=== PATIENT | male | born 1940 | race Caucasian/White ===

== ENCOUNTER 2023-05-12 19:26 | Observation (INO) | payer OTHER, SELFPAY ==
[2023-05-12 13:23] VITALS: BP 179/59
[2023-05-12 13:57] LABS: % Basophils 0.9 % (0-2); % Eosinophils 4.8 % (0-6); % Immature Granulocytes 0.2 % (0-0.5); % Lymphocytes 12.9 % (20.5-51.1); % Monocytes 8.4 % (1.7-9.3); % Neutrophils 72.8 % (42.2-75.2); Absolute Basophils 0.1 10^3/uL (0-0.2); Absolute Eosinophils 0.4 10^3/uL (0-0.7); Absolute Lymphocytes 1.1 10^3/uL (1.2-3.4); Absolute Monocytes 0.7 10^3/uL (0.1-0.6); Absolute Neutrophils 6.4 10^3/uL (1.4-6.5); Hematocrit 34.3 % (39.0-52.0); Hemoglobin 12.2 g/dL (13.0-18.0); Mean Corp Hgb Conc. 35.6 g/dL (33.0-37.0); Mean Corpuscular Hgb 30.8 pg (27.0-31.0); Mean Corpuscular Volume 86.6 fL (80.0-94.0); Mean Platelet Volume 9.3 fL (7.4-10.4); Nucleated Red Blood Cells % 0 % (-); Platelet Count 326 10^3/uL (130-400); Red Blood Cell Count 3.96 10^6/uL (4.70-6.10); Red Cell Dist. Width 13.6 % (11.5-14.5); White Blood Cell Count 8.7 10^3/uL (4.8-10.8)
[2023-05-12 14:37] LABS: ALT (SGPT) 28 U/L (0-50); AST (SGOT) 32 U/L (17-59); Albumin 3.5 g/dl (3.5-5.0); Alkaline Phosphatase 125 U/L (38-126); Blood Urea Nitrogen 34 mg/dl (9-20); Calcium 8.8 mg/dl (8.4-10.2); Carbon Dioxide 23 mmol/L (22-30); Chloride 102 mmol/L (98-107); Glucose 119 mg/dl (70-99); Lipase 133 U/L (23-300); Sodium 132 mmol/L (135-145); Total Bilirubin 0.7 mg/dl (0.2-1.3); Total Protein 6.3 g/dl (6.3-8.2); eGFR 49.87
--- NOTE | 2023-05-12 16:40 | ED.GENMED ---
History of Present Illness
General
Chief Complaint: Blood Pressure Problem
Source: patient
Exam Limitations: none
Time Seen by Provider: 05/12/23 15:58
Nursing documentation reviewed up to this point in time: agreed with
Travel History
Have you had any contact with someone who has COVID-19?: No
Do you have any symptoms of coronavirus? Fever > 100 degrees, chills, cough, shortness of breath, sore throat, loss of taste or smell, muscle aches, or headache?: No
History of Present Illness
History of Present Illness:
The patient is an 82-year-old man who comes in with complaints of not feeling well. He reports he has been on about 3 weeks of antibiotics to treat a skin infection of his left lower leg. He reports the infection is greatly improved, however, he
reports he has been feeling nauseous. In addition, he reports he has had a headache behind both eyes today, which is highly unusual for him. He denies vision changes, weakness and numbness. He denies fever, chest pain or shortness of breath.
Patient reports he was evaluated urgent care and told to go to the ED due to his very elevated blood pressure. Patient reports that he took his blood pressure medication today as instructed. He denies leg pain and leg swelling. He reports his
systolic blood pressure is generally in the 150s. He denies vomiting, specific abdominal pain, diarrhea, and constipation
Past History
Past History
ED Past Medical History: CAD, COPD, HTN, Hypercholesterolemia, Other (Renal insufficiency) and Other (Prostatic hypertrophy)
ED Past Surgical History: Cardiac (Cardiac bypass 2017), Orthopedic (Left knee replacement 2017) and Other (Nasal polyps)
Social History
Tobacco: Former smoker
Alcohol: None
Drug: None
Personal:
Living: with family
Employment: Retired
Family History
Family History: Other (Unremarkable)
Review of Systems
Review of Systems
Allergies reviewed?: Yes
Other source history: family
All Other Systems: ROS reviewed and negative except as documented in HPI and ROS
Constitutional: Reports no symptoms
EENT: Reports no symptoms
Respiratory: Reports no symptoms
Cardiac: Reports no symptoms
ABD/GI: Reports nausea
: Reports no symptoms
Musculoskeletal: Reports no symptoms
Skin: Reports other (Improving skin infection left lower leg)
Neurological: Reports headache
Endocrine: Reports no symptoms
Hematologic/Lymphatic: Reports no symptoms
Psychiatric: Reports no symptoms
Phy Exam
Physical Exam
Physical Exam:
Physical Exam
General: no apparent distress, not acutely ill
Neck: supple. no meningeal signs. normal psoterior pharynx
Heart: s1/s2 regular rate and rhythm,
Lungs: no acute respiratory distress. clear bilaterally
Abdomen: normal bowel sounds. not tender. no CVAT
Neuro: alert and orientedx3. no focal neurological deficits. Cranial nerves equal and symmetric bilaterally. Extraocular muscles intact. Normal [id number]. 5 out of 5 strength in all extremities without drift.
Skin: no rash
Psychiatric: well kept. interactive and cooperative
Extremities: no edema. no calf tenderness. negative homans. good distal pulses. Very mild skin erythema surrounding skin breakdown of anterior left lower leg
Course
Orders/Labs/Results
Orders:
Orders
05/12/23 Breakfast
Cholesterol Lowering
At Your Request: Full Participation
Does patient need a safe tray?: No
Cholesterol Lowering: Sodium, 2 Gram
05/12/23 13:28
Electrocardiogram (*1) Urgent
Reason for Study: Abdominal Pain
EKG- Treatment ONCE
05/12/23 13:45
Complete Blood Count/With Diff Urgent
Comprehensive Metabolic Panel Urgent
Lipase Urgent
05/12/23 16:39
CT Head W/o Iv Contrast Urgent
Comment:
Reason For Exam: headache, high BP
05/12/23 17:31
Troponin I Urgent
05/12/23 18:13
Labetalol HCl [Trandate] 20 mg IV NOW STA
05/12/23 18:48
Admit/Transfer Patient As Directed
Co-Sign Provider:
Level of Care: Observation services
Assign to:: Telemetry
Physician / Group: maxwell gruber
Diagnosis: hypertension urgency
Reason for Telemetry: Other
Other Reason for Telemetry: htn urgency
Date to Stop Telemetry: 05/14/23
Time to Stop Telemetry: 11:00
05/12/23 18:51
Code Status As Directed
Resuscitation Status: Full Code
05/12/23 20:05
Acetaminophen [Tylenol] 650 mg PO Q4HPRN PRN
Allopurinol [Zyloprim] 100 mg PO QPM
Atorvastatin [Lipitor] 40 mg PO QPM
Budesonide/Formoterol 80/4.5 [Symbicort 80/4.5 Mcg Inhaler] 2 puff INH R BID
Finasteride [Proscar] 5 mg PO QPM
Furosemide [Lasix] 40 mg PO BID@0800,1600
HydrALAZINE [Apresoline] 5 mg IV Q6HPRN PRN
05/12/23 20:05
Activity As Directed
Activity Level: As Tolerated
Vital Signs As Directed
Frequency: Per unit guidelines
DX Deep Vein Thrombosis Video Routine
05/12/23 20:30
Heparin 5,000 units SC Q12
05/12/23 22:00
Carvedilol [Coreg] 25 mg PO BID
HydrALAZINE [Apresoline] 100 mg PO TID
Melatonin 10 mg PO HS
Minocycline [Minocin] 100 mg PO BID
05/13/23 07:23
Basic Metabolic Panel IN AM
Complete Blood Count/No Diff IN AM
05/13/23 08:00
ISOSORBIDE MONOnitrate ER [Imdur (Extended Release)] 60 mg PO DAILY
NIFEdipine EXTENDED RELEASE [Procardia Xl (Extended Release)] 90 mg PO DAILY
Pantoprazole [Protonix] 40 mg PO DAILY
Potassium Chloride [KCl] 20 meq PO BID@0800,1200
Psyllium [Metamucil, Konsyl] 1 packet PO BID
Tiotropium [place] 2.5 Mcg [Spiriva Respimat 2.5 Mcg] 2 puff INH R DAILY
05/13/23 18:00
Aspirin Low Dose EC [Aspir Low (Enteric Coated)] 81 mg PO QPM
Polyethylene Glycol Powder [Miralax] 17 grams PO QPM
Tamsulosin [Flomax] 0.8 mg PO QPM
05/14/23 11:00
DC Protocol for Telemetry ONCE
Abnormal Lab Results
05/12/23
13:45
RBC 3.96 L 10^6/uL
(4.70-6.10)
Hgb 12.2 L g/dL
(13.0-18.0)
Hct 34.3 L %
(39.0-52.0)
Absolute Lymphs (auto) 1.1 L 10^3/uL
(1.2-3.4)
Absolute Monos (auto) 0.7 H 10^3/uL
(0.1-0.6)
Lymphocytes % 12.9 L %
(20.5-51.1)
Sodium 132 L mmol/L
(135-145)
BUN 34 H mg/dl
(9-20)
Creatinine 1.4 H mg/dL
(0.7-1.3)
Glucose 119 H mg/dl
(70-99)
05/12/23 13:45
05/12/23 13:45
Vital Signs
Initial and Last Documented VS:
Initial Vital Signs
Temp Pulse Resp BP Pulse Ox
98.0 F 50 20 179/59 96
05/12/23 13:23 05/12/23 13:23 05/12/23 13:23 05/12/23 13:23 05/12/23 13:23
Last Documented Vital Signs
Temp Pulse Resp BP Pulse Ox
97.5 F 56 16 159/67 93
05/13/23 07:00 05/13/23 07:51 05/13/23 07:51 05/13/23 07:00 05/13/23 07:51
MDM/Problems Addressed
Differential Diagnosis Includes:
Hypertensive urgency, hypertensive emergency, dehydration
MDM/Problems Addressed:
Patient presents with acute nausea and headache, as well as acutely elevated blood pressure
Chronic conditions affecting care: HTN
Acute Exacerbation and/or Progression of Chronic Illness:
Patient presents with acutely elevated blood pressure
*Radiology
Radiology exam reviewed: radiology read reviewed
*Pulse Oximetry
Patient hypoxic: no
*EKG
Interpreted by ED Provider?: Yes
Interpretation: abnormal
Comparison EKG: no changes
Rate: bradycardiac
Rhythm: sinus
[place]: normal axis
Interval: normal interval
QRS Pattern: right bundle branch block
Ischemia: non-specific ST changes
*Fruit Dumper Interpretation
Rate: normal
Interpretation: normal
Rhythm: sinus
*Critical Care Note
Total Time (30-74mins, 75-104mins- exclusive of procedures): Not Applicable
Data Reviewed
Review of Other/Old Records Reveals: Discharge Summary (Discharge summary reviewed from 05/2022 when patient was admitted for a likely viral gastroenteritis)
Source: patient and family
ED Attending Note
-
Portions of this chart may have been created with voice recognition software.� Occasional wrong word or��sound alike� substitutions may have occurred due to the inherent limitations of voice recognition software.
Discharge Plan
Departure
Patient Disposition: Admit
Date of Disposition: 05/12/23
Time of Disposition: 18:13
Admit to: Telemetry
Presentation/result/management discussed w/ accepting MD/DO: Hospitalist
Patient with high blood pressure during this ER visit?: Yes
Condition: Good
Covid-19: Not Applicable
Discharge Problem:
UNCONTROLLED BLOOD PRESSURE
Interventions
Interventions:
*Risk Screen - Suicide Last Done: 05/12/23 21:05
*General Assessment Last Done: 05/12/23 21:05
*Neglect/Abuse Screening Last Done: 05/12/23 17:28
ED- Fall Risk Assessment Last Done: 05/12/23 21:06
*ED COVID-19 Vaccine History Last Done: 05/12/23 21:05
*Nursing Disposition Last Done: 05/12/23 21:06
ED- Cardiac Assessment Last Done: 05/12/23 17:29
ED- Neurological Assessment Last Done: 05/12/23 17:29
ED- Pulmonary Assessment Last Done: 05/12/23 17:29
Discharge Date and Time
Discharge Date/Time: 05/12/23 21:06
[2023-05-12 17:18] VITALS: BP 190/53
[2023-05-12 17:28] VITALS: BMI 29.7
[2023-05-12 18:21] LABS: Troponin I 0.012 ng/ml
--- NOTE | 2023-05-12 18:21 | HPS.HSE ---
Family Physician
-
Family Physician: Stephen Suazo
Chief Complaint
-
head ache
History of Present Illness
82-year-old man with PMH for htn,CAD,HTN, HLD.CKD presented to us with frontal headache associated with chest pressure since yesterday afternoon. denied n/v/d. denied dizzy, syncopal episode. denied sob. denied abdominal pain, n,v, d. denied dysuria
or hematuria. He reports he has been on about 3 weeks of antibiotics to treat a skin infection of his left lower leg.� He denies vision changes, weakness and numbness. Patient reports he was evaluated urgent care and told to go to the ED due to his
very elevated blood pressure.� Patient reports that he took his blood pressure medication today as instructed.� He reports his systolic blood pressure is generally in the 150s.�
patient was noted in hypertension urgency. received a dose of labetalol. admitting for further management.
Medical History
Past Medical History
Past Medical History: Reports Other
Additional Past Medical History:
CAD
COPD
HTn
HLD
BPH
Past Surgical History: Reports Other
Additional Past Surgical History:
Coronary artery bypass graft, left knee replacement, nasal surgery
Social History
Tobacco: Non-smoker
Alcohol: None
Drug: None
Personal:
Living: With Family
Family History
Family History: Not pertinent
Allergies / Home Medications
Allergies reflects when Allergies were last updated in [facility].
Home Medications with original date entered in [facility]
Allergy/Medication List:
Allergies
Allergy/AdvReac Type Severity Reaction Status Date / Time
sulfamethoxazole Allergy Unknown Unknown Verified 07/14/22 13:15
[From Bactrim]
trimethoprim [From Bactrim] Allergy Unknown Unknown Verified 05/12/23 13:23
Home Medications
atorvastatin 40 mg tablet 40 mg PO QPM High cholesterol 11/09/21
budesonide-formoterol HFA 80 mcg-4.5 mcg/actuation aerosol inhaler (Symbicort) 2 puff inhalation R BID Lung/breathing issues 11/09/21
carvedilol 25 mg tablet 12.5 mg PO BID Heart disease/condition 11/09/21
cholecalciferol (vitamin D3) 25 mcg (1,000 unit) capsule (Vitamin D3) 25 mcg PO QPM Supplement 11/09/21
finasteride 5 mg tablet 5 mg PO QPM Urinary issue 11/09/21
hydralazine 100 mg tablet 100 mg PO TID Blood pressure 11/09/21
isosorbide mononitrate 60 mg tablet,extended release 24 hr 60 mg PO DAILY Blood pressure 11/09/21
melatonin 10 mg tablet 10 mg PO HS Sleep 11/09/21
nifedipine 90 mg tablet,extended release 90 mg PO DAILY Heart disease/condition 11/09/21
omeprazole 40 mg capsule,delayed release 40 mg PO DAILY Gastrointestinal issue 11/09/21
polyethylene glycol 3350 17 gram/dose oral powder (Miralax) 17 g PO QPM Constipation 11/09/21
tamsulosin 0.4 mg capsule 0.8 mg PO QPM Urinary issue 11/09/21
tiotropium bromide 18 mcg capsule with inhalation device 18 mcg inhalation R BID Lung/breathing issues 11/09/21
allopurinol 100 mg tablet 100 mg PO QPM Gout 06/05/22
aspirin 81 mg tablet,delayed release 81 mg PO QPM Blood clot prevention/tx 06/05/22
furosemide 40 mg tablet 40 mg PO BID@0800,1600 Fluid retention/Swelling 06/05/22
potassium chloride 20 mEq tablet,extended release(part/cryst) 20 meq PO BID@0800,1200 Electrolyte Repletion 06/05/22
psyllium husk 0.52 gram capsule (Fiber (psyllium husk)) 0.52 g PO BID Constipation 06/05/22
therapeutic multivitamin 1 tab PO QPM Supplement 06/05/22
vitamin B complex 1 tab PO DAILY Supplement 06/05/22
minocycline 100 mg capsule 100 mg PO TID 05/12/23
omega-3 fatty acids-fish oil 684 mg-1,200 mg capsule,delayed release 1 cap PO QPM 05/12/23
Review of Systems
-
Constitutional: Reports No Symptoms
EENT: Reports No Symptoms
Respiratory: Reports No Symptoms
Cardiac: Reports No Symptoms
Abdomen/GI: Reports No Symptoms
: Reports No Symptoms
Musculoskeletal: Reports No Symptoms
Skin: Reports No Symptoms
Neurological: Reports Headache
Endocrine: Reports No Symptoms
Hematologic/Lymphatic: Reports No Symptoms
Psych: Reports No Symptoms
Physical Exam
Vital Signs
Vital Signs
Temp Pulse Resp BP Pulse Ox
98.0 F 50 20 179/59 96
05/12/23 13:23 05/12/23 13:23 05/12/23 13:23 05/12/23 13:23 05/12/23 13:23
Physical Exam
General: Well Developed, Well Nourished and No Apparent Distress
HEENT: NormoCephalic, Moist mucous membranes and Atraumatic
Respiratory: Clear
Cardiac: Murmur; No Rub
GI: Soft, Non Tender, Non Distended and Normal Bowel Sounds; No Organomegaly
Rectal: Deferred by Provider
Musculoskeletal: No Clubbing, No Cyanosis and No Edema
Skin: Rash and Other (Left garcia wound)
Neuro: AO x 3 and Nonfocal/grossly intact
Psych: Calm
Laboratory Results
-
05/12/23 13:45
05/12/23 13:45
Laboratory Results
Total Bilirubin 0.7 mg/dl (0.2-1.3) 05/12/23 13:45
AST 32 U/L (17-59) 05/12/23 13:45
ALT 28 U/L (0-50) 05/12/23 13:45
Alkaline Phosphatase 125 U/L (38-126) 05/12/23 13:45
Lipase 133 U/L (23-300) 05/12/23 13:45
Data Reviewed
-
CT Scan: Report Reviewed by me
Lab Data: Labs Reviewed by me
Impression/Plan
-
#hypertension urgency
-BP elevated in ER
-trop negative
-head CT with There are no focal or acute cranial abnormalities.There is mild diffuse cortical atrophy
-EKG with SINUS BRADYCARDIA WITH 1ST DEGREE A-V BLOCK RIGHT BUNDLE BRANCH BLOCK INFERIOR INFARCT
-IV hydralazine 5 mg every 6 hours as needed for systolic BP greater than 160 and diastolic BP greater than 100
-Nifedipine continued hydralazine continued
-Lasix continued
- coreg continued with parameters
-
#hyponatremia/ckd stage 3b
-na 132, cr 1.4
-Continue to monitor
#History of coronary artery disease, right bundle branch block, moderate tricuspid regurgitation
-Aspirin continued
# Left lower extremity wound
-Minocycline continued
#Gastroesophageal reflux disease
-Prilosec continued
#History of hyperlipidemia
-Statin continued
##History of chronic kidney disease stage IIIb
#Benign prostatic hyperplasia/history of urinary retention in the past
-Finasteride, Flomax continued
# History of COPD
-Not in acute exacerbation
-Nebulizers from home continued
#History of gout
-Allopurinol continued
# DVT prophylaxis
-Heparin subcu
# CODE STATUS
-Full code
[2023-05-12 18:28] VITALS: BP 213/62
[2023-05-12] MEDS: TRANDATE 20 MG IV (18:35)
[2023-05-12 18:38] VITALS: BP 191/59
--- NOTE | 2023-05-12 18:41 | W.PN.UPDATE ---
Update Note
Progress Note Update
Seen and examined by me independently in collaboration with the nurse practitioner Julien.
Past medical history/social history/medication/allergies reviewed.
Lab data and imaging data reviewed.
Patient's presents with nonspecific bifrontal headache for day and a half. He had associated generalized feeling of unwell. Some nonspecific upper abdomen discomfort queasiness. No chest pain.
He has been treated for a left leg cellulitis with antibiotics which is improved. Clinically current has no acute cellulitis in the left leg. He has a small open wound. No discharge. Afebrile. White count normal.
He went to urgent care center who referred him to the ER because of significant elevation in blood pressure. His blood pressure current systolic is 213. Getting IV labetalol.
No changes made to his medication regimen recently. He does not check blood pressure at home. He always checks it in the doctor's office in the last 1 in the cardiology office was 150s systolic.
He has no chest pain, shortness of breath. His creatinine is 1.4 around his baseline. His exam otherwise is benign. EKG noted with sinus rhythm with right bundle branch block which is old. CT head shows no evidence of acute intracranial
abnormality. No clinical evidence of congestive heart failure.
Situation is 1 of hypertensive urgency. Follow the response of labetalol. Follow on telemetry. For now we will consider hydralazine IV 5 mg every 6 hours as needed and be cautious with negative chronic trophic medications due to his bundle branch
block.
He is already on Coreg, Imdur, hydralazine, nifedipine along with Lasix.
He had left heart cath in 2021 recommendation. Was for medical treatment. He had a prior history of CABG. Echo in 2020 showed EF of 60 to 65%.
Will resume his home medication for tonight. Again follow the response of labetalol. Use as needed hydralazine IV for now.
If blood pressure remains uncontrolled the next choices would be clonidine, minoxidil. Will coordinate with cardiology.
[2023-05-12 19:01] VITALS: BP 181/52
[2023-05-12] MEDS: LIPITOR 40 MG PO (20:30)
[2023-05-12] MEDS: PROSCAR 5 MG PO (20:30)
[2023-05-12] MEDS: LASIX 40 MG PO (20:30)
[2023-05-12] MEDS: ZYLOPRIM 100 MG PO (20:30)
[2023-05-12] MEDS: HEPARIN 5000 UNITS SC (20:30)
[2023-05-12] MEDS: SYMBICORT 80/4.5 MCG INHALER 2 PUFF INH (20:41)
--- NOTE | 2023-05-12 20:50 | TRANSFER ---
Pt received from ED to room 419-2. Pt was able to walk from stretcher to bed with no assistance. AAOX3. Pt VSS. Oriented to the room and call morse placed within reach.
[2023-05-12] MEDS: COREG 25 MG PO (21:02)
[2023-05-12] MEDS: APRESOLINE 100 MG PO (21:02)
[2023-05-12] MEDS: MELATONIN 10 MG PO (21:03)
[2023-05-12 21:25] VITALS: BP 185/63; BMI 28.5
[2023-05-12] MEDS: MINOCIN 100 MG PO (22:49)
[2023-05-13] VITALS (8 sets, daily range): BP systolic 145–168; BP diastolic 5–71
[2023-05-13] MEDS: SPIRIVA RESPIMAT 2.5 MCG 2 PUFF INH (07:48)
[2023-05-13] MEDS: SYMBICORT 80/4.5 MCG INHALER 2 PUFF INH ×2 (07:48→20:40)
[2023-05-13 08:00] LABS: Blood Urea Nitrogen 31 mg/dl (9-20); Calcium 8.8 mg/dl (8.4-10.2); Carbon Dioxide 27 mmol/L (22-30); Chloride 98 mmol/L (98-107); Estimated Creatinine Clearance 40 ml/min; Glucose 93 mg/dl (70-99); Potassium 3.3 mmol/L (3.5-5.1); Sodium 134 mmol/L (135-145); eGFR 49.87
[2023-05-13 08:31] LABS: Hematocrit 33.8 % (39.0-52.0); Hemoglobin 11.8 g/dL (13.0-18.0); Mean Corp Hgb Conc. 34.9 g/dL (33.0-37.0); Mean Corpuscular Hgb 30.4 pg (27.0-31.0); Mean Corpuscular Volume 87.1 fL (80.0-94.0); Mean Platelet Volume 9.9 fL (7.4-10.4); Platelet Count 307 10^3/uL (130-400); Red Blood Cell Count 3.88 10^6/uL (4.70-6.10); Red Cell Dist. Width 13.6 % (11.5-14.5); White Blood Cell Count 7.3 10^3/uL (4.8-10.8)
[2023-05-13] MEDS: PROTONIX 40 MG PO (08:52)
[2023-05-13] MEDS: IMDUR (EXTENDED RELEASE) 60 MG PO (08:52)
[2023-05-13] MEDS: PROCARDIA XL (EXTENDED RELEASE) 90 MG PO (08:52)
[2023-05-13] MEDS: MINOCIN 100 MG PO ×2 (08:52→20:30)
[2023-05-13] MEDS: COREG 25 MG PO ×2 (08:52→20:30)
[2023-05-13] MEDS: KCL 20 MEQ PO ×3 (08:52→14:56)
[2023-05-13] MEDS: APRESOLINE 100 MG PO ×3 (08:52→21:23)
[2023-05-13] MEDS: LASIX 40 MG PO (08:52)
[2023-05-13] MEDS: METAMUCIL, KONSYL 1 PACKET PO ×2 (08:53→20:30)
[2023-05-13] MEDS: HEPARIN 5000 UNITS SC ×2 (08:53→20:30)
--- NOTE | 2023-05-13 11:04 | PTCARENOTE ---
Notified provider of patient's bradycardia, HR sustaining in high 40's, EKG performed see chart. Awaiting further orders per MD discretion
--- NOTE | 2023-05-13 13:42 | CM ---
Addendum entered by Aarti Chanel 05/13/23 13:57:
CM spoke with Veronica nurse from [facility]. Confirmed patient is independent with ADLs/IADLs, self administers medications, resides with and dog. CM will update facility upon patients discharge.
[facility]:
Report: [phone]

Addendum entered by Aarti Chanel 05/13/23 13:48:
Patient has BPAP, not CPAP.
Original Note:
Patient seen, initial assessment completed. Patient reports he resides with his at [facility] in [place]. Patient reports he does not need the assisted living but rather his does. Patient denies DME other than [facility]AP
[facility], denies VN and SNF. Patient confirms PCP Dr. Suazo, pharmacy has been switched to [facility] in [place] on [facility] status explained, form signed, placed in patients chart. CM placed call to [facility] and spoke with
Flor, nursing station not answering, took CM name and number and will call CM back to obtained patients PLOF. CM will continue to follow for discharge planning needs.
Plan; return to [facility] when stable.
--- NOTE | 2023-05-13 14:11 | W.PN.HOSP.TC ---
Today's Communication/Plan
-
Consult cardiology
Assessment / Plan
Assessment / Plan
#hypertension urgency
-trop negative
-head CT with There are no focal or acute cranial abnormalities.There is mild diffuse cortical atrophy
-EKG with SINUS BRADYCARDIA WITH 1ST DEGREE A-V BLOCK RIGHT BUNDLE BRANCH BLOCK INFERIOR INFARCT
-Patient on Coreg, nifedipine, Imdur, hydralazine and diuretic Lasix
-Patient's blood pressure improved but still not under goal.
-Consult cardiology
# sinus bradycardia without symptoms;no syncope
No pauses
Pt on coreg and nifedipine
Follow on tele for now
-
#hyponatremia/ckd stage 3b
-na 134 improved, cr 1.4
-Continue to monitor
#History of coronary artery disease, right bundle branch block, moderate tricuspid regurgitation
-Aspirin continued
# Left lower extremity wound
-Minocycline continued
#Gastroesophageal reflux disease
-Prilosec continued
#History of hyperlipidemia
-Statin continued
##History of chronic kidney disease stage IIIb
#Benign prostatic hyperplasia/history of urinary retention in the past
-Finasteride, Flomax continued
# History of COPD
-Not in acute exacerbation
-Nebulizers from home continued
#History of gout
-Allopurinol continued
# DVT prophylaxis
-Heparin subcu
# CODE STATUS
-Full code
Anticipated Discharge: Within 24 hours
Subjective/Interval History
-
Date of Service: May 13, 2023
Headache symptoms resolved; upper abdominal discomfort resolved. Voices no specific complaints.
Objective Data
-
Labs:
Laboratory Results
05/13/23
07:23
WBC 7.3
Hgb 11.8 L
Hct 33.8 L
Plt Count 307
Sodium 134 L
Potassium 3.3 L
Chloride 98
Carbon Dioxide 27
BUN 31 H
Creatinine 1.4 H
Glucose 93
Calcium 8.8
Vital Signs:
Vital Signs
Temp Pulse Resp BP Pulse Ox
97.5 F 52 18 165/53 95
05/13/23 11:00 05/13/23 11:00 05/13/23 11:00 05/13/23 11:00 05/13/23 11:00
I&O
05/12/23 05/13/23 05/14/23
06:59 06:59 06:59
Intake Total 480 / 480
Balance 480 / 480
Review of Systems
-
Constitutional: Denies Fever or Fatigue
EENT: Denies Sore Throat
Respiratory: Denies Cough or Trouble Breathing
Cardiac: Denies Chest Pain
Abdomen/GI: Denies Abdominal Pain, Nausea or Vomiting
Neuro: Denies Dizzy
Physical Exam
-
General: No Apparent Distress
HEENT: Moist Mucous Membranes
Respiratory: Clear to Auscultation
Cardiac: Regular Rhythm and S1/S2
GI: Soft
Neuro: AO x 3
Data Reviewed
-
Labs: Labs Reviewed by me
[2023-05-13] MEDS: ALDACTONE 25 MG PO (14:56)
[2023-05-13] MEDS: LASIX 20 MG PO (16:31)
[2023-05-13] MEDS: ASPIR LOW (ENTERIC COATED) 81 MG PO (17:36)
[2023-05-13] MEDS: MIRALAX 17 GRAMS PO (17:36)
[2023-05-13] MEDS: FLOMAX 0.800000000000000044 MG PO (17:36)
[2023-05-13] MEDS: PROSCAR 5 MG PO (17:36)
[2023-05-13] MEDS: LIPITOR 40 MG PO (17:36)
[2023-05-13] MEDS: ZYLOPRIM 100 MG PO (17:36)
[2023-05-13] MEDS: MELATONIN 10 MG PO (21:23)
[2023-05-14 03:15] VITALS: BP 147/88
[2023-05-14 07:00] VITALS: BP 175/63
[2023-05-14] MEDS: SYMBICORT 80/4.5 MCG INHALER 2 PUFF INH (07:56)
[2023-05-14] MEDS: SPIRIVA RESPIMAT 2.5 MCG 2 PUFF INH (07:56)
[2023-05-14] MEDS: COREG 25 MG PO (07:59)
[2023-05-14] MEDS: PROTONIX 40 MG PO (08:01)
[2023-05-14] MEDS: MINOCIN 100 MG PO (08:01)
[2023-05-14] MEDS: PROCARDIA XL (EXTENDED RELEASE) 90 MG PO (08:01)
[2023-05-14] MEDS: APRESOLINE 100 MG PO (08:02)
[2023-05-14] MEDS: LASIX 20 MG PO (08:03)
[2023-05-14] MEDS: KCL 20 MEQ PO ×2 (08:04→12:06)
[2023-05-14] MEDS: IMDUR (EXTENDED RELEASE) 60 MG PO (08:04)
[2023-05-14] MEDS: METAMUCIL, KONSYL 1 PACKET PO (08:04)
[2023-05-14] MEDS: HEPARIN 5000 UNITS SC (08:05)
[2023-05-14] MEDS: ALDACTONE 25 MG PO (08:23)
[2023-05-14 08:24] LABS: Blood Urea Nitrogen 30 mg/dl (9-20); Carbon Dioxide 23 mmol/L (22-30); Chloride 98 mmol/L (98-107); Estimated Creatinine Clearance 40 ml/min; Glucose 117 mg/dl (70-99); Magnesium 1.8 mg/dl (1.6-2.3); Potassium 3.6 mmol/L (3.5-5.1); Sodium 130 mmol/L (135-145); eGFR 49.87
--- NOTE | 2023-05-14 08:47 | CON.CAR ---
Addendum entered and electronically signed by AUGUSTIN Savage 05/14/23 13:23:
Carvedilol was increased to 25 mg twice daily. Heart rate stable.
Continue furosemide at current dosing in addition to Aldactone.
Original Note:
Documented by User: AUGUSTIN Savage 05/14/23 09:32
Consultation
Consultation Request
Date/Time Consultation Requested: 05/13/23 14:00
Date/Time Consultation Performed: 05/14/23 08:50
Requesting Provider: Dr. Rosenberg
Performing Provider: AUGUTSIN Berg for Dr. Toledo
Reason for Consultation: Hypertensive urgency
Medical History
-
Chief Complaint: Headache, elevated blood pressure
History of Present Illness:
Patient is an 82-year-old male (known to Dr. Dong, his primary radio operator), with CAD s/p MEDEIROS�LAD CABG 2017, hypertension, dyslipidemia, CKD3b, ARMAAN on CPAP, RBBB, COPD, pulmonary hypertension, PAD, and anemia of chronic disease who presented
to urgent care with left leg infection. He had been having elevated BP. Blood pressure 181/106 in urgent care. He was referred to the emergency department. He was diagnosed with hypertensive urgency. He has multidrug hypertension with chronic
kidney disease. Cardiology has been consulted for hypertensive management.
Past Medical History
Past Medical History: CAD, COPD, HTN, Hypercholesterolemia and Renal Failure (CKD3b)
Past Surgical History: Cardiac
Social History
Tobacco: Non-Smoker
Alcohol: None
Drug: None
Personal:
Living: Assisted Living (with his [[facility]
Family History
Family History: Reviewed & Not Pertinent
Allergies / Home Medications
Allergy/AdvReac Type Severity Reaction Status Date / Time
sulfamethoxazole Allergy Unknown Unknown Verified 07/14/22 13:15
[From Bactrim]
trimethoprim [From Bactrim] Allergy Unknown Unknown Verified 05/12/23 13:23
Medication Instructions Recorded Confirmed Type
atorvastatin 40 mg tablet 40 mg PO QPM High cholesterol 11/09/21 05/12/23 History
budesonide-formoterol HFA 80 2 puff inhalation R BID 11/09/21 05/12/23 History
mcg-4.5 mcg/actuation aerosol Lung/breathing issues
inhaler (Symbicort)
carvedilol 25 mg tablet 12.5 mg PO BID Heart 11/09/21 05/12/23 History
disease/condition
cholecalciferol (vitamin D3) 25 25 mcg PO QPM Supplement 11/09/21 05/12/23 History
mcg (1,000 unit) capsule (Vitamin
D3)
finasteride 5 mg tablet 5 mg PO QPM Urinary issue 11/09/21 05/12/23 History
hydralazine 100 mg tablet 100 mg PO TID Blood pressure 11/09/21 05/12/23 History
isosorbide mononitrate 60 mg 60 mg PO DAILY Blood pressure 11/09/21 05/12/23 History
tablet,extended release 24 hr
melatonin 10 mg tablet 10 mg PO HS Sleep 11/09/21 05/12/23 History
nifedipine 90 mg tablet,extended 90 mg PO DAILY Heart 11/09/21 05/12/23 History
release disease/condition
omeprazole 40 mg capsule,delayed 40 mg PO DAILY Gastrointestinal 11/09/21 05/12/23 History
release issue
polyethylene glycol 3350 17 17 g PO QPM Constipation 11/09/21 05/12/23 History
gram/dose oral powder (Miralax)
tamsulosin 0.4 mg capsule 0.8 mg PO QPM Urinary issue 11/09/21 05/12/23 History
tiotropium bromide 18 mcg capsule 18 mcg inhalation R BID 11/09/21 05/12/23 History
with inhalation device Lung/breathing issues
allopurinol 100 mg tablet 100 mg PO QPM Gout 06/05/22 05/12/23 History
aspirin 81 mg tablet,delayed 81 mg PO QPM Blood clot 06/05/22 05/12/23 History
release prevention/tx
furosemide 40 mg tablet 40 mg PO BID@0800,1600 Fluid 06/05/22 05/12/23 History
retention/Swelling
potassium chloride 20 mEq 20 meq PO BID@0800,1200 /05/12/23 History
tablet,extended release(part/cryst) Electrolyte Repletion
psyllium husk 0.52 gram capsule 0.52 g PO BID Constipation 06/05/22 05/12/23 History
(Fiber (psyllium husk))
therapeutic multivitamin 1 tab PO QPM Supplement 06/05/22 05/12/23 History
vitamin B complex 1 tab PO DAILY Supplement 06/05/22 05/12/23 History
minocycline 100 mg capsule 100 mg PO TID Infection 05/12/23 05/12/23 History
omega-3 fatty acids-fish oil 684 1 cap PO QPM Supplement 05/12/23 05/12/23 History
mg-1,200 mg capsule,delayed release
Review of Systems
-
History Source: Patient
All other systems: Negative unless noted
Respiratory: No Symptoms
Cardiac: No Symptoms
Abdomen/GI: No Symptoms
Physical Exam
Vital Signs
Temp Pulse Resp BP Pulse Ox
97.6 F 60 16 175/63 95
05/14/23 07:00 05/14/23 08:02 05/14/23 08:02 05/14/23 07:00 05/14/23 08:02
Lab Results
05/13/23 07:23
05/14/23 07:32
Troponin I 0.012 ng/ml 05/12/23 17:31
Physical Exam
General: Well Developed, Well Nourished, No Apparent Distress and Comfortable
HEENT: Normocephalic, Anicteric and Moist Mucous Membranes
Respiratory: Clear and Non Labored Respirations
Cardiac: S1/S2 and Regular Rhythm; Negative Peripheral Edema
Breast: Deferred by me
GI: Soft, Non Tender, Non Distended and Normal Bowel Sounds
Rectal: Deferred by Provider
Genito-urinary: No Costovertebral Tender
Musculoskeletal: No Clubbing, No Cyanosis and No Edema
Skin: Warm and Dry
Neuro: AO x 3
Hematologic/Lymphatic: No Lymphadenopathy
Psych: Calm
Impression / Plan
-
Hypertensive urgency with multidrug resistant HTN
-On admission carvedilol 12.5 BID, nifedipine 90 mg, isosorbide mononitrate 60 mg, and hydralazine 100 mg TID
-Cannot advance beta-chris due to bradycardia
-Started on Aldactone 25mg daily
CAD
-Chest pain free, continue ASA
-CABG MEDEIROS�LAD ([place], 2017)
-[facility] 2021: MEDEIROS�LAD patent, 80% mid shaft lesion LM, otherwise luminal irregularities
CKD, stage 3b, stable
Anemia of chronic disease, denies acute bleeding
Dyslipidemia, on atorvastatin
RBBB
PAD
COPD with pulmonary hypertension, continue furosemide
Prediabetes, HgbA1c 5.8%
ARMAAN on CPAP
Gout, on allopurinol
BPH, on finasteride and tamsulosin
Data Reviewed
-
EKG: Report Reviewed by me (Sinus bradycardia, RBBB, old inferior infarct, rate 50)
Medical Tests (Nuc Med, Echo etc): Report Reviewed by me (Cardiac catheterization and echocardiogram as above)
Labs: Labs Reviewed by me
Old Records: Reviewed (Outpatient cardiology notes)

Documented by User: Tamir Toledo MD 05/14/23 10:17
Impression / Plan
-
Hypertensive urgency with multidrug resistant HTN
-On admission carvedilol 12.5 BID, nifedipine 90 mg, isosorbide mononitrate 60 mg, Tamsulosin0.8, and hydralazine 100 mg TID
-Cannot advance beta-chris due to bradycardia
-Started on Aldactone 25mg daily
CAD
-Chest pain free, continue ASA
-CABG MEDEIROS�LAD ([place], 2017)
-[facility] 2021: MEDERIOS�LAD patent, 80% mid shaft lesion LM, otherwise luminal irregularities
CKD, stage 3b, stable
Anemia of chronic disease, denies acute bleeding
Dyslipidemia, on atorvastatin
RBBB
PAD
COPD with pulmonary hypertension, continue furosemide
Prediabetes, HgbA1c 5.8%
ARMAAN on CPAP
Gout, on allopurinol
BPH, on finasteride and tamsulosin
-
I saw and examined the patient.
The [place] GUIDE's note was reviewed and I agree with the note.
Comment: will add aldactone, and followup closely w Dr Dong to review workup for secondary HTN and follow lytes/renal closely
I reviewed with patient (and daughter on speakerphone)
[2023-05-14 11:00] VITALS: BP 176/56
--- NOTE | 2023-05-14 12:53 | W.PN.HOSP.TC ---
Today's Communication/Plan
-
d/c
Assessment / Plan
Assessment / Plan
pt is an 82 year old male
hypertension urgency--trop negative--head CT without focal or acute cranial abnormalities--There is mild diffuse cortical atrophy--Patient on Coreg, nifedipine, Imdur, hydralazine and diuretic Lasix--apprec cards--aldactone added
sinus bradycardia without symptoms;no syncope--Pt on coreg and nifedipine
hyponatremia/ckd stage 3b-- cr 1.4-Continue to monitor
History of coronary artery disease, right bundle branch block, moderate tricuspid regurgitation--Aspirin continued
Left lower extremity wound--Minocycline continued
Gastroesophageal reflux disease--Prilosec continued
History of hyperlipidemia--Statin continued
History of chronic kidney disease stage IIIb
Benign prostatic hyperplasia/history of urinary retention in the past--Finasteride, Flomax continued
History of COPD--Not in acute exacerbation--Nebulizers from home continued
History of gout--Allopurinol continued
DVT prophylaxis-Heparin subcu
CODE STATUS-Full code
Anticipated Discharge: Today
Subjective/Interval History
-
Date of Service: May 14, 2023
pt tells me that he is going home and has been cleared by d/c from cards
Objective Data
-
Labs:
Laboratory Results
05/14/23
07:32
Sodium 130 L
Potassium 3.6
Chloride 98
Carbon Dioxide 23
BUN 30 H
Creatinine 1.4 H
Glucose 117 H
Calcium 9.0
Vital Signs:
max temp for 24 hours
05/14/23
03:15
Temp 98.3 F
Vital Signs
Temp Pulse Resp BP Pulse Ox
97.9 F 57 18 176/56 95
05/14/23 11:00 05/14/23 11:00 05/14/23 11:00 05/14/23 11:00 05/14/23 11:00
I&O
05/13/23 05/14/23 05/15/23
06:59 06:59 06:59
Intake Total 480 / 480 720 / 720
Output Total 500 / 500
Balance 480 / 480 220 / 220
Review of Systems
-
All other systems: Reviewed and negative
Physical Exam
-
General: Well Developed, Well Nourished and No Apparent Distress
HEENT: Normocephalic and Atraumatic
Respiratory: Clear to Auscultation; Negative Wheezes or Rhonchi
Cardiac: Regular Rhythm and S1/S2; Negative Murmur
GI: Soft, Nontender, Nondistended and Normal Bowel Sounds
Musculoskeletal: No Clubbing, No Cyanosis and No Edema
Neuro: Awake
Psych: Calm
--- NOTE | 2023-05-14 12:57 | CM ---
SIM spoke with Flor, she requested that the nurse call to give report to the nurse from . Patient has a ride home at 2:30 pm. CM to follow for discharge planning needs.
[place]:
Report: [phone]
--- NOTE | 2023-05-14 17:34 | W.DCSUMMARY ---
Discharge Summary
Discharge Data
Date of Admission: 05/12/23
Date of Discharge: 05/14/23
-
Pending Results: No
Hospital Course
Primary care physician : Stephen Suazo
Principal Discharge diagnosis : Hypertensive urgency, sinus bradycardia
Chronic Discharge diagnosis : Chronic hyponatremia with chronic kidney disease stage IIIb, history of coronary artery disease, left lower extremity wound, gastroesophageal reflux disease, hyperlipidemia, benign prostatic hyperplasia, history of
chronic obstructive pulmonary disease, history of gout
Hospital Course : Patient was an 82-year-old male who presented with a frontal headache associated with chest pressure since the day prior to admission. He denied nausea, vomiting, diarrhea. He also denied any dizziness or syncopal episodes. He
had been on antibiotics for approximately 3 weeks to treat a skin infection of his lower leg. He was evaluated at an urgent care and told to go to the emergency department due to very elevated blood pressure. Patient was admitted.
Problem #1: Hypertensive urgency. Patient's headache and chest pain were likely due to to his high blood pressure. CAT scan of his head was without any focal or acute intracranial abnormalities. Patient's Coreg was doubled from 12.5 mg twice
daily to 25 mg twice daily, nifedipine, Imdur, hydralazine were all continued. Lasix was decreased from 40 mg to twice daily to 20 mg twice daily and Aldactone was started. He has been cleared for discharge by cardiology with an appointment this
coming Sunday as follow-up. He should get a BMP prior to that appointment. Cardiology has given him prescription.
Problem #2: Sinus bradycardia. Patient was on Procardia, Coreg. Cardiology aware. Cannot push any other medications due to bradycardia. He is asymptomatic.
Problem #3: All other medical issues. These include Chronic hyponatremia with chronic kidney disease stage IIIb, history of coronary artery disease, left lower extremity wound, gastroesophageal reflux disease, hyperlipidemia, benign prostatic
hyperplasia, history of chronic obstructive pulmonary disease, history of gout. These medical issues were stable during his hospitalization. Medications were continued as able. Sodium was 130 at discharge. He should have a BMP prior to this
Sunday's appointment.
Patient is stable for discharge home at this time. If there are any questions regarding this dictation or his hospital stay, please not hesitate to call. Our office number is [phone].
Discharge Plan
-
Patient Disposition: Home (Routine Discharge)
Discharge Diagnosis/Procedures: Hypertensive urgency, sinus bradycardia, hyponatremia with chronic kidney disease stage IIIb, history of coronary artery disease, left lower extremity wound, gastroesophageal reflux disease, hyperlipidemia, benign
prostatic hyperplasia, history of chronic obstructive pulmonary disease, gout
Condition: Good
Diet: Low Fat, Low Sodium and Restrict fluids to 48 oz
Activity: As tolerated
Driving Restrictions: As prior to admission
Bathing Restrictions: None
Blood Work: BMP at [facility] one day prior to cardiology appointment. A script is attached.
Specialty Instructions: Weigh Daily- Call MD for wt gain/loss 3 lbs overnight/5 lbs in 1 week
Referrals:
Fermin Dong MD [Active] - 05/18/23 11:00 am
Stephen Suazo DO [Family Provider] - in less than 1 week
Prescriptions:
New
spironolactone 25 mg Tablet
25 mg PO DAILY Qty: 30 0RF
carvedilol 12.5 mg Tablet
25 mg PO BID Qty: 60 0RF
furosemide 20 mg Tablet
20 mg PO BID@0800,1600 Qty: 60 0RF
Continued
atorvastatin 40 mg Tablet
40 mg PO QPM
nifedipine 90 mg Tablet Extended Release
90 mg PO DAILY
omeprazole 40 mg Capsule,Delayed Release(Dr/Ec)
40 mg PO DAILY
isosorbide mononitrate 60 mg Tablet Extended Release 24 Hr
60 mg PO DAILY
tamsulosin 0.4 mg Capsule
0.8 mg PO QPM
hydralazine 100 mg Tablet
100 mg PO TID
polyethylene glycol 3350 [Miralax] 17 gram/dose Powder
17 g PO QPM
finasteride 5 mg Tablet
5 mg PO QPM
cholecalciferol (vitamin D3) [Vitamin D3] 25 mcg (1,000 unit) Capsule
25 mcg PO QPM
tiotropium bromide 18 mcg Capsule, W/Inhalation Device
18 mcg INHALATION R BID
budesonide-formoterol [Symbicort] 80-4.5 mcg/actuation Hfa Aerosol Inhaler
2 puff INHALATION R BID
melatonin 10 mg Tablet
10 mg PO HS
therapeutic multivitamin Tablet
1 tab PO QPM
allopurinol 100 mg tablet
100 mg PO QPM
aspirin 81 mg Tablet,Delayed Release (Dr/Ec)
81 mg PO QPM
potassium chloride 20 mEq tablet,ER particles/crystals
20 meq PO BID@0800,1200
vitamin B complex Tablet
1 tab PO DAILY
psyllium husk [Fiber (psyllium husk)] 0.52 gram Capsule
0.52 g PO BID
minocycline 100 mg Capsule
100 mg PO TID
Patient Comments:
patient pick up attendant on 05/10/23
omega-3 fatty acids-fish oil 684-1,200 mg Capsule,Delayed Release(Dr/Ec)
1 cap PO QPM
Discontinued
carvedilol 25 mg Tablet
12.5 mg PO BID
furosemide 40 mg Tablet
40 mg PO BID@0800,1600
Discharge Orders:
Discharge Patient (As Directed); Ordered 05/14/23
Ordered By: Mayra Viera
Discharge Date and Time
Discharge Date/Time: 05/14/23 14:41
== END 2023-05-14 14:41 | disposition home or self-care (01) ==
LOC: 4 WEST ACU 19:26
PROVIDERS: Registered Nurse; ADMITTING PHYSICIAN Internal Medicine; ATTENDING PHYSICIAN Internal Medicine; CONSULT PHYSICIAN Internal Medicine Cardiovascular Disease; EMERGENCY PHYSICIAN Emergency Medicine; FAMILY PHYSICIAN Internal Medicine
DX: I16.0 Hypertensive urgency (principal); I1A.0 Resistant hypertension; R51.9 Headache, unspecified; R11.0 Nausea; I25.10 Atherosclerotic heart disease of native coronary artery without angina pectoris; J44.9 Chronic obstructive pulmonary disease, unspecified; I12.9 Hypertensive chronic kidney disease with stage 1 through stage 4 chronic kidney disease, or unspecified chronic kidney disease; E78.00 Pure hypercholesterolemia, unspecified; R00.1 Bradycardia, unspecified; D63.8 Anemia in other chronic diseases classified elsewhere; N18.32 Chronic kidney disease, stage 3b; E87.1 Hypo-osmolality and hyponatremia; K21.9 Gastro-esophageal reflux disease without esophagitis; I45.10 Unspecified right bundle-branch block; I07.1 Rheumatic tricuspid insufficiency; G31.9 Degenerative disease of nervous system, unspecified; G47.33 Obstructive sleep apnea (adult) (pediatric); I73.9 Peripheral vascular disease, unspecified; I27.20 Pulmonary hypertension, unspecified; R73.03 Prediabetes; M10.9 Gout, unspecified; R07.89 Other chest pain; N40.0 Benign prostatic hyperplasia without lower urinary tract symptoms; Z87.891 Personal history of nicotine dependence; Z95.1 Presence of aortocoronary bypass graft; Z96.652 Presence of left artificial knee joint; Z88.1 Allergy status to other antibiotic agents; Z88.2 Allergy status to sulfonamides; Z79.51 Long term (current) use of inhaled steroids; Z79.82 Long term (current) use of aspirin
CPT/HCPCS: 70450; 80048; 80053; 83690; 83735; 84484; 85025; 85027; 93005; 94640; 96374; 99285; G0378

== ENCOUNTER → 2023-05-17 10:37 | Outpatient (REF) | payer OTHER, SELFPAY ==
[2023-05-17 11:31] LABS: Blood Urea Nitrogen 37 mg/dl (9-20); Calcium 8.9 mg/dl (8.4-10.2); Carbon Dioxide 26 mmol/L (22-30); Chloride 100 mmol/L (98-107); Glucose 100 mg/dl (70-99); Potassium 4.9 mmol/L (3.5-5.1); Sodium 132 mmol/L (135-145); eGFR 34.57
== END ==
LOC: REG 10:37
PROVIDERS: ATTENDING PHYSICIAN Nurse Practitioner Gerontology
DX: I1A.0 Resistant hypertension (principal)
CPT/HCPCS: 36415; 80048

== ENCOUNTER → 2023-08-17 08:10 | Outpatient (REF) | payer OTHER, SELFPAY | LOC: RAD 08:10 | PROVIDERS: ATTENDING PHYSICIAN Internal Medicine | DX: I10 Essential (primary) hypertension (principal) | CPT/HCPCS: 93975 ==

== ENCOUNTER → 2023-08-24 13:33 | Outpatient (REF) | payer OTHER, SELFPAY | LOC: HWRCS 13:33 | PROVIDERS: ATTENDING PHYSICIAN Nurse Practitioner; FAMILY PHYSICIAN Internal Medicine | DX: I10 Essential (primary) hypertension (principal); R60.0 Localized edema; I36.1 Nonrheumatic tricuspid (valve) insufficiency | CPT/HCPCS: 93306 ==

== ENCOUNTER → 2023-08-29 09:05 | Outpatient (REF) | payer OTHER, SELFPAY | LOC: RAD 09:05 | PROVIDERS: ATTENDING PHYSICIAN Internal Medicine | DX: I70.1 Atherosclerosis of renal artery (principal) | CPT/HCPCS: 74174; Q9967 ==

== ENCOUNTER 2023-09-11 05:54 | Day surgery (SDC) | payer OTHER, SELFPAY ==
[2023-09-03 10:08] VITALS: BMI 30.7
[2023-09-03 10:56] LABS: % Basophils 0.6 % (0-2); % Eosinophils 3.2 % (0-6); % Immature Granulocytes 0.3 % (0-0.5); % Lymphocytes 12.1 % (20.5-51.1); % Monocytes 9.2 % (1.7-9.3); % Neutrophils 74.6 % (42.2-75.2); Absolute Basophils 0.1 10^3/uL (0-0.2); Absolute Eosinophils 0.3 10^3/uL (0-0.7); Absolute Lymphocytes 1.2 10^3/uL (1.2-3.4); Absolute Monocytes 0.9 10^3/uL (0.1-0.6); Absolute Neutrophils 7.1 10^3/uL (1.4-6.5); Hematocrit 31.6 % (39.0-52.0); Hemoglobin 10.7 g/dL (13.0-18.0); Mean Corp Hgb Conc. 33.9 g/dL (33.0-37.0); Mean Corpuscular Hgb 30.1 pg (27.0-31.0); Mean Corpuscular Volume 88.8 fL (80.0-94.0); Mean Platelet Volume 9.4 fL (7.4-10.4); Nucleated Red Blood Cells % 0 % (-); Platelet Count 364 10^3/uL (130-400); Red Blood Cell Count 3.56 10^6/uL (4.70-6.10); Red Cell Dist. Width 13.9 % (11.5-14.5); White Blood Cell Count 9.6 10^3/uL (4.8-10.8)
[2023-09-11] VITALS (22 sets, daily range): BP systolic 118–204; BP diastolic 32–86; BMI 30.7
[2023-09-11] MEDS: LOW STRENGTH ASPIRIN 81 MG PO (07:03)
[2023-09-11] MEDS: NSS 275 ML IV (07:05)
[2023-09-11 08:45] LABS: ACT-LR - POC > 397 Seconds (116-155)
[2023-09-11 08:45] LABS: ACT-LR - POC > 397 Seconds (116-155)
--- NOTE | 2023-09-11 09:24 | ITS.CL.ANGIO ---
Field Installation Technician - Angioplasty
Angioplasty
Procedure Report:
RENAL ARTERY ANGIOGRAM AND ANGIOPLASTY REPORT
Date of Procedure: 09/11/2023
Referring: Fermin Dong MD
Indication: Multidrug-resistant hypertension with worsening renal insufficiency and noninvasive evidence of severe bilateral renal artery stenosis
PROCEDURE SUMMARY:
1. Nonselective and bilateral selective renal angiography demonstrating severe ostial and proximal right renal artery stenoses and moderate ostial left renal artery stenosis
2. Successful angioplasty and stenting of ostial and proximal right renal artery lesions with placement of overlapping 6 x 18 Express (BMS) and 5 x 12 Xience felix point (ELIEZER) stents
DESCRIPTION OF PROCEDURE: The patient was referred for bilateral renal angiography with possible intervention due to multidrug-resistant hypertension and CKD. He is currently on 5 antihypertensive medications with systolic blood pressures typically
in the 170-180s. Workup for secondary causes of hypertension include a renal duplex study suggesting hemodynamically significant disease of the right renal artery with partial velocity criteria for hemodynamically significant left renal artery
stenosis. A CTA suggested high-grade right renal artery stenosis with 50-70% left renal artery stenosis.
A 6 Pashto sheath was placed on the right femoral artery. A pigtail catheter was advanced to the abdominal aorta and nonselective angiography performed demonstrating severe calcific atherosclerosis in the abdominal aorta and suggesting right and
possibly left severe renal artery stenosis. Heparin 5000 units was administered. The ACT was Therapeutic for the duration of the procedure. A 6 Pashto VICENTE renal guide was advanced to the ostium of the right renal artery and selective angiography
confirmed severe ostial stenosis and a second area of proximal highly calcific high-grade right renal artery stenosis. A BMW wire was advanced into the distal right renal artery. Angioplasty with a 4 x 20 mm viatrak balloon was performed to 14
anson. We then advanced a 6 x 18 Express stent into the right renal artery. The stent was positioned to make sure that we cover the ostium properly. We had difficulty advancing the stent to a position that was clearly covering the proximal right
renal artery lesion. The stent was deployed at 12 anson. We then used a 5 x 15 mm NC trek to post dilate the ostium to 15 anson. At this point we performed angiography showing an excellent result for the ostial stenosis; however, the proximal right
renal artery lesion was not covered by the stent and needed further work. A 4.0 x 15 NC trek was advanced to cover the proximal lesion and we performed angioplasty to 15 anson. Recognizing that it would be technically challenging to advance a second
stent through the ostial stent we advanced a 6 Pashto guide liner to the ostium of the right radial artery and with significant effort we were able to get the guide liner completely distal to the lesion. This allowed us to pass a 5.0 x 12 Xience
felix point ELIEZER and deployed this in a distal overlapping fashion to the ostial stent. Deployment pressure of 14 anson was followed by postdilatation with a 6 x 30 mm via track of the entire system to 11 anson. The final angiographic result was
outstanding.
At this point, we removed the BMW guidewire from the right renal artery and redirected the VICENTE catheter into the left renal artery. There was a mild ostial pressure gradient of 15-20 mmHg. There was angiographic 60% stenosis which was highly
calcified. A decision was made to defer left renal artery stenting and only perform this if the patient does not have a significant clinical response to the right renal artery stenting done today.
ANTI-COAGULATION THERAPY
1: Heparin 6000 units
Closure Device Used: 6 Pashto Angio-Seal RFA
Radiation (mGy): 803
DAP (cm2.Gy): 99.1
Fluoroscopy time: 26.3 minutes
CONCLUSIONS: Angiography confirming severe calcific right renal artery stenosis (tandem ostial and proximal lesions) and moderate to severe ostial left renal artery stenosis. The patient underwent right renal artery stenting with placement of
overlapping 6 x 18 express and 5 x 12 Xience stents. We will evaluate for clinical response before committing him to left renal artery intervention. Recommend DAPT x 3 months then aspirin monotherapy
Copy to: Fermin Dong MD, Stephen Suazo, DO
Jose Alberto Aviles MD, [facility], [facility]
[2023-09-11] MEDS: CATAPRES PO (09:34)
[2023-09-11] MEDS: NSS 1000 IV (11:14)
[2023-09-11] MEDS: CATAPRES 0.100000000000000006 MG PO ×2 (11:36→20:04)
[2023-09-11] MEDS: PROCARDIA XL (EXTENDED RELEASE) 60 MG PO (12:14)
[2023-09-11] MEDS: PROCARDIA XL (EXTENDED RELEASE) 30 MG PO (12:14)
[2023-09-11] MEDS: TRANDATE 200 MG PO ×2 (12:15→20:07)
--- NOTE | 2023-09-11 16:12 | CM ---
Chart reviewed. Patient is independent of ADLS, lives with his in an assisted living at [facility], elevator access, ambulates occasionally with a rolling walker. Report will need to be called to Nurse on duty [phone],
[2023-09-11] MEDS: APRESOLINE 100 MG PO ×2 (16:13→22:35)
[2023-09-11] MEDS: FLOMAX 0.800000000000000044 MG PO (17:31)
[2023-09-11] MEDS: MIRALAX 17 GRAMS PO (17:31)
[2023-09-11] MEDS: LIPITOR 40 MG PO (17:31)
[2023-09-11] MEDS: SYMBICORT 80/4.5 MCG INHALER 2 PUFF INH (19:42)
[2023-09-11] MEDS: SPIRIVA RESPIMAT 2.5 MCG 2 PUFF INH (19:42)
--- NOTE | 2023-09-11 23:13 | PTCARENOTE ---
R groin dressing cdi. plan of care discussed- pt ambulating in the room as a self- with cane. CPAP set up and on overnight. SR w/ first degree.
[2023-09-12 03:02] VITALS: BP 165/34
[2023-09-12 03:11] LABS: Hematocrit 29.9 % (39.0-52.0); Hemoglobin 10.6 g/dL (13.0-18.0); Mean Corp Hgb Conc. 35.5 g/dL (33.0-37.0); Mean Corpuscular Hgb 30.7 pg (27.0-31.0); Mean Corpuscular Volume 86.7 fL (80.0-94.0); Platelet Count 321 10^3/uL (130-400); Red Blood Cell Count 3.45 10^6/uL (4.70-6.10); Red Cell Dist. Width 13.9 % (11.5-14.5); White Blood Cell Count 8.7 10^3/uL (4.8-10.8)
[2023-09-12 03:37] LABS: Blood Urea Nitrogen 29 mg/dl (9-20); Carbon Dioxide 21 mmol/L (22-30); Chloride 103 mmol/L (98-107); Estimated Creatinine Clearance 40 ml/min; Glucose 108 mg/dl (70-99); HDL Cholesterol 39 mg/dl; LDL Cholesterol, Calculated 51 mg/dl; Sodium 134 mmol/L (135-145); Total Cholesterol 112 mg/dl (50-199); Triglyceride 113 mg/dl (10-149); Very Low Density Lipoprotein 22 mg/dl (0-30); eGFR 45.62
[2023-09-12 03:41] LABS: Potassium 4.1 mmol/L (3.5-5.1)
[2023-09-12] MEDS: SYMBICORT 80/4.5 MCG INHALER 2 PUFF INH (06:53)
[2023-09-12] MEDS: SPIRIVA RESPIMAT 2.5 MCG 2 PUFF INH (06:53)
[2023-09-12 07:23] VITALS: BP 167/49
--- NOTE | 2023-09-12 08:00 | W.PN.UPDATE ---
Update Note
Progress Note Update
83M with five drug resistant hypertension and severe renal artery stenosis (R>L). Now s/p PCI of right renal artery.
- DAPT/statin
- Monitor BP at home (he has been doing)
- if BP improves, no left renal artery intervention
- if BP doesn't improve, left renal artery intervention PCI
- Stable for d/c
[2023-09-12] MEDS: APRESOLINE 100 MG PO (08:46)
[2023-09-12] MEDS: PROCARDIA XL (EXTENDED RELEASE) 90 MG PO (08:49)
[2023-09-12] MEDS: PROTONIX 40 MG PO (08:50)
[2023-09-12] MEDS: ALDACTONE 25 MG PO (08:50)
[2023-09-12] MEDS: PLAVIX 75 MG PO (08:50)
[2023-09-12] MEDS: ZYLOPRIM 100 MG PO (08:50)
[2023-09-12] MEDS: TRANDATE 200 MG PO (08:50)
[2023-09-12] MEDS: IMDUR (EXTENDED RELEASE) 60 MG PO (08:51)
[2023-09-12] MEDS: COLACE 100 MG PO (08:51)
[2023-09-12] MEDS: LASIX 20 MG PO (08:51)
[2023-09-12] MEDS: CATAPRES 0.100000000000000006 MG PO (08:51)
[2023-09-12] MEDS: PROSCAR 5 MG PO (08:51)
[2023-09-12 09:01] VITALS: BMI 29.8
--- NOTE | 2023-09-12 09:56 | W.PN.CARDCBS ---
Today's Communication / Plan
-
DAPT w/asa, plavix
change out omeprazole to protonix
followup in 2 weeks for groin check, BP check
home today
Impression / Plan
-
PCP: Stephen Suazo MD
CDY: Fermin Dong MD
83 y/o, PMH sig for severe drug resistent HTN on 5 medications, ultrasound with severe BEATRICE R>L, [id number].
Presented to farm laborer yesterday, s/p Right Renal Artery angioplasty/stent.
IMPRESSION/PLAN:
Multidrug resistant HTN w/Severe BEATRICE
s/p RRA angioplasty/stent
BPs 150-160s overnight- stable
RFA cath site stable
DAPT w/asa, plavix
L RA w/50-75% stenosis- med therapy at this time, and if BP not improved would consider intervention
followup at [facility] as scheduled.
home today
ANW0o-d- creat 1.5, GFR 45 this morning post dye load
CAD, prior CABx1 (2016)- stable on tele, no cp/palps
RBBB
Bradycardia
R ICS
HTN
HLD
Pulm HTN
ARMAAN/CPAP
Borderline DM
Progress Note - Gallery Host
Subjective
Date of Service: September 12, 2023
Denies cp/palps/dyspnea
oob ambulating
groin site without pain
Objective
Labs:
09/12/23 03:06
09/12/23 03:06
Labs
Hgb 10.6 g/dL (13.0-18.0) L 09/12/23 03:06
Hct 29.9 % (39.0-52.0) L 09/12/23 03:06
Plt Count 321 10^3/uL (130-400) 09/12/23 03:06
Sodium 134 mmol/L (135-145) L 09/12/23 03:06
Potassium 4.1 mmol/L (3.5-5.1) 09/12/23 03:06
BUN 29 mg/dl (9-20) H 09/12/23 03:06
Creatinine 1.5 mg/dL (0.7-1.3) H 09/12/23 03:06
Glucose 108 mg/dl (70-99) H 09/12/23 03:06
Vital Signs and I&O:
Vital Signs
Temp Pulse Resp BP Pulse Ox
98 F 59 20 167/49 96
09/12/23 07:20 09/12/23 08:46 09/12/23 07:20 09/12/23 08:46 09/12/23 07:23
Vital Signs
Temp Pulse Resp BP Pulse Ox
98 F 59 20 167/49 96
09/12/23 07:20 09/12/23 08:46 09/12/23 07:20 09/12/23 08:46 09/12/23 07:23
Intake & Output
09/10/23 09/11/23 09/12/23 09/13/23
06:59 06:59 06:59 06:59
Intake Total 1320 / 1320
Output Total 400 / 400
Balance 920 / 920
Physical Exam
Physical Exam
AAOx3, MAEE 5/5
RRR S1 S2 no murmurs
CTA bilat, non labored
soft abd, + bs
right fem cath site without ht/bleeding, non tender
bilat extremities w/palpable distal pulses, no edema
--- NOTE | 2023-09-12 11:37 | W.DS.TRANS ---
DC Summary - Rn Clinical Appeals
-
Discharge Instructions:
Discharge Diagnosis/Procedures Right renal artery angioplasty and stent
Diet Low Cholesterol
Driving Restrictions No driving for 24 hours
Instructions:
Stand-Alone Forms: DC Instructions- Cath/EP Lab
Changes to Home Medications: Yes
Discharge Medications:
DC Medications w/original date entered in [facility]
atorvastatin 40 mg tablet 40 mg PO QPM High cholesterol 11/09/21
budesonide-formoterol HFA 80 mcg-4.5 mcg/actuation aerosol inhaler (Symbicort) 2 puff inhalation R BID Lung/breathing issues 11/09/21
cholecalciferol (vitamin D3) 25 mcg (1,000 unit) capsule (Vitamin D3) 25 mcg PO DAILY Supplement 11/09/21
finasteride 5 mg tablet 5 mg PO DAILY Urinary issue 11/09/21
hydralazine 100 mg tablet 100 mg PO TID Blood pressure 11/09/21
isosorbide mononitrate 60 mg tablet,extended release 24 hr 60 mg PO DAILY Blood pressure 11/09/21
nifedipine 90 mg tablet,extended release 90 mg PO DAILY Heart disease/condition 11/09/21
polyethylene glycol 3350 17 gram/dose oral powder (Miralax) 17 g PO QPM Constipation 11/09/21
tamsulosin 0.4 mg capsule 0.8 mg PO QPM Urinary issue 11/09/21
tiotropium bromide 18 mcg capsule with inhalation device 18 mcg inhalation R BID Lung/breathing issues 11/09/21
allopurinol 100 mg tablet 100 mg PO DAILY Gout 06/05/22
aspirin 81 mg tablet,delayed release 81 mg PO QPM Blood clot prevention/tx 06/05/22
psyllium husk 0.52 gram capsule (Fiber (psyllium husk)) 0.52 g PO BID Constipation 06/05/22
therapeutic multivitamin 1 tab PO QPM Supplement 06/05/22
vitamin B complex 1 tab PO DAILY Supplement 06/05/22
spironolactone 25 mg tablet 25 mg PO DAILY #30 tabs 05/14/23
clonidine HCl 0.1 mg tablet 0.1 mg PO BID 09/11/23
diphenhydramine HCl 50 mg/30 mL oral liquid (ZzzQuil) 50 mg PO HS 09/11/23
docusate sodium 100 mg capsule (Colace) 100 mg PO DAILY 09/11/23
furosemide 20 mg tablet 20 mg PO DAILY Blood pressure 09/11/23
labetalol 200 mg tablet 200 mg PO BID 09/11/23
clopidogrel 75 mg tablet 75 mg PO DAILY #90 tabs 09/12/23
pantoprazole 40 mg tablet,delayed release 40 mg PO DAILY #90 tabs 09/12/23
Home Medication Changes
NEW: plavix, protonix
STOP: omeprazole
Pending Results: No
== END 2023-09-12 11:04 | disposition home or self-care (01) ==
LOC: CATH 05:54
PROVIDERS: Nurse Practitioner; ATTENDING PHYSICIAN Internal Medicine Cardiovascular Disease; FAMILY PHYSICIAN Internal Medicine; OTHER PHYSICIAN Internal Medicine Cardiovascular Disease
DX: I70.1 Atherosclerosis of renal artery (principal); I1A.0 Resistant hypertension; I12.9 Hypertensive chronic kidney disease with stage 1 through stage 4 chronic kidney disease, or unspecified chronic kidney disease; I25.10 Atherosclerotic heart disease of native coronary artery without angina pectoris; N18.31 Chronic kidney disease, stage 3a; N18.32 Chronic kidney disease, stage 3b; E78.00 Pure hypercholesterolemia, unspecified; R73.03 Prediabetes; I65.21 Occlusion and stenosis of right carotid artery; I45.10 Unspecified right bundle-branch block; R00.1 Bradycardia, unspecified; E78.5 Hyperlipidemia, unspecified; I27.20 Pulmonary hypertension, unspecified; G47.33 Obstructive sleep apnea (adult) (pediatric); Z95.1 Presence of aortocoronary bypass graft; Z79.82 Long term (current) use of aspirin; Z79.899 Other long term (current) drug therapy
CPT/HCPCS: 37236; 36252; 36415; 80048; 80061; 85025; 85027; 85347; 93005; 94640; C1725; C1760; C1769; C1874; C1876; C1887; C1894; Q9967

== ENCOUNTER 2023-11-14 12:39 | Emergency (ER) | payer OTHER, SELFPAY ==
[2023-11-14 12:53] VITALS: BP 172/48; BMI 27.3
[2023-11-14 13:00] VITALS: BP 173/53
--- NOTE | 2023-11-14 13:00 | EDRN ---
this RN notified the provider of the pts elevated blood pressures
[2023-11-14 13:03] LABS: % Basophils 0.4 % (0-2); % Eosinophils 0.5 % (0-6); % Immature Granulocytes 0.2 % (0-0.5); % Lymphocytes 8.3 % (20.5-51.1); % Monocytes 5.5 % (1.7-9.3); % Neutrophils 85.1 % (42.2-75.2); Absolute Eosinophils 0.1 10^3/uL (0-0.7); Absolute Lymphocytes 0.8 10^3/uL (1.2-3.4); Absolute Monocytes 0.5 10^3/uL (0.1-0.6); Absolute Neutrophils 7.8 10^3/uL (1.4-6.5); Hematocrit 31.2 % (39.0-52.0); Hemoglobin 10.9 g/dL (13.0-18.0); Mean Corp Hgb Conc. 34.9 g/dL (33.0-37.0); Mean Corpuscular Hgb 31.2 pg (27.0-31.0); Mean Corpuscular Volume 89.4 fL (80.0-94.0); Mean Platelet Volume 9.3 fL (7.4-10.4); Nucleated Red Blood Cells % 0 % (-); Platelet Count 331 10^3/uL (130-400); Red Blood Cell Count 3.49 10^6/uL (4.70-6.10); Red Cell Dist. Width 14.1 % (11.5-14.5); White Blood Cell Count 9.2 10^3/uL (4.8-10.8)
[2023-11-14 13:13] LABS: ALT (SGPT) 26 U/L (0-50); AST (SGOT) 30 U/L (17-59); Albumin 3.8 g/dl (3.5-5.0); Alkaline Phosphatase 105 U/L (38-126); Blood Urea Nitrogen 33 mg/dl (9-20); Calcium 9.3 mg/dl (8.4-10.2); Carbon Dioxide 23 mmol/L (22-30); Chloride 102 mmol/L (98-107); Estimated Creatinine Clearance 37 ml/min; Glucose 133 mg/dl (70-99); Potassium 4.2 mmol/L (3.5-5.1); Sodium 133 mmol/L (135-145); Total Bilirubin 0.6 mg/dl (0.2-1.3); Total Protein 6.5 g/dl (6.3-8.2); eGFR 42.22
[2023-11-14 14:00] VITALS: BP 181/51
--- NOTE | 2023-11-14 14:12 | ED.GENMED ---
History of Present Illness
General
Chief Complaint: Dizziness
Source: patient and [facility] records
Exam Limitations: none
Time Seen by Provider: 11/14/23 13:20
History of Present Illness
History of Present Illness:
Patient is an 83-year-old male with past medical history of hypertension, hyperlipidemia, CKD, gout, BPH, renal artery stenosis resulting in angioplasty and stenting in August of this year, who presents to the emergency department from [facility] and
new to [place], [facility], for evaluation of dizziness. Patient reports that he woke up this morning and felt dizzy. Patient reports that he only felt it when he stood and tried to walk. Patient reports that it felt like he was going to
pass out, not like the room was spinning. Patient reports that he took his medications and went back to bed for a little bit but when he woke up again and tried to stand and walk he felt like he was going to pass out again prompting him to call
911. Patient reports that he does not know if he is dizzy now as he is lying in the stretcher and he was not feeling dizzy at rest. Patient reports that he does have a mild frontal headache. Patient denies vision changes such as blurred vision or
double vision. Patient denies neck pain, chest pain, shortness of breath, abdominal pain, nausea, vomiting. Patient reports he did have 4 episodes of diarrhea this morning. Patient believes that he drinks plenty of fluids but admits that he does
not have a great appetite. Patient denies any lower extremity edema. Patient states he has had feelings like this in the past but it was always very brief and never lasted this long. Patient admits that his primary doctor is currently adjusting
his blood pressure medications. Patient reports that the most recent change was his clonidine and he is now taking 2 in the morning and 1 in the evening.
Past History
Past History
ED Past Medical History: CAD, COPD, HTN, Hypercholesterolemia, Other (Renal insufficiency) and Other (Prostatic hypertrophy)
ED Past Surgical History: Cardiac (Cardiac bypass 2016), Orthopedic (Left knee replacement 2016) and Other (Nasal polyps)
Social History
Tobacco: Former smoker
Alcohol: None
Drug: None
Personal:
Living: with family
Employment: Retired
Family History
Family History: Other (Unremarkable)
Review of Systems
Review of Systems
All Other Systems: Not applicable
Constitutional: Reports no symptoms
EENT: Reports no symptoms
Respiratory: Reports no symptoms
Cardiac: Reports no symptoms
ABD/GI: Reports no symptoms
: Reports no symptoms
Musculoskeletal: Reports no symptoms
Skin: Reports no symptoms
Neurological: Reports dizzy and headache
Endocrine: Reports no symptoms
Hematologic/Lymphatic: Reports no symptoms
Psychiatric: Reports no symptoms
Phy Exam
General Physical Exam
General Presentation: well appearing and no apparent distress
General Skin: warm and dry
General Habitus: normal
General Mental: alert
General Hydration: appears well hydrated
ENT Exam
ENT Exam: EOMI, pharynx normal, neck supple and normocephalic
Eye Exam
Eye Exam: PERRL, cornea clear and conjunctiva normal
Cardiovascular Exam
Cardiovascular Exam: regular rate/rhythm, no edema, no murmur and normal peripheral pulses
Pulmonary Exam
Pulmonary Exam: lungs clear, no respiratory distress, no rales, no crackles, no rhonchi, no stridor, no wheezing and no cough
Gastrointestinal Exam
Gastrointestinal Exam: normal bowel sounds, non tender, soft, no organomegaly, no pulsatile mass and non distended
Neurological Exam
Neurological Exam: alert, oriented x3, CN II-XII intact, no motor deficits, no sensory deficits, speech normal and cerebellum intact
Musculoskeletal Exam
Musculoskeletal Exam: full ROM and no edema
Skin Exam
Skin Exam: normal color, warm/dry, no rash and no petechia
Psychiatric Exam
Psychiatric Exam: normal mood/affect
Course
Orders/Labs/Results
Orders:
Orders
11/14/23 12:40
Electrocardiogram (*1) Urgent
Reason for Study: Vertigo / Dizzy
Orthostatic Vital Signs As Directed
Orthostatic VS Frequency: Now
11/14/23 12:44
EKG- Treatment ONCE
11/14/23 12:49
Complete Blood Count/With Diff Urgent
Comprehensive Metabolic Panel Urgent
11/14/23 14:13
CT Head & Neck Angio W/wo IV Urgent
Comment:
Reason For Exam: dizziness
Abnormal Lab Results
11/14/23
12:49
RBC 3.49 L 10^6/uL
(4.70-6.10)
Hgb 10.9 L g/dL
(13.0-18.0)
Hct 31.2 L %
(39.0-52.0)
MCH 31.2 H pg
(27.0-31.0)
Absolute Neuts (auto) 7.8 H 10^3/uL
(1.4-6.5)
Absolute Lymphs (auto) 0.8 L 10^3/uL
(1.2-3.4)
Neutrophils % 85.1 H %
(42.2-75.2)
Lymphocytes % 8.3 L %
(20.5-51.1)
Sodium 133 L mmol/L
(135-145)
BUN 33 H mg/dl
(9-20)
Creatinine 1.6 H mg/dL
(0.7-1.3)
Glucose 133 H mg/dl
(70-99)
11/14/23 12:49
11/14/23 12:49
Vital Signs
Initial and Last Documented VS:
Initial Vital Signs
Pulse Resp Pulse Ox
66 13 98
11/14/23 12:52 11/14/23 12:52 11/14/23 12:52
Last Documented Vital Signs
Temp Pulse Resp BP Pulse Ox
97.1 F 82 16 126/75 99
11/14/23 18:19 11/14/23 18:19 11/14/23 18:19 11/14/23 18:19 11/14/23 18:19
*EKG
Interpreted by ED Provider?: Yes
EKG Intrepretation Date: 11/14/23
EKG Intrepretation Time: 12:48
Interpretation: abnormal
Comparison EKG: no changes
Heart Rate: 66
Rate: normal
Rhythm: sinus
[place]: normal axis
Interval: first degree heart block
QRS Pattern: right bundle branch block
Ischemia: no ischemia
*Critical Care Note
Total Time (30-74mins, 75-104mins- exclusive of procedures): Not Applicable
Update Note
Update Note:
83-year-old male with multiple comorbidities as noted presents to the emergency department for evaluation of dizziness which she describes as a presyncopal feeling with standing or walking. Patient denies additional symptoms such as chest pain,
abdominal pain, vomiting. On arrival, patient is hypertensive, afebrile. On exam, patient is very well-appearing, he is in no acute distress, he has a normal cardiopulmonary exam, he is neurologically intact. EKG was obtained with the patient was
in the waiting room and is abnormal but unchanged from his prior. Labs were also obtained which demonstrate slightly elevated renal function on this appears to be close to his baseline, the remainder of the patient's labs are nonactionable. Given
the patient's history of stenosis in other arteries such as his renal artery, will obtain a CTA of the head and neck to evaluate further. Will check orthostatic vital signs. Will reassess.
CTA results as noted. Discussed with ED attending who recommends discussing with vascular surgery. Discussed with Dr. Wong of vascular surgery who states that these findings are unlikely to be causing the patient's symptoms today given the fact
that the patient's symptoms resolve with rest and are only present with changes in position and ambulation. However, he reports that the patient may require some repair of these stenoses and does recommend outpatient follow-up in his office for
further evaluation and treatment. Patient's orthostatic vital signs are negative today. Patient was able to get up and ambulate with a steady gait. At this point, I feel the patient is safe for discharge back to his assisted living facility.
Patient will follow-up with vascular surgery as an outpatient. Patient educated on return precautions, he expressed understanding of the plan and agreed.
ED Attending Note
-
Portions of this chart may have been created with voice recognition software.� Occasional wrong word or��sound alike� substitutions may have occurred due to the inherent limitations of voice recognition software.
Discharge Plan
Departure
Patient Disposition: Home (Routine Discharge)
Date of Disposition: 11/14/23
Time of Disposition: 17:41
Patient with high blood pressure during this ER visit?: Yes
Condition: Good
Covid-19: Not Applicable
Discharge Problem:
Dizziness, Carotid artery stenosis, Vertebral artery stenosis
Instructions: Dizziness
Prescriptions:
No Action
atorvastatin 40 mg Tablet
40 mg PO QPM
nifedipine 90 mg Tablet Extended Release
90 mg PO DAILY
isosorbide mononitrate 60 mg Tablet Extended Release 24 Hr
60 mg PO DAILY
tamsulosin 0.4 mg Capsule
0.8 mg PO QPM
polyethylene glycol 3350 [Miralax] 17 gram/dose Powder
17 g PO QPM
finasteride 5 mg Tablet
5 mg PO DAILY
cholecalciferol (vitamin D3) [Vitamin D3] 25 mcg (1,000 unit) Capsule
25 mcg PO DAILY
tiotropium bromide 18 mcg Capsule, W/Inhalation Device
18 mcg INHALATION R BID
budesonide-formoterol [Symbicort] 80-4.5 mcg/actuation Hfa Aerosol Inhaler
2 puff INHALATION R BID
therapeutic multivitamin Tablet
1 tab PO QPM
allopurinol 100 mg tablet
100 mg PO DAILY
aspirin 81 mg Tablet,Delayed Release (Dr/Ec)
81 mg PO DAILY
vitamin B complex Tablet
1 tab PO DAILY
psyllium husk [Fiber (psyllium husk)] 0.52 gram Capsule
0.52 g PO BID
spironolactone 25 mg Tablet
25 mg PO DAILY Qty: 30 0RF
furosemide 20 mg tablet
20 mg PO DAILY
clonidine HCl 0.1 mg Tablet
0.1 mg PO BID
labetalol 200 mg Tablet
200 mg PO BID
docusate sodium [Colace] 100 mg Capsule
100 mg PO DAILY
ZzzQuil 50 mg/30 mL Liquid
50 mg PO HS
clopidogrel 75 mg Tablet
75 mg PO DAILY Qty: 90 3RF
pantoprazole 40 mg Tablet,Delayed Release (Dr/Ec)
40 mg PO DAILY Qty: 90 3RF
hydralazine 100 mg Tablet
100 mg PO TID
Referrals:
Brian Wong MD [Active] - Follow up in 1 week
Stephen Suazo DO [Family Provider] - Follow up in 2-3 days (Call for follow up appointment)
Activity Restrictions/Additional Instructions:
You were seen in the emergency department for evaluation of dizziness. While you were in the emergency department you had an EKG which is unchanged from your previous. You had blood work which appears to be at your baseline and shows no dangerous
abnormalities. You had a CT scan of your head and neck which does demonstrate evidence of stenosis or narrowing of the blood vessels of your carotid arteries and vertebral arteries. We discussed your case with our vascular surgeon who does not
believe that you require emergent intervention today. However, they do recommend following up in their office to discuss these findings and to determine if additional treatment is indicated. The exact cause of your dizziness is not entirely clear,
it may be due to some recent blood pressure medication changes or mild dehydration. You felt better while you were in the emergency department and we believe you are safe to return to your assisted living facility. Please return to the emergency
department if you develop severe worsening dizziness, if you pass out or feel you are going to pass out, if you develop chest pain, shortness of breath, persistent vomiting, numbness, weakness, tingling 1 or more of your extremities, or for any
other worsening or concerning symptoms.
Interventions
Interventions:
*Risk Screen - Suicide Last Done: 11/14/23 12:53
*General Assessment Last Done: 11/14/23 12:53
*Neglect/Abuse Screening Last Done: 11/14/23 12:53
ED- Fall Risk Assessment Last Done: 11/14/23 12:53
*ED COVID-19 Vaccine History Last Done: 11/14/23 12:53
*Nursing Disposition Last Done: 11/14/23 18:35
ED- Neurological Assessment Last Done: 11/14/23 12:53
ED- Cardiac Assessment Last Done: 11/14/23 12:53
ED Swallowing Screen Last Done: 11/14/23 12:53
Discharge Date and Time
Discharge Date/Time: 11/14/23 18:34
Print Language: SUDANESE
--- NOTE | 2023-11-14 15:00 | EDRN ---
this RN notified the provider of the pts continued elevated blood pressures
[2023-11-14 16:12] VITALS: BP 160/55
[2023-11-14 17:00] VITALS: BP 164/41
[2023-11-14 18:19] VITALS: BP 126/75
== END 2023-11-14 18:34 | disposition home or self-care (01) ==
LOC: EMR 12:39
PROVIDERS: Emergency Medicine; EMERGENCY PHYSICIAN Emergency Medicine; FAMILY PHYSICIAN Internal Medicine
DX: R42 Dizziness and giddiness (principal); I65.29 Occlusion and stenosis of unspecified carotid artery; I65.09 Occlusion and stenosis of unspecified vertebral artery; I12.9 Hypertensive chronic kidney disease with stage 1 through stage 4 chronic kidney disease, or unspecified chronic kidney disease; N18.9 Chronic kidney disease, unspecified; E78.00 Pure hypercholesterolemia, unspecified; I25.10 Atherosclerotic heart disease of native coronary artery without angina pectoris; J44.9 Chronic obstructive pulmonary disease, unspecified; N40.0 Benign prostatic hyperplasia without lower urinary tract symptoms; Z87.891 Personal history of nicotine dependence; Z96.652 Presence of left artificial knee joint
CPT/HCPCS: 99284; 70496; 70498; 80053; 85025; 93005; Q9967

== ENCOUNTER 2023-11-21 02:24 | Inpatient (IN) | payer OTHER, SELFPAY ==
[2023-11-20 21:42] VITALS: BP 184/54
[2023-11-20 21:45] VITALS: BP 184/54
--- NOTE | 2023-11-20 21:48 | ED.GENMED ---
History of Present Illness
General
Chief Complaint: Chest Pain
Source: patient and ambulance crew
Exam Limitations: none
Time Seen by Provider: 11/20/23 21:44
Nursing documentation reviewed up to this point in time: agreed with
History of Present Illness
History of Present Illness:
83-year-old male presents emergency department complaining of chest pain that began earlier today. He also reported dizziness. He took a nitroglycerin before EMS arrived. EMS gave 324 aspirin and 1 nitro en route. He denies pain at this time.
STEMI alert called and route, prior to seeing EKG. Upon viewing EKG and discussion with Dr. Green, STEMI alert canceled. EKG does not appear to be STEMI.
Past History
Past History
ED Past Medical History: CAD, COPD, HTN, Hypercholesterolemia, Other (Renal insufficiency) and Other (Prostatic hypertrophy)
ED Past Surgical History: Cardiac (Cardiac bypass 2016), Orthopedic (Left knee replacement 2017) and Other (Nasal polyps)
Social History
Tobacco: Former smoker
Alcohol: None
Drug: None
Personal:
Living: with family
Employment: Retired
Family History
Family History: Other (Unremarkable)
Review of Systems
Review of Systems
Allergies reviewed?: Yes
All Other Systems: Not applicable
Constitutional: Reports no symptoms
EENT: Reports no symptoms
Respiratory: Reports no symptoms
Cardiac: Reports chest pain and diaphoresis
ABD/GI: Reports no symptoms
: Reports no symptoms
Musculoskeletal: Reports no symptoms
Skin: Reports no symptoms
Neurological: Reports dizzy
Endocrine: Reports no symptoms
Hematologic/Lymphatic: Reports no symptoms
Psychiatric: Reports no symptoms
Phy Exam
Physical Exam
Physical Exam:
Physical Exam
General: Elderly, afebrile
Neck: supple. no meningeal signs. normal posterior pharynx
Heart: s1/s2 regular rate and rhythm, no murmur. equal radial
pulses.
HEENT: Pupils equal round reactive to light, EOMI
Lungs: no acute respiratory distress. clear bilaterally
Abdomen: normal bowel sounds. not tender. no CVAT
Neuro: alert and oriented. no focal neurological deficits cranial nerves II through XII intact
Skin: no rash
Psychiatric: well kept. interactive and cooperative
Extremities: no edema. no calf tenderness. negative homans. good distal pulses
Scores
Heart Score for Chest Pain Patients
STEMI patient?: No
History: Moderately Suspicious
ECG: Nonspecific Repolarization
Age: >/= 65 years
Risk Factors: >/= 3 Risk Factors or History of CAD
Troponin: </= Normal Limit
Heart Score for Chest Pain Patients: 6
Heart Score Risk: 20.3% MACE over next 6 weeks
Course
Orders/Labs/Results
Orders:
Orders
11/20/23 21:37
Electrocardiogram (*1) Urgent
Reason for Study: Chest Pain
11/20/23 21:38
EKG- Treatment ONCE
11/20/23 21:46
BNP [NT-proBNP] Urgent
Complete Blood Count/With Diff Urgent
Comprehensive Metabolic Panel Urgent
Troponin I Urgent
11/20/23 21:51
CR Chest Portable - 1 View Urgent
Comment:
Reason For Exam: chest pain
Reason Study Needs to be Portable: Unable to Transport
11/20/23 23:58
HydrALAZINE [Apresoline] 10 mg IV NOW STA
11/21/23 00:41
Admit/Transfer Patient As Directed
Co-Sign Provider:
Level of Care: Inpatient admission
Assign to:: Telemetry
Physician / Group: [email or web address]
Diagnosis: CP, HTN urgency, abn EKG
Reason for Telemetry: Chest Pain syndromes
Other Reason for Telemetry: abn EKG
Date to Stop Telemetry: 11/23/23
Time to Stop Telemetry: 11:00
Reason for Hospitalization: CP, HTN urgency, abn EKG
Expected length of stay greater than two midnights?: Yes
ELOS- Estimated Length of Stay in days: 2
I certify the patient meets the requirements for IP care: Yes
11/21/23 00:44
Code Status As Directed
Resuscitation Status: Full Code
11/21/23 02:34
Electrocardiogram (*1) Q6H
Reason for Study: Chest Pain
Comment: at admission and Q3H for total of 3, to be done with each troponin
HydrALAZINE [Apresoline] 10 mg IV Q4HPRN PRN
11/21/23 02:34
CARDIOLOGY CONSULT Routine
Consulting Provider: Tamir Maurer
Was physician already notified: No
Reason for consult: CP, HTN urgency, abn EKG
Consult Notification Routine
Specialty to Notify: Cardiology
Glycohemoglobin (HgbA1c) Routine
Activity As Directed
Activity Level: With Assistance
INT (Intravenous Needle Therapy) As Directed
Comment: maintain peripheral IV access
Intake/ Output As Directed
Frequency: Per unit guidelines
Vital Signs As Directed
Frequency: q4h
Weight As Directed
Frequency: Daily
DX Deep Vein Thrombosis Video Routine
11/21/23 02:36
Troponin I Q3H
Comment: at admit & Q3H for 3 total including ED draws, obtain ECG with each level
11/21/23 03:00
Flush (0.9% Sodium Chloride) [Flush (Nss)] See Dose Instructions IV PER PROTOCOL
11/21/23 05:34
Troponin I Q3H
Comment: at admit & Q3H for 3 total including ED draws, obtain ECG with each level
11/21/23 Breakfast
Cholesterol Lowering
At Your Request: Full Participation
Cholesterol Lowering: Sodium, 2 Gram
Complete Blood Count/No Diff IN AM
Comprehensive Metabolic Panel IN AM
11/21/23 08:00
Allopurinol [Zyloprim] 100 mg PO DAILY
Aspirin Low Dose EC [Aspir Low (Enteric Coated)] 81 mg PO DAILY
Budesonide/Formoterol 80/4.5 [Symbicort 80/4.5 Mcg Inhaler] 2 puff INH R BID
Docusate Sodium [Colace] 100 mg PO DAILY
Finasteride [Proscar] 5 mg PO DAILY
Furosemide [Lasix] 20 mg PO DAILY
Heparin 5,000 units SC Q12
HydrALAZINE [Apresoline] 100 mg PO TID
ISOSORBIDE MONOnitrate ER [Imdur (Extended Release)] 60 mg PO DAILY
Labetalol [Trandate] 200 mg PO BID
NIFEdipine EXTENDED RELEASE [Procardia Xl (Extended Release)] 90 mg PO DAILY
Pantoprazole [Protonix] 40 mg PO DAILY
Psyllium [Metamucil, Konsyl] 1 packet PO BID
Spironolactone [Aldactone] 25 mg PO DAILY
Tiotropium [place] 2.5 Mcg [Spiriva Respimat 2.5 Mcg] 2 puff INH R DAILY
11/21/23 08:34
Electrocardiogram (*1) Q6H
Reason for Study: Chest Pain
Comment: at admission and Q3H for total of 3, to be done with each troponin
Troponin I Q3H
Comment: at admit & Q3H for 3 total including ED draws, obtain ECG with each level
11/21/23 14:34
Electrocardiogram (*1) Q6H
Reason for Study: Chest Pain
Comment: at admission and Q3H for total of 3, to be done with each troponin
11/21/23 18:00
Atorvastatin [Lipitor] 40 mg PO QPM
Polyethylene Glycol Powder [Miralax] 17 grams PO QPM
Tamsulosin [Flomax] 0.8 mg PO QPM
11/23/23 11:00
DC Protocol for Telemetry ONCE
Abnormal Lab Results
11/20/23
21:46
RBC 3.30 L 10^6/uL
(4.70-6.10)
Hgb 10.2 L g/dL
(13.0-18.0)
Hct 29.1 L %
(39.0-52.0)
Absolute Neuts (auto) 6.8 H 10^3/uL
(1.4-6.5)
Absolute Monos (auto) 1.0 H 10^3/uL
(0.1-0.6)
Lymphocytes % 17.0 L %
(20.5-51.1)
Monocytes % 10.0 H %
(1.7-9.3)
Sodium 131 L mmol/L
(135-145)
Carbon Dioxide 20 L mmol/L
(22-30)
BUN 34 H mg/dl
(9-20)
Creatinine 1.9 H mg/dL
(0.7-1.3)
Glucose 130 H mg/dl
(70-99)
11/20/23 21:46
11/20/23 21:46
Vital Signs
Initial and Last Documented VS:
Initial Vital Signs
BP
184/54
11/20/23 21:42
Last Documented Vital Signs
Temp Pulse Resp BP Pulse Ox
97.5 F 82 20 197/74 98
11/21/23 02:52 11/21/23 02:52 11/21/23 02:52 11/21/23 02:52 11/21/23 02:52
MDM/Problems Addressed
Differential Diagnosis Includes:
ACS, chf, hypertensive urgency
MDM/Problems Addressed:
83-year-old male with hypertensive urgency, chest pain diaphoresis. Pain-free at this time, blood pressure mildly improved with hydralazine. Admit to hospitalist.
Chronic conditions affecting care: HTN and CAD
Acute Exacerbation and/or Progression of Chronic Illness: HTN and CAD
*Radiology
Radiology exam reviewed: preliminary read by ED provider (Chest x-ray no acute findings)
*Pulse Oximetry
Patient hypoxic: no
*EKG
Interpreted by ED Provider?: Yes
EKG Intrepretation Date: 11/21/23
EKG Intrepretation Time: 02:40
Interpretation: abnormal
Comparison EKG: no changes
Heart Rate: 79
Rate: normal
Rhythm: sinus
[place]: normal axis
Interval: normal interval
QRS Pattern: right bundle branch block
Ischemia: non-specific ST changes
*Tooth Cutter Contact Wheel Interpretation
Rate: normal
Interpretation: normal
Heart Rate: 80
Rhythm: sinus
*Critical Care Note
Total Time (30-74mins, 75-104mins- exclusive of procedures): 30
comment:
Critical care statement: A total of 30 minutes of critical care time was provided for this patient. This includes management of unstable vital signs, evaluation of the patient at bedside, reviewing the patient's pertinent medical records, discussion
with consultants, review of old EKGs and review of pertinent medical records. This time with separate from time utilized to perform the aforementioned documented procedures
Data Reviewed
Review of Other/Old Records Reveals: Operative Reports (Angioplasty of right renal artery)
Source: records
Patient Management
Social determinants of health affecting care: Living situation
Discussion with other providers: Hospitalist
Escalation/DeEscalation of care consider admission/obs:
Admit not indicated
ED Attending Note
-
Portions of this chart may have been created with voice recognition software.� Occasional wrong word or��sound alike� substitutions may have occurred due to the inherent limitations of voice recognition software.
Discharge Plan
Departure
Patient Disposition: Admit
Date of Disposition: 11/21/23
Time of Disposition: 00:01
Admit to: IMU
Presentation/result/management discussed w/ accepting MD/DO: Hospitalist
Patient with high blood pressure during this ER visit?: Yes
Condition: Fair
Discharge Problem:
Hypertensive urgency, Chest pain with high risk of acute coronary syndrome
Interventions
Interventions:
*Risk Screen - Suicide Last Done: 11/20/23 21:47
*General Assessment Last Done: 11/20/23 21:48
*Neglect/Abuse Screening Last Done: 11/20/23 21:47
*Nursing Disposition Last Done: 11/21/23 02:28
ED- Cardiac Assessment Last Done: 11/20/23 21:54
Discharge Date and Time
Discharge Date/Time: 11/21/23 02:28
[2023-11-20 21:51] VITALS: BMI 28.6
[2023-11-20 21:52] LABS: % Basophils 0.5 % (0-2); % Eosinophils 1.8 % (0-6); % Immature Granulocytes 0.4 % (0-0.5); % Neutrophils 70.3 % (42.2-75.2); Absolute Basophils 0.1 10^3/uL (0-0.2); Absolute Eosinophils 0.2 10^3/uL (0-0.7); Absolute Lymphocytes 1.7 10^3/uL (1.2-3.4); Absolute Neutrophils 6.8 10^3/uL (1.4-6.5); Hematocrit 29.1 % (39.0-52.0); Hemoglobin 10.2 g/dL (13.0-18.0); Mean Corp Hgb Conc. 35.1 g/dL (33.0-37.0); Mean Corpuscular Hgb 30.9 pg (27.0-31.0); Mean Corpuscular Volume 88.2 fL (80.0-94.0); Nucleated Red Blood Cells % 0 % (-); Platelet Count 345 10^3/uL (130-400); Red Cell Dist. Width 14.1 % (11.5-14.5); White Blood Cell Count 9.7 10^3/uL (4.8-10.8)
[2023-11-20 21:54] VITALS: BP 189/55
[2023-11-20 22:00] VITALS: BP 196/58
[2023-11-20 22:11] LABS: ALT (SGPT) 21 U/L (0-50); AST (SGOT) 27 U/L (17-59); Albumin 3.9 g/dl (3.5-5.0); Alkaline Phosphatase 107 U/L (38-126); Blood Urea Nitrogen 34 mg/dl (9-20); Calcium 9.1 mg/dl (8.4-10.2); Carbon Dioxide 20 mmol/L (22-30); Chloride 101 mmol/L (98-107); Estimated Creatinine Clearance 30 ml/min; Glucose 130 mg/dl (70-99); Potassium 3.9 mmol/L (3.5-5.1); Sodium 131 mmol/L (135-145); Total Bilirubin 0.5 mg/dl (0.2-1.3); Total Protein 6.5 g/dl (6.3-8.2); eGFR 34.35
[2023-11-20 22:16] LABS: NT-proBNP 483 pg/ml; Troponin I < 0.012 ng/ml
[2023-11-20 23:00] VITALS: BP 197/58
[2023-11-21] VITALS (12 sets, daily range): BP systolic 154–209; BP diastolic 52–74; PULSE 2–76; BMI 28.2
[2023-11-21] MEDS: APRESOLINE 10 MG IV ×4 (00:10→23:52)
--- NOTE | 2023-11-21 00:36 | HPS.HSE ---
Family Physician
-
Family Physician: Stephen Suazo
Chief Complaint
-
CP , abn EKG, OSH STEMI alert
History of Present Illness
HPI
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
HX CAD, HLD eval at ER for central chest heaviness
- acute onset started earlier on Sunday
- associated lightheadedness
- He took a SL NTG before EMS arrived plus EMS gave 324 aspirin and 1 SL NTG en route.
- Currently free from chest heaviness
- EKG does not appear to be STEMI per ER attd discussion with Cad and cancelled STEMI alert
Denied SoB , palpitation, N/V
Medical History
Past Medical History
Past Medical History: Reports Other
Additional Past Medical History:
CAD
COPD
HTn
HLD
BPH
Past Surgical History: Reports Other
Additional Past Surgical History:
Coronary artery bypass graft, left knee replacement, nasal surgery
Social History
Tobacco: Non-smoker
Alcohol: None
Drug: None
Personal:
Living: With Family
Family History
Family History: Not pertinent
Allergies / Home Medications
Allergies reflects when Allergies were last updated in [email or web address].
Home Medications with original date entered in [email or web address]
Allergy/Medication List:
Allergies
Allergy/AdvReac Type Severity Reaction Status Date / Time
sulfamethoxazole Allergy Unknown Unknown Verified 07/14/22 13:15
[From Bactrim]
trimethoprim [From Bactrim] Allergy Unknown Unknown Verified 05/12/23 13:23
Home Medications
atorvastatin 40 mg tablet 40 mg PO QPM High cholesterol 11/09/21
budesonide-formoterol HFA 80 mcg-4.5 mcg/actuation aerosol inhaler (Symbicort) 2 puff inhalation R BID Lung/breathing issues 11/09/21
carvedilol 25 mg tablet 12.5 mg PO BID Heart disease/condition 11/09/21
cholecalciferol (vitamin D3) 25 mcg (1,000 unit) capsule (Vitamin D3) 25 mcg PO QPM Supplement 11/09/21
finasteride 5 mg tablet 5 mg PO QPM Urinary issue 11/09/21
hydralazine 100 mg tablet 100 mg PO TID Blood pressure 11/09/21
isosorbide mononitrate 60 mg tablet,extended release 24 hr 60 mg PO DAILY Blood pressure 11/09/21
melatonin 10 mg tablet 10 mg PO HS Sleep 11/09/21
nifedipine 90 mg tablet,extended release 90 mg PO DAILY Heart disease/condition 11/09/21
omeprazole 40 mg capsule,delayed release 40 mg PO DAILY Gastrointestinal issue 11/09/21
polyethylene glycol 3350 17 gram/dose oral powder (Miralax) 17 g PO QPM Constipation 11/09/21
tamsulosin 0.4 mg capsule 0.8 mg PO QPM Urinary issue 11/09/21
tiotropium bromide 18 mcg capsule with inhalation device 18 mcg inhalation R BID Lung/breathing issues 11/09/21
allopurinol 100 mg tablet 100 mg PO QPM Gout 06/05/22
aspirin 81 mg tablet,delayed release 81 mg PO QPM Blood clot prevention/tx 06/05/22
furosemide 40 mg tablet 40 mg PO BID@0800,1600 Fluid retention/Swelling 06/05/22
potassium chloride 20 mEq tablet,extended release(part/cryst) 20 meq PO BID@0800,1200 Electrolyte Repletion 06/05/22
psyllium husk 0.52 gram capsule (Fiber (psyllium husk)) 0.52 g PO BID Constipation 06/05/22
therapeutic multivitamin 1 tab PO QPM Supplement 06/05/22
vitamin B complex 1 tab PO DAILY Supplement 06/05/22
minocycline 100 mg capsule 100 mg PO TID 05/12/23
omega-3 fatty acids-fish oil 684 mg-1,200 mg capsule,delayed release 1 cap PO QPM 05/12/23
Review of Systems
-
Constitutional: Reports No Symptoms
EENT: Reports No Symptoms
Respiratory: Reports No Symptoms
Cardiac: Reports Chest Pain
Abdomen/GI: Reports No Symptoms
: Reports No Symptoms
Musculoskeletal: Reports No Symptoms
Skin: Reports No Symptoms
Neurological: Reports No Symptoms
Endocrine: Reports No Symptoms
Hematologic/Lymphatic: Reports No Symptoms
Psych: Reports No Symptoms
Physical Exam
Vital Signs
Vital Signs
Temp Pulse Resp BP Pulse Ox
98.1 F 80 23 197/58 97
11/20/23 21:45 11/20/23 23:15 11/20/23 23:15 11/21/23 00:10 11/20/23 23:00
Physical Exam
General: Well Developed, Well Nourished and No Apparent Distress
HEENT: NormoCephalic, Moist mucous membranes and Atraumatic
Respiratory: Clear
Cardiac: Murmur; No Rub
GI: Soft, Non Tender, Non Distended and Normal Bowel Sounds; No Organomegaly
Rectal: Deferred by Provider
Musculoskeletal: No Clubbing, No Cyanosis and No Edema
Skin: Warm and Dry
Neuro: AO x 3 and Nonfocal/grossly intact
Psych: Calm
Laboratory Results
-
11/20/23 21:46
11/20/23 21:46
Laboratory Results
Total Bilirubin 0.5 mg/dl (0.2-1.3) 11/20/23 21:46
AST 27 U/L (17-59) 11/20/23 21:46
ALT 21 U/L (0-50) 11/20/23 21:46
Alkaline Phosphatase 107 U/L (38-126) 11/20/23 21:46
Troponin I < 0.012 ng/ml 11/20/23 21:46
Data Reviewed
-
Medical Tests (Nuc Med, Echo, EKG etc): Report Reviewed by me
Lab Data: Labs Reviewed by me
Old Records: Reviewed
Impression/Plan
-
Reviewed VS: BP 197/58 HR 80 RR23
Data
Hgb 10.2 - baseline mid to hi 10s
Na 131 - baseline 133s
Cr 1.9 - baseline mid 1s
eGFR 34 - baseline low 40s
NEG TPNI
proBNP 483
08/24/23 ECHO
LVEF 50-55%.
Mild concentric left ventricular hypertrophy.
Mild to moderate TR
Estimated pulmonary artery pressure of 35-40 mmHg.
Last hospitalist admission: 05/12/23 - 05/14/23 PDX: Hypertensive urgency, sinus bradycardia
ASSESSMENT & PLAN
Central chest heaviness: currently CP free
- NEG TPNI
- EKG not c/w STEMI
- SL NTG PRN
- cont [employer] ASA daily
- cont [employer] IMN
- CBC card consult
HTN urgency
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
- add IV hydralazine 10 mg every 4 hours as needed for systolic BP greater than 180 and diastolic BP greater than 110
- cont. [employer] CUTTER PO Regime: Nifedipine., Hydralazine, labetolol, Nifedipine, clonidine , spiranolactone
- POT PO Lasix continued
- await CBC card evaluation
Marginal hyponatremia
Known HX CKD3b
- trend Cr and eGFR
HX CAD, Rt BBB,
HX moderate tricuspid regurgitation
- cont ASA
HLD
- cont Statin
- Statin continued
BPH
HX urinary retention
- cont Finasteride, Flomax continued
HX COPD
-Not in acute exacerbation
-Nebulizers from home continued
HX gout
- cont. Allopurinol
DVT Px: SQH
Code: Full code
IP TLM
--- NOTE | 2023-11-21 02:18 | PTCARENOTE ---
Pt arrived from ED via stretcher. oob x1 assist to bed, unsteady at times. aaox3, cooperative, [place]. pt c/o mild lightheadedness. Pt tremulous at times, states 'I am so cold. Cover me up.' BP 197/74, medicated with prn hydralazine. oriented to room.
call morse within reach.
[2023-11-21 03:17] LABS: Troponin I < 0.012 ng/ml
[2023-11-21] MEDS: TRANDATE 5 MG IV (04:18)
--- NOTE | 2023-11-21 04:20 | PTCARENOTE ---
Pt's BP 188/70 after prn hydralazine. C/o mild lightheadedness, unchanged. So Olayinka RUFFIN notified, labetolol ordered. Pt aware.
--- NOTE | 2023-11-21 05:45 | PTCARENOTE ---
Pt's BP 186/53, pt sleeping, appears comfortable. no new complaints. So Olayinka RUFFIN notified. Instructed to give Pt his am BP meds. Pt updated. ekg and troponin obtained as ordered.
[2023-11-21] MEDS: PROCARDIA XL (EXTENDED RELEASE) 90 MG PO (05:58)
[2023-11-21] MEDS: TRANDATE 200 MG PO ×2 (05:58→19:42)
[2023-11-21] MEDS: LASIX 20 MG PO (05:59)
[2023-11-21] MEDS: ALDACTONE 25 MG PO (05:59)
[2023-11-21] MEDS: APRESOLINE 100 MG PO ×3 (06:00→21:43)
[2023-11-21] MEDS: IMDUR (EXTENDED RELEASE) 60 MG PO (06:00)
[2023-11-21 06:03] LABS: Hemoglobin 10.3 g/dL (13.0-18.0); Mean Corp Hgb Conc. 35.5 g/dL (33.0-37.0); Mean Corpuscular Hgb 30.7 pg (27.0-31.0); Mean Corpuscular Volume 86.6 fL (80.0-94.0); Mean Platelet Volume 9.1 fL (7.4-10.4); Platelet Count 340 10^3/uL (130-400); Red Blood Cell Count 3.35 10^6/uL (4.70-6.10); Red Cell Dist. Width 14.1 % (11.5-14.5); White Blood Cell Count 10.3 10^3/uL (4.8-10.8)
[2023-11-21 06:31] LABS: ALT (SGPT) 19 U/L (0-50); AST (SGOT) 27 U/L (17-59); Albumin 3.5 g/dl (3.5-5.0); Alkaline Phosphatase 99 U/L (38-126); Blood Urea Nitrogen 29 mg/dl (9-20); Calcium 9.2 mg/dl (8.4-10.2); Carbon Dioxide 21 mmol/L (22-30); Chloride 104 mmol/L (98-107); Estimated Creatinine Clearance 34 ml/min; Glucose 131 mg/dl (70-99); Potassium 3.9 mmol/L (3.5-5.1); Sodium 132 mmol/L (135-145); Total Bilirubin 0.5 mg/dl (0.2-1.3); Total Protein 6.1 g/dl (6.3-8.2); eGFR 42.22
[2023-11-21 06:32] LABS: Troponin I 0.013 ng/ml
[2023-11-21] MEDS: SPIRIVA RESPIMAT 2.5 MCG 2 PUFF INH (07:19)
[2023-11-21] MEDS: SYMBICORT 80/4.5 MCG INHALER 2 PUFF INH ×2 (07:19→20:28)
--- NOTE | 2023-11-21 08:03 | CON.CAR ---
Addendum entered and electronically signed by Tasia Antonio MD 11/21/23 11:26:
I saw and examined the patient.
The CHIEF LOCK OPERATOR's note was reviewed and I agree with the note.
Comment: 83 y/o male with CAD with hx CABG (MEDEIROS-LAD 2016), dyslipidemia, hypertension, carotid artery disease (50-69% SHANTE 2017), RBBB, COPD, ARMAAN on CPAP, CKD, and b/l renal artery stenosis s/p right renal artery stenting who is here with an
episode of substernal chest pressure last night. It was resolved after 2 nitroglycerin. Currently he has no cardiac complaints but diffuse abdominal pain. This is mild. On exam, he has a regular rate and rhythm normal S1-S2 no murmurs gallops
were appreciated lungs were clear to auscultation bilaterally no extremity edema. Abdomen was soft but mild tenderness diffusely. EKG showed sinus rhythm with right bundle branch block. Overall, chest pressure may have been secondary to
hypertension. This has been labeled as a 9 patient. Initial troponins are unimpressive for ischemia. However, he has known chronic CAD that was not amenable to intervention this past year. Will check an echocardiogram to ensure no new wall
motion abnormality as there were areas of the coronary vasculature without significant disease at the time of that last cath. If this were normal, but attributes symptoms to hypertension. Will increase his nitrate. Additionally, on his last renal
artery intervention, Dr. Aviles mentions the contralateral artery may also need intervention. Will discuss this with him to see if this is something he would be interested in pursuing during this hospitalization. Plan discussed with Dr. Jeong will
follow.
Original Note:
Consultation
Consultation Request
Date/Time Consultation Requested: 11/21/23 0234
Date/Time Consultation Performed: 11/21/23 0800
Requesting Provider: Dr. Starr
Performing Provider: Noreen RUFFIN for Dr. Antonio
Reason for Consultation: CP, HTN urgency, abnormal EKG
Medical History
-
Chief Complaint: sweaty, light-headed, chest/abdominal heaviness
History of Present Illness:
83 y/o male with CAD with hx CABG (MEDEIROS-LAD 2017), dyslipidemia, hypertension, carotid artery disease (50-69% SHANTE 2017), RBBB, COPD, ARMAAN on CPAP, CKD, and b/l renal artery stenosis s/p right renal artery stenting who is here for evaluation since
last night around 8 PM, while sitting in his chair, he began to feel sweaty, light-headed, and have a chest and abdominal heaviness. He went to lay down and symptoms improved, but did not resolve. He took a nitro, which helped a little. He called
EMS and was given ASA, nitro. His symptoms resolved in ER (got here around 2145 per chart). Otherwise, he has chronic BYRD which has been a bit worse recently.
Past Medical History
Past Medical History: CAD, HTN, Hypercholesterolemia and Other (as above)
Social History
Tobacco: Former Smoker
Family History
Family History: Reviewed & Not Pertinent
Allergies / Home Medications
Allergy/AdvReac Type Severity Reaction Status Date / Time
sulfamethoxazole Allergy Unknown Unknown Verified 11/20/23 21:47
[From Bactrim]
trimethoprim [From Bactrim] Allergy Unknown Unknown Verified 11/20/23 21:47
�Medication �Instructions �Recorded �Confirmed �Type
atorvastatin 40 mg tablet 40 mg PO QPM High cholesterol 11/09/21 11/20/23 History
budesonide-formoterol HFA 80 2 puff inhalation R BID 11/09/21 11/20/23 History
mcg-4.5 mcg/actuation aerosol Lung/breathing issues
inhaler (Breyna)
cholecalciferol (vitamin D3) 25 25 mcg PO DAILY Supplement 11/09/21 11/20/23 History
mcg (1,000 unit) capsule (Vitamin
D3)
finasteride 5 mg tablet 5 mg PO DAILY Urinary issue 11/09/21 11/20/23 History
isosorbide mononitrate 60 mg 60 mg PO DAILY Blood pressure 11/09/21 11/20/23 History
tablet,extended release 24 hr
nifedipine 90 mg tablet,extended 90 mg PO DAILY Heart 11/09/21 11/20/23 History
release disease/condition
polyethylene glycol 3350 17 17 g PO QPM Constipation 11/09/21 11/20/23 History
gram/dose oral powder (Miralax)
tamsulosin 0.4 mg capsule 0.8 mg PO QPM Urinary issue 11/09/21 11/20/23 History
tiotropium bromide 18 mcg capsule 18 mcg inhalation R BID 11/09/21 11/20/23 History
with inhalation device Lung/breathing issues
allopurinol 100 mg tablet 100 mg PO DAILY Gout 06/05/22 11/20/23 History
aspirin 81 mg tablet,delayed 81 mg PO DAILY Blood clot 06/05/22 11/20/23 History
release prevention/tx
psyllium husk 0.52 gram capsule 0.52 g PO BID Constipation 06/05/22 11/20/23 History
(Fiber (psyllium husk))
therapeutic multivitamin 1 tab PO QPM Supplement 06/05/22 11/20/23 History
vitamin B complex 1 tab PO DAILY Supplement 06/05/22 11/20/23 History
spironolactone 25 mg tablet 25 mg PO DAILY #30 tabs 05/14/23 11/20/23 Rx
clonidine HCl 0.1 mg tablet 0.1 mg PO BID 09/11/23 11/20/23 History
diphenhydramine HCl 50 mg/30 mL 50 mg PO HS 09/11/23 11/20/23 History
oral liquid (ZzzQuil)
docusate sodium 100 mg capsule 100 mg PO DAILY 09/11/23 11/20/23 History
(Colace)
furosemide 20 mg tablet 20 mg PO DAILY Blood pressure 09/11/23 11/20/23 History
labetalol 200 mg tablet 200 mg PO BID 09/11/23 11/20/23 History
pantoprazole 40 mg tablet,delayed 40 mg PO DAILY #90 tabs 09/12/23 11/20/23 Rx
release
hydralazine 100 mg tablet 100 mg PO TID 11/14/23 11/20/23 History
Review of Systems
-
History Source: Patient
All other systems: Negative unless noted
Respiratory: Trouble Breathing (BYRD )
Cardiac: Chest Pain and Diaphoresis
Abdomen/GI: Abdominal Pain
Neurological: Dizzy
Physical Exam
Vital Signs
Temp Pulse Resp BP Pulse Ox
98.3 F 64 16 169/52 97
11/21/23 07:00 11/21/23 07:20 11/21/23 07:20 11/21/23 07:00 11/21/23 07:20
Lab Results
11/21/23 05:41
11/21/23 05:41
Troponin I 0.013 ng/ml 11/21/23 05:41
Ncy-R-Acxvkgfnzja Pept 483 pg/ml 11/20/23 21:46
Physical Exam
General: Well Developed, Well Nourished and No Apparent Distress
HEENT: Normocephalic and Anicteric
Respiratory: Clear and Non Labored Respirations
Cardiac: Regular Rhythm
Skin: Warm and Dry
Neuro: AO x 3
Psych: Calm
Impression / Plan
-
Hypertensive urgency:
-severe HTN noted
-patient on multidrug regimen- clonidine, spironolactone, labetalol, hydralazine, Imdur, and nifedipine. I will increase nitrate.
-home BP's elevated at times, but mostly better than they are here
-he was given a dose of IV labetalol and two doses of IV hydralazine
-hx of renal artery stenosis s/p stenting on right side. There is consideration for intervention to left side and I will discuss with team.
CAD with hx CABG:
-most recent ischemic evaluation as below
-trops and EKG stable as above
-did have heaviness to chest and abdomen. Denies any of this with exertion.
-another trop pending this AM
-continue ASA, statin, Imdur
-follow telemetry
-check focused echo for LV function
RBBB:
-chronic, stable
Data:
Cardiac cath 2021: right dominant circulation with a severe, eccentric 80% lesion in the midshaft of the left main but no occlusive disease in the remainder of the coronary tree. Widely patent MEDEIROS to mid LAD. Given the lack of occlusive coronary
artery disease in the remainder of the coronary vessels, one must assume that the MEDEIROS to LAD surgery was performed in the context of the midshaft left main lesion. He has been feeling well since that surgery up until his recent visit to [facility] and medication adjustments for hypertension. His ischemia on pharmacologic SPECT does not match anatomically with his coronary anatomy. Furthermore, an intervention from the protected left main into the circumflex, may compromise the MEDEIROS
flow by restoring mary's igloo flow from the left main causing the MEDEIROS graft to become atretic. Given his nonspecific symptoms and potential complications of this intervention, the decision was made to manage the patient medically at this time.
Data Reviewed
-
EKG: Tracing Personally Visualized and interpreted (SR with 1st degree AVB RBBB- stable)
Radiology: Image Personally Visualized and interpreted (CXR without acute abnormality to my review; pending official read)
Medical Tests (Nuc Med, Echo etc): Report Reviewed by me (renal artery angio 09/11/23: severe calcific right renal artery stenosis and moderate to severe ostial left renal artery stenosis s/p right renal artery stenting. We will evaluate for clinical
response before committing him to left renal artery intervention. ) and Other (Echo 08/24/23: EF 50-55%. Mild concentric left ventricular hypertrophy. Mild to moderate tricuspid regurgitation. Estimated pulmonary artery pressure of 35-40 mmHg. )
Labs: Labs Reviewed by me
[2023-11-21] MEDS: PROTONIX 40 MG PO (08:34)
[2023-11-21] MEDS: COLACE 100 MG PO (08:34)
[2023-11-21] MEDS: ASPIR LOW (ENTERIC COATED) 81 MG PO (08:34)
[2023-11-21] MEDS: ZYLOPRIM 100 MG PO (08:35)
[2023-11-21] MEDS: HEPARIN 5000 UNITS SC ×2 (08:35→19:42)
[2023-11-21] MEDS: PROSCAR 5 MG PO (08:35)
[2023-11-21] MEDS: METAMUCIL, KONSYL 1 PACKET PO ×2 (08:36→19:40)
[2023-11-21 09:08] LABS: Glycohemoglobin (HgbA1c) 5.6 % (4.0-5.6)
[2023-11-21 09:20] LABS: Troponin I 0.018 ng/ml
--- NOTE | 2023-11-21 10:17 | W.PN.UPDATE ---
Update Note
Progress Note Update
Patient seen and examined after postmidnight admission. Reports he still has some chest heaviness. Also mentions he had dyspnea on exertion when walking to the bathroom which is new from prior to admission. Vital signs stable. No acute distress,
awake and alert. Regular rate and rhythm, normal S1-S2. Clear to auscultation bilaterally anteriorly. Positive bowel sounds, soft, nontender, nondistended. No lower extremity edema. Troponins negative. Patient's blood pressure remains elevated
with hypertensive urgency although the patient is on multiple antihypertensive medications. Will need to discuss with cardiology.
[2023-11-21] MEDS: IMDUR (EXTENDED RELEASE) 30 MG PO (10:36)
[2023-11-21] MEDS: MIRALAX 17 GRAMS PO (17:47)
[2023-11-21] MEDS: LIPITOR 40 MG PO (17:47)
[2023-11-21] MEDS: FLOMAX 0.8 MG PO (17:47)
[2023-11-21] MEDS: BENADRYL 6.25 MG IV (23:49)
[2023-11-22] VITALS (24 sets, daily range): BP systolic 105–212; BP diastolic 43–78; PULSE 2; BMI 28.0
[2023-11-22] MEDS: APRESOLINE 10 MG IV ×2 (01:35→08:30)
[2023-11-22] MEDS: SPIRIVA RESPIMAT 2.5 MCG 2 PUFF INH (08:17)
[2023-11-22] MEDS: SYMBICORT 80/4.5 MCG INHALER 2 PUFF INH ×2 (08:17→19:42)
[2023-11-22] MEDS: PROCARDIA XL (EXTENDED RELEASE) 90 MG PO (08:25)
[2023-11-22] MEDS: LASIX 20 MG PO (08:25)
[2023-11-22] MEDS: PROTONIX 40 MG PO (08:25)
[2023-11-22] MEDS: ASPIR LOW (ENTERIC COATED) 81 MG PO (08:25)
[2023-11-22] MEDS: TRANDATE 200 MG PO ×2 (08:26→22:25)
[2023-11-22] MEDS: IMDUR (EXTENDED RELEASE) 90 MG PO (08:27)
[2023-11-22] MEDS: ALDACTONE 25 MG PO (08:28)
[2023-11-22] MEDS: COLACE 100 MG PO (08:28)
[2023-11-22] MEDS: PROSCAR 5 MG PO (08:28)
[2023-11-22] MEDS: METAMUCIL, KONSYL 1 PACKET PO (08:28)
[2023-11-22] MEDS: ZYLOPRIM 100 MG PO (08:29)
--- NOTE | 2023-11-22 08:30 | PTCARENOTE ---
patient's b/p 207/75, heart rate 86, reports intermittent chest heaviness, denies sob or chest pain. administered PRN dose of Hydralazine as ordered, will continue to monitor.
[2023-11-22] MEDS: HEPARIN 5000 UNITS SC ×2 (08:33→21:33)
[2023-11-22] MEDS: APRESOLINE 100 MG PO ×3 (08:33→21:32)
--- NOTE | 2023-11-22 09:02 | PN.CDI ---
CDI
- -
CDI:
Physician Documentation Request
Admit Date: 11/21/23 02:24
Dear Doctor Adenike,
Please review the following and provide your response in the progress notes.
Clinical Indicators:
H+P, 11/20
#HTN urgency
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
#...s/p PCI of Rt renal artery 09/12/23 for severe renal artery stenosis (R>L).
#- add IV hydralazine 10 mg every 4 hours as needed for systolic BP greater than 180 and diastolic BP greater than 110
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
Cardiology, consult, 11/20
#Hypertensive urgency:
#-severe HTN noted
#-patient on multidrug regimen- clonidine, spironolactone, labetalol,
#...hydralazine, Imdur, and nifedipine.
#I will increase nitrate.
#-home BP's elevated at times, but mostly better than they are here
#-he was given a dose of IV labetalol and two doses of IV hydralazine
-hx of renal artery stenosis s/p stenting on right side.
Please clarify which, if any of the following, is a more accurate diagnosis reflecting the type and acuity of the documented hypertension:
Hypertensive Emergency - B/P is severely elevated (systolic > or = to 180 or diastolic > or = to 110) but can occur at lower levels especially in patients who did not previously have high B/P. There is usually associated organ damage. Symptoms may
include: memory loss, LOC, CVA, AR, angina, renal failure, pulmonary edema. Generally requires more aggressive treatment and a hospitalization.
Hypertensive Crisis - an acute elevation in B/P that can lead to organ damage. Broad term that is further differentiated to include urgency or emergency based on presence of organ damage.
Hypertensive Urgency - B/P is severely elevated (systolic > or = to 180 or diastolic > or = to 110) but there is no associated organ damage. Symptoms may include: headache, shortness of breath, nosebleeds, severe anxiety. Treatment usually consists
of addition to or adjusting of oral medications and does not generally necessitate hospitalization.
Other (please specify)
Use of terms such as suspected, likely, concern for, or probable (associated with a specific diagnosis that is being evaluated, monitored, or treated as if it exists) are acceptable and can be coded in the inpatient setting, when documented at the
time of discharge.
Thank you,
Mayra Alicea RN BSN CCDS
CDI Specialist
please contact via tiger text
Please use your independent medical judgment in providing your response.
--- NOTE | 2023-11-22 09:19 | W.PN.HOSP.TC ---
Today's Communication/Plan
-
see bold
Assessment / Plan
Assessment / Plan
Gen: NAD, Awake and alert, appears chronically ill
Eyes: EOMI, PERRLA, no scleral icterus.
Neck: supple.
CV: RRR, +S1/S2, no m/r/g.
Resp: CTAB, no rales, wheezes, or rhonchi.
Abd: +BS, soft, NT, ND
Skin: No rashes.
Neuro: CN 2-12 intact, non-focal.
Psych: Normal mood and affect.
Echo: Normal biventricular size and systolic function without regional wall motion
abnormality.
Stage I diastolic dysfunction suggestive of abnormal relaxation.
Mild pulmonary hypertension.
Compared to the prior on 08/24/2023 pulmonary pressure is now mildly increased.
Otherwise the findings are similar.
Central chest heaviness:
-h/o CAD, cont ASA/statin/BB
-currently CP free
-Trop NEG x 4 but slightly uptrending
-EKG on admission not c/w STEMI
-cardiology following
-case d/w Dr. Anders, for cath today
HTN emergency:
-h/o mulitdrug resistant HTN, s/p PCI of Rt renal artery 09/12/23 for severe renal artery stenosis (R>L)
-Imdur increased
-cont hydralazine/Aldactone/Labetalol/Procardia/lasix
-restart clonidine
-has required IV labetalol/Hydralazine
Other problems:
Hyponatremia, mild
CKD3b
mod TR
RBBB
HLD: cont statin
BPH: cont Finasteride/Flomax
COPD, not in acute exacerbation, cont Spiriva/Symbicort
Gout: cont allopurinol
FULL/Heparin
Total time spent on today's encounter was 50 minutes which included time spent in counseling the patient/family regarding diagnosis and treatment plan as listed above, goals of care, and symptom management. Case was discussed with nursing staff,
specialists, and care coordinators/case management. All labs and imaging personally reviewed by me. Remainder the time spent in detailed review of previous records, lab data, imaging, and other medical provider documentation.
Anticipated Discharge: 24 - 48 hours
Subjective/Interval History
-
Date of Service: November 22, 2023
Denies CP/SOB.
Objective Data
-
Vital Signs:
Vital Signs
Temp Pulse Resp BP Pulse Ox
98.1 F 76 18 207/75 95
11/22/23 07:49 11/22/23 08:25 11/22/23 08:25 11/22/23 08:30 11/22/23 08:25
I&O
11/21/23 11/22/23 11/23/23
06:59 06:59 06:59
Intake Total 600 / 600
Output Total 200 / 200 450 / 450
Balance -200 / -200 150 / 150
[2023-11-22] MEDS: CATAPRES 0.1 MG PO ×2 (10:22→21:32)
--- NOTE | 2023-11-22 10:22 | PTCARENOTE ---
b/p 200/70, starting on PRN Catapres per Dr. Jeong new order, asymptomatic, will continue to monitor.
[2023-11-22] MEDS: TRANDATE 10 MG IV (11:51)
--- NOTE | 2023-11-22 11:51 | PTCARENOTE ---
patient's b/p 202/78, heart rate 78. asymptomatic, notified Dr. Jeong and Dr. Anders. Trandate 10mgs IV now ordered, will continue to monitor.
--- NOTE | 2023-11-22 12:52 | PTCARENOTE ---
patient's b/p 178/76 after Trandate. 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 will continue to monitor.
--- NOTE | 2023-11-22 13:01 | ITS.CL.CATH ---
Pattern Designer - Catheterization
Cardiac Catheterization
Procedure Report:
CARDIAC CATHETERIZATION REPORT
Date of Procedure: 11/22/2023
Referring: Dawson Anders MD
Indication: Unstable angina and drug-resistant hypertension
�
HEMODYNAMIC DATA
AO: 192/76
LV: Not done
�
LEFT VENTRICULOGRAPHY: Not performed due to CKD
�
CORONARY ANGIOGRAPHY
Dominance: Right
Left Main: Calcific 80% proximal and mid mid stenosis extending to near the bifurcation.
LAD: The LAD has 60% stenosis in the midportion distal to the takeoff of the large D1. The LAD and D1 fill both antegrade and via a widely patent left internal mammary artery graft which touches down in the mid to distal LAD. There is no
significant disease in the LAD distal to the touchdown site.
Circumflex: The circumflex gives rise to a medium sized OM1 and a large OM 2 before terminating with a tiny OM 3. There is 30-40% stenosis in the proximal and midportion of the large OM 2.
RCA: Large dominant vessel with calcific 30% proximal to mid stenosis. There is otherwise mild luminal irregularities in the RCA. The large PDA and large posterolateral system are free of disease
Bypass grafts: The left internal mammary graft to the LAD remains widely patent with excellent runoff
Angioplasty: At the conclusion of the diagnostic study we proceeded with left main intervention into the left circumflex artery. Heparin was used for anticoagulation. Plavix 600 mg was administered procedure conclusion. A 6 Occitan EBU 3.5 guide
catheter was advanced to the left coronary ostium. Guide support was a problem. We could not pass a wire into the circumflex and parked a BMW wire in the large first diagonal branch. A whisper wire was passed into the high rising OM1 but we could
not get this wire into the circumflex proper. A 2.5 x 12 trek balloon was advanced into the guide and we were unable to get this balloon to cross the left main lesion..Ultimately, a decision was made to remove the coronary wires and remove the
guide catheter in favor of an AL-1 guide. The guide support with this catheter was marginally better. We were able to get a whisper wire back into the LAD but not the circumflex. A Fielder XT wire was successfully passed into the circumflex and
positioned in the large OM 2. A 1.5 x 12 Euphora balloon was successfully passed into the left main and angioplasty performed to 14 anson. The 2.5 x 12 Euphora balloon was then brought into the left main and after angioplasty to 12 anson the balloon
ruptured and was carefully removed. At this point we passed a 2.5 x 12 NC Euphora and inflated to 14 anson. We attempted unsuccessfully to pass a 3.5 x 15 [place] ELIEZER across the lesion. The undeployed stent was carefully removed and a 6
Occitan guide liner advanced into the mid left main. This allowed us to pass the stent to the target location where it was deployed at 15 anson then postdilated initially with a 3.5 NC Euphora to 17 anson. Angiography showed less than full expansion of
the proximal portion of the stent. We then predilated with the 3.5 NC Euphora to 22 anson. The final angiographic result was excellent with very mild residual stenosis in the proximal portion of the stent. There was no compromise of the OM1 or LAD
both of which are now jailed.
�
Closure Device: None-the procedure was performed via the right radial artery. The Dominic's test was normal tomorrow to the procedure.
�
Radiation (mGy): 1386
DAP (cm2.Gy): 91.5
Fluoroscopy time: 30.6 minutes
�
CONCLUSIONS
1:�Systemic hypertension
2:�Severe left main coronary artery disease as described with patent MEDEIROS-LAD
3. Successful stenting of left main disease into circumflex using 3.5 x 15 Kishore ELIEZER with excellent angiographic result
4. Recommend dual antiplatelet therapy for 6-12 months.
5. If he continues to have poorly controlled hypertension in the outpatient setting we can stent his ostial/proximal left renal artery disease electively
�
�
Copy to: Dawson Anders MD, Stephen Suazo,, DO
�
Jose Alberto Aviles MD, FACC, [facility]
[2023-11-22 13:39] LABS: ACT-LR - POC 314 Seconds (116-155)
[2023-11-22 14:16] LABS: ACT-LR - POC 300 Seconds (116-155)
--- NOTE | 2023-11-22 15:03 | W.PN.CD ---
Today's Communication / Plan
-
NPO cath today
Impression / Plan
-
Hypertensive urgency with chest pressure:
-severe HTN noted
-patient on multidrug regimen- clonidine, spironolactone, labetalol, hydralazine, Imdur, and nifedipine nitrate has been increased
-home BP's elevated at times, but mostly better than they are here
-Increased hydralazine with IV hydral and labetalol PRN
- He is NPO for cath today
CAD with hx CABG:
-most recent ischemic evaluation as below
-trops and EKG stable as above
-did have heaviness to chest and abdomen--> cath today
-another trop pending this AM
-continue ASA, statin, Imdur
-follow telemetry
-check focused echo for LV function
RBBB:
-chronic, stable
Data:
Cardiac cath 2021: right dominant circulation with a severe, eccentric 80% lesion in the midshaft of the left main but no occlusive disease in the remainder of the coronary tree. Widely patent MEDEIROS to mid LAD. Given the lack of occlusive coronary
artery disease in the remainder of the coronary vessels, one must assume that the MEDEIROS to LAD surgery was performed in the context of the midshaft left main lesion. He has been feeling well since that surgery up until his recent visit to [place] [facility] and medication adjustments for hypertension. His ischemia on pharmacologic SPECT does not match anatomically with his coronary anatomy. Furthermore, an intervention from the protected left main into the circumflex, may compromise the MEDEIROS
flow by restoring [place] flow from the left main causing the MEDEIROS graft to become atretic. Given his nonspecific symptoms and potential complications of this intervention, the decision was made to manage the patient medically at this time.
Physical Exam
Vital Signs/Labs
Vital Signs
Temp Pulse Resp BP Pulse Ox
98.2 F 85 16 178/76 96
11/22/23 11:39 11/22/23 12:52 11/22/23 11:39 11/22/23 12:52 11/22/23 11:39
11/21/23 11/22/23 11/23/23
06:59 06:59 06:59
Actual Weight 190 lb 11.2 oz 189 lb 8 oz
11/21/23 05:41
11/21/23 05:41
11/20/23
21:46
Owg-G-Emglbwuwdgk Pept 483
LAB Results
11/20/23 11/21/23 11/21/23
21:46 02:36 05:41
Troponin I < 0.012 < 0.012 0.013
11/21/23
08:27
Troponin I 0.018 D
Physical Exam
Constitutional: No acute distress
EENT: Anicteric
Cardiovascular: Rhythm & rate is regular
Respiratory: Respiratory effort normal and Lungs clear to auscul.
GI: Soft
Neuro/Psych: AO x 3
Data Reviewed
-
Date of Service: November 22, 2023
EKG: Tracing Personally Visualized and interpreted
Echo: Report Reviewed by me
Labs: Labs Reviewed by me
[2023-11-22] MEDS: NSS 1000 IV (15:30)
--- NOTE | 2023-11-22 16:07 | PTCARENOTE ---
Nicole in IVU given telephone report of patient status. patient belongings sent to room 2254.
[2023-11-22] MEDS: TYLENOL 650 MG PO (16:19)
--- NOTE | 2023-11-22 16:32 | CM ---
CM following for DC planning needs.
Met w/ patient and dtrs. at bedside (Lana + Serena).
Pt. resides w/ spouse (+ dog) at [facility] [phone].
Pt. is indep. with use of a RW prior to admission.
Pt. is not open to any VN at this time.
Dtrs. to transport back to [facility].
CM to contact them upon DC to coordinate return.
Will follow.
[2023-11-22] MEDS: LIPITOR 40 MG PO (17:56)
[2023-11-22] MEDS: FLOMAX 0.8 MG PO (17:56)
[2023-11-22] MEDS: MIRALAX PO (17:57)
--- NOTE | 2023-11-22 19:04 | PTCARENOTE ---
Pt received at 1515 post cardiac cath. Right groin site dressing dry and intact with no hematoma. Pt medicated with tylenol as ordered for mild right groin discomfort with relief. Lungs clear, room air sat 95%. SR, rate in the 60's to 70's. Pt
assisted oob to the recliner chair at 1640. C/o of mild lightheadedness while standing, Bp 111/43. Pt tolerating oob in the chair for dinner at this time.
[2023-11-22] MEDS: METAMUCIL, KONSYL PO (21:33)
--- NOTE | 2023-11-23 03:02 | PTCARENOTE ---
Pt. received at change of shift. NSR with first degree and BBB on tele. Right groin cath site with no complications noted, dressing dry/intact. Pt. could not tolerate Cpap mask so 2L NC placed on patient at HS. Up to commode with x1 assist,
patient verbalizes understanding to call for assistance for transferring. Call morse within reach.
[2023-11-23 03:16] VITALS: BP 146/54
[2023-11-23 03:33] VITALS: BMI 27.7
[2023-11-23 04:08] LABS: Hematocrit 27.3 % (39.0-52.0); Mean Corp Hgb Conc. 36.6 g/dL (33.0-37.0); Mean Corpuscular Hgb 31.8 pg (27.0-31.0); Mean Corpuscular Volume 86.9 fL (80.0-94.0); Mean Platelet Volume 9.1 fL (7.4-10.4); Platelet Count 343 10^3/uL (130-400); Red Blood Cell Count 3.14 10^6/uL (4.70-6.10); Red Cell Dist. Width 14.1 % (11.5-14.5); White Blood Cell Count 8.4 10^3/uL (4.8-10.8)
[2023-11-23 04:31] LABS: Blood Urea Nitrogen 27 mg/dl (9-20); Calcium 8.9 mg/dl (8.4-10.2); Carbon Dioxide 20 mmol/L (22-30); Chloride 103 mmol/L (98-107); Estimated Creatinine Clearance 34 ml/min; Glucose 113 mg/dl (70-99); Potassium 4.3 mmol/L (3.5-5.1); Sodium 130 mmol/L (135-145); eGFR 42.22
[2023-11-23 07:45] VITALS: BP 172/59
--- NOTE | 2023-11-23 07:47 | W.PN.HOSP.TC ---
Addendum entered and electronically signed by Luis Fernando Jeong MD 11/23/23 11:29:
Case discussed with Dr. Anders and the pt is medically cleared for discharge. Will have outpt L renal artery stenting.
Total time spent on d/c = 35 min. This included today's physical exam, progress note, review of laboratory and diagnostic data, preparation of discharge documents and prescriptions, and discussions about the pt's hospital course and discharge plan
with the patient and other medical laboratory technician involved in the patient's care.
Original Note:
Today's Communication/Plan
-
see bold
Assessment / Plan
Assessment / Plan
Gen: NAD, Awake and alert, appears chronically ill
Eyes: EOMI, PERRLA, no scleral icterus.
Neck: supple.
CV: remains RRR, +S1/S2, no m/r/g.
Resp: remains CTAB, no rales, wheezes, or rhonchi.
Abd: +BS, soft, NT, ND
Skin: No rashes.
Neuro: remains CN 2-12 intact, non-focal.
Psych: Normal mood and affect.
Cardiac cath 11/22/23:
1:�Systemic hypertension
2:�Severe left main coronary artery disease as described with patent MEDEIROS-LAD
3. Successful stenting of left main disease into circumflex using 3.5 x 15 [place] ELIEZER with excellent angiographic result
4. Recommend dual antiplatelet therapy for 6-12 months.
5. If he continues to have poorly controlled hypertension in the outpatient setting we can stent his ostial/proximal left renal artery disease electively
Echo: Normal biventricular size and systolic function without regional wall motion
abnormality.
Stage I diastolic dysfunction suggestive of abnormal relaxation.
Mild pulmonary hypertension.
Compared to the prior on 08/24/2023 pulmonary pressure is now mildly increased.
Otherwise the findings are similar.
Central chest heaviness:
-h/o CAD, cont ASA/statin/BB
-currently CP free
-Trop NEG x 4 but slightly uptrending
-EKG on admission not c/w STEMI
-cardiology following
-cath above, notable for severe LM disease with sent placed
HTN emergency:
-h/o mulitdrug resistant HTN, s/p PCI of Rt renal artery 09/12/23 for severe renal artery stenosis (R>L)
-Imdur increased
-cont hydralazine/Aldactone/Labetalol/Procardia/lasix/clonidine
-has required IV labetalol/Hydralazine
-consideration for stenting of L renal artery
Other problems:
Hyponatremia, mild
CKD3b
mod TR
RBBB
HLD: cont statin
BPH: cont Finasteride/Flomax
COPD, not in acute exacerbation, cont Spiriva/Symbicort
Gout: cont allopurinol
FULL/Heparin
Will discuss timing of d/c with cardiology.
Anticipated Discharge: Within 24 hours
Subjective/Interval History
-
Date of Service: November 23, 2023
Pt states he feels better overall. Notes that upon ambulation to the bathroom he felt 'I'm back.'
Objective Data
-
Labs:
Laboratory Results
11/23/23
03:27
WBC 8.4
Hgb 10.0 L
Hct 27.3 L
Plt Count 343
Sodium 130 L
Potassium 4.3
Chloride 103
Carbon Dioxide 20 L
BUN 27 H
Creatinine 1.6 H
Glucose 113 H
Calcium 8.9
Vital Signs:
Vital Signs
Temp Pulse Resp BP Pulse Ox
97.9 F 70 18 146/54 97
11/23/23 03:32 11/23/23 07:00 11/23/23 03:32 11/23/23 03:16 11/23/23 03:32
I&O
11/22/23 11/23/23 11/24/23
06:59 06:59 06:59
Intake Total 600 / 600
Output Total 450 / 450 350 / 350
Balance 150 / 150 -350 / -350
[2023-11-23] MEDS: SYMBICORT 80/4.5 MCG INHALER 2 PUFF INH (08:02)
[2023-11-23] MEDS: SPIRIVA RESPIMAT 2.5 MCG 2 PUFF INH (08:02)
--- NOTE | 2023-11-23 08:15 | PTCARENOTE ---
Assumed care of pt from prev nsg shift; Pt is AAOx3 w/no c/o CP or SOB. Pt's VS stable w/HR in the 70's, BP is elevated at 172/59. Pt had to be reminded frequently not to move or talk while obtaining pressure. R groin access site w/dressing C/D/I
w/no signs or symptoms of bleeding or hematoma. Plan of care discussed w/pt & pt's daughter. Pt anticipating D/C to home today. Pt w/no addtl needs at this time. Plan of care ongoing.
[2023-11-23 08:23] VITALS: BP 179/59
--- NOTE | 2023-11-23 09:00 | W.PN.UPDATE ---
Update Note
Progress Note Update
POST PCI NOTE:
11/22/23 s/p PCI LM into LCx 3.5x15mm ELIEZER x1, patent MEDEIROS-LAD
No CP, sob
Right Femoral artery site closed with angioseal, c/d/i, soft, no HT
tele SR/SB 1deg AVB, RBBB, no significant ectopy
DAPT ASA/Plavix, understands compliance
Plan: If continues to have poorly controlled HTN despite mediation titration, can consider renal artery stenting electively
f/u cbc 12/03 @120pm
[2023-11-23] MEDS: PROCARDIA XL (EXTENDED RELEASE) 90 MG PO (09:34)
[2023-11-23] MEDS: PROTONIX 40 MG PO (09:35)
[2023-11-23] MEDS: IMDUR (EXTENDED RELEASE) 90 MG PO (09:35)
[2023-11-23] MEDS: APRESOLINE 100 MG PO (09:36)
[2023-11-23] MEDS: ALDACTONE 25 MG PO (09:36)
[2023-11-23] MEDS: PLAVIX 75 MG PO (09:36)
[2023-11-23] MEDS: PROSCAR 5 MG PO (09:37)
[2023-11-23] MEDS: CATAPRES 0.1 MG PO (09:37)
[2023-11-23] MEDS: ASPIR LOW (ENTERIC COATED) 81 MG PO (09:37)
[2023-11-23] MEDS: HEPARIN 5000 UNITS SC (09:37)
[2023-11-23] MEDS: COLACE 100 MG PO (09:37)
[2023-11-23] MEDS: ZYLOPRIM 100 MG PO (09:37)
[2023-11-23] MEDS: LASIX 20 MG PO (09:37)
[2023-11-23] MEDS: METAMUCIL, KONSYL PO (09:38)
[2023-11-23] MEDS: TRANDATE 200 MG PO (10:47)
--- NOTE | 2023-11-23 10:59 | W.PN.CD ---
Today's Communication / Plan
-
DAPT for at least 6 months
Cont anti- HTN meds
Outpatient renal artery to be scheduled at hospital f/u visit
We will sign off please call with questions/concerns.
Impression / Plan
-
Hypertensive urgency with chest pressure:
-severe HTN noted
-patient on multidrug regimen- clonidine, spironolactone, labetalol, hydralazine, Imdur, and nifedipine nitrate has been increased
-home BP's elevated at times, but mostly better than they are here
-Increased hydralazine with IV hydral and labetalol PRN
- S/p left main to circ stenting
- DAPT for at least 6 months
- cont meds, he will f/u in office where he will be set up for outpatient renal artery stenting
CAD with hx CABG:
-most recent ischemic evaluation as below
-trops and EKG stable as above
-S/p left main to circ stenting
-continue ASA, statin, Imdur
-follow telemetry
-check focused echo for LV function
RBBB:
-chronic, stable
Subjective: feels great wants to be d/c
Data:
Cardiac cath 2021: right dominant circulation with a severe, eccentric 80% lesion in the midshaft of the left main but no occlusive disease in the remainder of the coronary tree. Widely patent MEDEIROS to mid LAD. Given the lack of occlusive coronary
artery disease in the remainder of the coronary vessels, one must assume that the MEDEIROS to LAD surgery was performed in the context of the midshaft left main lesion. He has been feeling well since that surgery up until his recent visit to [place] [facility] and medication adjustments for hypertension. His ischemia on pharmacologic SPECT does not match anatomically with his coronary anatomy. Furthermore, an intervention from the protected left main into the circumflex, may compromise the MEDEIROS
flow by restoring [place] flow from the left main causing the MEDEIROS graft to become atretic. Given his nonspecific symptoms and potential complications of this intervention, the decision was made to manage the patient medically at this time.
Physical Exam
Vital Signs/Labs
Vital Signs
Temp Pulse Resp BP Pulse Ox
97.6 F 81 18 179/59 97
11/23/23 07:47 11/23/23 09:00 11/23/23 08:07 11/23/23 08:23 11/23/23 08:07
11/22/23 11/23/23 11/24/23
06:59 06:59 06:59
Actual Weight 189 lb 8 oz 187 lb 9.814 oz
11/23/23 03:27
11/23/23 03:27
11/20/23
21:46
Cxz-C-Enygdftmsxy Pept 483
LAB Results
11/20/23 11/21/23 11/21/23
21:46 02:36 05:41
Troponin I < 0.012 < 0.012 0.013
11/21/23
08:27
Troponin I 0.018 D
Physical Exam
Constitutional: No acute distress
EENT: Anicteric
Cardiovascular: Rhythm & rate is regular
Respiratory: Respiratory effort normal and Lungs clear to auscul.
GI: Soft
Neuro/Psych: AO x 3
Data Reviewed
-
Date of Service: November 23, 2023
Medical Decision Making: Reviewed Test Results
EKG: Tracing Personally Visualized and interpreted
Echo: Report Reviewed by me
Labs: Labs Reviewed by me
[2023-11-23 11:25] VITALS: BP 172/56
--- NOTE | 2023-11-23 11:45 | CM ---
CM following for DC planning needs.
Met w/ patient, dtr. at bedside. Pt. feels well and is hopeful for DC soon. No concerns noted; patient feeling well.
Noted DC order.
Call to [facility], - spoke w/ JEFF Rdz. Informed her of DC.
RN to call report to: [phone], ask for Kajal. Fax DC Summary to: [phone].
Pt. can be provided with paper RX as he self-medicates.
Plan is for return to [facility]
Dtr. to transport.
--- NOTE | 2023-11-23 13:46 | W.DCSUMMARY ---
Discharge Summary
Discharge Data
Date of Admission: 11/21/23
Date of Discharge: 11/23/23
-
Pending Results: No
Hospital Course
Primary diagnoses:
Acute coronary syndrome due to hypertensive emergency, angioplasty with stent to Left main artery
Coronary artery disease
Secondary diagnoses:
Hyponatremia
Chronic kidney disease 3b
Moderate tricuspid regurgitation
Right bundle branch
Hyperlipidemia: cont statin
Benign prostatic hypertrophy
Chronic obstructive pulmonary disease
Gout
Consults:
Cardiology
Imaging/procedures:
Cardiac cath 11/22/23:
1:�Systemic hypertension
2:�Severe left main coronary artery disease as described with patent MEDEIROS-LAD
3. Successful stenting of left main disease into circumflex using 3.5 x 15 [place] ELIEZER with excellent angiographic result
4. Recommend dual antiplatelet therapy for 6-12 months.
5. If he continues to have poorly controlled hypertension in the outpatient setting we can stent his ostial/proximal left renal artery disease electively
Echo: Normal biventricular size and systolic function without regional wall motion
abnormality.
Stage I diastolic dysfunction suggestive of abnormal relaxation.
Mild pulmonary hypertension.
Compared to the prior on 08/24/2023 pulmonary pressure is now mildly increased.
Otherwise the findings are similar.
83-year-old male who presented with a chief complaint of chest pain as outlined in the H&P done on admission. Hospital course by problems:
Acute coronary syndrome due to hypertensive emergency: Patient presented with central chest heaviness. He had a history of coronary artery disease. He initially came in as a STEMI alert but ECG did not show ST elevation [place]. Troponins were
negative x 4 but did slightly uptrend. The patient's blood pressure was severely elevated. Aspirin beta-chris and statin were continued. The patient had a cardiac catheterization as above. He had angioplasty with stent placement to the left
main artery. His symptoms improved thereafter.
HTN emergency: The patient had a history of multidrug resistant hypertension. He had a history of PCI of the R renal artery 09/12/23 for severe renal artery stenosis (R>L). His Imdur was increased.. His
hydralazine/Aldactone/Labetalol/Procardia/lasix/clonidine were continued. He required doses of IV labetalol and hydralazine. Cardiology will arrange for left renal artery stenting after discharge.
Discharge Plan
-
Patient Disposition: Home (Routine Discharge)
Discharge Diagnosis/Procedures: Acute coronary syndrome due to hypertensive emergency, angioplasty with stent to Left main artery
Condition: Good
Diet: Low Cholesterol and 2 Gram Sodium
Driving Restrictions: No driving for 24 hours
Other Services: Cardiac Rehab
Stand Alone Forms: DC Instructions- Cath/EP Lab
Referrals:
[facility], [facility]isted [facility] [Other]
Nanda Murcia NP [Specified Professional Personl] - 12/04/23 1:20 pm
Stephen Suazo DO [Family Provider] - in less than 1 week
Prescriptions:
New
isosorbide mononitrate 30 mg tablet extended release 24 hr
90 mg PO DAILY Qty: 90 0RF
clopidogrel 75 mg Tablet
75 mg PO DAILY Qty: 30 0RF
Continued
atorvastatin 40 mg Tablet
40 mg PO QPM
nifedipine 90 mg Tablet Extended Release
90 mg PO DAILY
tamsulosin 0.4 mg Capsule
0.8 mg PO QPM
polyethylene glycol 3350 [Miralax] 17 gram/dose Powder
17 g PO QPM
finasteride 5 mg Tablet
5 mg PO DAILY
cholecalciferol (vitamin D3) [Vitamin D3] 25 mcg (1,000 unit) Capsule
25 mcg PO DAILY
tiotropium bromide 18 mcg Capsule, W/Inhalation Device
18 mcg INHALATION R BID
budesonide-formoterol [Breyna] 80-4.5 mcg/actuation Hfa Aerosol Inhaler
2 puff INHALATION R BID
therapeutic multivitamin Tablet
1 tab PO QPM
allopurinol 100 mg tablet
100 mg PO DAILY
aspirin 81 mg Tablet,Delayed Release (Dr/Ec)
81 mg PO DAILY
vitamin B complex Tablet
1 tab PO DAILY
psyllium husk [Fiber (psyllium husk)] 0.52 gram Capsule
0.52 g PO BID
spironolactone 25 mg Tablet
25 mg PO DAILY Qty: 30 0RF
furosemide 20 mg tablet
20 mg PO DAILY
clonidine HCl 0.1 mg Tablet
0.1 mg PO BID
labetalol 200 mg Tablet
200 mg PO BID
docusate sodium [Colace] 100 mg Capsule
100 mg PO DAILY
ZzzQuil 50 mg/30 mL Liquid
50 mg PO HS
pantoprazole 40 mg Tablet,Delayed Release (Dr/Ec)
40 mg PO DAILY Qty: 90 3RF
hydralazine 100 mg Tablet
100 mg PO TID
Discontinued
isosorbide mononitrate 60 mg Tablet Extended Release 24 Hr
60 mg PO DAILY
Discharge Orders:
Discharge Patient (As Directed); Ordered 11/23/23
Ordered By: Luis Fernando Jeong
Care Plan Goals
Care Plan Goals:
Problem: Readiness for enhanced knowledge related to diagnosis and treatment plan
Goal: Understand your diagnosis and treatment plan needs, including medications if applicable.
Instructions: Know your diagnosis, underlying causes and treatment plan options, including medications if applicable. Consult with your health care team to learn about your diagnosis and treatment plan, including medications if applicable.
Discharge Date and Time
Print Language: YI
--- NOTE | 2023-11-23 14:43 | PTCARENOTE ---
Report called to Kajal at [facility] [phone]. D/C instructions & meds discussed w/pt and his daughter. [facility] & [facility] own medications. Pt's IV line & telemetry pack D/C'd & pt transported out via
wheelchair w/his daughter driving him back to the [facility]. The transfer paperwork was faxed over & copies were given to pt's daughter to give to the facility upon arrival.
== END 2023-11-23 14:46 | disposition home or self-care (01) | DRG 322 ==
LOC: IVU 02:24
PROVIDERS: Emergency Medicine; Internal Medicine Cardiovascular Disease; Nurse Practitioner Adult Health; ADMITTING PHYSICIAN Internal Medicine; ATTENDING PHYSICIAN Internal Medicine; EMERGENCY PHYSICIAN Emergency Medicine; FAMILY PHYSICIAN Internal Medicine; OTHER PHYSICIAN Internal Medicine Cardiovascular Disease
PROC: B2111ZZ Fluoroscopy of Multiple Coronary Arteries using Low Osmolar Contrast (ICD-10-PCS; 2023-11-22)
PROC: 4A023N7 Measurement of Cardiac Sampling and Pressure, Left Heart, Percutaneous Approach (ICD-10-PCS; 2023-11-22)
PROC: 027034Z Dilation of Coronary Artery, One Artery with Drug-eluting Intraluminal Device, Percutaneous Approach (ICD-10-PCS; 2023-11-22)
DX: I16.1 Hypertensive emergency (principal); E87.1 Hypo-osmolality and hyponatremia; I25.110 Atherosclerotic heart disease of native coronary artery with unstable angina pectoris; I24.9 Acute ischemic heart disease, unspecified; Z87.891 Personal history of nicotine dependence; I12.9 Hypertensive chronic kidney disease with stage 1 through stage 4 chronic kidney disease, or unspecified chronic kidney disease; N18.32 Chronic kidney disease, stage 3b; I1A.0 Resistant hypertension; I08.1 Rheumatic disorders of both mitral and tricuspid valves; M10.9 Gout, unspecified; J44.9 Chronic obstructive pulmonary disease, unspecified; N40.0 Benign prostatic hyperplasia without lower urinary tract symptoms
CPT/HCPCS: 93308; 71045; 80048; 80053; 83036; 83880; 84484; 85025; 85027; 85347; 93005; 93455; 94640; 94660; 99285; C1725; C1760; C1769; C1874; C1887; C1894; C9600; Q9967

== ENCOUNTER 2023-12-02 01:12 | Inpatient (IN) | payer OTHER, SELFPAY ==
[2023-12-01] VITALS (7 sets, daily range): BP systolic 187–201; BP diastolic 51–57
[2023-12-01 21:06] LABS: % Basophils 0.5 % (0-2); % Eosinophils 1.8 % (0-6); % Immature Granulocytes 0.3 % (0-0.5); % Lymphocytes 8.5 % (20.5-51.1); % Neutrophils 82.7 % (42.2-75.2); Absolute Basophils 0.1 10^3/uL (0-0.2); Absolute Eosinophils 0.2 10^3/uL (0-0.7); Absolute Lymphocytes 0.8 10^3/uL (1.2-3.4); Absolute Monocytes 0.6 10^3/uL (0.1-0.6); Absolute Neutrophils 8.4 10^3/uL (1.4-6.5); Hematocrit 26.1 % (39.0-52.0); Hemoglobin 9.4 g/dL (13.0-18.0); Mean Corp Hgb Conc. 35.9 g/dL (33.0-37.0); Mean Corpuscular Hgb 30.8 pg (27.0-31.0); Mean Corpuscular Volume 85.9 fL (80.0-94.0); Mean Platelet Volume 9.4 fL (7.4-10.4); Nucleated Red Blood Cells % 0 % (-); Platelet Count 361 10^3/uL (130-400); Red Blood Cell Count 3.05 10^6/uL (4.70-6.10); Red Cell Dist. Width 14.4 % (11.5-14.5); White Blood Cell Count 10.2 10^3/uL (4.8-10.8)
[2023-12-01 21:17] LABS: ALT (SGPT) 21 U/L (0-50); AST (SGOT) 28 U/L (17-59); Albumin 3.7 g/dl (3.5-5.0); Alkaline Phosphatase 96 U/L (38-126); Blood Urea Nitrogen 29 mg/dl (9-20); Calcium 9.6 mg/dl (8.4-10.2); Carbon Dioxide 20 mmol/L (22-30); Chloride 100 mmol/L (98-107); Estimated Creatinine Clearance 36 ml/min; Glucose 138 mg/dl (70-99); Potassium 4.7 mmol/L (3.5-5.1); Sodium 131 mmol/L (135-145); Total Bilirubin 0.5 mg/dl (0.2-1.3); Total Protein 6.3 g/dl (6.3-8.2); eGFR 39.26
--- NOTE | 2023-12-01 21:29 | ED.GENMED ---
History of Present Illness
General
Chief Complaint: Dizziness
Time Seen by Provider: 12/01/23 21:29
History of Present Illness
History of Present Illness:
HPI: Patient presents with dizziness with he had a coronary stent placed about 8 days ago. He also states he had a right renal artery stent placed about a month or so ago. He has been feeling constipated. GENERAL: Well appearing in no distress
EXAM
GENERAL: Appears generally weak and debilitated
HEENT: Moist oral mucosa
CARDIOVASCULAR: No murmurs, normal heart rate, regular rhythm, No chest wall tenderness
PULMONARY: No respiratory distress, breath sounds are clear and equal
ABDOMEN: Soft with no peritoneal signs, no tenderness, empty rectal vault
NEUROLOGIC: Excellent strength all extremities, no coordination deficits
PSYCHIATRIC: Appropriate mental status, normal insight and judgement
EXTREMITIES: Nontender, no edema, moves all extremities equally
SKIN: No rash, no lesions
TIME OF INITIAL ENCOUNTER: 10 PM
NUMBER AND COMPLEXITY OF PROBLEMS ADDRESSED AT THE ENCOUNTER
� Chronic conditions affecting care: COPD, hypertension, hyperlipidemia
� Acute Exacerbation and/or Progression of Chronic Illness: This is an acute problem
� Differential Diagnosis includes: Hypertensive urgency intracranial pathology, nonspecific dizziness, viral syndrome
AMOUNT AND/OR COMPLEXITY OF DATA TO BE REVIEWED AND ANALYZED
� I performed an independent evaluation of and my interpretation is:
EKG: Sinus 58, right bundle branch block is old
CT: CT brain unremarkable
X-rays:
Laboratory Studies: White count 10.2, hemoglobin 9.4 which is just slightly lower than prior, bicarb 20 which is at baseline, creatinine 1.7
Other:
� Review of other/old records: Hemoglobin recently was 10.0, creatinine on 11/23/2023 was 1.6
� Clinical information was obtained by an independent historian: I spoke to daughter at bedside
� Prescriptions/Medications Considered but not given:
� Further testing considered but not performed:
RISK OF COMPLICATIONS AND/OR MORBIDITY OR MORTALITY OF PATIENT MANAGEMENT
� Social determinants of health affecting care: Lives at home
� Discussion with other providers: Dr. Starr for admission
� Escalation of care including admission/observation vs risk of discharge considered: Symptoms may or may not be related to rather severe hypertension. He is already on several antihypertensives. He was given labetalol 10 mg
and systolic blood pressure went from 193 to 198. Hydralazine IV then ordered. I reviewed records which indicates the patient had angioplasty and stenting to the right renal artery
Past History
Past History
ED Past Medical History: CAD, COPD, HTN, Hypercholesterolemia, Other (Renal insufficiency) and Other (Prostatic hypertrophy)
ED Past Surgical History: Cardiac (Cardiac bypass 2016), Orthopedic (Left knee replacement 2017) and Other (Nasal polyps)
Social History
Tobacco: Former smoker
Alcohol: None
Drug: None
Personal:
Living: with family
Employment: Retired
Family History
Family History: Other (Unremarkable)
Phy Exam
Physical Exam
Physical Exam:
See HPI
Course
Orders/Labs/Results
Orders:
Orders
12/01/23 20:27
EKG [Electrocardiogram (*1)] Urgent
Reason for Study: Vertigo / Dizzy
EKG- Treatment ONCE
12/01/23 20:33
Complete Blood Count/With Diff Urgent
Comprehensive Metabolic Panel Urgent
12/01/23 22:07
CT Head W/o Iv Contrast Urgent
Comment:
Reason For Exam: dizzy hypertensive
Labetalol HCl [Trandate] 10 mg IV NOW STA
12/01/23 22:52
HydrALAZINE [Apresoline] 10 mg IV NOW STA
Abnormal Lab Results
12/01/23
20:33
RBC 3.05 L 10^6/uL
(4.70-6.10)
Hgb 9.4 L g/dL
(13.0-18.0)
Hct 26.1 L %
(39.0-52.0)
Absolute Neuts (auto) 8.4 H 10^3/uL
(1.4-6.5)
Absolute Lymphs (auto) 0.8 L 10^3/uL
(1.2-3.4)
Neutrophils % 82.7 H %
(42.2-75.2)
Lymphocytes % 8.5 L %
(20.5-51.1)
Sodium 131 L mmol/L
(135-145)
Carbon Dioxide 20 L mmol/L
(22-30)
BUN 29 H mg/dl
(9-20)
Creatinine 1.7 H mg/dL
(0.7-1.3)
Glucose 138 H mg/dl
(70-99)
12/01/23 20:33
12/01/23 20:33
Vital Signs
Initial and Last Documented VS:
Initial Vital Signs
Pulse Resp BP Pulse Ox
67 18 194/54 99
12/01/23 20:20 12/01/23 20:20 12/01/23 20:20 12/01/23 20:20
Last Documented Vital Signs
Temp Pulse Resp BP Pulse Ox
97.5 F 71 19 193/54 96
12/01/23 20:28 12/01/23 22:19 12/01/23 22:15 12/01/23 22:19 12/01/23 22:15
*Critical Care Note
Total Time (30-74mins, 75-104mins- exclusive of procedures): Not Applicable
ED Attending Note
-
Portions of this chart may have been created with voice recognition software.� Occasional wrong word or��sound alike� substitutions may have occurred due to the inherent limitations of voice recognition software.
Discharge Plan
Departure
Prescriptions:
No Action
atorvastatin 40 mg Tablet
40 mg PO QPM
nifedipine 90 mg Tablet Extended Release
90 mg PO DAILY
tamsulosin 0.4 mg Capsule
0.8 mg PO QPM
polyethylene glycol 3350 [Miralax] 17 gram/dose Powder
17 g PO QPM
finasteride 5 mg Tablet
5 mg PO DAILY
cholecalciferol (vitamin D3) [Vitamin D3] 25 mcg (1,000 unit) Capsule
25 mcg PO DAILY
tiotropium bromide 18 mcg Capsule, W/Inhalation Device
18 mcg INHALATION R BID
budesonide-formoterol [Breyna] 80-4.5 mcg/actuation Hfa Aerosol Inhaler
2 puff INHALATION R BID
therapeutic multivitamin Tablet
1 tab PO QPM
allopurinol 100 mg tablet
100 mg PO DAILY
aspirin 81 mg Tablet,Delayed Release (Dr/Ec)
81 mg PO DAILY
vitamin B complex Tablet
1 tab PO DAILY
psyllium husk [Fiber (psyllium husk)] 0.52 gram Capsule
0.52 g PO BID
spironolactone 25 mg Tablet
25 mg PO DAILY Qty: 30 0RF
furosemide 20 mg tablet
20 mg PO DAILY
clonidine HCl 0.1 mg Tablet
0.1 mg PO BID
labetalol 200 mg Tablet
200 mg PO BID
docusate sodium [Colace] 100 mg Capsule
100 mg PO DAILY
ZzzQuil 50 mg/30 mL Liquid
50 mg PO HS
pantoprazole 40 mg Tablet,Delayed Release (Dr/Ec)
40 mg PO DAILY Qty: 90 3RF
hydralazine 100 mg Tablet
100 mg PO TID
isosorbide mononitrate 30 mg tablet extended release 24 hr
90 mg PO DAILY Qty: 90 0RF
clopidogrel 75 mg Tablet
75 mg PO DAILY Qty: 30 0RF
Referrals:
Zakrzewski,Stephen J., DO [Family Provider] -
Interventions
Interventions:
*Risk Screen - Suicide Last Done: 12/01/23 20:25
*General Assessment Last Done: 12/01/23 20:25
*Neglect/Abuse Screening Last Done: 12/01/23 20:25
ED- Fall Risk Assessment Last Done: 12/01/23 21:05
*ED COVID-19 Vaccine History Last Done: 12/01/23 20:25
ED- Neurological Assessment Last Done: 12/01/23 20:26
ED- Cardiac Assessment Last Done: 12/01/23 22:40
ED Swallowing Screen Last Done: 12/01/23 23:16
Discharge Date and Time
Print Language: POLISH
[2023-12-01] MEDS: TRANDATE 10 MG IV (22:19)
[2023-12-01] MEDS: APRESOLINE 10 MG IV (23:08)
[2023-12-02] VITALS (14 sets, daily range): BP systolic 117–197; BP diastolic 50–132; PULSE 2–98; BMI 28.9
[2023-12-02] MEDS: APRESOLINE 20 MG IV (00:12)
--- NOTE | 2023-12-02 00:46 | HPS.HSE ---
Family Physician
-
Family Physician: Stephen Suazo
Chief Complaint
-
Dizziness, Headache
History of Present Illness
83yo M with PMH Uncontrolled HTN, Renal Artery Stenosis s/p Right Renal Artery Stent (09/12/2023) pending Left Renal Artery Stent, Hx CAD s/p CABG, Recent ELIEZER to LAD 11/22/2023, HLD, RBBB, ARMAAN on cpap, Chronic Hyponatremia, BPH presents to ER for
dizziness, headache, and associated high blood pressure. Pt reports SBP 200s at home. Follows with [facility]. States Recently hydralazine dose was doubled from 50mg TID to 100mg TID, Clonidine was increased to twice daily (0.1mg BID),
and He was restarted on lasix 20mg daily with still no improvement. Pt does endorse worsening of dizziness with standing up. Denies vertigo. Denies focal weakness or sensation deficits. Also incidentally notes severe constipation with mild
abdominal pain, no BM x 3 days. Denies sick contacts, cp, palps, wheezing, cough, sob, dysuria, flank pain, calf or leg pain/swelling.
ER course: Pt presents BP 200/56 at peak with other V.S.S. Hgb 9.4 g/dL, Na 131 (chronic), BUN/Cr 29/1.7, LFTs wnl, CT brain (-). EKG: SB @ 58bpm, 1st degree AVB, RBBB, Q-waves III-AVF,�TWI V1-V3, QTC 469ms.� No change from 11/23/2023.�S/P 10 mg
Hydralazine, 20mg IV hydralazine, 10mg IV labetalol in ER.
Cardio: Chago
Nephro: none
Medical History
Past Medical History
Past Medical History: Reports Other (CAD, COPD, HTN, Hypercholesterolemia, Other (Renal insufficiency) and Other (Prostatic hypertrophy))
Past Surgical History: Reports Other (Cardiac (Cardiac bypass 2016), Orthopedic (Left knee replacement 2017) and Other (Nasal polyps))
Social History
Tobacco: Former Smoker (Quit 40 years ago. )
Alcohol: None
Drug: None
Personal:
Living: With Family
Employment: Retired
Family History
Family History: Other (Does not know mothers medical history. Father had liver disease. )
Allergies / Home Medications
Allergies reflects when Allergies were last updated in [employer].
Home Medications with original date entered in [employer]
Allergy/Medication List:
Allergies
Allergy/AdvReac Type Severity Reaction Status Date / Time
sulfamethoxazole Allergy Unknown Unknown Verified 12/01/23 20:19
[From Bactrim]
trimethoprim [From Bactrim] Allergy Unknown Unknown Verified 12/01/23 20:19
Home Medications
atorvastatin 40 mg tablet 40 mg PO QPM High cholesterol 11/09/21
budesonide-formoterol HFA 80 mcg-4.5 mcg/actuation aerosol inhaler (Breyna) 2 puff inhalation R BID Lung/breathing issues 11/09/21
cholecalciferol (vitamin D3) 25 mcg (1,000 unit) capsule (Vitamin D3) 25 mcg PO DAILY Supplement 11/09/21
finasteride 5 mg tablet 5 mg PO DAILY Urinary issue 11/09/21
nifedipine 90 mg tablet,extended release 90 mg PO DAILY Heart disease/condition 11/09/21
polyethylene glycol 3350 17 gram/dose oral powder (Miralax) 17 g PO QPM Constipation 11/09/21
tamsulosin 0.4 mg capsule 0.8 mg PO QPM Urinary issue 11/09/21
tiotropium bromide 18 mcg capsule with inhalation device 18 mcg inhalation R BID Lung/breathing issues 11/09/21
allopurinol 100 mg tablet 100 mg PO DAILY Gout 06/05/22
aspirin 81 mg tablet,delayed release 81 mg PO DAILY Blood clot prevention/tx 06/05/22
psyllium husk 0.52 gram capsule (Fiber (psyllium husk)) 0.52 g PO BID Constipation 06/05/22
therapeutic multivitamin 1 tab PO QPM Supplement 06/05/22
vitamin B complex 1 tab PO DAILY Supplement 06/05/22
spironolactone 25 mg tablet 25 mg PO DAILY #30 tabs 05/14/23
clonidine HCl 0.1 mg tablet 0.1 mg PO BID 09/11/23
diphenhydramine HCl 50 mg/30 mL oral liquid (ZzzQuil) 50 mg PO HS 09/11/23
docusate sodium 100 mg capsule (Colace) 100 mg PO DAILY 09/11/23
furosemide 20 mg tablet 20 mg PO DAILY Blood pressure 09/11/23
labetalol 200 mg tablet 200 mg PO BID 09/11/23
pantoprazole 40 mg tablet,delayed release 40 mg PO DAILY #90 tabs 09/12/23
hydralazine 100 mg tablet 100 mg PO TID 11/14/23
clopidogrel 75 mg tablet 75 mg PO DAILY #30 tabs 11/23/23
isosorbide mononitrate 30 mg tablet,extended release 24 hr 90 mg (3 x 30 mg) PO DAILY #90 tabs 11/23/23
Review of Systems
-
A 12 point ROS was completed and negative except as noted: Yes
Physical Exam
Vital Signs
Vital Signs
Temp Pulse Resp BP Pulse Ox
97.5 F 81 24 193/55 94
12/01/23 20:28 12/02/23 00:30 12/02/23 00:30 12/02/23 00:12 12/02/23 00:30
Physical Exam
General: Well Developed, Well Nourished and No Apparent Distress
HEENT: NormoCephalic, Moist mucous membranes and Atraumatic
Respiratory: Clear
Cardiac: S1/S2, Regular Rhythm and Murmur
GI: Soft, Normal Bowel Sounds and Other (Mild distention. +TTP. ); No Organomegaly
Rectal: Deferred by Provider
Genito-urinary: No costovertebral tender; No Matias
Musculoskeletal: No Clubbing, No Cyanosis and No Edema
Skin: No Rash
Neuro: Awake, Alert, Oriented, AO x 3, No Motor Deficits and Nonfocal/grossly intact
Psych: Calm
Laboratory Results
-
12/01/23 20:33
12/01/23 20:33
Laboratory Results
Total Bilirubin 0.5 mg/dl (0.2-1.3) 12/01/23 20:33
AST 28 U/L (17-59) 12/01/23 20:33
ALT 21 U/L (0-50) 12/01/23 20:33
Alkaline Phosphatase 96 U/L (38-126) 12/01/23 20:33
Data Reviewed
-
Diagnostic Radiology: Image Personally Visualized and interpreted
CT Scan: Image Personally Visualized and interpreted
Medical Tests (Nuc Med, Echo, EKG etc): Image Personally Visualized and interpreted (EKG: SB @ 58bpm, 1st degree AVB, RBBB, Q-waves III-AVF, TWI V1-V3, QTC 469ms. No change from 11/23/2023. )
Lab Data: Labs Reviewed by me
Old Records: Reviewed
Impression/Plan
-
Hypertensive Emergency c/b BEATRICE
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
- S/P Right Renal Artery Stent 09/12/2023, pending eval for Left Renal Artery Stent
- S/P 30mg IV hydralazine and 10mg IV labetalol in ER
- Continue home labetalol 200mg BID, Aldactone 25mg Daily, lasix 20mg daily, hydralazine 100mg TID, Imdur 90mg daily
- Increase clonidine from 0.1mg BID to 0.3 mg BID, dose now
- Consult cardio for further recs, PKT Dr. turner
Headache/Dizziness
- Likely 2/2 #1, Follow trends with improved hypertension
- CT brain (-)
- Check orthostatics for completeness
- Prn Tylenol
Constipation
- Denies BM x 3 days
- Unimproved with home colace/miralax. Continue regimen prn
- Dose Mag Citrate, observe for improvement.
Chronic Hyponatremia
- Na 131. Chronic/stable. Follow trends.
CKD IIIb
- BUN/Cr 29/1.7. Relatively at baseline, follow trends on home lasix/aldactone
CAD s/p CABG / Stent / HLD
- S/P ELIEZER to LAD 11/22/2023
- Echo: Normal biventricular size and systolic function without regional wall motion
abnormality. Stage I diastolic dysfunction suggestive of abnormal relaxation.
Mild pulmonary hypertension. Compared to the prior on 08/24/2023 pulmonary pressure is now mildly increased.
Otherwise the findings are similar.
- Continue aspirin/plavix/statin, BB, hydralazine, imdur
- Currently denies any chest pain
RBBB - chronic/stable.
ARMAAN - continue cpap
COPD - continue home inhalers
BPH - Continue flomax/finasteride.
Diet: Cardiac Diet, 2gm sodium
DVT Ppx: Heparin
Code Status: DNR/DNI, Confirmed with pt and daughter at bedside.
[2023-12-02] MEDS: CATAPRES 0.3 MG PO ×2 (00:58→09:47)
[2023-12-02] MEDS: CITROMA 300 ML PO (02:28)
[2023-12-02] MEDS: FLOMAX 0.8 MG PO ×2 (02:28→17:11)
[2023-12-02] MEDS: LIPITOR 40 MG PO ×2 (02:28→17:12)
[2023-12-02] MEDS: TYLENOL 650 MG PO (02:39)
--- NOTE | 2023-12-02 03:07 | PTCARENOTE ---
Receive pt from ER. Pt alert oriented X3, in no distress. Pt assist X1 w/RW to his bed, feels weak. Pt oriented to the room, call morse within reach. Pt complains about constipation. He also complains about headache (5/10) and dizziness especially
with standing. Pt PI=483/64, HR=84 lying, 166/61 HR=86 sitting, and 117/51 HR=88 with standing and dizziness. SpO2=98% on RA. Pt on NSR with 1st degree HB and BBB. Pt given 300mL of magnesium citrate for constipation. Will keep monitoring the pt.
[2023-12-02] MEDS: SYMBICORT 80/4.5 MCG INHALER 2 PUFF INH ×2 (07:31→20:03)
[2023-12-02] MEDS: SPIRIVA RESPIMAT 2.5 MCG 2 PUFF INH (07:31)
[2023-12-02] MEDS: APRESOLINE 100 MG PO ×3 (08:24→21:03)
[2023-12-02] MEDS: IMDUR (EXTENDED RELEASE) 90 MG PO (08:25)
[2023-12-02] MEDS: PROTONIX 40 MG PO (08:25)
[2023-12-02] MEDS: B COMPLEX w/VITAMIN C 1 CAPLET PO (08:25)
[2023-12-02] MEDS: ALDACTONE 25 MG PO (08:26)
[2023-12-02] MEDS: PROCARDIA XL (EXTENDED RELEASE) 90 MG PO (08:26)
[2023-12-02] MEDS: COLACE 100 MG PO (08:26)
[2023-12-02] MEDS: PROSCAR 5 MG PO (08:26)
[2023-12-02] MEDS: PLAVIX 75 MG PO (08:26)
[2023-12-02] MEDS: ASPIR LOW (ENTERIC COATED) 81 MG PO (08:26)
[2023-12-02] MEDS: LASIX 20 MG PO (08:26)
[2023-12-02] MEDS: TRANDATE 200 MG PO (08:27)
[2023-12-02] MEDS: VITAMIN D3 (cholecalciferol) 25 MCG PO (08:27)
[2023-12-02] MEDS: METAMUCIL, KONSYL 0.5 PACKET PO ×2 (08:27→21:12)
[2023-12-02] MEDS: ZYLOPRIM 100 MG PO (08:27)
[2023-12-02 08:50] LABS: % Basophils 0.4 % (0-2); % Eosinophils 1.2 % (0-6); % Immature Granulocytes 0.5 % (0-0.5); % Lymphocytes 8.4 % (20.5-51.1); % Monocytes 6.8 % (1.7-9.3); % Neutrophils 82.7 % (42.2-75.2); Absolute Eosinophils 0.1 10^3/uL (0-0.7); Absolute Immature Granulocytes 0.1 10^3/uL (0-0.05); Absolute Lymphocytes 0.9 10^3/uL (1.2-3.4); Absolute Monocytes 0.8 10^3/uL (0.1-0.6); Absolute Neutrophils 9.2 10^3/uL (1.4-6.5); Hemoglobin 9.3 g/dL (13.0-18.0); Mean Corp Hgb Conc. 35.8 g/dL (33.0-37.0); Mean Corpuscular Hgb 31.1 pg (27.0-31.0); Nucleated Red Blood Cells % 0 % (-); Platelet Count 397 10^3/uL (130-400); Red Blood Cell Count 2.99 10^6/uL (4.70-6.10); Red Cell Dist. Width 14.5 % (11.5-14.5); White Blood Cell Count 11.1 10^3/uL (4.8-10.8)
[2023-12-02 09:14] LABS: Blood Urea Nitrogen 25 mg/dl (9-20); Calcium 9.3 mg/dl (8.4-10.2); Carbon Dioxide 22 mmol/L (22-30); Chloride 101 mmol/L (98-107); Estimated Creatinine Clearance 37 ml/min; Glucose 116 mg/dl (70-99); Magnesium 2.2 mg/dl (1.6-2.3); Potassium 4.5 mmol/L (3.5-5.1); Sodium 132 mmol/L (135-145); eGFR 45.62
[2023-12-02 09:42] LABS: TSH Reflex To Free T4 2.75 uIU/ml (0.47-4.68)
--- NOTE | 2023-12-02 10:12 | W.PN.HOSP.TC ---
Today's Communication/Plan
-
apprec cards
await renal
cont meds as able
Assessment / Plan
Assessment / Plan
pt is an 83 year old male
Hypertensive Emergency complicated by BEATRICE-- Refractory HTN likely due to b/l renal artery stenosis--S/P Right Renal Artery Stent 09/12/2023, pending eval for Left Renal Artery Stent--needs left renal artery stented--apprec cards--consult renal--S/P
30mg IV hydralazine and 10mg IV labetalol in ER--Continue home labetalol 200mg BID, Aldactone 25mg Daily, lasix 20mg daily, hydralazine 100mg TID, Imdur 90mg daily--Increase clonidine from 0.1mg BID to 0.3 mg BID, dose now--would try to space meds
out throughout the day
Headache/Dizziness- Likely due to HTN emergency, Follow trends with improved hypertension- CT brain (-)-- Prn Tylenol
Constipation/ indigestion-- Unimproved with home colace/miralax. Continue regimen prn- Dose Mag Citrate, observe for improvement.
Chronic Hyponatremia- Na 131. Chronic/stable. Follow trends.
CKD IIIb- BUN/Cr 29/1.7. Relatively at baseline, follow trends on home lasix/aldactone
CAD s/p CABG / Stent / HLD-- S/P ELIEZER to LAD 11/22/2023-- Continue aspirin/plavix/statin, BB, hydralazine, imdur-- Currently denies any chest pain
RBBB - chronic/stable.
ARMAAN - continue cpap
COPD - continue home inhalers
BPH - Continue flomax/finasteride.
DVT Ppx: Heparin
Code Status: DNR/DNI, Confirmed with pt and daughter at bedside.
Anticipated Discharge: > 48 hours
Subjective/Interval History
-
Date of Service: December 02, 2023
pt c/o indigestion (not like when needed cardiac stent)
Objective Data
-
Labs:
Laboratory Results
12/02/23
08:02
WBC 11.1 H
Hgb 9.3 L
Hct 26.0 L
Plt Count 397
Sodium 132 L
Potassium 4.5
Chloride 101
Carbon Dioxide 22
BUN 25 H
Creatinine 1.5 H
Glucose 116 H
Calcium 9.3
Vital Signs:
max temp for 24 hours
12/02/23
02:03
Temp 98 F
Vital Signs
Temp Pulse Resp BP Pulse Ox
97.7 F 62 16 198/64 99
12/02/23 07:04 12/02/23 09:47 12/02/23 07:35 12/02/23 09:47 12/02/23 07:35
I&O
12/01/23 12/02/23 12/03/23
06:59 06:59 06:59
Intake Total 0 / 0
Output Total 675 / 675
Balance -675 / -675
Review of Systems
-
All other systems: Reviewed and negative
Abdomen/GI: Reports Indigestion
Physical Exam
-
General: Well Developed, Well Nourished and No Apparent Distress
HEENT: Normocephalic and Atraumatic
Respiratory: Clear to Auscultation; Negative Wheezes or Rhonchi
Cardiac: Regular Rhythm, S1/S2 and Murmur
GI: Soft, Nontender, Nondistended and Normal Bowel Sounds
Musculoskeletal: No Clubbing, No Cyanosis and No Edema
Neuro: Awake and Alert
Psych: Calm
--- NOTE | 2023-12-02 10:21 | PTCARENOTE ---
Received patient this am AAOx3. Pt remains hypertensive. B/P 197/132, HR-61 lying, 192/124, HR-62 sitting, 162/111, HR [address] Viera made aware. Pr medicated with all am medications as ordered. Pt on ASA , Plavix an ordered Heparin
SQ. Clarification received SQ Heparin discontinued. Pt offered no complaints. Made patient comfortable. Cont to assess patient status.
--- NOTE | 2023-12-02 11:06 | CON.CAR ---
Consultation
Consultation Request
Date/Time Consultation Requested: December 02, 2023 5 AM
Date/Time Consultation Performed: December 02, 2023 11 AM
Requesting Provider: Hospitalist
Performing Provider: Dawson Anders
Reason for Consultation: Hypertensive urgency
Medical History
-
Chief Complaint: Dizziness
History of Present Illness:
83-year-old male with past medical history of uncontrolled hypertension, renal artery stenosis status post renal artery stent in August 2023, CAD status post CABG and recent drug-eluting stent to his left main to circ in November 22, 2023, hyperlipidemia,
right bundle branch block, ARMAAN on cpap, Chronic Hyponatremia, BPH presents to ER for dizziness, headache, and associated high blood pressure. He had dizziness yesterday and checked his blood pressure and his blood pressure was systolic in the 200s.
Because of his associated dizziness with standing he decided to come to the emergency room. He also has severe constipation with no bowel movement in the last 3 days. He does wonder if his constipation has contributed to his elevated blood
pressure over the last day. His blood pressure in the emergency room with systolics greater than 200 and he received hydralazine and labetalol.
Past Medical History
Past Medical History: Other (CAD, COPD, HTN, Hypercholesterolemia, Other (Renal insufficiency) and Other (Prostatic hypertrophy))
Past Surgical History: Other (Cardiac (Cardiac bypass 2016), Orthopedic (Left knee replacement 2017) and Other (Nasal polyps))
Social History
Tobacco: Former Smoker
Alcohol: None
Drug: None
Personal:
Living: With Family
Employment: Retired
Family History
Family History: Reviewed & Not Pertinent
Allergies / Home Medications
Allergy/AdvReac Type Severity Reaction Status Date / Time
sulfamethoxazole Allergy Unknown Unknown Verified 12/01/23 20:19
[From Bactrim]
trimethoprim [From Bactrim] Allergy Unknown Unknown Verified 12/01/23 20:19
�Medication �Instructions �Recorded �Confirmed �Type
atorvastatin 40 mg tablet 40 mg PO QPM High cholesterol 11/09/21 12/02/23 History
budesonide-formoterol HFA 80 2 puff inhalation R BID 11/09/21 12/02/23 History
mcg-4.5 mcg/actuation aerosol Lung/breathing issues
inhaler (Breyna)
cholecalciferol (vitamin D3) 25 25 mcg PO DAILY Supplement 11/09/21 12/02/23 History
mcg (1,000 unit) capsule (Vitamin
D3)
finasteride 5 mg tablet 5 mg PO DAILY Urinary issue 11/09/21 12/02/23 History
nifedipine 90 mg tablet,extended 90 mg PO DAILY Heart 11/09/21 12/02/23 History
release disease/condition
polyethylene glycol 3350 17 17 g PO QPM Constipation 11/09/21 12/02/23 History
gram/dose oral powder (Miralax)
tamsulosin 0.4 mg capsule 0.8 mg PO QPM Urinary issue 11/09/21 12/02/23 History
tiotropium bromide 18 mcg capsule 18 mcg inhalation R BID 11/09/21 12/02/23 History
with inhalation device Lung/breathing issues
allopurinol 100 mg tablet 100 mg PO DAILY Gout 06/05/22 12/02/23 History
aspirin 81 mg tablet,delayed 81 mg PO DAILY Blood clot 06/05/22 12/02/23 History
release prevention/tx
psyllium husk 0.52 gram capsule 0.52 g PO BID Constipation 06/05/22 12/02/23 History
(Fiber (psyllium husk))
therapeutic multivitamin 1 tab PO QPM Supplement 06/05/22 12/02/23 History
vitamin B complex 1 tab PO DAILY Supplement 06/05/22 12/02/23 History
spironolactone 25 mg tablet 25 mg PO DAILY #30 tabs 05/14/23 12/02/23 Rx
clonidine HCl 0.1 mg tablet 0.1 mg PO BID 09/11/23 12/02/23 History
diphenhydramine HCl 50 mg/30 mL 50 mg PO HS 09/11/23 12/02/23 History
oral liquid (ZzzQuil)
docusate sodium 100 mg capsule 100 mg PO DAILY 09/11/23 12/02/23 History
(Colace)
furosemide 20 mg tablet 20 mg PO DAILY Blood pressure 09/11/23 12/02/23 History
labetalol 200 mg tablet 200 mg PO BID 09/11/23 12/02/23 History
pantoprazole 40 mg tablet,delayed 40 mg PO DAILY #90 tabs 09/12/23 12/02/23 Rx
release
hydralazine 100 mg tablet 100 mg PO TID 11/14/23 12/02/23 History
clopidogrel 75 mg tablet 75 mg PO DAILY #30 tabs 11/23/23 12/02/23 Rx
isosorbide mononitrate 30 mg 90 mg (3 x 30 mg) PO DAILY #90 tabs 11/23/23 12/02/23 Rx
tablet,extended release 24 hr
Review of Systems
-
All other systems: Negative unless noted
Physical Exam
Vital Signs
Temp Pulse Resp BP Pulse Ox
97.7 F 62 16 198/64 98
12/02/23 07:04 12/02/23 09:47 12/02/23 07:35 12/02/23 09:47 12/02/23 08:10
Lab Results
12/02/23 08:02
12/02/23 08:02
Physical Exam
General: No Apparent Distress
HEENT: Normocephalic
Respiratory: Clear and Non Labored Respirations
Cardiac: S1/S2 and Regular Rhythm
GI: Soft
Musculoskeletal: No Clubbing and No Edema
Skin: Warm and Dry
Neuro: AO x 3
Hematologic/Lymphatic: No Lymphadenopathy
Impression / Plan
-
Hypertensive urgency with dizziness:
-severe HTN noted
-patient on multidrug regimen- clonidine, spironolactone, labetalol, hydralazine, Imdur, and nifedipine nitrate has been increased
-improved since yesterday
-Increased hydralazine with IV hydral and labetalol PRN
- Will discuss Renal artery stenting tomorrow
- NPO after midnight
CAD with hx CABG:
-most recent ischemic evaluation as below
-trops and EKG stable as above
-S/p left main to circ stenting DAPT for 6 months
-continue ASA, statin, Imdur
-follow telemetry
-check focused echo for LV function
RBBB:
-chronic, stable
Constipation
- per primary
Data Reviewed
-
EKG: Tracing Personally Visualized and interpreted (sr)
Medical Tests (Nuc Med, Echo etc): Image Personally Visualized and interpreted
Labs: Labs Reviewed by me
--- NOTE | 2023-12-02 13:30 | W.CON.NEPH ---
Consultation
-
Date/Time Consultation Requested: 12/02/23 0825
Date/Time Consultation Performed: 12/02/23 1230
Requesting Provider: Mayra Burgess
Performing Provider: Nely Najera
Reason for Consultation: HTN, CKD
Medical History
-
Chief Complaint: dizzy, ROWE and high BPs
History of Present Illness:
83yo M with PMH Uncontrolled HTN on multiple meds, Renal Artery Stenosis s/p Right Renal Artery Stent (09/12/2023) pending Left Renal Artery Stent, Hx CAD s/p CABG, Recent ELIEZER to LAD 11/22/2023 on ASA, plavix, HLD on statin, RBBB, CKD3b cr 1.4-1.9, ARMAAN
on cpap, Chronic Hyponatremia in low 130s, BPH on Finasteride, flomax presents to ER on 11/30 for dizziness, headache, and associated high blood pressure SBP 200s at home. He follows with [facility]. since recent d/c 10 days ago
hydralazine dose was doubled from 50mg TID to 100mg TID, Clonidine was increased to twice daily (0.1mg BID), and He was restarted on lasix 20mg daily with still no improvement. Pt does endorse worsening of dizziness with standing up. Denies
vertigo. Denies focal weakness or sensation deficits. Also incidentally notes severe constipation with mild abdominal pain. no cp, palps, sob, dysuria or edema. He notes BP were better before. HIs labs shows BUN/Cr 29/1.7. He also follows vascular
Dr Wong for carotid art disease.
Past Medical History
HTN on multiple meds, Renal Artery Stenosis s/p Right Renal Artery Stent (09/12/2023) , Hx CAD s/p CABG, Recent ELIEZER to LAD 11/22/2023 HLD , RBBB, CKD3b cr 1.4-1.9, ARMAAN on cpap, Chronic Hyponatremia in low 130s, BPH
Past Surgical History: Cardiac (Cardiac bypass 2017), Orthopedic (Left knee replacement 2017) and Other ((Nasal polyps)))
Social History
Tobacco: Former Smoker (quit 40 yrs ago)
Alcohol: None
Drug: None
Personal:
Living: With Family
Employment: Retired
Family History
no CKD
father with liver disease
Family History: Not Pertinent
Allergies / Home Medications
Allergy/AdvReac Type Severity Reaction Status Date / Time
sulfamethoxazole Allergy Unknown Unknown Verified 12/01/23 20:19
[From Bactrim]
trimethoprim [From Bactrim] Allergy Unknown Unknown Verified 12/01/23 20:19
�Medication �Instructions �Recorded �Confirmed �Type
atorvastatin 40 mg tablet 40 mg PO QPM High cholesterol 11/09/21 12/02/23 History
budesonide-formoterol HFA 80 2 puff inhalation R BID 11/09/21 12/02/23 History
mcg-4.5 mcg/actuation aerosol Lung/breathing issues
inhaler (Breyna)
cholecalciferol (vitamin D3) 25 25 mcg PO DAILY Supplement 11/09/21 12/02/23 History
mcg (1,000 unit) capsule (Vitamin
D3)
finasteride 5 mg tablet 5 mg PO DAILY Urinary issue 11/09/21 12/02/23 History
nifedipine 90 mg tablet,extended 90 mg PO DAILY Heart 11/09/21 12/02/23 History
release disease/condition
polyethylene glycol 3350 17 17 g PO QPM Constipation 11/09/21 12/02/23 History
gram/dose oral powder (Miralax)
tamsulosin 0.4 mg capsule 0.8 mg PO QPM Urinary issue 11/09/21 12/02/23 History
tiotropium bromide 18 mcg capsule 18 mcg inhalation R BID 11/09/21 12/02/23 History
with inhalation device Lung/breathing issues
allopurinol 100 mg tablet 100 mg PO DAILY Gout 06/05/22 12/02/23 History
aspirin 81 mg tablet,delayed 81 mg PO DAILY Blood clot 06/05/22 12/02/23 History
release prevention/tx
psyllium husk 0.52 gram capsule 0.52 g PO BID Constipation 06/05/22 12/02/23 History
(Fiber (psyllium husk))
therapeutic multivitamin 1 tab PO QPM Supplement 06/05/22 12/02/23 History
vitamin B complex 1 tab PO DAILY Supplement 06/05/22 12/02/23 History
spironolactone 25 mg tablet 25 mg PO DAILY #30 tabs 05/14/23 12/02/23 Rx
clonidine HCl 0.1 mg tablet 0.1 mg PO BID 09/11/23 12/02/23 History
diphenhydramine HCl 50 mg/30 mL 50 mg PO HS 09/11/23 12/02/23 History
oral liquid (ZzzQuil)
docusate sodium 100 mg capsule 100 mg PO DAILY 09/11/23 12/02/23 History
(Colace)
furosemide 20 mg tablet 20 mg PO DAILY Blood pressure 09/11/23 12/02/23 History
labetalol 200 mg tablet 200 mg PO BID 09/11/23 12/02/23 History
pantoprazole 40 mg tablet,delayed 40 mg PO DAILY #90 tabs 09/12/23 12/02/23 Rx
release
hydralazine 100 mg tablet 100 mg PO TID 11/14/23 12/02/23 History
clopidogrel 75 mg tablet 75 mg PO DAILY #30 tabs 11/23/23 12/02/23 Rx
isosorbide mononitrate 30 mg 90 mg (3 x 30 mg) PO DAILY #90 tabs 11/23/23 12/02/23 Rx
tablet,extended release 24 hr
Review of Systems
-
All other systems: Negative unless noted
Physical Exam
Vital Signs
Vital Signs
Temp Pulse Resp BP Pulse Ox
97.7 F 57 16 195/70 98
12/02/23 11:15 12/02/23 11:15 12/02/23 11:15 12/02/23 11:15 12/02/23 11:15
Lab Results
WBC 11.1 10^3/uL (4.8-10.8) H 12/02/23 08:02
RBC 2.99 10^6/uL (4.70-6.10) L 12/02/23 08:02
Hgb 9.3 g/dL (13.0-18.0) L 12/02/23 08:02
Hct 26.0 % (39.0-52.0) L 12/02/23 08:02
Plt Count 397 10^3/uL (130-400) 12/02/23 08:02
Sodium 132 mmol/L (135-145) L 12/02/23 08:02
Potassium 4.5 mmol/L (3.5-5.1) 12/02/23 08:02
Chloride 101 mmol/L (98-107) 12/02/23 08:02
Carbon Dioxide 22 mmol/L (22-30) 12/02/23 08:02
BUN 25 mg/dl (9-20) H 12/02/23 08:02
Creatinine 1.5 mg/dL (0.7-1.3) H 12/02/23 08:02
eGFR 45.62 12/02/23 08:02
Glucose 116 mg/dl (70-99) H 12/02/23 08:02
Calcium 9.3 mg/dl (8.4-10.2) 12/02/23 08:02
Albumin 3.7 g/dl (3.5-5.0) 12/01/23 20:33
CT head:
IMPRESSION:
No acute intracranial abnormality noted.
11/21/23 echo:
CONCLUSIONS
Normal biventricular size and systolic function without regional wall motion
abnormality.
Stage I diastolic dysfunction suggestive of abnormal relaxation.
Mild pulmonary hypertension.
Compared to the prior on 08/24/2023 pulmonary pressure is now mildly increased.
Otherwise the findings are similar.
08/2023:CT abd angio:
IMPRESSION:
1. Heavily calcified plaque at the origin of each renal artery, associated with greater than 75% stenosis on the right and 50-75% stenosis on the left.
2. High-grade stenosis is suspected at the origin of the superior mesenteric artery, percent stenosis difficult to measure due to heavy calcification. Less than 50% stenosis of the celiac axis, and the inferior mesenteric artery is patent.
3. Moderate coronary arterial calcification. Please correlate with symptoms of and risk factors for coronary artery disease, with further workup as clinically appropriate.
4. Bilateral renal cysts, measuring up to 4 cm in diameter on the right side.
5. Mild prostatic enlargement.
6. Compression fracture of the L3 vertebral body, new compared to 06/05/2022. Please correlate with symptoms to determine acuity of the fracture.
Physical Exam
General: Awake, Alert, Oriented, AOx3, No Distress and Nontoxic
HEENT: EOMI, Anicteric, Facial Symmetry and No JVD
Respiratory: Clear, Normal Excursion and Nonlabored Respirations
Cardiac: S1/S2 and Regular Rate/Rhythm
Breast: Deferred by me
Abdomen: Soft, Nontender and Nondistended
Musculoskeletal: No Cyanosis and No Edema
Skin: No Rash
Psych: Mood/afflect pleasant, Insight/judgement good and Appropriate
Data Reviewed
-
Radiology: Report Reviewed by me
Labs: Labs Reviewed by me and Discussed with Patient
Assessment/Plan
-
IMP:
Hypertensive Emergency c/b BEATRICE
Known b/l renal artery stenosis( right >75%, left 50-70%)- S/P Right Renal Artery Stent 09/12/2023
Headache/Dizziness
Constipation
Chronic Hyponatremia
CKD IIIb-baseline cr 1.4-1.9
CAD s/p CABG LAD Stent 11/22/23
HLD
RBBB
ARMAAN
COPD
BPH
Bilat renal cysts
Plan:
A/w dizziness with ROWE and elevated BPs
last admit BPs were reasonable
sudden rise of BP and difficult to control with multiple meds is concern of secondary process
since he had recent renal art stent in August would check duplex to see the patency
noted cards planning stenting of left renal art which had 50-70% stenosis in August CT
meds have already adjusted per cards today clonidine increased, monitor for katerine
his wts are high since last d/c, increase lasix
stable renal function at baseline
could not check ARR as he is already on Spironolactone, check metanephrins and catecholamines
he has significant orthostatic hypotension today with symp
likely need permissive HTN
seem compliant with CPAP, diet controlled
treat constipation
d/w pt and nursing
d/w primary
[2023-12-02] MEDS: LASIX 20 MG IV (16:34)
[2023-12-02] MEDS: THERAGRAN 1 TABLET PO (17:12)
[2023-12-02] MEDS: MIRALAX 17 GRAMS PO (17:12)
[2023-12-02 17:42] LABS: NT-proBNP 793 pg/ml
[2023-12-02] MEDS: BENADRYL ELIXIR 50 MG PO (21:15)
[2023-12-02] MEDS: TRANDATE PO (22:18)
[2023-12-02] MEDS: CATAPRES PO (22:18)
[2023-12-03] VITALS (10 sets, daily range): BP systolic 143–191; BP diastolic 48–63; PULSE 2–97; BMI 27.8
--- NOTE | 2023-12-03 05:35 | W.PN.UPDATE ---
Update Note
Progress Note Update
2130 parameters added to labetalol and clonidine as HR noted to dip to 40s. mostly in mid to low 50s
[2023-12-03] MEDS: APRESOLINE 10 MG IV (05:43)
[2023-12-03] MEDS: SPIRIVA RESPIMAT 2.5 MCG 2 PUFF INH (07:38)
[2023-12-03] MEDS: SYMBICORT 80/4.5 MCG INHALER 2 PUFF INH ×2 (07:38→19:47)
--- NOTE | 2023-12-03 08:15 | W.PN.CD ---
Today's Communication / Plan
-
plan L renal artery stenting for tomorrow
Impression / Plan
-
Hypertensive urgency with dizziness:
-patient on multidrug regimen- clonidine, spironolactone, labetalol, hydralazine, Imdur, and nifedipine nitrate has been increased
-mental status impro muchved will start to do so I can see stillbirths she said it so easy like was like that there was going up millimeters crazy
-Increased hydralazine with IV hydral and labetalol PRN
-Discussed left renal artery stenting. Will proceed tomorrow -
CAD with hx CABG:
-most recent ischemic evaluation as below
-trops and EKG stable as above
-S/p left main to circ stenting DAPT for 6 months
-continue ASA, statin, Imdur
-follow telemetry
-check focused echo for LV function
RBBB:
-chronic, stable
Constipation
- per primary
Physical Exam
Vital Signs/Labs
Vital Signs
Temp Pulse Resp BP Pulse Ox
97.5 F 56 16 191/58 98
12/03/23 03:36 12/03/23 07:43 12/03/23 07:43 12/03/23 05:43 12/03/23 07:43
12/02/23 12/03/23 12/04/23
06:59 06:59 06:59
Actual Weight 195 lb 9 oz 188 lb 7 oz
Magnesium 2.2 mg/dl (1.6-2.3) 12/02/23 08:02
12/02/23
08:02
Gyo-D-Wkvukyaocul Pept 793
Physical Exam
Constitutional: No acute distress and Comfortable
Cardiovascular: Rhythm & rate is regular, Systolic murmur present and S1S2 is normal
Respiratory: Respiratory effort normal and Wheeze Absent
GI: Soft and Non tender
Neuro/Psych: AO x 3 and Motor deficits absent
Data Reviewed
-
Date of Service: December 03, 2023
[2023-12-03 09:02] LABS: Hematocrit 26.3 % (39.0-52.0); Hemoglobin 9.1 g/dL (13.0-18.0); Mean Corp Hgb Conc. 34.6 g/dL (33.0-37.0); Mean Corpuscular Volume 86.8 fL (80.0-94.0); Mean Platelet Volume 8.9 fL (7.4-10.4); Platelet Count 395 10^3/uL (130-400); Red Blood Cell Count 3.03 10^6/uL (4.70-6.10); Red Cell Dist. Width 14.4 % (11.5-14.5); White Blood Cell Count 8.8 10^3/uL (4.8-10.8)
[2023-12-03] MEDS: METAMUCIL, KONSYL 0.5 PACKET PO ×2 (09:28→20:23)
[2023-12-03] MEDS: APRESOLINE 100 MG PO ×3 (09:29→21:57)
[2023-12-03] MEDS: B COMPLEX w/VITAMIN C 1 CAPLET PO (09:32)
[2023-12-03] MEDS: ASPIR LOW (ENTERIC COATED) 81 MG PO (09:32)
[2023-12-03] MEDS: CATAPRES 0.3 MG PO (09:33)
[2023-12-03] MEDS: TRANDATE 200 MG PO (09:34)
[2023-12-03] MEDS: LASIX 40 MG PO (09:34)
[2023-12-03] MEDS: VITAMIN D3 (cholecalciferol) 25 MCG PO (09:34)
[2023-12-03] MEDS: PROTONIX 40 MG PO (09:34)
[2023-12-03] MEDS: ZYLOPRIM 100 MG PO (09:34)
[2023-12-03] MEDS: PROSCAR 5 MG PO (09:34)
[2023-12-03 09:35] LABS: Blood Urea Nitrogen 24 mg/dl (9-20); Calcium 9.4 mg/dl (8.4-10.2); Carbon Dioxide 23 mmol/L (22-30); Chloride 102 mmol/L (98-107); Estimated Creatinine Clearance 37 ml/min; Glucose 93 mg/dl (70-99); Potassium 4.4 mmol/L (3.5-5.1); Sodium 131 mmol/L (135-145); eGFR 45.62
[2023-12-03] MEDS: COLACE 100 MG PO (09:35)
[2023-12-03] MEDS: PLAVIX 75 MG PO (09:35)
[2023-12-03] MEDS: IMDUR (EXTENDED RELEASE) 90 MG PO (09:48)
--- NOTE | 2023-12-03 10:33 | W.PN.HOSP.TC ---
Today's Communication/Plan
-
await left renal artery stenting
Assessment / Plan
Assessment / Plan
pt is an 83 year old male
Hypertensive Emergency complicated by BEATRICE-- Refractory HTN likely due to b/l renal artery stenosis--S/P Right Renal Artery Stent 09/12/2023, pending eval for Left Renal Artery Stent, anticipate 12/03--apprec cards/renal--S/P 30mg IV hydralazine and
10mg IV labetalol in ER--Continue home labetalol 200mg BID, Aldactone 25mg Daily, lasix 20mg daily, hydralazine 100mg TID, Imdur 90mg daily--Increase clonidine from 0.1mg BID to 0.3 mg BID, dose now--would try to space meds out throughout the day
Headache/Dizziness- Likely due to HTN emergency, Follow trends with improved hypertension- CT brain (-)-- Prn Tylenol
Constipation/ indigestion-- Unimproved with home colace/miralax. Continue regimen prn- Dose Mag Citrate, observe for improvement.
Chronic Hyponatremia- Na 131. Chronic/stable. Follow trends.
CKD IIIb- BUN/Cr 29/1.7. Relatively at baseline, follow trends on home lasix/aldactone
CAD s/p CABG / Stent / HLD-- S/P ELIEZER to LAD 11/22/2023-- Continue aspirin/plavix/statin, BB, hydralazine, imdur-- Currently denies any chest pain
RBBB - chronic/stable.
ARMAAN - continue cpap
COPD - continue home inhalers
BPH - Continue flomax/finasteride.
DVT Ppx: Heparin
Code Status: DNR/DNI, Confirmed with pt and daughter at bedside.
Anticipated Discharge: 24 - 48 hours
Subjective/Interval History
-
Date of Service: December 03, 2023
pt without c/o
Objective Data
-
Labs:
Laboratory Results
12/03/23
08:29
WBC 8.8
Hgb 9.1 L
Hct 26.3 L
Plt Count 395
Sodium 131 L
Potassium 4.4
Chloride 102
Carbon Dioxide 23
BUN 24 H
Creatinine 1.5 H
Glucose 93
Calcium 9.4
Vital Signs:
max temp for 24 hours
12/02/23
23:30
Temp 97.8 F
Vital Signs
Temp Pulse Resp BP Pulse Ox
98 F 57 20 187/56 96
12/03/23 07:43 12/03/23 09:34 12/03/23 07:43 12/03/23 09:34 12/03/23 07:43
I&O
12/02/23 12/03/23 12/04/23
06:59 06:59 06:59
Intake Total 0 / 0 880 / 880
Output Total 675 / 675
Balance -675 / -675 880 / 880
Review of Systems
-
All other systems: Reviewed and negative
Physical Exam
-
General: Well Developed, Well Nourished and No Apparent Distress
HEENT: Normocephalic and Atraumatic
Respiratory: Clear to Auscultation; Negative Wheezes or Rhonchi
Cardiac: Regular Rhythm, S1/S2 and Murmur
GI: Soft, Nontender, Nondistended and Normal Bowel Sounds
Musculoskeletal: No Clubbing, No Cyanosis and No Edema
Neuro: Awake
Psych: Calm
--- NOTE | 2023-12-03 10:46 | CM ---
Patient seen at bedside. Patient lives at [facility] with , primary reason for living there per patient is for care. Patient states that he is primarily independent of ADL's and IADL's prior to admission. patient has bipap and plan is for
further medical testing today. Patient plan is to return home with no needs. Patient open to VN supports if needed. Patient PCP is Dr. Suazo and he uses the [facility] in [place]. CM will continue to follow for discharge planning needs.
Plan; home with VN vs home with no needs.
[2023-12-03] MEDS: ALDACTONE 25 MG PO (12:20)
[2023-12-03] MEDS: PROCARDIA XL (EXTENDED RELEASE) 90 MG PO (12:21)
--- NOTE | 2023-12-03 13:10 | W.PN.NEPH.PH ---
Today's Communication / Plan
-
- renal duplex prior to L renal artery stenting
Assessment/Plan
-
IMP:
Hypertensive Emergency c/b BEATRICE
Known b/l renal artery stenosis( right >75%, left 50-70%)- S/P Right Renal Artery Stent 09/12/2023
Headache/Dizziness
Constipation
Chronic Hyponatremia
CKD IIIb-baseline cr 1.4-1.9
CAD s/p CABG LAD Stent 11/22/23
HLD
RBBB
ARMAAN
COPD
BPH
Bilat renal cysts
Plan:
A/w dizziness with ROWE and elevated BPs
last admit BPs were reasonable
sudden rise of BP and difficult to control with multiple meds is concern of secondary process
since he had recent renal art stent in August would check duplex to see the patency. awaiting duplex today
noted cards planning stenting of left renal art which had 50-70% stenosis in August CT
meds have already adjusted per cards today clonidine increased, monitor for katerine
his wts are high since last d/c, increase lasix
stable renal function at baseline
could not check ARR as he is already on Spironolactone, check metanephrins and catecholamines
likely need permissive HTN
seem compliant with CPAP, diet controlled
treat constipation
d/w pt
-
-
Date of Service: December 03, 2023
CC / HPI / ROS
-
Chief Complaint:
uncontrolled HTN
History of Present Illness:
labile blood pressures, better controlled now
stable kidney function
Review of Systems:
- feeling well this AM
Labs
-
Labs:
WBC 8.8 10^3/uL (4.8-10.8) 12/03/23 08:29
RBC 3.03 10^6/uL (4.70-6.10) L 12/03/23 08:29
Hgb 9.1 g/dL (13.0-18.0) L 12/03/23 08:29
Hct 26.3 % (39.0-52.0) L 12/03/23 08:29
Plt Count 395 10^3/uL (130-400) 12/03/23 08:29
Sodium 131 mmol/L (135-145) L 12/03/23 08:29
Potassium 4.4 mmol/L (3.5-5.1) 12/03/23 08:29
Chloride 102 mmol/L (98-107) 12/03/23 08:29
Carbon Dioxide 23 mmol/L (22-30) 12/03/23 08:29
BUN 24 mg/dl (9-20) H 12/03/23 08:29
Creatinine 1.5 mg/dL (0.7-1.3) H 12/03/23 08:29
eGFR 45.62 12/03/23 08:29
Glucose 93 mg/dl (70-99) 12/03/23 08:29
Calcium 9.4 mg/dl (8.4-10.2) 12/03/23 08:29
Bwu-K-Ompmrttzcml Pept 793 pg/ml 12/02/23 08:02
Albumin 3.7 g/dl (3.5-5.0) 12/01/23 20:33
Physical Exam
-
Vital Signs:
Vital Signs
Temp Pulse Resp BP Pulse Ox
97.7 F 57 22 153/49 96
12/03/23 11:13 12/03/23 12:21 12/03/23 11:13 12/03/23 12:21 12/03/23 13:04
Cardiovascular:: Regular rate and rhythm
Respiratory:: Bilateral: CTA
Lung Excursion:: Normal
Abdomen:: Nontender and Soft
Bowel Sounds:: Normal
Extremity Edema:: None: Bilateral:
Matias Catheter: No
--- NOTE | 2023-12-03 16:59 | W.PN.UPDATE ---
Update Note
Progress Note Update
Notified of bradycardia.
Likely Mobitz I but cannot r/o Mobitz II => watch tele. Mobitz II will not respond to the decrease in labetalol that I ordered.
--- NOTE | 2023-12-03 17:00 | PTCARENOTE ---
Pt's HR alarming 40's briefly, appears 2nd degree Type 2 HB. BP 165/54. HR returned to 50's w/ 1st degree AVB. Dr Rucker and Dr Bledsoe notified. EKG obtained, strips and EKG shared w/ Dr Bledsoe. Pt offers no complaints.
[2023-12-03] MEDS: FLOMAX 0.8 MG PO (17:19)
[2023-12-03] MEDS: THERAGRAN 1 TABLET PO (17:19)
[2023-12-03] MEDS: LIPITOR 40 MG PO (17:19)
[2023-12-03] MEDS: MIRALAX 17 GRAMS PO (17:20)
[2023-12-03] MEDS: CATAPRES PO (20:23)
[2023-12-03] MEDS: TRANDATE PO (20:24)
[2023-12-03] MEDS: BENADRYL ELIXIR 50 MG PO (21:58)
[2023-12-04] VITALS (16 sets, daily range): BP systolic 127–182; BP diastolic 46–108; PULSE 2–61; BMI 27.7
[2023-12-04] MEDS: APRESOLINE 10 MG IV (04:18)
[2023-12-04] MEDS: SPIRIVA RESPIMAT 2.5 MCG 2 PUFF INH (07:36)
[2023-12-04] MEDS: SYMBICORT 80/4.5 MCG INHALER 2 PUFF INH ×2 (07:36→19:43)
[2023-12-04 08:53] LABS: Hematocrit 27.8 % (39.0-52.0); Hemoglobin 9.8 g/dL (13.0-18.0); Mean Corp Hgb Conc. 35.3 g/dL (33.0-37.0); Mean Corpuscular Hgb 31.4 pg (27.0-31.0); Mean Corpuscular Volume 89.1 fL (80.0-94.0); Mean Platelet Volume 9.3 fL (7.4-10.4); Platelet Count 387 10^3/uL (130-400); Red Blood Cell Count 3.12 10^6/uL (4.70-6.10); Red Cell Dist. Width 14.1 % (11.5-14.5); White Blood Cell Count 8.7 10^3/uL (4.8-10.8)
[2023-12-04 09:07] LABS: Blood Urea Nitrogen 27 mg/dl (9-20); Calcium 9.3 mg/dl (8.4-10.2); Carbon Dioxide 22 mmol/L (22-30); Chloride 99 mmol/L (98-107); Estimated Creatinine Clearance 32 ml/min; Glucose 93 mg/dl (70-99); Potassium 4.5 mmol/L (3.5-5.1); Sodium 130 mmol/L (135-145); eGFR 39.26
[2023-12-04] MEDS: METAMUCIL, KONSYL PO (09:20)
[2023-12-04] MEDS: LASIX 40 MG PO (09:21)
[2023-12-04] MEDS: IMDUR (EXTENDED RELEASE) 90 MG PO (09:21)
[2023-12-04] MEDS: PROTONIX 40 MG PO (09:21)
[2023-12-04] MEDS: COLACE 100 MG PO (09:22)
[2023-12-04] MEDS: ASPIR LOW (ENTERIC COATED) 81 MG PO (09:22)
[2023-12-04] MEDS: CATAPRES 0.3 MG PO ×2 (09:22→20:43)
[2023-12-04] MEDS: TRANDATE 100 MG PO ×2 (09:23→20:42)
[2023-12-04] MEDS: APRESOLINE 100 MG PO ×3 (09:23→21:03)
[2023-12-04] MEDS: VITAMIN D3 (cholecalciferol) 25 MCG PO (09:23)
[2023-12-04] MEDS: B COMPLEX w/VITAMIN C 1 CAPLET PO (09:23)
[2023-12-04] MEDS: PROSCAR 5 MG PO (09:23)
[2023-12-04] MEDS: ZYLOPRIM 100 MG PO (09:24)
[2023-12-04] MEDS: PLAVIX 75 MG PO (09:24)
--- NOTE | 2023-12-04 10:40 | CM ---
Patient seen bedside, reports no needs to CM at this time. Patient confirms he resides at [facility] due to his needing assistance. TT to Hospitalist for PT/OT orders, will watch for any VN needs. CM will continue to follow for all discharge
planning needs.
Plan; return to [facility] when stable, watch for VN needs.
[2023-12-04] MEDS: PROCARDIA XL (EXTENDED RELEASE) 90 MG PO (12:42)
[2023-12-04] MEDS: ALDACTONE 25 MG PO (12:45)
[2023-12-04 13:41] LABS: ACT-LR - POC 273 Seconds (116-155)
--- NOTE | 2023-12-04 14:33 | ITS.CL.ANGIO ---
Chief Ultrasound Technologist - Angioplasty
Angioplasty
Procedure Report:
RENAL ARTERY ANGIOPLASTY REPORT
Date of procedure: 12/04/2023
Referring: Dawson Friedman MD
Operators: Giles MD, PhD, Jose Alberto Aviles MD
Indication: Severe bilateral renal artery stenosis with resistant hypertension (6 drugs) and admission with hypertensive emergency
�
PROCEDURE SUMMARY:
1. Selective left renal artery angiography the main left renal artery supplying the upper pole demonstrating 60-70% ostial/proximal stenosis
2. Selective angiography of accessory left renal artery demonstrating 80% ostial stenosis
3. Selective right renal angiography demonstrating the stents placed on 09/11/2023 are patent
3. Successful stenting of main left renal artery stenosis using 6.0 x 14 express stent
4. Successful stenting of accessory left renal artery stenosis using 4.0 x 12 [place] ELIEZER postdilated with 4.0 mm noncompliant balloon to 16 anson and then 3.5 mm noncompliant balloon to 20atm
�
DESCRIPTION OF PROCEDURE: The patient underwent right renal artery stenting in late August 2023 for poorly controlled 6 drug hypertension. This procedure did not improve his clinical situation and he was admitted with hypertensive crisis.
Accordingly, we made the decision to proceed with stenting of the left renal artery which had been noted to be significantly stenotic on the prior angiogram. A 6 [place] sheath was placed in the left femoral artery. Heparin was given for
anticoagulation. A 6 [place] renal length VICENTE guide was advanced to the right renal artery and placed within the previously placed stent. Angiography demonstrates patency of the stents with no pressure dampening upon engagement. Selective
engagement of the left main renal artery and angiography demonstrated 60-70% ostial/proximal stenosis. We then identified a lower pole accessory renal artery and there was significant pressure dampening on engagement with the 6 [place] VICENTE guide
catheter and approximately 80% ostial stenosis. A decision was made to stent both vessels.
The procedure was performed using a run-through wire. The left main renal artery was stented with a 6.0 x 14 Express stent deployed at 14 anson. The angiographic result was outstanding. We then stented the excess right left renal artery with a 4.0
x 12 [place] ELIEZER deployed at 14 anson then postdilated with a 4.0 NC Euphora to 16 anson. There appeared to be some residual waist on the balloon prompting us to use a 3.5 NC Euphora which was inflated to 20 anosn. The final angiographic result
was excellent. There were no procedural complications.
�
ANTI-COAGULATION THERAPY
1:�Heparin 6000 units
�
Closure Device Used: 6 [place]e Angio-Seal LFA
�
Radiation (mGy): 403
DAP (cm2.Gy): 36.8
Fluoroscopy time: 14.5 minutes
�
CONCLUSIONS: Successful stenting of main left renal artery stenosis using 6.0 x 14 express stent and stenting of the accessory left renal artery using 4.0 x 12 [place] ELIEZER. This patient is on DAPT for 12 months following coronary stenting
earlier this month. The stents placed in the right renal artery on 09/11/2023 remain patent
�
Copy to: Dawson Anders MD, Stephen Suazo,, DO
�
Jose Alberto Aviles MD, [facility], [facility]
�
--- NOTE | 2023-12-04 14:50 | W.PN.NEPH.PH ---
Today's Communication / Plan
-
for left renal artery stenting today
Assessment/Plan
-
IMP:
Hypertensive Emergency c/b BEATRICE
Known b/l renal artery stenosis( right >75%, left 50-70%)- S/P Right Renal Artery Stent 09/12/2023
Headache/Dizziness
Constipation
Chronic Hyponatremia
CKD IIIb-baseline cr 1.4-1.9
CAD s/p CABG LAD Stent 11/22/23
HLD
RBBB
ARMAAN
COPD
BPH
Bilat renal cysts
Plan:
A/w dizziness with ROWE and elevated BPs
last admit BPs were reasonable
sudden rise of BP and difficult to control with multiple meds is concern of secondary process
since he had recent renal art stent in August would check duplex to see the patency. duplex with patent R renal art stent, L with stenosis
noted cards planning stenting of left renal art which had 50-70% stenosis in August CT
meds have already adjusted per cards today clonidine increased, monitor for katerine
his wts are high since last d/c, increase lasix
stable renal function at baseline
could not check ARR as he is already on Spironolactone, check metanephrins and catecholamines
likely need permissive HTN
seem compliant with CPAP, diet controlled
treat constipation
d/w pt
-
-
Date of Service: December 04, 2023
CC / HPI / ROS
-
Chief Complaint:
uncontrolled HTN
History of Present Illness:
labile blood pressures, back to lability
stable kidney function
Review of Systems:
- feeling well this AM
- NPO for L renal artery stenting
Labs
-
Labs:
WBC 8.7 10^3/uL (4.8-10.8) 12/04/23 07:50
RBC 3.12 10^6/uL (4.70-6.10) L 12/04/23 07:50
Hgb 9.8 g/dL (13.0-18.0) L 12/04/23 07:50
Hct 27.8 % (39.0-52.0) L 12/04/23 07:50
Plt Count 387 10^3/uL (130-400) 12/04/23 07:50
Sodium 130 mmol/L (135-145) L 12/04/23 07:50
Potassium 4.5 mmol/L (3.5-5.1) 12/04/23 07:50
Chloride 99 mmol/L (98-107) 12/04/23 07:50
Carbon Dioxide 22 mmol/L (22-30) 12/04/23 07:50
BUN 27 mg/dl (9-20) H 12/04/23 07:50
Creatinine 1.7 mg/dL (0.7-1.3) H 12/04/23 07:50
eGFR 39.26 12/04/23 07:50
Glucose 93 mg/dl (70-99) 12/04/23 07:50
Calcium 9.3 mg/dl (8.4-10.2) 12/04/23 07:50
Gdt-R-Oweidwslnkw Pept 793 pg/ml 12/02/23 08:02
Albumin 3.7 g/dl (3.5-5.0) 12/01/23 20:33
Physical Exam
-
Vital Signs:
Vital Signs
Temp Pulse Resp BP Pulse Ox
97.5 F 61 14 178/91 99
12/04/23 11:29 12/04/23 12:42 12/04/23 11:29 12/04/23 12:42 12/04/23 11:29
Cardiovascular:: Regular rate and rhythm
Respiratory:: Bilateral: CTA
Lung Excursion:: Normal
Abdomen:: Nontender and Soft
Bowel Sounds:: Normal
Extremity Edema:: None: Bilateral:
Matias Catheter: No
--- NOTE | 2023-12-04 15:52 | W.PN.HOSP.TC ---
Today's Communication/Plan
-
Follow heart rate closely on telemetry.
Continue monitoring blood pressure status post left renal artery stent.
Assessment / Plan
Assessment / Plan
pt is an 83 year old male
Hypertensive Emergency complicated by BEATRICE-- Refractory HTN likely due to b/l renal artery stenosis--S/P Right Renal Artery Stent 09/12/2023, s/p left Renal Artery Stent 12/03--apprec cards/renal--S/P 30mg IV hydralazine and 10mg IV labetalol in
ER--Continue home labetalol 200mg BID, Aldactone 25mg Daily, lasix 20mg daily, hydralazine 100mg TID, Imdur 90mg daily--Increase clonidine from 0.1mg BID to 0.3 mg BID, dose now--would try to space meds out throughout the day
Blood pressure this afternoon has been the lowest. Continue to follow now that he has a left renal artery stent.
Bradycardia - HR in high 40s now - seems in Mobitz 2 - BP stable and asymptomatic. Will let cards know ;cards are on board following him
Headache/Dizziness- Likely due to HTN emergency. None this afternoon- CT brain (-)-- Prn Tylenol
Constipation/ indigestion-- Unimproved with home colace/miralax. Continue regimen prn- Dose Mag Citrate, observe for improvement.
Chronic Hyponatremia- Na 131. Chronic/stable. Follow trends.
CKD IIIb- BUN/Cr 14/05.7. Relatively at baseline, follow trends on home lasix/aldactone
CAD s/p CABG / Stent / HLD-- S/P ELIEZER to LAD 11/22/2023-- Continue aspirin/plavix/statin, BB, hydralazine, imdur-- Currently denies any chest pain
RBBB - chronic/stable.
ARMAAN - continue cpap
COPD - continue home inhalers
BPH - Continue flomax/finasteride.
DVT Ppx: Heparin
Code Status: DNR/DNI, Confirmed with pt and daughter at bedside.
Anticipated Discharge: 24 - 48 hours
Subjective/Interval History
-
Date of Service: December 04, 2023
Back from the left renal artery stenting.
Denies any abdominal pain. No shortness of breath or chest pain.
No nausea vomiting.
Objective Data
-
Labs:
Laboratory Results
12/04/23
07:50
WBC 8.7
Hgb 9.8 L
Hct 27.8 L
Plt Count 387
Sodium 130 L
Potassium 4.5
Chloride 99
Carbon Dioxide 22
BUN 27 H
Creatinine 1.7 H
Glucose 93
Calcium 9.3
Vital Signs:
Vital Signs
Temp Pulse Resp BP Pulse Ox
97.4 F 51 16 140/57 96
12/04/23 14:45 12/04/23 14:45 12/04/23 14:45 12/04/23 14:45 12/04/23 14:45
I&O
12/03/23 12/04/23 12/05/23
06:59 06:59 06:59
Intake Total 880 / 880 480 / 480 0 / 0
Balance 880 / 880 480 / 480 0 / 0
Review of Systems
-
All other systems: Reviewed and negative
Physical Exam
-
General: No Apparent Distress
HEENT: Moist Mucous Membranes
Respiratory: Non Labored Respirations; Negative Accessory Resp Muscle Use
Cardiac: Regular Rhythm and S1/S2
Neuro: AO x 3
Data Reviewed
-
Labs: Labs Reviewed by me
[2023-12-04] MEDS: FLOMAX 0.8 MG PO (18:07)
[2023-12-04] MEDS: THERAGRAN 1 TABLET PO (18:07)
[2023-12-04] MEDS: LIPITOR 40 MG PO (18:08)
[2023-12-04] MEDS: MIRALAX 17 GRAMS PO (18:13)
--- NOTE | 2023-12-04 18:37 | PTCARENOTE ---
1440 Received patient from [facility] S/P Left Renal Artery Stent Placement. VSS. AAOx3. Tele -SB with 1st degree AVB. Please see post angiography flow sheet for left femoral artery site documentation. Pt tolerated diet well. OOB after
bedrest x 3 hours post procedure. Made patient comfortable. Cont to assess patient status.
[2023-12-04] MEDS: METAMUCIL, KONSYL 0.5 PACKET PO (20:40)
[2023-12-04] MEDS: BENADRYL ELIXIR 50 MG PO (21:01)
[2023-12-04] MEDS: TYLENOL 650 MG PO (21:04)
[2023-12-05] VITALS (8 sets, daily range): BP systolic 133–190; BP diastolic 44–68; PULSE 2–64; BMI 27.6
--- NOTE | 2023-12-05 02:55 | DOWNTIME ---
There was a [employer] Downtime on 12/05/2023 from 0100 to 12/05/2023 at 0252. Downtime documentation of patient's care, including medication administrations, has been reconciled in the electronic record per guidelines. Refer to the
patient's paper chart under the miscellaneous tab to see printed paper medication records and downtime forms.
[2023-12-05] MEDS: SPIRIVA RESPIMAT 2.5 MCG 2 PUFF INH (07:56)
[2023-12-05] MEDS: SYMBICORT 80/4.5 MCG INHALER 2 PUFF INH ×2 (07:56→19:44)
--- NOTE | 2023-12-05 08:57 | CM ---
CM placed call to [facility] to speak to patients nurse to obtain PLOF, left message with center receptionist for patients nurse to return call. CM will continue to follow for all discharge planning needs.
Plan; return to [facility] , watch for PT/OT needs.
[2023-12-05] MEDS: CATAPRES 0.3 MG PO ×2 (09:17→21:00)
[2023-12-05] MEDS: PROTONIX 40 MG PO (09:17)
[2023-12-05] MEDS: B COMPLEX w/VITAMIN C 1 CAPLET PO (09:17)
[2023-12-05] MEDS: VITAMIN D3 (cholecalciferol) 25 MCG PO (09:18)
[2023-12-05] MEDS: PLAVIX 75 MG PO (09:18)
[2023-12-05] MEDS: TRANDATE 100 MG PO ×2 (09:18→21:00)
[2023-12-05] MEDS: COLACE 100 MG PO (09:18)
[2023-12-05] MEDS: APRESOLINE 100 MG PO ×3 (09:18→20:59)
[2023-12-05] MEDS: PROSCAR 5 MG PO (09:18)
[2023-12-05] MEDS: ASPIR LOW (ENTERIC COATED) 81 MG PO (09:18)
[2023-12-05] MEDS: ZYLOPRIM 100 MG PO (09:18)
[2023-12-05] MEDS: METAMUCIL, KONSYL 0.5 PACKET PO ×2 (09:19→20:57)
--- NOTE | 2023-12-05 09:34 | W.PN.CD ---
Today's Communication / Plan
-
-
Cardiology will sign off
Impression / Plan
-
Hypertensive urgency with dizziness:
- S/p Left Renal A stenting 12/04/2023
- S/p prior R Renal A stenting => patent
- Defer HTN management to nephrology
CAD
- Prior CABG
- S/p left main to circ ELIEZER stenting on 11/22/2023
- DAPT for 6-12 months
- Echo 11/21/2023: nml LVEF, valves fine, est PASP 45. No need to repeat this admit
RBBB
Mobitz I AV Remy
- Less on lower dose labetalol
- If needs labetalol he should have a pacemaker placed
CKD
Subjective:
No CP or dyspnea. No renal a. stenting complication detected
Physical Exam
Vital Signs/Labs
Vital Signs
Temp Pulse Resp BP Pulse Ox
98.2 F 65 18 186/68 97
12/05/23 09:09 12/05/23 09:09 12/05/23 09:09 12/05/23 09:09 12/05/23 09:09
12/04/23 12/05/23 12/06/23
06:59 06:59 06:59
Actual Weight 85.02 kg 84.595 kg
Magnesium 2.0 mg/dl (1.6-2.3) 12/03/23 08:29
12/02/23
08:02
Ndo-M-Tpexvhnglwh Pept 793
Physical Exam
Constitutional: No acute distress
EENT: Anicteric
Cardiovascular: Rhythm & rate is regular and Pedal edema is absent
Respiratory: Respiratory effort normal and Lungs clear to auscul.
GI: Soft
Neuro/Psych: Alert
Data Reviewed
-
Date of Service: December 05, 2023
[2023-12-05 10:00] LABS: Hematocrit 28.2 % (39.0-52.0); Hemoglobin 9.9 g/dL (13.0-18.0); Mean Corp Hgb Conc. 35.1 g/dL (33.0-37.0); Mean Corpuscular Hgb 31.2 pg (27.0-31.0); Mean Platelet Volume 9.2 fL (7.4-10.4); Platelet Count 401 10^3/uL (130-400); Red Blood Cell Count 3.17 10^6/uL (4.70-6.10)
[2023-12-05 10:14] LABS: Blood Urea Nitrogen 29 mg/dl (9-20); Calcium 9.1 mg/dl (8.4-10.2); Carbon Dioxide 21 mmol/L (22-30); Chloride 99 mmol/L (98-107); Estimated Creatinine Clearance 31 ml/min; Glucose 94 mg/dl (70-99); Potassium 4.4 mmol/L (3.5-5.1); Sodium 130 mmol/L (135-145); eGFR 36.66
[2023-12-05] MEDS: IMDUR (EXTENDED RELEASE) 90 MG PO (10:43)
[2023-12-05] MEDS: LASIX 40 MG PO (10:43)
--- NOTE | 2023-12-05 12:48 | W.PN.HOSP.TC ---
Today's Communication/Plan
-
DC
Assessment / Plan
Assessment / Plan
pt is an 83 year old male
Hypertensive Emergency complicated by BEATRICE-- Refractory HTN likely due to b/l renal artery stenosis--S/P Right Renal Artery Stent 09/12/2023, s/p left Renal Artery Stent 12/03--apprec cards/renal--Improved BP since then !
Continue labetalol 100mg BID, Aldactone 25mg Daily, lasix 20mg daily, hydralazine 100mg TID, Imdur 90mg daily--Increase clonidine from 0.1mg BID to 0.3 mg BID, dose now--would try to space meds out throughout the day
Bradycardia - HR in high 40s now - DW cards today -it is in Mobitz 1 - advised to cw lower dose of labetolol and if increase dopamine and then I would need a pacemaker.
Headache/Dizziness- Likely due to HTN emergency. None now- CT brain (-)-- Prn Tylenol
Constipation/ indigestion-- Unimproved with home colace/miralax. Continue regimen prn- Dose Mag Citrate, observe for improvement.
Chronic Hyponatremia- Na 131. Chronic/stable. Follow trends.
CKD IIIb- BUN/Cr 29/1.7. Relatively at baseline, follow trends on home lasix/aldactone
CAD s/p CABG / Stent / HLD-- S/P ELIEZER to LAD 11/22/2023-- Continue aspirin/plavix/statin, BB, hydralazine, imdur-- Currently denies any chest pain
RBBB - chronic/stable.
ARMAAN - continue cpap
COPD - continue home inhalers
BPH - Continue flomax/finasteride.
DVT Ppx: Heparin
Code Status: DNR/DNI, Confirmed with pt and daughter at bedside.
Cardiology input noted.
Will DC him back to his assisted living if okay from nephrology standpoint.
Discussed with patient about the medication changes.
Total time of dc 32 min
Anticipated Discharge: Today
Subjective/Interval History
-
Date of Service: December 05, 2023
Voice no specific complaints.
denies abdominal pain or chest pain.
Denies any dizziness.
No nausea vomiting.
He thinks he is good on his feet and can return back to his assisted living facility.
Objective Data
-
Labs:
Laboratory Results
12/05/23
08:46
WBC 10.0
Hgb 9.9 L
Hct 28.2 L
Plt Count 401 H
Sodium 130 L
Potassium 4.4
Chloride 99
Carbon Dioxide 21 L
BUN 29 H
Creatinine 1.8 H
Glucose 94
Calcium 9.1
Vital Signs:
Vital Signs
Temp Pulse Resp BP Pulse Ox
98.0 F 60 18 133/53 96
12/05/23 10:50 12/05/23 10:50 12/05/23 10:50 12/05/23 10:50 12/05/23 10:50
I&O
12/04/23 12/05/23 12/06/23
06:59 06:59 06:59
Intake Total 480 / 480 240 / 240
Balance 480 / 480 240 / 240
Review of Systems
-
Constitutional: Denies Fever
EENT: Denies Sore Throat
Respiratory: Denies Cough
Abdomen/GI: Denies Abdominal Pain
Genitourinary: Denies Dysuria or Frequency
Physical Exam
-
General: No Apparent Distress
HEENT: Moist Mucous Membranes
Respiratory: Clear to Auscultation and Non Labored Respirations; Negative Accessory Resp Muscle Use
Cardiac: Regular Rhythm and S1/S2
GI: Soft
Neuro: AO x 3
Psych: Calm; Negative Confused
Data Reviewed
-
Labs: Labs Reviewed by me
--- NOTE | 2023-12-05 13:01 | W.DS.TRANS ---
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
-
Discharge Instructions:
Discharge Diagnosis/Procedures HTN emergency -Angioplasty and stent x2 to Left
Renal artery
Diet 2 Gram Sodium
Activity As tolerated
Driving Restrictions No driving for 24 hours
Bathing Restrictions None
Instructions:
Stand-Alone Forms: DC Instructions- Cath/EP Lab
Changes to Home Medications: Yes
Discharge Medications:
DC Medications w/original date entered in [facility]
atorvastatin 40 mg tablet 40 mg PO QPM High cholesterol 11/09/21
budesonide-formoterol HFA 80 mcg-4.5 mcg/actuation aerosol inhaler (Breyna) 2 puff inhalation R BID Lung/breathing issues 11/09/21
cholecalciferol (vitamin D3) 25 mcg (1,000 unit) capsule (Vitamin D3) 25 mcg PO DAILY Supplement 11/09/21
finasteride 5 mg tablet 5 mg PO DAILY Urinary issue 11/09/21
nifedipine 90 mg tablet,extended release 90 mg PO DAILY Heart disease/condition 11/09/21
polyethylene glycol 3350 17 gram/dose oral powder (Miralax) 17 g PO QPM Constipation 11/09/21
tamsulosin 0.4 mg capsule 0.8 mg PO QPM Urinary issue 11/09/21
tiotropium bromide 18 mcg capsule with inhalation device 18 mcg inhalation R BID Lung/breathing issues 11/09/21
allopurinol 100 mg tablet 100 mg PO DAILY Gout 06/05/22
aspirin 81 mg tablet,delayed release 81 mg PO DAILY Blood clot prevention/tx 06/05/22
psyllium husk 0.52 gram capsule (Fiber (psyllium husk)) 0.52 g PO BID Constipation 06/05/22
therapeutic multivitamin 1 tab PO QPM Supplement 06/05/22
vitamin B complex 1 tab PO DAILY Supplement 06/05/22
spironolactone 25 mg tablet 25 mg PO DAILY #30 tabs 05/14/23
diphenhydramine HCl 50 mg/30 mL oral liquid (ZzzQuil) 50 mg PO HS Sleep 09/11/23
docusate sodium 100 mg capsule (Colace) 100 mg PO DAILY Constipation 09/11/23
furosemide 20 mg tablet 20 mg PO DAILY Blood pressure 09/11/23
pantoprazole 40 mg tablet,delayed release 40 mg PO DAILY #90 tabs 09/12/23
hydralazine 100 mg tablet 100 mg PO TID Blood Pressure 11/14/23
clopidogrel 75 mg tablet 75 mg PO DAILY #30 tabs 11/23/23
isosorbide mononitrate 30 mg tablet,extended release 24 hr 90 mg (3 x 30 mg) PO DAILY #90 tabs 11/23/23
clonidine HCl 0.3 mg tablet 0.3 mg PO BID #60 tabs 12/05/23
labetalol 100 mg tablet 100 mg PO BID #60 tabs 12/05/23
Home Medication Changes
New meds
Labetolol decreased from 200 to 100 mg BID.
Clonidine dose increased from 0.1 to 0.3 mg twice daily
Pending Results: No
[2023-12-05] MEDS: PROCARDIA XL (EXTENDED RELEASE) 90 MG PO (13:10)
[2023-12-05] MEDS: ALDACTONE 25 MG PO (13:11)
--- NOTE | 2023-12-05 13:27 | W.PN.NEPH.PH ---
Today's Communication / Plan
-
ok to d/c
Assessment/Plan
-
IMP:
Hypertensive Emergency c/b BEATRICE
Known b/l renal artery stenosis( right >75%, left 50-70%)- S/P Right Renal Artery Stent 09/12/2023
Headache/Dizziness
Constipation
Chronic Hyponatremia
CKD IIIb-baseline cr 1.4-1.9
CAD s/p CABG LAD Stent 11/22/23
HLD
RBBB
ARMAAN
COPD
BPH
Bilat renal cysts
Plan:
A/w dizziness with ROWE and elevated BPs
known h/o R renal stent-US shows patent and s/p left renal art stent on 12/03
BP seem to be better now
meds adjusted per cards and avoiding bradycardia
would cont lasix 40mg at d/c too
stable renal function at baseline, need f/u BMP as he had contrast exposure on 12/03
could not check ARR as he is already on Spironolactone, pending metanephrins and catecholamines
stable hyponatremia
ok for d/c per renal
should need BMP next week and f/u with cards
he will also need nephro f/u eventually
d/w pt and primary
-
-
Date of Service: December 05, 2023
CC / HPI / ROS
-
Chief Complaint:
uncontrolled HTN
History of Present Illness:
bp stable s/p left renal art stent 12/03
stable kidney function cr 1.8
hb stable at 9.9
wt decreasing
Review of Systems:
no dizziness or ROWE
no cp or sob
Labs
-
Labs:
WBC 10.0 10^3/uL (4.8-10.8) 12/05/23 08:46
RBC 3.17 10^6/uL (4.70-6.10) L 12/05/23 08:46
Hgb 9.9 g/dL (13.0-18.0) L 12/05/23 08:46
Hct 28.2 % (39.0-52.0) L 12/05/23 08:46
Plt Count 401 10^3/uL (130-400) H 12/05/23 08:46
Sodium 130 mmol/L (135-145) L 12/05/23 08:46
Potassium 4.4 mmol/L (3.5-5.1) 12/05/23 08:46
Chloride 99 mmol/L (98-107) 12/05/23 08:46
Carbon Dioxide 21 mmol/L (22-30) L 12/05/23 08:46
BUN 29 mg/dl (9-20) H 12/05/23 08:46
Creatinine 1.8 mg/dL (0.7-1.3) H 12/05/23 08:46
eGFR 36.66 12/05/23 08:46
Glucose 94 mg/dl (70-99) 12/05/23 08:46
Calcium 9.1 mg/dl (8.4-10.2) 12/05/23 08:46
Xkb-S-Vdzbvctornn Pept 793 pg/ml 12/02/23 08:02
Albumin 3.7 g/dl (3.5-5.0) 12/01/23 20:33
Physical Exam
-
Vital Signs:
Vital Signs
Temp Pulse Resp BP Pulse Ox
98.0 F 60 18 150/49 96
12/05/23 10:50 12/05/23 13:10 12/05/23 10:50 12/05/23 13:10 12/05/23 10:50
Cardiovascular:: Regular rate and rhythm
Respiratory:: Bilateral: CTA
Lung Excursion:: Normal
Abdomen:: Nontender and Soft
Extremity Edema:: None: Bilateral:
Matias Catheter: No
--- NOTE | 2023-12-05 14:22 | CM ---
Patient seen bedside with family, inquiring about discharge today. CM spoke with patients nurse, patient not for discharge today. TT sent to Hospitalist for PT/OT order. CM will watch for PT/OT recommendations upon return to [facility]. CM will
continue to follow for all discharge planning needs.
Plan; return to [facility] when stable, watch for VN needs. Awaiting return call from nurse at [facility] for patients PLOF.
[2023-12-05] MEDS: MIRALAX 17 GRAMS PO (17:44)
[2023-12-05] MEDS: LIPITOR 40 MG PO (17:45)
[2023-12-05] MEDS: FLOMAX 0.8 MG PO (17:45)
[2023-12-05] MEDS: THERAGRAN 1 TABLET PO (17:45)
[2023-12-05] MEDS: BENADRYL ELIXIR 50 MG PO (20:57)
[2023-12-06] VITALS (10 sets, daily range): BP systolic 143–173; BP diastolic 47–58; PULSE 2–58; O2SAT 97; BMI 27.6
[2023-12-06] MEDS: SYMBICORT 80/4.5 MCG INHALER 2 PUFF INH ×2 (07:29→20:08)
[2023-12-06] MEDS: SPIRIVA RESPIMAT 2.5 MCG 2 PUFF INH (07:29)
[2023-12-06] MEDS: IMDUR (EXTENDED RELEASE) 90 MG PO (10:08)
[2023-12-06] MEDS: APRESOLINE 100 MG PO ×3 (10:09→22:29)
[2023-12-06] MEDS: CATAPRES 0.3 MG PO ×2 (10:09→20:25)
[2023-12-06] MEDS: B COMPLEX w/VITAMIN C 1 CAPLET PO (10:09)
[2023-12-06] MEDS: PLAVIX 75 MG PO (10:09)
[2023-12-06] MEDS: PROTONIX 40 MG PO (10:09)
[2023-12-06] MEDS: ZYLOPRIM 100 MG PO (10:09)
[2023-12-06] MEDS: LASIX 40 MG PO (10:10)
[2023-12-06] MEDS: METAMUCIL, KONSYL 0.5 PACKET PO ×2 (10:10→20:26)
[2023-12-06] MEDS: PROSCAR 5 MG PO (10:11)
[2023-12-06] MEDS: COLACE 100 MG PO (10:11)
[2023-12-06] MEDS: VITAMIN D3 (cholecalciferol) 25 MCG PO (10:11)
[2023-12-06] MEDS: ASPIR LOW (ENTERIC COATED) 81 MG PO (10:11)
[2023-12-06] MEDS: TRANDATE PO ×2 (10:13→20:26)
[2023-12-06] MEDS: FLUSH (NSS) 1 FLUSH IV (10:14)
[2023-12-06 10:37] LABS: Blood Urea Nitrogen 31 mg/dl (9-20); Carbon Dioxide 22 mmol/L (22-30); Chloride 97 mmol/L (98-107); Estimated Creatinine Clearance 27 ml/min; Glucose 129 mg/dl (70-99); Potassium 4.4 mmol/L (3.5-5.1); Sodium 132 mmol/L (135-145)
[2023-12-06] MEDS: PROCARDIA XL (EXTENDED RELEASE) 90 MG PO (13:04)
[2023-12-06] MEDS: ALDACTONE 25 MG PO (13:04)
--- NOTE | 2023-12-06 13:19 | W.PN.HOSP.TC ---
Addendum entered and electronically signed by Beny Rosenberg MD 12/12/23 11:02:
Cr elevation of >0.3 during admission meets criteria for MAYELA on CKD 3.
Original Note:
Today's Communication/Plan
-
DC planning
Assessment / Plan
Assessment / Plan
pt is an 83 year old male
Hypertensive Emergency complicated by BEATRICE-- Refractory HTN likely due to b/l renal artery stenosis--S/P Right Renal Artery Stent 09/12/2023, s/p left Renal Artery Stent 12/03--apprec cards/renal--Improved BP since then !
Continue labetalol 100mg BID, Aldactone 25mg Daily, lasix 20mg daily, hydralazine 100mg TID, Imdur 90mg daily--Increase clonidine from 0.1mg BID to 0.3 mg BID, dose now-
Bradycardia - HR in high 40s now - DW cards today -it is in Mobitz 1 - advised to cw lower dose of labetolol and if increase dopamine and then I would need a pacemaker.
Headache/Dizziness- Likely due to HTN emergency. None now- CT brain (-)-- Prn Tylenol
Constipation/ indigestion-- cw current meds
Chronic Hyponatremia- Na 132. Chronic/stable. Follow trends.
CKD IIIb- BUN/Cr 29/1.7. Worsened Cr -await nephro input.
CAD s/p CABG / Stent / HLD-- S/P ELIEZER to LAD 11/22/2023-- Continue aspirin/plavix/statin, BB, hydralazine, imdur-- Currently denies any chest pain
RBBB - chronic/stable.
ARMAAN - continue cpap
COPD - continue home inhalers
BPH - Continue flomax/finasteride.
DVT Ppx: Heparin
Code Status: DNR/DNI, Confirmed with pt and daughter at bedside.
PT cleared for home
Await renal input
Anticipated Discharge: Today
Subjective/Interval History
-
Date of Service: December 06, 2023
Voicing no specific complaints. Had to stay to get the physical therapy eval and is cleared for discharge.
Denies any dizziness.
Denies any chest pain or shortness of breath.
Objective Data
-
Labs:
Laboratory Results
12/06/23
09:44
Sodium 132 L
Potassium 4.4
Chloride 97 L
Carbon Dioxide 22
BUN 31 H
Creatinine 2.0 H
Glucose 129 H
Calcium 9.0
Vital Signs:
Vital Signs
Temp Pulse Resp BP Pulse Ox
97.7 F 59 20 173/52 98
12/06/23 11:49 12/06/23 11:49 12/06/23 11:49 12/06/23 11:49 12/06/23 11:49
I&O
12/05/23 12/06/23 12/07/23
06:59 06:59 06:59
Intake Total 240 / 240 960 / 960
Balance 240 / 240 960 / 960
Review of Systems
-
Constitutional: Denies Fever
EENT: Denies Sore Throat
Respiratory: Denies Cough
Abdomen/GI: Denies Abdominal Pain, Nausea, Vomiting or Diarrhea
Neuro: Denies Dizzy
Physical Exam
-
General: No Apparent Distress
HEENT: Moist Mucous Membranes
Respiratory: Clear to Auscultation
Cardiac: Regular Rhythm and S1/S2
GI: Soft
Neuro: AO x 3
Psych: Calm; Negative Confused
Data Reviewed
-
Labs: Labs Reviewed by me
--- NOTE | 2023-12-06 15:07 | CM ---
Patient seen bedside with angelica Lyons.
PT/OT recommending home with home care.
Angelica Lyons will transport.
TC to Kajal (nurse) from [facility]. they use [facility]. referral placed.
Plan: back to [facility] when stable with [facility].
AL
report# [phone]

[facility]
--- NOTE | 2023-12-06 16:30 | W.PN.NEPH.PH ---
Today's Communication / Plan
-
labs in am
Assessment/Plan
-
IMP:
Hypertensive Emergency c/b BEATRICE
Known b/l renal artery stenosis( right >75%, left 50-70%)- S/P Right Renal Artery Stent 09/12/2023
Headache/Dizziness
Constipation
Chronic Hyponatremia
CKD IIIb-baseline cr 1.4-1.9
CAD s/p CABG LAD Stent 11/22/23
HLD
RBBB
ARMAAN
COPD
BPH
Bilat renal cysts
Plan:
A/w dizziness with ROWE and elevated BPs
known h/o R renal stent-US shows patent and s/p left renal art stent on 12/03
BP seem to be better now, not optimal yet
meds adjusted per cards and avoiding bradycardia
would cont lasix 40mg at d/c too
cr slightly up post contrast exposure on 12/03
could not check ARR as he is already on Spironolactone, pending metanephrins and catecholamines
stable hyponatremia
ok for d/c per renal
if cr stable ok to d/c per renal point
he will need nephro f/u eventually
d/w pt and primary
-
-
Date of Service: December 06, 2023
CC / HPI / ROS
-
Chief Complaint:
uncontrolled HTN
History of Present Illness:
bp stable s/p left renal art stent 12/03
kidney function cr up at 2
hb stable at 9.9
wt no change
Review of Systems:
no dizziness or ROWE
no cp or sob
Labs
-
Labs:
WBC 10.0 10^3/uL (4.8-10.8) 12/05/23 08:46
RBC 3.17 10^6/uL (4.70-6.10) L 12/05/23 08:46
Hgb 9.9 g/dL (13.0-18.0) L 12/05/23 08:46
Hct 28.2 % (39.0-52.0) L 12/05/23 08:46
Plt Count 401 10^3/uL (130-400) H 12/05/23 08:46
Sodium 132 mmol/L (135-145) L 12/06/23 09:44
Potassium 4.4 mmol/L (3.5-5.1) 12/06/23 09:44
Chloride 97 mmol/L (98-107) L 12/06/23 09:44
Carbon Dioxide 22 mmol/L (22-30) 12/06/23 09:44
BUN 31 mg/dl (9-20) H 12/06/23 09:44
Creatinine 2.0 mg/dL (0.7-1.3) H 12/06/23 09:44
eGFR 32.30 12/06/23 09:44
Glucose 129 mg/dl (70-99) H 12/06/23 09:44
Calcium 9.0 mg/dl (8.4-10.2) 12/06/23 09:44
Dse-X-Jmfkzpmkdgh Pept 793 pg/ml 12/02/23 08:02
Albumin 3.7 g/dl (3.5-5.0) 12/01/23 20:33
Physical Exam
-
Vital Signs:
Vital Signs
Temp Pulse Resp BP Pulse Ox
97.5 F 57 18 152/49 98
12/06/23 15:16 12/06/23 15:16 12/06/23 15:16 12/06/23 15:16 12/06/23 15:16
Cardiovascular:: Regular rate and rhythm
Respiratory:: Bilateral: CTA
Lung Excursion:: Normal
Abdomen:: Nontender and Soft
Extremity Edema:: None: Bilateral:
Matias Catheter: No
[2023-12-06] MEDS: LIPITOR 40 MG PO (17:00)
[2023-12-06] MEDS: MIRALAX 17 GRAMS PO (17:00)
[2023-12-06] MEDS: THERAGRAN 1 TABLET PO (17:01)
[2023-12-06] MEDS: FLOMAX 0.8 MG PO (17:01)
[2023-12-06] MEDS: BENADRYL ELIXIR 50 MG PO (22:30)
[2023-12-07 03:34] VITALS: BP 142/44
[2023-12-07 06:00] VITALS: BMI 27.4
[2023-12-07 07:35] VITALS: BP 158/58
[2023-12-07] MEDS: SPIRIVA RESPIMAT 2.5 MCG 2 PUFF INH (08:01)
[2023-12-07] MEDS: SYMBICORT 80/4.5 MCG INHALER 2 PUFF INH (08:01)
--- NOTE | 2023-12-07 09:39 | CM ---
Patient seen in chair, reports no needs to CM at this time. Patient confirms he has transportation home upon discharge. IMM reviewed, signed, placed in patients chart. CM will continue to follow for all discharge planning needs.
Plan: back to [facility] when stable with [facility]Note 3[facility]s VN.
AL
Report# [phone]

[facility]
[2023-12-07] MEDS: IMDUR (EXTENDED RELEASE) 90 MG PO (10:11)
[2023-12-07] MEDS: B COMPLEX w/VITAMIN C 1 CAPLET PO (10:11)
[2023-12-07] MEDS: PROSCAR 5 MG PO (10:12)
[2023-12-07] MEDS: PROTONIX 40 MG PO (10:12)
[2023-12-07] MEDS: TRANDATE PO (10:13)
[2023-12-07] MEDS: VITAMIN D3 (cholecalciferol) 25 MCG PO (10:13)
[2023-12-07] MEDS: ZYLOPRIM 100 MG PO (10:13)
[2023-12-07] MEDS: CATAPRES 0.3 MG PO (10:14)
[2023-12-07] MEDS: PLAVIX 75 MG PO (10:14)
[2023-12-07] MEDS: APRESOLINE 100 MG PO (10:14)
[2023-12-07] MEDS: METAMUCIL, KONSYL 0.5 PACKET PO (10:15)
[2023-12-07] MEDS: COLACE 100 MG PO (10:15)
[2023-12-07] MEDS: ASPIR LOW (ENTERIC COATED) 81 MG PO (10:15)
[2023-12-07 10:16] LABS: Blood Urea Nitrogen 29 mg/dl (9-20); Calcium 9.2 mg/dl (8.4-10.2); Carbon Dioxide 23 mmol/L (22-30); Chloride 98 mmol/L (98-107); Estimated Creatinine Clearance 27 ml/min; Glucose 142 mg/dl (70-99); Potassium 4.3 mmol/L (3.5-5.1); Sodium 134 mmol/L (135-145)
[2023-12-07 11:05] VITALS: BP 164/54
--- NOTE | 2023-12-07 12:35 | W.PN.HOSP.TC ---
Today's Communication/Plan
-
d/c
Assessment / Plan
Assessment / Plan
pt is an 83 year old male
Hypertensive Emergency complicated by BEATRICE-- Refractory HTN likely due to b/l renal artery stenosis--S/P Right Renal Artery Stent 09/12/2023, s/p left Renal Artery Stent 12/03--apprec cards/renal--Improved BP since then
Continue labetalol 100mg BID, Aldactone 25mg Daily, lasix 20mg daily, hydralazine 100mg TID, Imdur 90mg daily--Increase clonidine from 0.1mg BID to 0.3 mg BID, dose now-
Bradycardia - HR in high 40s now - Dr Rosenberg DW cards -it is in Mobitz 1 - advised to cw lower dose of labetolol and if increase dopamine and then I would need a pacemaker.
Headache/Dizziness- Likely due to HTN emergency. None now- CT brain (-)-- Prn Tylenol
Constipation/ indigestion-- cw current meds
Chronic Hyponatremia- Na 132. Chronic/stable. Follow trends.
CKD IIIb- BUN/Cr 14/05.7. Worsened Cr -await nephro input.
CAD s/p CABG / Stent / HLD-- S/P ELIEZER to LAD 11/22/2023-- Continue aspirin/plavix/statin, BB, hydralazine, imdur-- Currently denies any chest pain
RBBB - chronic/stable.
ARMAAN - continue cpap
COPD - continue home inhalers
BPH - Continue flomax/finasteride.
DVT Ppx: Heparin
Code Status: DNR/DNI, Confirmed with pt and daughter at bedside.
PT cleared for home --by all consultants
Anticipated Discharge: Today
Subjective/Interval History
-
Date of Service: December 07, 2023
pt ready for d/c
Objective Data
-
Labs:
Laboratory Results
12/07/23
08:49
Sodium 134 L
Potassium 4.3
Chloride 98
Carbon Dioxide 23
BUN 29 H
Creatinine 2.0 H
Glucose 142 H
Calcium 9.2
Vital Signs:
max temp for 24 hours
12/06/23
23:04
Temp 97.9 F
Vital Signs
Temp Pulse Resp BP Pulse Ox
97.7 F 56 18 164/54 97
12/07/23 11:05 12/07/23 11:05 12/07/23 11:05 12/07/23 11:05 12/07/23 11:05
I&O
12/06/23 12/07/23 12/08/23
06:59 06:59 06:59
Intake Total 960 / 960 600 / 600
Balance 960 / 960 600 / 600
Review of Systems
-
All other systems: Reviewed and negative
Physical Exam
-
General: Well Developed, Well Nourished and No Apparent Distress
HEENT: Normocephalic and Atraumatic
Respiratory: Clear to Auscultation; Negative Wheezes or Rhonchi
Cardiac: Regular Rhythm and S1/S2; Negative Murmur
GI: Soft, Nontender, Nondistended and Normal Bowel Sounds
Musculoskeletal: No Clubbing, No Cyanosis and No Edema
Neuro: Awake and Alert
--- NOTE | 2023-12-07 12:40 | PN.CDI ---
CDI
- -
CDI:
Physician Documentation Request
Admit Date: 12/02/23 01:12
Dear Doctor Chet,
Please review the following and provide your response in the progress notes.
Clinical Indicators:
- 12/05 PN 'CKD IIIb'
- 12/03 Left renal artery stent placement
Laboratory Tests
12/02/23 12/03/23 12/04/23
08:02 08:29 07:50
Creatinine 1.5 H 1.5 H 1.7 H
eGFR 45.62 45.62 39.26
12/05/23 12/06/23 12/07/23
08:46 09:44 08:49
Creatinine 1.8 H 2.0 H 2.0 H
eGFR 36.66 32.30 32.30
Clarify which of the following accurately represents the patient's renal status:
MAYELA on CKD 3b
CKD 3b
Other
Criteria for MAYELA*
1 Increase in serum creatinine by > or = to 0.3 mg/dL (> or = to 26.5 micromol/L) within 48 hours, OR
2 Increase in serum creatinine to > or = to 1.5 times baseline, which is known or presumed to have occurred within 7 days, OR
3 Urine volume < 0.5 nL/kg/hour for six hours
Stages of Chronic Kidney Disease*
Level Description GFR
G1 Normal or High >90
G2 Mildly decreased 60-89
G3a Mildly to moderately decreased 45-59
G3b Moderately to severely decreased 30-44
G4 Severely decreased 15-29
G5 Kidney failure <15
Use of terms such as suspected, likely, concern for, or probable (associated with a specific diagnosis that is being evaluated, monitored, or treated as if it exists) are acceptable and can be coded in the inpatient setting, when documented at the
time of discharge.
Thank you,
Alfred Otero RN
CDI Specialist
Please use your independent medical judgment in providing your response.
*Source: Kidney Disease: Improving Global Outcomes (KDIGO) 2012
[2023-12-07] MEDS: LASIX 40 MG PO (13:14)
[2023-12-07] MEDS: ALDACTONE 25 MG PO (13:14)
[2023-12-07] MEDS: PROCARDIA XL (EXTENDED RELEASE) 90 MG PO (13:15)
--- NOTE | 2023-12-07 13:44 | W.DCSUMMARY ---
Discharge Summary
Discharge Data
Date of Admission: 12/02/23
Date of Discharge: 12/07/23
-
Pending Results: No
Hospital Course
Primary care physician : Stephen Suazo
Principal Discharge diagnosis : Hypertensive emergency complicated by a known renal artery stenosis, bradycardia
Chronic Discharge diagnosis : Chronic hyponatremia, chronic kidney disease stage IIIb, coronary artery disease status post bypass surgery with stent placement in past, hyperlipidemia, obstructive sleep apnea, chronic obstructive pulmonary disease,
benign prostatic hyperplasia
Hospital Course : Patient was 83-year-old male with a history of uncontrolled hypertension and known renal artery stenosis status post right renal artery stent August 2023. Patient had a history of coronary disease with a recent drug-eluting stent to
the LAD on November 22, 2023. Patient presented with dizziness, headache associated with high blood pressure. Patient reported that his systolic blood pressure was in the 200s at home. He also states that his hydralazine was doubled from 53 times a
day to 103 times a day and clonidine was increased to twice daily. He states that he was also restarted on Lasix with no improvement. Patient has a planned left renal artery stent but has not yet received that. Patient was admitted.
Problem #1: Hypertensive emergency complicated by a known renal artery stenosis. Patient had refractory hypertension with multi drugs note due to his known bilateral renal artery stenosis. Patient underwent left renal artery stenting on December 03,
2023 with improved blood pressure. He was seen in consultation by cardiology and renal. He had a right renal artery stent in August 2023. Blood pressure medicines were adjusted. Final list is as above. Patient was complaining of a headache and
dizziness. This is likely due to his hypertensive emergency. CAT scan of the brain was done which was negative. Patient to have a basic metabolic profile this coming Monday, December 11, 2023 with results to his primary care physician and
nephrology.
Problem #2: Bradycardia. Patient was noted to have Mobitz type I heart block as his heart rate was in the 40s. Labetalol dose was lowered at cardiology's recommendation which improved his heart rate. Blood pressure was 164/54 and heart rate 56 at
the time of discharge on 12/07/2023.
Problem #3: All other medical issues. These include Chronic hyponatremia, chronic kidney disease stage IIIb, coronary artery disease status post bypass surgery with stent placement in past, hyperlipidemia, obstructive sleep apnea, chronic
obstructive pulmonary disease, benign prostatic hyperplasia. These medical issues were stable during his hospitalization. Medications were continued as able. Creatinine baseline runs from approximately 1.7-2.0.
Patient is stable for discharge back to [facility] assisted living at this time. If there are any questions regarding this dictation or his hospital stay, please do not hesitate to call. Our office number is [phone].
Time for discharge 33 minutes.
Discharge Plan
-
Patient Disposition: Assisted Living
Discharge Diagnosis/Procedures: Hypertensive emergency from known renal artery stenosis -Angioplasty and stent x2 to Left Renal artery, bradycardia, chronic hyponatremia, chronic kidney disease stage IIIb, coronary artery disease status post bypass
surgery with stents in the past, hyperlipidemia, right bundle branch block, obstructive sleep apnea, chronic obstructive pulmonary disease, benign prostatic hyperplasia
Condition: Good
Diet: 2 Gram Sodium
Activity: As tolerated
Driving Restrictions: No driving for 24 hours
Bathing Restrictions: None
Blood Work: BMP Sunday--results to renal
Stand Alone Forms: DC Instructions- Cath/EP Lab
Referrals:
Cris Smith CRNP [Specified Professional Personl] - 01/03/24 1:00 pm (Cardiology followup appointment)
Stephen Suazo DO [Family Provider] - in less than 1 week
Prescriptions:
New
clonidine HCl 0.3 mg Tablet
0.3 mg PO BID Qty: 60 0RF
Rx Instructions:
dose increased on this admission
labetalol 100 mg Tablet
100 mg PO BID Qty: 60 0RF
Rx Instructions:
dose decreased on this admission
furosemide 40 mg Tablet
40 mg PO DAILY Qty: 30 0RF
Continued
atorvastatin 40 mg Tablet
40 mg PO QPM
nifedipine 90 mg Tablet Extended Release
90 mg PO DAILY
tamsulosin 0.4 mg Capsule
0.8 mg PO QPM
polyethylene glycol 3350 [Miralax] 17 gram/dose Powder
17 g PO QPM
finasteride 5 mg Tablet
5 mg PO DAILY
cholecalciferol (vitamin D3) [Vitamin D3] 25 mcg (1,000 unit) Capsule
25 mcg PO DAILY
tiotropium bromide 18 mcg Capsule, W/Inhalation Device
18 mcg INHALATION R BID
budesonide-formoterol [Breyna] 80-4.5 mcg/actuation Hfa Aerosol Inhaler
2 puff INHALATION R BID
therapeutic multivitamin Tablet
1 tab PO QPM
allopurinol 100 mg tablet
100 mg PO DAILY
aspirin 81 mg Tablet,Delayed Release (Dr/Ec)
81 mg PO DAILY
vitamin B complex Tablet
1 tab PO DAILY
psyllium husk [Fiber (psyllium husk)] 0.52 gram Capsule
0.52 g PO BID
spironolactone 25 mg Tablet
25 mg PO DAILY Qty: 30 0RF
docusate sodium [Colace] 100 mg Capsule
100 mg PO DAILY
ZzzQuil 50 mg/30 mL Liquid
50 mg PO HS
pantoprazole 40 mg Tablet,Delayed Release (Dr/Ec)
40 mg PO DAILY Qty: 90 3RF
hydralazine 100 mg Tablet
100 mg PO TID
isosorbide mononitrate 30 mg tablet extended release 24 hr
90 mg PO DAILY Qty: 90 0RF
clopidogrel 75 mg Tablet
75 mg PO DAILY Qty: 30 0RF
Discontinued
furosemide 20 mg tablet
20 mg PO DAILY
clonidine HCl 0.1 mg Tablet
0.1 mg PO BID
labetalol 200 mg Tablet
200 mg PO BID
Discharge Orders:
Discharge Patient (As Directed); Ordered 12/07/23
Ordered By: Mayra Viera
Discharge Date and Time
Print Language: MALDIVIAN
--- NOTE | 2023-12-07 14:17 | W.PN.NEPH.PH ---
Today's Communication / Plan
-
- for dc
Assessment/Plan
-
IMP:
Hypertensive Emergency c/b BEATIRCE
Known b/l renal artery stenosis( right >75%, left 50-70%)- S/P Right Renal Artery Stent 09/12/2023
Headache/Dizziness
Constipation
Chronic Hyponatremia
CKD IIIb-baseline cr 1.4-1.9
CAD s/p CABG LAD Stent 11/22/23
HLD
RBBB
ARMAAN
COPD
BPH
Bilat renal cysts
Plan:
A/w dizziness with ROWE and elevated BPs
known h/o R renal stent-US shows patent and s/p left renal art stent on 12/03
BP seem to be better now, not optimal yet
meds adjusted per cards and avoiding bradycardia
would cont lasix 40mg at d/c too
cr slightly up post contrast exposure on 12/03
could not check ARR as he is already on Spironolactone, pending metanephrins and catecholamines
stable hyponatremia
ok for d/c per renal
he will need nephro f/u eventually. please obtain labs on sunday.
d/w pt and primary
-
-
Date of Service: December 07, 2023
CC / HPI / ROS
-
Chief Complaint:
uncontrolled HTN
History of Present Illness:
bp stable s/p left renal art stent 12/03
kidney function cr up at 2
hb stable at 9.9
wt no change
Review of Systems:
no dizziness or ROWE
no cp or sob
Labs
-
Labs:
WBC 10.0 10^3/uL (4.8-10.8) 12/05/23 08:46
RBC 3.17 10^6/uL (4.70-6.10) L 12/05/23 08:46
Hgb 9.9 g/dL (13.0-18.0) L 12/05/23 08:46
Hct 28.2 % (39.0-52.0) L 12/05/23 08:46
Plt Count 401 10^3/uL (130-400) H 12/05/23 08:46
Sodium 134 mmol/L (135-145) L 12/07/23 08:49
Potassium 4.3 mmol/L (3.5-5.1) 12/07/23 08:49
Chloride 98 mmol/L (98-107) 12/07/23 08:49
Carbon Dioxide 23 mmol/L (22-30) 12/07/23 08:49
BUN 29 mg/dl (9-20) H 12/07/23 08:49
Creatinine 2.0 mg/dL (0.7-1.3) H 12/07/23 08:49
eGFR 32.30 12/07/23 08:49
Glucose 142 mg/dl (70-99) H 12/07/23 08:49
Calcium 9.2 mg/dl (8.4-10.2) 12/07/23 08:49
Tbl-K-Fgvsmbaevtw Pept 793 pg/ml 12/02/23 08:02
Albumin 3.7 g/dl (3.5-5.0) 12/01/23 20:33
Physical Exam
-
Vital Signs:
Vital Signs
Temp Pulse Resp BP Pulse Ox
97.7 F 56 18 164/54 97
12/07/23 11:05 12/07/23 11:05 12/07/23 11:05 12/07/23 11:05 12/07/23 11:05
Cardiovascular:: Regular rate and rhythm
Respiratory:: Bilateral: CTA
Lung Excursion:: Normal
Abdomen:: Nontender and Soft
Extremity Edema:: None: Bilateral:
Matias Catheter: No
== END 2023-12-07 14:19 | disposition home or self-care (01) | DRG 253 ==
LOC: 4 EAST ACU 01:12
PROVIDERS: Internal Medicine Cardiovascular Disease; Nurse Practitioner; ADMITTING PHYSICIAN Internal Medicine; ATTENDING PHYSICIAN Internal Medicine; CONSULT PHYSICIAN Internal Medicine; CONSULT PHYSICIAN Internal Medicine Cardiovascular Disease; EMERGENCY PHYSICIAN Emergency Medicine; FAMILY PHYSICIAN Internal Medicine
PROC: 047 Lower Arteries, Dilation (ICD-10-PCS; 2023-12-04)
DX: I16.1 Hypertensive emergency (principal); E87.1 Hypo-osmolality and hyponatremia; N17.9 Acute kidney failure, unspecified; I70.1 Atherosclerosis of renal artery; I12.9 Hypertensive chronic kidney disease with stage 1 through stage 4 chronic kidney disease, or unspecified chronic kidney disease; N18.32 Chronic kidney disease, stage 3b; I1A.0 Resistant hypertension; I25.10 Atherosclerotic heart disease of native coronary artery without angina pectoris; I44.1 Atrioventricular block, second degree; J44.9 Chronic obstructive pulmonary disease, unspecified; G47.33 Obstructive sleep apnea (adult) (pediatric)
CPT/HCPCS: 36252; 37236; 37237; 70450; 80048; 80053; 82384; 83735; 83835; 83880; 84443; 85025; 85027; 87070; 93005; 93975; 94640; 94660; 96374; 96375; 96376; 97162; 97166; 97535; 99285; C1725; C1760; C1874; C1876; C1887; C1894; Q9967

== ENCOUNTER → 2023-12-25 09:56 | Outpatient (REF) | payer OTHER, SELFPAY | LOC: RAD 09:56 | PROVIDERS: ATTENDING PHYSICIAN Surgery Vascular Surgery; FAMILY PHYSICIAN Internal Medicine | DX: I65.29 Occlusion and stenosis of unspecified carotid artery (principal) | CPT/HCPCS: 93880 ==

== ENCOUNTER 2024-01-17 03:51 | Emergency (ER) | payer OTHER, SELFPAY ==
[2024-01-17] VITALS (10 sets, daily range): BP systolic 168–189; BP diastolic 45–57; BMI 28.2
--- NOTE | 2024-01-17 04:24 | ED.GENMED ---
History of Present Illness
<DO Glenroy Montoya Filed: 01/17/24 04:26>
General
Chief Complaint: Abdominal Symptoms
Source: patient
Time Seen by Provider: 01/17/24 04:06
History of Present Illness
History of Present Illness:
83-year-old male presents to the emergency room by ambulance for evaluation of dizziness, headache, nausea. Patient also states he feels bloated. Patient states he felt well when he went to bed around midnight and the symptoms began around 2 AM.
No fever. No cough or shortness of breath. He denies any focal weakness numbness or tingling.
Past History
<DO Glenroy Montoya Last Filed: 01/17/24 04:26>
Past History
ED Past Medical History: CAD, COPD, HTN, Hypercholesterolemia, Other (Renal insufficiency) and Other (Prostatic hypertrophy)
ED Past Surgical History: Cardiac (Cardiac bypass 2017), Orthopedic (Left knee replacement 2017) and Other (Nasal polyps)
Social History
Tobacco: Former smoker
Alcohol: None
Drug: None
Personal:
Living: with family
Employment: Retired
Family History
Family History: Other (Unremarkable)
Phy Exam
<DO Glenroy Montoya Filed: 01/17/24 04:26>
Physical Exam
Physical Exam:
General: Awake, Alert, Oriented X3. No acute distress.
Vitals: unremarkable
Head: Atraumatic
Eyes: Pupils equal, EOMI,, positive rotary nystagmus
Throat: Airway intact, no exudates
Neck: Trachea midline
Lungs: Clear and equal b/l
Heart: Regular rate, no murmurs
Abd: Soft, Nontender, No pulsatile mass
Neuro: Cranial nerves intact, muscle strength equal bilaterally, cerebellar exam normal
Skin: Warm, dry, no rash
Extremities: pulses equal b/l, no edema
Course
<Tamir JuanOfelia Leija, DO - Last Filed: 01/17/24 04:26>
Orders/Labs/Results
Orders:
Orders
01/17/24 03:56
EKG [Electrocardiogram (*1)] Urgent
Reason for Study: Chest Pain
EKG- Treatment ONCE
01/17/24 04:13
Complete Blood Count/With Diff Urgent
Comprehensive Metabolic Panel Urgent
Troponin I Urgent
01/17/24 04:20
0.9% Sodium Chloride 500 ml [Nss] 500 ml IV BOLUS
01/17/24 04:22
CT Head W/o Iv Contrast Urgent
Comment:
Reason For Exam: headache, dizziness
01/17/24 04:23
Ondansetron Injectable [Zofran] 4 mg IV NOW STA
01/17/24 06:59
Bladder Scan- Treatment ONCE
01/17/24 07:19
CT Abd/pelvis W Iv Cont Urgent
Comment:
Reason For Exam: lower abd pain
01/17/24 13:16
Matias Placement- Treatment ONCE
Reason for insertion: Acute Retention
Abnormal Lab Results
01/17/24
04:13
RBC 3.30 L 10^6/uL
(4.70-6.10)
Hgb 9.8 L g/dL
(13.0-18.0)
Hct 28.2 L %
(39.0-52.0)
Plt Count 428 H 10^3/uL
(130-400)
Abs Immat Gran (auto) 0.1 H 10^3/uL
(0-0.05)
Absolute Neuts (auto) 6.7 H 10^3/uL
(1.4-6.5)
Absolute Monos (auto) 1.1 H 10^3/uL
(0.1-0.6)
Immature Gran % 0.7 H %
(0-0.5)
Lymphocytes % 19.5 L %
(20.5-51.1)
Monocytes % 10.4 H %
(1.7-9.3)
Carbon Dioxide 20 L mmol/L
(22-30)
BUN 43 H mg/dl
(9-20)
Creatinine 1.7 H mg/dL
(0.7-1.3)
Glucose 116 H mg/dl
(70-99)
01/17/24 04:13
01/17/24 04:13
Vital Signs
Initial and Last Documented VS:
Initial Vital Signs
Temp Pulse Resp BP Pulse Ox
97.5 F 66 20 184/47 100
01/17/24 03:53 01/17/24 03:53 01/17/24 03:53 01/17/24 03:53 01/17/24 03:53
Last Documented Vital Signs
Temp Pulse Resp BP Pulse Ox
97.5 F 63 19 168/49 96
01/17/24 03:53 01/17/24 12:45 01/17/24 12:45 01/17/24 08:01 01/17/24 12:45
<WINSOME Toussaint - Last Filed: 01/17/24 21:55>
Orders/Labs/Results
Orders:
Orders
01/17/24 03:56
EKG [Electrocardiogram (*1)] Urgent
Reason for Study: Chest Pain
EKG- Treatment ONCE
01/17/24 04:13
Complete Blood Count/With Diff Urgent
Comprehensive Metabolic Panel Urgent
Troponin I Urgent
01/17/24 04:20
0.9% Sodium Chloride 500 ml [Nss] 500 ml IV BOLUS
01/17/24 04:22
CT Head W/o Iv Contrast Urgent
Comment:
Reason For Exam: headache, dizziness
01/17/24 04:23
Ondansetron Injectable [Zofran] 4 mg IV NOW STA
01/17/24 06:59
Bladder Scan- Treatment ONCE
01/17/24 07:19
CT Abd/pelvis W Iv Cont Urgent
Comment:
Reason For Exam: lower abd pain
01/17/24 13:16
Matias Placement- Treatment ONCE
Reason for insertion: Acute Retention
Abnormal Lab Results
01/17/24
04:13
RBC 3.30 L 10^6/uL
(4.70-6.10)
Hgb 9.8 L g/dL
(13.0-18.0)
Hct 28.2 L %
(39.0-52.0)
Plt Count 428 H 10^3/uL
(130-400)
Abs Immat Gran (auto) 0.1 H 10^3/uL
(0-0.05)
Absolute Neuts (auto) 6.7 H 10^3/uL
(1.4-6.5)
Absolute Monos (auto) 1.1 H 10^3/uL
(0.1-0.6)
Immature Gran % 0.7 H %
(0-0.5)
Lymphocytes % 19.5 L %
(20.5-51.1)
Monocytes % 10.4 H %
(1.7-9.3)
Carbon Dioxide 20 L mmol/L
(22-30)
BUN 43 H mg/dl
(9-20)
Creatinine 1.7 H mg/dL
(0.7-1.3)
Glucose 116 H mg/dl
(70-99)
01/17/24 04:13
01/17/24 04:13
Vital Signs
Initial and Last Documented VS:
Initial Vital Signs
Temp Pulse Resp BP Pulse Ox
97.5 F 66 20 184/47 100
01/17/24 03:53 01/17/24 03:53 01/17/24 03:53 01/17/24 03:53 01/17/24 03:53
Last Documented Vital Signs
Temp Pulse Resp BP Pulse Ox
97.5 F 63 19 168/49 96
01/17/24 03:53 01/17/24 12:45 01/17/24 12:45 01/17/24 08:01 01/17/24 12:45
<Patrick Johnson MD - Last Filed: 01/17/24 13:27>
Orders/Labs/Results
Orders:
Orders
01/17/24 03:56
EKG [Electrocardiogram (*1)] Urgent
Reason for Study: Chest Pain
EKG- Treatment ONCE
01/17/24 04:13
Complete Blood Count/With Diff Urgent
Comprehensive Metabolic Panel Urgent
Troponin I Urgent
01/17/24 04:20
0.9% Sodium Chloride 500 ml [Nss] 500 ml IV BOLUS
01/17/24 04:22
CT Head W/o Iv Contrast Urgent
Comment:
Reason For Exam: headache, dizziness
01/17/24 04:23
Ondansetron Injectable [Zofran] 4 mg IV NOW STA
01/17/24 06:59
Bladder Scan- Treatment ONCE
01/17/24 07:19
CT Abd/pelvis W Iv Cont Urgent
Comment:
Reason For Exam: lower abd pain
01/17/24 13:16
Matias Placement- Treatment ONCE
Reason for insertion: Acute Retention
Abnormal Lab Results
01/17/24
04:13
RBC 3.30 L 10^6/uL
(4.70-6.10)
Hgb 9.8 L g/dL
(13.0-18.0)
Hct 28.2 L %
(39.0-52.0)
Plt Count 428 H 10^3/uL
(130-400)
Abs Immat Gran (auto) 0.1 H 10^3/uL
(0-0.05)
Absolute Neuts (auto) 6.7 H 10^3/uL
(1.4-6.5)
Absolute Monos (auto) 1.1 H 10^3/uL
(0.1-0.6)
Immature Gran % 0.7 H %
(0-0.5)
Lymphocytes % 19.5 L %
(20.5-51.1)
Monocytes % 10.4 H %
(1.7-9.3)
Carbon Dioxide 20 L mmol/L
(22-30)
BUN 43 H mg/dl
(9-20)
Creatinine 1.7 H mg/dL
(0.7-1.3)
Glucose 116 H mg/dl
(70-99)
01/17/24 04:13
01/17/24 04:13
Vital Signs
Initial and Last Documented VS:
Initial Vital Signs
Temp Pulse Resp BP Pulse Ox
97.5 F 66 20 184/47 100
01/17/24 03:53 01/17/24 03:53 01/17/24 03:53 01/17/24 03:53 01/17/24 03:53
Last Documented Vital Signs
Temp Pulse Resp BP Pulse Ox
97.5 F 63 19 168/49 96
01/17/24 03:53 01/17/24 12:45 01/17/24 12:45 01/17/24 08:01 01/17/24 12:45
<Tamir Leija DO - Last Filed: 01/17/24 04:26>
*EKG
Interpreted by ED Provider?: Yes
Heart Rate: 71
Rate: normal
Rhythm: sinus
[place]: left axis deviation
Interval: first degree heart block
QRS Pattern: right bundle branch block
Ischemia: non-specific ST changes
*Ambulatory Care Interpretation
Rate: normal
Interpretation: normal
Rhythm: sinus
<WINSOME Toussaint - Last Filed: 01/17/24 21:55>
*Critical Care Note
Total Time (30-74mins, 75-104mins- exclusive of procedures): Not Applicable
<WINSOME Toussaint - Last Filed: 01/17/24 21:55>
Update Note
Update Note:
01/17/24628: Pt reported significant improvement in dizziness and nausea and is more responsive. He continues to complain of abdominal pain. He also has complaints of headache and urinary retention. He states that he has been unable to urinate for
the past 10 minutes.
<Patrick Johnson MD - Last Filed: 01/17/24 13:27>
Update Note
Update Note:
01/17/24628: Pt reported significant improvement in dizziness and nausea and is more responsive. He continues to complain of abdominal pain. He also has complaints of headache and urinary retention. He states that he has been unable to urinate for
the past 10 minutes.
UPDATE (Patrick Johnson MD)
I saw and examined patient after signout and reviewed all labs and imaging.
Focused HPI: 83-year-old male with history as documented presents to the ER for evaluation of dizziness, headache. Patient reports that he woke up to go to the bathroom around 2 AM and while he was in the bathroom had a intense episode of dizziness
which she describes as a room spinning sensation. It was associated with nausea and headache. He was brought into the emergency to be evaluated. Since arrival here he says his symptoms have resolved aside from very mild residual frontal headache.
No longer feels any dizziness. He denies any change in his vision or speech, focal weakness or numbness in extremities. He denies any falls or trauma. Denies any chest pain or palpitations. He has noted that since arrival here he has had some
increasing lower abdominal fullness but denies pain.
Physical exam: Awake alert not in distress. Vital signs significant for hypertension. Pupils are equal round and reactive to light bilaterally, extraocular movements are intact without nystagmus, visual ziegler are intact. Cranial nerves intact 2
through 12. Speech fluid no dysarthria or aphasia. No limb ataxia. Motor and sensory function intact in upper and lower extremities. Ambulatory with no ataxia.
Medical Decision Makin-year-old male presents to the emergency room after episode of intense dizziness�describes room spinning sensation�that since has resolved. Still has mild frontal headache; has also started develop some lower abdominal
pressure since arrival. He had lab work including CBC which showed stable anemia, CMP which showed stable renal insufficiency with a creatinine of 1.7. He had an EKG which showed sinus rhythm. He had a CT head which was negative for any acute
pathology. Given his increasing lower abdominal fullness we did do a bladder scan�apparently bladder scan and showed no significant urinary retention and so he was sent for a CT abdomen pelvis.
CT abdomen pelvis shows distended bladder and moderate colonic stool burden. Will plan to ambulate patient to the bathroom to void and check postvoid residual to evaluate for urinary retention. Will see if patient has any recurrence of his
vertiginous symptoms with ambulation.
Patient did not have any dizziness with ambulation. Unfortunately postvoid residual volume was 600 cc of urine. Still having suprapubic fullness. He did have significant stool burden noted today which is likely exacerbating this issue. Will
place Matias catheter for acute urinary retention. I think patient is stable for discharge home, vertigo has resolved, will refer to ENT for outpatient follow-up of this. Advised to return if he has return of his dizziness. Can discharge with
Matias catheter in place, he previously was on Flomax which we will restart will also have him take MiraLAX/Colace for bowel regimen and see urology next week for trial of void. Patient's son is at bedside, both patient and son feel comfortable with
this. All questions answered.
ED Attending Note
<Tamir Leija, - Last Filed: 01/17/24 04:26>
-
Portions of this chart may have been created with voice recognition software.� Occasional wrong word or��sound alike� substitutions may have occurred due to the inherent limitations of voice recognition software.
Discharge Plan
Departure
Patient Disposition: Home (Routine Discharge)
Date of Disposition: 01/17/24
Time of Disposition: 13:17
Patient with high blood pressure during this ER visit?: Yes
Discharge Problem:
Vertigo, Acute on chronic urinary retention
Instructions: Vertigo ED, Urinary retention - Discharge instructions
Prescriptions:
New
tamsulosin [Flomax] 0.4 mg capsule
0.4 mg PO DAILY Qty: 30 0RF
No Action
atorvastatin 40 mg Tablet
40 mg PO QPM
nifedipine 90 mg Tablet Extended Release
90 mg PO DAILY
tamsulosin 0.4 mg Capsule
0.8 mg PO QPM
polyethylene glycol 3350 [Miralax] 17 gram/dose Powder
17 g PO QPM
finasteride 5 mg Tablet
5 mg PO DAILY
cholecalciferol (vitamin D3) [Vitamin D3] 25 mcg (1,000 unit) Capsule
25 mcg PO DAILY
tiotropium bromide 18 mcg Capsule, W/Inhalation Device
18 mcg INHALATION R BID
budesonide-formoterol [Breyna] 80-4.5 mcg/actuation Hfa Aerosol Inhaler
2 puff INHALATION R BID
therapeutic multivitamin Tablet
1 tab PO QPM
allopurinol 100 mg tablet
100 mg PO DAILY
aspirin 81 mg Tablet,Delayed Release (Dr/Ec)
81 mg PO DAILY
vitamin B complex Tablet
1 tab PO DAILY
psyllium husk [Fiber (psyllium husk)] 0.52 gram Capsule
0.52 g PO BID
spironolactone 25 mg Tablet
25 mg PO DAILY Qty: 30 0RF
docusate sodium [Colace] 100 mg Capsule
100 mg PO DAILY
ZzzQuil 50 mg/30 mL Liquid
50 mg PO HS
pantoprazole 40 mg Tablet,Delayed Release (Dr/Ec)
40 mg PO DAILY Qty: 90 3RF
hydralazine 100 mg Tablet
100 mg PO TID
isosorbide mononitrate 30 mg tablet extended release 24 hr
90 mg PO DAILY Qty: 90 0RF
clopidogrel 75 mg Tablet
75 mg PO DAILY Qty: 30 0RF
clonidine HCl 0.3 mg Tablet
0.3 mg PO BID Qty: 60 0RF
Rx Instructions:
dose increased on this admission
labetalol 100 mg Tablet
100 mg PO BID Qty: 60 0RF
Rx Instructions:
dose decreased on this admission
furosemide 40 mg Tablet
40 mg PO DAILY Qty: 30 0RF
Referrals:
Paco Elkins MD [Active] - Call in 1-3 days for appt
Braxton Nicholson MD [Active] - Call in 1-3 days for appt
Stephen Suazo DO [Family Provider] -
Activity Restrictions/Additional Instructions:
You were seen in the emergency room for dizziness. Fortunately her dizziness resolved while you are in the emergency room. You had a CT of your head which was normal blood work which showed no clear cause for your dizziness. We believe your
dizziness was related to vertigo which could be caused by inner ear issues. You should see the ear nose and throat doctor for follow-up if your symptoms return you should come back to the emergency room.
He also noted some lower abdominal pressure while you are here and you were found to have urinary retention. We placed a Matias catheter to drain your bladder. This is likely in part due to enlarged prostate and for this reason we recommend you
restart taking Flomax. He also had significant constipation on your CT scan and so we recommend that you take daily MiraLAX and Colace for the next 5 to 7 days to help with the constipation.
You should have the catheter removed in the urology office ideally within the next week for a trial of void. You should call the urologist either today or first thing tomorrow morning to schedule you an appointment for next week.
If you have return of symptoms or if you develop any symptoms concerning to you please return immediately to be reassessed here in the ER.
Thank you for visiting the Emergency Department at [facility].
1. Please schedule a follow up appointment as directed. Call first thing tomorrow morning to make an appointment.
2. If indicated, please take your medications as instructed and indicated on discharge paperwork.
3. If any of your symptoms do not improve, or persist, or become more severe within 6-12 hours, please return to the emergency department for further care.
4. Please return to the emergency department if you develop a headache, neck pain/stiffness, fever greater than 100.4F, chest pain, shortness of breath, persistent nausea, vomiting, slurred speech, difficulty walking, numbness/tingling, weakness,
signs of infection or any other symptoms that are worrisome to you.
Please call [phone] if you have any questions.
Interventions
Interventions:
*Risk Screen - Suicide Last Done: 01/17/24 03:53
*General Assessment Last Done: 01/17/24 03:53
*Neglect/Abuse Screening Last Done: 01/17/24 03:53
ED- Fall Risk Assessment Last Done: 01/17/24 04:06
*ED COVID-19 Vaccine History Last Done: 01/17/24 04:06
*Nursing Disposition Last Done: 01/17/24 12:45
OA-Ijnorb-Lpwspfodga Assessment Last Done: 01/17/24 04:06
Discharge Date and Time
Discharge Date/Time: 01/17/24 12:45
Print Language: SINHALA
[2024-01-17 04:28] LABS: % Basophils 0.5 % (0-2); % Eosinophils 2.6 % (0-6); % Immature Granulocytes 0.7 % (0-0.5); % Lymphocytes 19.5 % (20.5-51.1); % Monocytes 10.4 % (1.7-9.3); % Neutrophils 66.3 % (42.2-75.2); Absolute Basophils 0.1 10^3/uL (0-0.2); Absolute Eosinophils 0.3 10^3/uL (0-0.7); Absolute Immature Granulocytes 0.1 10^3/uL (0-0.05); Absolute Monocytes 1.1 10^3/uL (0.1-0.6); Absolute Neutrophils 6.7 10^3/uL (1.4-6.5); Hematocrit 28.2 % (39.0-52.0); Hemoglobin 9.8 g/dL (13.0-18.0); Mean Corp Hgb Conc. 34.8 g/dL (33.0-37.0); Mean Corpuscular Hgb 29.7 pg (27.0-31.0); Mean Corpuscular Volume 85.5 fL (80.0-94.0); Mean Platelet Volume 9.2 fL (7.4-10.4); Nucleated Red Blood Cells % 0 % (-); Platelet Count 428 10^3/uL (130-400); Red Cell Dist. Width 14.2 % (11.5-14.5); White Blood Cell Count 10.1 10^3/uL (4.8-10.8)
[2024-01-17 04:35] LABS: ALT (SGPT) 21 U/L (0-50); AST (SGOT) 27 U/L (17-59); Albumin 3.9 g/dl (3.5-5.0); Alkaline Phosphatase 107 U/L (38-126); Blood Urea Nitrogen 43 mg/dl (9-20); Calcium 9.4 mg/dl (8.4-10.2); Carbon Dioxide 20 mmol/L (22-30); Chloride 100 mmol/L (98-107); Estimated Creatinine Clearance 32 ml/min; Glucose 116 mg/dl (70-99); Potassium 4.5 mmol/L (3.5-5.1); Sodium 135 mmol/L (135-145); Total Bilirubin 0.5 mg/dl (0.2-1.3); Total Protein 6.6 g/dl (6.3-8.2); eGFR 39.26
[2024-01-17 04:47] LABS: Troponin I < 0.012 ng/ml
[2024-01-17] MEDS: NSS 500 IV (05:40)
[2024-01-17] MEDS: ZOFRAN 4 MG IV (05:40)
== END 2024-01-17 12:45 | disposition home or self-care (01) ==
LOC: EMR 03:51
PROVIDERS: EMERGENCY PHYSICIAN Emergency Medicine; FAMILY PHYSICIAN Internal Medicine
DX: R42 Dizziness and giddiness (principal); R33.9 Retention of urine, unspecified; R51.9 Headache, unspecified; I25.10 Atherosclerotic heart disease of native coronary artery without angina pectoris; J44.9 Chronic obstructive pulmonary disease, unspecified; I10 Essential (primary) hypertension; E78.00 Pure hypercholesterolemia, unspecified; N28.9 Disorder of kidney and ureter, unspecified; N40.0 Benign prostatic hyperplasia without lower urinary tract symptoms; Z87.891 Personal history of nicotine dependence
CPT/HCPCS: 99284; 96374; 96361; 70450; 74177; 80053; 84484; 85025; 93005; Q9967

== ENCOUNTER 2024-05-03 05:03 | Inpatient (IN) | payer OTHER, SELFPAY ==
[2024-05-03] VITALS (9 sets, daily range): BP systolic 131–184; BP diastolic 38–58; BMI 28.9
--- NOTE | 2024-05-03 01:56 | ED.GENMED ---
History of Present Illness
General
Chief Complaint: Bowel Problem
Source: patient
Exam Limitations: none
Time Seen by Provider: 05/03/24 01:43
Nursing documentation reviewed up to this point in time: agreed with
History of Present Illness
History of Present Illness:
83-year-old male with a past medical history of hypertension, hyperlipidemia, COPD, CKD who presents to the emergency room for evaluation of abdominal pain and distention, constipation. Patient reports that he has chronic constipation and has been
on daily MiraLAX as well as Colace and he takes milk of magnesia for breakthrough constipation. He says that despite these measures he has not been able to have a bowel movement for 6 days. He says he has been having increasing abdominal pain and
distention and so he came to the ER for evaluation. He says he had been passing gas but over the past day he has not noted much gas. He has been able to urinate without issue he says. He denies any nausea or vomiting. He denies any fevers or
chills. He denies any other complaints.
Past History
Past History
ED Past Medical History: CAD, COPD, HTN, Hypercholesterolemia, Other (Renal insufficiency) and Other (Prostatic hypertrophy)
ED Past Surgical History: Cardiac (Cardiac bypass 2017), Orthopedic (Left knee replacement 2017) and Other (Nasal polyps)
Social History
Tobacco: Former smoker
Alcohol: None
Drug: None
Personal:
Living: with family
Employment: Retired
Family History
Family History: Other (Unremarkable)
Review of Systems
Review of Systems
All Other Systems: ROS reviewed and negative except as documented in HPI and ROS
Constitutional: Denies fever or chills
Respiratory: Denies trouble breathing
Cardiac: Denies chest pain
ABD/GI: Reports abdominal pain and constipated; Denies nausea, vomiting or diarrhea
: Denies flank pain or difficulty voiding
Neurological: Denies dizzy or headache
Phy Exam
Physical Exam
Physical Exam:
General: Awake, alert, oriented x3; no acute distress
Head: Normocephalic, atraumatic
Eyes: Conjunctiva normal, sclera anicteric
Throat: Airway intact, handling secretions
Neck: Trachea midline
Lungs: Breathing comfortably no distress
Heart: Regular rate
Abd: Soft, distended and tympanic, diffusely tender to palpation
Rectal: No fecal impaction noted, enlarged prostate
Neuro: No gross deficits
Extremities: Warm and well-perfused
Scores
Heart Failure Risk
Heart Failure Risk Score: Not Applicable
Heart Score for Chest Pain Patients
STEMI patient?: Not applicable
Withdrawal Assessment of Alcohol
Withdrawal Assessment Completed?: Not applicable
Course
Orders/Labs/Results
Orders:
Orders
05/03/24 01:58
CT Abd/pel Without Iv Or Oral Urgent
Comment:
Reason For Exam: abd pain, distention, constipation
05/03/24 02:10
Complete Blood Count/With Diff Urgent
Comprehensive Metabolic Panel Urgent
05/03/24 03:25
Lactate Level [Lactic Acid] Urgent
05/03/24 03:28
ColoRectal Surgery Consult Urgent
Consulting Provider: George Mann
Was physician already notified: Yes
05/03/24 04:00
Lactated Ringers [Lr] 1,000 ml IV 100 mls/hr
Abnormal Lab Results
05/03/24
02:10
WBC 11.9 H 10^3/uL
(4.8-10.8)
RBC 3.06 L 10^6/uL
(4.70-6.10)
Hgb 8.9 L g/dL
(13.0-18.0)
Hct 26.8 L %
(39.0-52.0)
RDW 14.9 H %
(11.5-14.5)
Absolute Neuts (auto) 10.2 H 10^3/uL
(1.4-6.5)
Absolute Lymphs (auto) 0.7 L 10^3/uL
(1.2-3.4)
Absolute Monos (auto) 0.9 H 10^3/uL
(0.1-0.6)
Neutrophils % 85.5 H %
(42.2-75.2)
Lymphocytes % 5.6 L %
(20.5-51.1)
Sodium 133 L mmol/L
(135-145)
Chloride 93 L mmol/L
(98-107)
BUN 40 H mg/dl
(9-20)
Creatinine 2.0 H mg/dL
(0.7-1.3)
Glucose 154 H mg/dl
(70-99)
Alkaline Phosphatase 127 H U/L
(38-126)
05/03/24 02:10
05/03/24 02:10
Vital Signs
Initial and Last Documented VS:
Initial Vital Signs
Temp Pulse Resp BP Pulse Ox
36.6 C 60 16 155/46 99
05/03/24 01:40 05/03/24 01:40 05/03/24 01:40 05/03/24 01:40 05/03/24 01:40
Last Documented Vital Signs
Temp Pulse Resp BP Pulse Ox
36.6 C 69 23 152/38 94
05/03/24 01:40 05/03/24 02:00 05/03/24 02:00 05/03/24 02:00 05/03/24 02:00
MDM/Problems Addressed
Differential Diagnosis Includes:
Constipation, bowel obstruction, volvulus
MDM/Problems Addressed:
83-year-old male presents for evaluation of constipation x 6 days and increasing abdominal distention and discomfort. Vitals and exam as above. No fecal impaction noted on rectal exam. Send off basic screening labs. Check CT abdomen pelvis.
Reassess after the above.
Labs reviewed: CBC shows marginal leukocytosis, stable anemia. CMP shows chronic kidney disease. CT pending.
Call received from [facility]: Findings concerning for sigmoid volvulus on CT scan. No clear signs of ischemia or perforation on CT. Add lactic acid level. Case discussed with colorectal surgery for consult. Case discussed with
gastroenterology to consider endoscopic decompression. Patient will be admitted, case discussed with hospitalist.
Acute Exacerbation and/or Progression of Chronic Illness:
Acutely hypertensive
Acute Exacerbation and/or Progression of Chronic Illness: HTN
*Radiology
Radiology exam reviewed: radiology read reviewed
*Pulse Oximetry
Patient hypoxic: no
*Critical Care Note
Total Time (30-74mins, 75-104mins- exclusive of procedures): Not Applicable
Data Reviewed
Review of Other/Old Records Reveals: Labs and Records
Source: patient and records
Patient Management
Discussion with other providers: Hospitalist (Discussed with hospitalist) and Program Manufacturing Leader (Discussed with colorectal surgeon, discussed with gastroenterology)
Escalation/DeEscalation of care consider admission/obs:
Admission indicated
ED Attending Note
-
Portions of this chart may have been created with voice recognition software.� Occasional wrong word or��sound alike� substitutions may have occurred due to the inherent limitations of voice recognition software.
Discharge Plan
Departure
Patient Disposition: Admit
Date of Disposition: 05/03/24
Time of Disposition: 03:44
Admit to doctor: Suzie
Presentation/result/management discussed w/ accepting MD/DO: Hospitalist
Discharge Problem:
Sigmoid volvulus
Prescriptions:
No Action
atorvastatin 40 mg Tablet
40 mg PO QPM
nifedipine 90 mg Tablet Extended Release
90 mg PO DAILY
Rx Instructions:
lunch time
tamsulosin 0.4 mg Capsule
0.8 mg PO QPM
polyethylene glycol 3350 [Miralax] 17 gram/dose Powder
17 g PO QPM
finasteride 5 mg Tablet
5 mg PO DAILY
cholecalciferol (vitamin D3) [Vitamin D3] 25 mcg (1,000 unit) Capsule
25 mcg PO DAILY
tiotropium bromide 18 mcg Capsule, W/Inhalation Device
18 mcg INHALATION R BID
budesonide-formoterol [Breyna] 80-4.5 mcg/actuation Hfa Aerosol Inhaler
2 puff INHALATION R BID
therapeutic multivitamin Tablet
1 tab PO QPM
allopurinol 100 mg tablet
100 mg PO DAILY
aspirin 81 mg Tablet,Delayed Release (Dr/Ec)
81 mg PO DAILY
vitamin B complex Tablet
1 tab PO DAILY
psyllium husk [Fiber (psyllium husk)] 0.52 gram Capsule
0.52 g PO BID
spironolactone 25 mg Tablet
25 mg PO DAILY Qty: 30 0RF
Rx Instructions:
lunch time
docusate sodium [Colace] 100 mg Capsule
100 mg PO DAILY
ZzzQuil 50 mg/30 mL Liquid
50 mg PO HS
pantoprazole 40 mg Tablet,Delayed Release (Dr/Ec)
40 mg PO DAILY Qty: 90 3RF
hydralazine 100 mg Tablet
100 mg PO TID
isosorbide mononitrate 30 mg tablet extended release 24 hr
90 mg PO DAILY Qty: 90 0RF
clopidogrel 75 mg Tablet
75 mg PO DAILY Qty: 30 0RF
clonidine HCl 0.3 mg Tablet
0.3 mg PO BID Qty: 60 0RF
Rx Instructions:
dose increased on this admission
labetalol 100 mg Tablet
100 mg PO BID Qty: 60 0RF
Rx Instructions:
dose decreased on this admission
furosemide 40 mg tablet
40 mg PO BID
Rx Instructions:
breakfast and lunch
Referrals:
Stephen Suazo, [Family Provider] -
Interventions
Interventions:
*Risk Screen - Suicide Last Done: 05/03/24 01:40
*General Assessment Last Done: 05/03/24 01:40
*Neglect/Abuse Screening Last Done: 05/03/24 01:40
*ED COVID-19 Vaccine History Last Done: 05/03/24 01:40
ST-Gfmjgo-Abnilforcb Assessment Last Done: 05/03/24 01:46
Discharge Date and Time
Print Language: GHANAIAN
[2024-05-03 02:20] LABS: % Basophils 0.3 % (0-2); % Eosinophils 1.1 % (0-6); % Immature Granulocytes 0.3 % (0-0.5); % Lymphocytes 5.6 % (20.5-51.1); % Monocytes 7.2 % (1.7-9.3); % Neutrophils 85.5 % (42.2-75.2); Absolute Eosinophils 0.1 10^3/uL (0-0.7); Absolute Lymphocytes 0.7 10^3/uL (1.2-3.4); Absolute Monocytes 0.9 10^3/uL (0.1-0.6); Absolute Neutrophils 10.2 10^3/uL (1.4-6.5); Hematocrit 26.8 % (39.0-52.0); Hemoglobin 8.9 g/dL (13.0-18.0); Mean Corp Hgb Conc. 33.2 g/dL (33.0-37.0); Mean Corpuscular Hgb 29.1 pg (27.0-31.0); Mean Corpuscular Volume 87.6 fL (80.0-94.0); Mean Platelet Volume 9.1 fL (7.4-10.4); Nucleated Red Blood Cells % 0 % (-); Platelet Count 364 10^3/uL (130-400); Red Blood Cell Count 3.06 10^6/uL (4.70-6.10); Red Cell Dist. Width 14.9 % (11.5-14.5); White Blood Cell Count 11.9 10^3/uL (4.8-10.8)
[2024-05-03 02:41] LABS: ALT (SGPT) 17 U/L (0-50); AST (SGOT) 26 U/L (17-59); Albumin 3.7 g/dl (3.5-5.0); Alkaline Phosphatase 127 U/L (38-126); Blood Urea Nitrogen 40 mg/dl (9-20); Calcium 8.9 mg/dl (8.4-10.2); Carbon Dioxide 30 mmol/L (22-30); Chloride 93 mmol/L (98-107); Estimated Creatinine Clearance 27 ml/min; Glucose 154 mg/dl (70-99); Potassium 3.9 mmol/L (3.5-5.1); Sodium 133 mmol/L (135-145); Total Bilirubin 0.6 mg/dl (0.2-1.3); Total Protein 6.4 g/dl (6.3-8.2)
[2024-05-03] MEDS: LR 1000 IV ×3 (03:47→21:04)
--- NOTE | 2024-05-03 04:13 | HPS.HSE ---
Family Physician
-
Family Physician: Stephen Suazo
Chief Complaint
-
Constipation
History of Present Illness
This is an 83-year-old was past medical history significant for CAD status post CABG, COPD not on home O2, [id number] diabetes, congestive heart failure who presents to the emergency department with approximately 1 week of constipation.
Patient reported that he last had a bowel movement about 1 week ago. Prior to that he has had intermittent constipation that is usually relieved with oral laxatives. With the ongoing constipation the patient decided to try additional laxatives.
He took milk of magnesia as well as magnesium citrate without any improvement. He reported increased abdominal distention. 4 hours prior to arrival in the ED he reported having urinary retention. He denies vomiting. He denies having significant
abdominal pain initially. He denies dysuria or hematuria. He denies having any fevers chills or flank pain cough shortness of breath or dyspnea on exertion.
In the emergency department he was afebrile with a temp of 98, blood pressure was 160/47 with a pulse of 88 he was satting 93% on room air. White count was 11.9 hemoglobin 8.9 and platelet count were normal. Electrolytes with stable BUN was 40
creatinine of 2.0 which is similar to his baseline. Lactic acid was within normal limits. A CT of the abdomen and pelvis shows a acute sigmoid volvulus without perforation or ischemia.
Medical History
Past Medical History
Past Medical History: Reports CAD (Status post CABG), CHF, COPD, GERD, HTN, NIDDM and Other (anemia)
Additional Past Medical History:
Renal artery stenosis status post stenting
Past Surgical History: Reports Cardiac (CABG)
Social History
Tobacco: Smoker
Alcohol: None
Drug: None
Employment: Retired
Family History
Family History: Not pertinent
Allergies / Home Medications
Allergies reflects when Allergies were last updated in [facility].
Home Medications with original date entered in [facility]
Allergy/Medication List:
Allergies
Allergy/AdvReac Type Severity Reaction Status Date / Time
sulfamethoxazole Allergy Unknown Unknown Verified 12/01/23 20:19
[From Bactrim]
trimethoprim [From Bactrim] Allergy Unknown Unknown Verified 12/01/23 20:19
Home Medications
atorvastatin 40 mg tablet 40 mg PO QPM High cholesterol 11/09/21
budesonide-formoterol HFA 80 mcg-4.5 mcg/actuation aerosol inhaler (Breyna) 2 puff inhalation R BID Lung/breathing issues 11/09/21
cholecalciferol (vitamin D3) 25 mcg (1,000 unit) capsule (Vitamin D3) 25 mcg PO DAILY Supplement 11/09/21
finasteride 5 mg tablet 5 mg PO DAILY Urinary issue 11/09/21
nifedipine 90 mg tablet,extended release 90 mg PO DAILY Heart disease/condition 11/09/21
polyethylene glycol 3350 17 gram/dose oral powder (Miralax) 17 g PO QPM Constipation 11/09/21
tamsulosin 0.4 mg capsule 0.8 mg PO QPM Urinary issue 11/09/21
tiotropium bromide 18 mcg capsule with inhalation device 18 mcg inhalation R BID Lung/breathing issues 11/09/21
allopurinol 100 mg tablet 100 mg PO DAILY Gout 06/05/22
aspirin 81 mg tablet,delayed release 81 mg PO DAILY Blood clot prevention/tx 06/05/22
psyllium husk 0.52 gram capsule (Fiber (psyllium husk)) 0.52 g PO BID Constipation 06/05/22
therapeutic multivitamin 1 tab PO QPM Supplement 06/05/22
vitamin B complex 1 tab PO DAILY Supplement 06/05/22
spironolactone 25 mg tablet 25 mg PO DAILY #30 tabs 05/14/23
diphenhydramine HCl 50 mg/30 mL oral liquid (ZzzQuil) 50 mg PO HS Sleep 09/11/23
docusate sodium 100 mg capsule (Colace) 100 mg PO DAILY Constipation 09/11/23
pantoprazole 40 mg tablet,delayed release 40 mg PO DAILY #90 tabs 09/12/23
hydralazine 100 mg tablet 100 mg PO TID Blood Pressure 11/14/23
clopidogrel 75 mg tablet 75 mg PO DAILY #30 tabs 11/23/23
isosorbide mononitrate 30 mg tablet,extended release 24 hr 90 mg (3 x 30 mg) PO DAILY #90 tabs 11/23/23
clonidine HCl 0.3 mg tablet 0.3 mg PO BID #60 tabs 12/05/23
labetalol 100 mg tablet 100 mg PO BID #60 tabs 12/05/23
furosemide 40 mg tablet 40 mg PO BID 05/03/24
Review of Systems
-
History Source: Patient
Constitutional: Reports No Symptoms
EENT: Reports No Symptoms
Respiratory: Reports No Symptoms
Cardiac: Reports No Symptoms
Abdomen/GI: Reports Constipated
: Reports No Symptoms
Musculoskeletal: Reports No Symptoms
Skin: Reports No Symptoms
Neurological: Reports No Symptoms
Endocrine: Reports No Symptoms
Hematologic/Lymphatic: Reports No Symptoms
Psych: Reports No Symptoms
Physical Exam
Vital Signs
Vital Signs
Temp Pulse Resp BP Pulse Ox
98 F 68 19 161/47 93
05/03/24 01:40 05/03/24 04:00 05/03/24 04:00 05/03/24 04:00 05/03/24 03:30
Physical Exam
General: Well Developed, Well Nourished, No Apparent Distress and Comfortable
HEENT: NormoCephalic, Moist mucous membranes and Atraumatic
Respiratory: Clear
Cardiac: S1/S2 and Regular Rhythm
Breast: Deferred by me
GI: Soft, Tender and Distended (tympanic)
Rectal: Deferred by Provider
Genito-urinary: Deferred by me
Musculoskeletal: No Clubbing, No Cyanosis and No Edema
Skin: Warm
Neuro: AO x 3 and Nonfocal/grossly intact
Hematologic/Lymphatic: No Lymphadenopathy
Psych: Calm
Laboratory Results
-
05/03/24 02:10
05/03/24 02:10
Laboratory Results
Lactic Acid 1.0 mmol/L (0.7-2.0) 05/03/24 03:43
Total Bilirubin 0.6 mg/dl (0.2-1.3) 05/03/24 02:10
AST 26 U/L (17-59) 05/03/24 02:10
ALT 17 U/L (0-50) 05/03/24 02:10
Alkaline Phosphatase 127 U/L (38-126) H 05/03/24 02:10
Data Reviewed
-
CT Scan: Report Reviewed by me
Lab Data: Labs Reviewed by me
Old Records: Reviewed
Impression/Plan
-
IMPRESSION:
83-year-old male with multiple comorbidities coming to the hospital with constipation and found to have acute sigmoid volvulus without perforation or ischemia.
PLAN:
1. Sigmoid voluvuls - No ischemia or perforation. GI consulted from ED.
- admit to telemetry given commorbidites
- plan for endoscopy detorsion per GI
- NPO for now
-IV fluids in ED then eval
- s/p detorsion, will consult surgery for definitive management
2. CHF - Euvolemic. Decreased intake in the last few days. No peripheral edema and no sob
- hold lasix/spironolactone for now, restart tomorrow
3. CAD
- restart aspirin/plavix after detorsion succesful
- continue statin, imdur, continue labetolol
4 HTN
- continue clonidine bid, labetolol as above, nifedipine
5. urinary retention - acute retention in setting of obstipation s/p urinary cath
- continue tamsulosin/finesteride
- voiding trial after detorsion
DVT PPX - heparin sq
Code status - full code
[2024-05-03] MEDS: DILAUDID 0.25 MG IV (04:36)
--- NOTE | 2024-05-03 04:45 | CON.GI ---
Consultation
-
Date/Time Consultation Requested: 05/03/24 3:43am
Date/Time Consultation Performed: 05/13/24 4:45am
Requesting Provider: Patirck Johnson
Performing Provider: Charly Coughlin
Reason for Consultation: Sigmoid volvulus
Medical History
Chief Complaint / HPI
Chief Complaint: Sigmoid volvulus
History of Present Illness:
Patient is a 83-year-old male who presents with acute abdominal pain. He has had constipation for the last several years and this last week had difficulty moving his bowels. Last bowel movement was on Sunday. He did pass some gas yesterday. CAT
scan in the ER shows sigmoid volvulus. Last colonoscopy 2002 showed small nonadenomatous polyp and hemorrhoids. He denies rectal bleeding. He denies any prior abdominal surgeries.
Past Medical History
Past Medical History: CAD, COPD, HTN, NIDDM and Other (Renal artery stenting)
Past Surgical History: Cardiac (CABG)
Social History
Tobacco: Former Smoker
Alcohol: None
Family History
Family History: Reviewed & Not Pertinent
Allergies / Home Medications
Allergy/AdvReac Type Severity Reaction Status Date / Time
sulfamethoxazole Allergy Unknown Unknown Verified 12/01/23 20:19
[From Bactrim]
trimethoprim [From Bactrim] Allergy Unknown Unknown Verified 12/01/23 20:19
�Medication �Instructions �Recorded
atorvastatin 40 mg tablet 40 mg PO QPM High cholesterol 11/09/21
budesonide-formoterol HFA 80 2 puff inhalation R BID 11/09/21
mcg-4.5 mcg/actuation aerosol Lung/breathing issues
inhaler (Breyna)
cholecalciferol (vitamin D3) 25 25 mcg PO DAILY Supplement 11/09/21
mcg (1,000 unit) capsule (Vitamin
D3)
finasteride 5 mg tablet 5 mg PO DAILY Urinary issue 11/09/21
nifedipine 90 mg tablet,extended 90 mg PO DAILY Heart 11/09/21
release disease/condition
polyethylene glycol 3350 17 17 g PO QPM Constipation 11/09/21
gram/dose oral powder (Miralax)
tamsulosin 0.4 mg capsule 0.8 mg PO QPM Urinary issue 11/09/21
tiotropium bromide 18 mcg capsule 18 mcg inhalation R BID 11/09/21
with inhalation device Lung/breathing issues
allopurinol 100 mg tablet 100 mg PO DAILY Gout 06/05/22
aspirin 81 mg tablet,delayed 81 mg PO DAILY Blood clot 06/05/22
release prevention/tx
psyllium husk 0.52 gram capsule 0.52 g PO BID Constipation 06/05/22
(Fiber (psyllium husk))
therapeutic multivitamin 1 tab PO QPM Supplement 06/05/22
vitamin B complex 1 tab PO DAILY Supplement 06/05/22
spironolactone 25 mg tablet 25 mg PO DAILY #30 tabs 05/14/23
diphenhydramine HCl 50 mg/30 mL 50 mg PO HS Sleep 09/11/23
oral liquid (ZzzQuil)
docusate sodium 100 mg capsule 100 mg PO DAILY Constipation 09/11/23
(Colace)
pantoprazole 40 mg tablet,delayed 40 mg PO DAILY #90 tabs 09/12/23
release
hydralazine 100 mg tablet 100 mg PO TID Blood Pressure 11/14/23
clopidogrel 75 mg tablet 75 mg PO DAILY #30 tabs 11/23/23
isosorbide mononitrate 30 mg 90 mg (3 x 30 mg) PO DAILY #90 tabs 11/23/23
tablet,extended release 24 hr
clonidine HCl 0.3 mg tablet 0.3 mg PO BID #60 tabs 12/05/23
labetalol 100 mg tablet 100 mg PO BID #60 tabs 12/05/23
furosemide 40 mg tablet 40 mg PO BID 05/03/24
Review of Systems
-
All other systems: A 12 pt ROS was Negative except as stated above in HPI
Vital Signs
Temp Pulse Resp BP Pulse Ox
98 F 68 19 161/47 93
05/03/24 01:40 05/03/24 04:00 05/03/24 04:00 05/03/24 04:00 05/03/24 03:30
Physical Exam
Exam
General: No Apparent Distress
HEENT: Normocephalic and Atraumatic
Respiratory: Non Labored Respirations
GI: Tender (moderate tenderness to palpation, without rebound) and Distended (tense abdomen)
Skin: Warm and Dry
Results
WBC 11.9 10^3/uL (4.8-10.8) H 05/03/24 02:10
Hgb 8.9 g/dL (13.0-18.0) L 05/03/24 02:10
Hct 26.8 % (39.0-52.0) L 05/03/24 02:10
MCV 87.6 fL (80.0-94.0) 05/03/24 02:10
Plt Count 364 10^3/uL (130-400) 05/03/24 02:10
Absolute Neuts (auto) 10.2 10^3/uL (1.4-6.5) H 05/03/24 02:10
Sodium 133 mmol/L (135-145) L 05/03/24 02:10
Potassium 3.9 mmol/L (3.5-5.1) 05/03/24 02:10
Chloride 93 mmol/L (98-107) L 05/03/24 02:10
Carbon Dioxide 30 mmol/L (22-30) 05/03/24 02:10
BUN 40 mg/dl (9-20) H 05/03/24 02:10
Creatinine 2.0 mg/dL (0.7-1.3) H 05/03/24 02:10
Calcium 8.9 mg/dl (8.4-10.2) 05/03/24 02:10
Total Bilirubin 0.6 mg/dl (0.2-1.3) 05/03/24 02:10
AST 26 U/L (17-59) 05/03/24 02:10
ALT 17 U/L (0-50) 05/03/24 02:10
Alkaline Phosphatase 127 U/L (38-126) H 05/03/24 02:10
Diagnostic Image Results:
CT ABD/PELVIS- images reviewed by me. Preliminary report acute sigmoid volvulus without signs of ischemia or perforation.
Prior GI Procedures:
EGD:
2002 EGD- hiatal hernia
Colonoscopy:
2002- Colonoscopy- nonadenomatous polyp, hemorrhoids
Assessment / Plan
-
Summary: 83yo male presents wtih acute onset abdominal pain, constipation despite laxative use last BM on Sunday, some flatus Sunday. CT shows acute sigmoid volvulus without evidence of ischemia. No prior abdominal surgery. Last colonoscopy in
2002 showed small nonadenomatous polyp and hemorrhoids. Takes plavix, last dose probably 05/02
Impression:
Sigmoid volvulus
CAD/CABG
Renal artery stent
Recommendations:
Flex sig for decompression and tube placement now
Data Reviewed
-
CT Scan: Image Personally Visualized and interpreted
-
-
Thank you for consultation and allowing me to participate in the patient's care. Please call the concrete handler GI physician during the after hours with any questions or concerns.
--- NOTE | 2024-05-03 05:59 | W.PN.UPDATE ---
Update Note
Progress Note Update
Flex sig decompression done
Sigmoid volvulus with markedly distended sigmoid entered and decompressed
It was difficult to advance scope beyond sigmoid due to poor prep and looping
Decompression tube placed
REC:
Tube to drainage
Monitor BMs
Check OBS series and await return of bowel function
--- NOTE | 2024-05-03 06:52 | PTCARENOTE ---
Pt arrive to unit via stretcher from GI lab, townsend patent, yellow urine rectal decompresssion tube placed with tape to drainage bag. Pt had mod amount watery brown stool on stretcher before being transferred to bed. VSS stable, tele monitor in
place. call morse with in reach
[2024-05-03] MEDS: SYMBICORT 80/4.5 MCG INHALER 2 PUFF INH ×2 (07:37→20:53)
--- NOTE | 2024-05-03 10:20 | CON.GS ---
Addendum entered and electronically signed by George Mann MD 05/03/24 14:55:
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 Agree with documented consultation.
Patient reports significant improvement in presenting abdominal pain and distention. Mild lingering discomfort. As continued the past loose stools but with a bit less frequency than initially this a.m. No nausea or vomiting.
Patient and his daughter report a longstanding history of difficulty managing his bowels with intermittent constipation requiring significant laxatives.
Significant past medical history including CAD, PAD/CAD, COPD, GERD, hyperlipidemia, NIDDM, CKD stage III, BPH with retention
Past surgical history of CABG, coronary stents, bilateral renal artery stenting as well; no past abdominal surgical history
AFVSS
NAD AAOx3
ABD: Softly distended and protuberant, minimal tenderness. Not tensely distended.
A/P: 83-year-old male who presented with sigmoid volvulus without advanced ischemia or perforation.
Now status post endoscopic decompression which he appears to have responded well to.
Given dual antiplatelet therapy and clinical stability without immediate bowel compromise or threat continue manage supportively until Plavix washout -5 days
Discussed with patient and daughter indications for sigmoidectomy due to high risk for future recurrent episodes of sigmoid volvulus if managed conservatively.
They are in agreement to proceed with surgery. Given the patient's age, comorbidities and chronic bowel difficulties with constipation we discussed likely leaning towards sigmoidectomy with ostomy over anastomosis. We will continue to further
discuss
Original Note:
Consultation
-
Date/Time Consultation Requested: 05/03/24
Medical History
-
Chief Complaint: abdominal pain/constipation
History of Present Illness:
Mr Tidwell is an 83 yo male with a h/o CAD s/p CABG in 2017, COPD, NIDDM, and renal artery stenting (LD plavix was 05/02) who struggles with constipation at baseline. He was in his normal state of health until this past Sunday (04/27/24) when he was
unable to pass a BM. He took multiple laxatives throughout the week but was unable to have a BM. On , he developed abdominal pain and noted distention as well. On Sunday, he then became unable to urinate and pain and distention worsened. He
was unable to sleep Sunday night due to pain and pressure and presented for evaluation through the ED. He denies nausea or vomiting. He denies fevers or chills.
Past Medical History
Past Medical History: CAD, COPD, GERD, HTN, NIDDM and Other (BPH, ARMAAN, CKD stage 3b, L3 compression fracture, gout)
Past Surgical History: Cardiac (cardiac stents, cabg 2016) and Other (BL renal artery stenting for stenosis Right on 08/2023 & left on 11/2023)
Social History
Tobacco: Former Smoker
Alcohol: None
Personal:
Living: Assisted Living (with (notes she needs the ASL and he is independent))
Employment: Retired
Family History
Family History: Reviewed & Not Pertinent
Allergies / Home Medications
Allergy/AdvReac Type Severity Reaction Status Date / Time
sulfamethoxazole Allergy Unknown Unknown Verified 12/01/23 20:19
[From Bactrim]
trimethoprim [From Bactrim] Allergy Unknown Unknown Verified 12/01/23 20:19
�Medication �Instructions �Recorded �Confirmed �Type
atorvastatin 40 mg tablet 40 mg PO QPM High cholesterol 11/09/21 05/03/24 History
budesonide-formoterol HFA 80 2 puff inhalation R BID 11/09/21 05/03/24 History
mcg-4.5 mcg/actuation aerosol Lung/breathing issues
inhaler (Breyna)
cholecalciferol (vitamin D3) 25 25 mcg PO DAILY Supplement 11/09/21 05/03/24 History
mcg (1,000 unit) capsule (Vitamin
D3)
finasteride 5 mg tablet 5 mg PO DAILY Urinary issue 11/09/21 05/03/24 History
nifedipine 90 mg tablet,extended 90 mg PO DAILY Heart 11/09/21 05/03/24 History
release disease/condition
polyethylene glycol 3350 17 17 g PO QPM Constipation 11/09/21 05/03/24 History
gram/dose oral powder (Miralax)
tamsulosin 0.4 mg capsule 0.8 mg PO QPM Urinary issue 11/09/21 05/03/24 History
tiotropium bromide 18 mcg capsule 18 mcg inhalation R BID 11/09/21 05/03/24 History
with inhalation device Lung/breathing issues
allopurinol 100 mg tablet 100 mg PO DAILY Gout 06/05/22 05/03/24 History
aspirin 81 mg tablet,delayed 81 mg PO DAILY Blood clot 06/05/22 05/03/24 History
release prevention/tx
psyllium husk 0.52 gram capsule 0.52 g PO BID Constipation 06/05/22 05/03/24 History
(Fiber (psyllium husk))
therapeutic multivitamin 1 tab PO QPM Supplement 06/05/22 05/03/24 History
vitamin B complex 1 tab PO DAILY Supplement 06/05/22 05/03/24 History
spironolactone 25 mg tablet 25 mg PO DAILY #30 tabs 05/14/23 05/03/24 Rx
diphenhydramine HCl 50 mg/30 mL 50 mg PO HS Sleep 09/11/23 05/03/24 History
oral liquid (ZzzQuil)
docusate sodium 100 mg capsule 100 mg PO DAILY Constipation 09/11/23 05/03/24 History
(Colace)
pantoprazole 40 mg tablet,delayed 40 mg PO DAILY #90 tabs 09/12/23 05/03/24 Rx
release
hydralazine 100 mg tablet 100 mg PO TID Blood Pressure 11/14/23 05/03/24 History
clopidogrel 75 mg tablet 75 mg PO DAILY #30 tabs 11/23/23 05/03/24 Rx
isosorbide mononitrate 30 mg 90 mg (3 x 30 mg) PO DAILY #90 tabs 11/23/23 05/03/24 Rx
tablet,extended release 24 hr
clonidine HCl 0.3 mg tablet 0.3 mg PO BID #60 tabs 12/05/23 05/03/24 Rx
labetalol 100 mg tablet 100 mg PO BID #60 tabs 12/05/23 05/03/24 Rx
furosemide 40 mg tablet 40 mg PO BID 05/03/24 05/03/24 History
Review of Systems
-
History Source: Patient
All other systems: Negative unless noted
A 10 point review of systems was completed, and was negative except as per HPI.
Physical Exam
Vital Signs
Temp Pulse Resp BP Pulse Ox
98.1 F 70 16 179/49 98
05/03/24 06:50 05/03/24 07:43 05/03/24 07:43 05/03/24 06:50 05/03/24 07:43
05/02/24 05/03/24 05/04/24
06:59 06:59 06:59
Actual Weight 88.8 kg
Body Mass Index (BMI) 28.9
Lab Results
05/03/24 02:10
05/03/24 02:10
WBC 11.9 10^3/uL (4.8-10.8) H 05/03/24 02:10
Hgb 8.9 g/dL (13.0-18.0) L 05/03/24 02:10
Hct 26.8 % (39.0-52.0) L 05/03/24 02:10
Plt Count 364 10^3/uL (130-400) 05/03/24 02:10
Abs Immat Gran (auto) 0.0 10^3/uL (0-0.05) 05/03/24 02:10
Neutrophils % 85.5 % (42.2-75.2) H 05/03/24 02:10
Physical Exam
General: Well Developed and Well Nourished
HEENT: Moist Mucous Membranes
Respiratory: Non Labored Respirations
GI: Soft, Non Tender and Distended
Skin: Warm and Dry
Neuro: Awake, Alert and AO x 3
Psych: Calm
Data Reviewed
-
Radiology: Image Personally Visualized and interpreted, Report Reviewed by me, Discussed with Nurse and Discussed with Patient
CT Scan: Image Personally Visualized and interpreted, Report Reviewed by me, Discussed with Physician, Discussed with Nurse and Discussed with Patient
Labs: Labs Reviewed by me, Discussed with Physician, Discussed with Nurse and Discussed with Patient
Old Records: Reviewed
Assessment / Plan
-
Mr Tidwell is an 83 yo male with a h/o CAD s/p CABG in 2017, COPD, NIDDM, CKD, and renal artery stenting who struggles with constipation at baseline. Who has been unable to pass BM's since Sunday (04/27/24) with development of abdominal pain and
worsening distention and urinary retention beginning Sunday with presentation overnight given ongoing symptoms. CT imaging consistent with sigmoid volvulus taken for emergent sigmoidoscopy overnight with GI. He was able to be decompressed
with rectal tube left in place. Mild leukocytosis present. Chronic anemia noted with slight drift from baseline. Cr at 2.0 but near baseline
Follow up obstruction series this AM with well positioned tube but still with significant bowel distention. He has been stooling frequently since the sigmoidoscopy and notes relief in pain although significant abd distention still present on exam.
Afebrile. HTN present but no tachycardia.
Discussed high incidence of recurrence with patient. Would recommend sigmoidectomy this admission after bowel decompression, tentatively early this coming week
--Keep NPO until distention improved. OK for applesauce with meds.
--IVF as per primary team
--Ok for asa prior to surgery, d/w medicine will hold plavix
--Rectal tube in place for assistance with decompression
--Matias in place given urinary retention
[2024-05-03] MEDS: IMDUR (EXTENDED RELEASE) 90 MG PO (10:31)
[2024-05-03] MEDS: APRESOLINE 100 MG PO ×3 (10:31→21:48)
[2024-05-03] MEDS: TRANDATE 100 MG PO ×2 (10:32→20:58)
[2024-05-03] MEDS: CATAPRES 0.3 MG PO ×2 (10:32→20:58)
[2024-05-03] MEDS: PROSCAR 5 MG PO (10:32)
[2024-05-03] MEDS: HEPARIN 5000 UNITS SC ×2 (10:33→20:58)
[2024-05-03] MEDS: SPIRIVA RESPIMAT 2.5 MCG 2 PUFF INH (11:38)
[2024-05-03] MEDS: PROCARDIA XL (EXTENDED RELEASE) 90 MG PO (13:21)
[2024-05-03] MEDS: NSS (PRESERVATIVE FREE) 10 ML IV (13:23)
[2024-05-03] MEDS: PROTONIX IV 40 MG IV (13:24)
--- NOTE | 2024-05-03 13:40 | CM ---
Patient seen at bedside. Patient states that he lives with his in [place]; they have 2 apartments with a connecting room. Patient states he has no DME and no needs at the facility. Patient states he is there because needs help and he
does not. Patient has had home health care from [facility] previously and his PCP is Dr. Hernandez he also uses the [facility] on [address]. Patient daughter helps support patient and . Patient is no longer driving. CM will continue to follow
for discharge planning needs.
Plan; home with VN vs SNF pending PT/OT assessment and functional needs assessment
--- NOTE | 2024-05-03 14:43 | W.PN.HOSP.TC ---
Today's Communication/Plan
-
Assessment / Plan
Assessment / Plan
Gen-AAOx3, NAD
HEENT-NC, AT, anicteric, clear oral mm
Neck-supple
CV-reg, no M, +S1/S2
Lungs-clear B/L
Abd-distended, soft, nontender, active bowel sounds
Musculoskeletal-no edema, no deformity
Skin-warm and dry
Neuro-grossly non-focal
Psych-calm, cooperative
Mr. Tidwell is an 83-year-old male with medical history of CAD (status post CABG), COPD (not on home oxygen), bilateral renal artery stenosis (right renal artery stent 09/12/2023), CKD 3B (baseline creatinine 1.4 -1.9), and HFpEF who presented with
constipation for 1 week and progressive abdominal distention. Just prior to arrival he developed urinary retention. CT imaging showed acute sigmoid volvulus without evidence of perforation or ischemia. He underwent urgent decompressive
sigmoidoscopy on the morning of 01/01. Partial decompression was achieved and rectal tube was left in place following procedure.
Sigmoid volvulus:
-Status post urgent sigmoidoscopy and detorsion, rectal tube in place
-Continue n.p.o. except for meds
-Cardiac holding home Plavix to and continuing supportive care until Plavix washout, okay to continue aspirin
-Tentative plan for sigmoidectomy early next week
-GI and colorectal surgery input appreciated
-Cardiology consulted for preoperative evaluation
Acute urinary retention:
-Developed chest pain prior to hospital presentation, likely due to colonic distention
-Matias catheter now in place, will maintain Matias and monitor urine output
-Continue home tamsulosin and finasteride
-Voiding trial postoperatively
CAD:
-Stable, history of CABG, PCI with ELIEZER to the left main 11/22/2023
-Continue aspirin, holding Plavix for washout in anticipation of sigmoidectomy
-Continue statin
-Will ask for preoperative cardiology evaluation for cardiac risk stratification
HFpEF:
-Appears euvolemic
-Continue beta-blockade with labetalol
-Afterload reduction with hydralazine, Imdur, and nifedipine
-Cardiology following
-Continue IV fluids cautiously while n.p.o.
Hypertension:
-Appears due to known renal artery stenosis, patient is status post stenting of right renal artery
-Continue home hypertensive regimen of hydralazine, Imdur, nifedipine, labetalol
CKD stage IIIb:
-Appears to be close to baseline renal function
-Continue to monitor
COPD:
-Stable
-Continue inpatient equivalents and home scheduled maintenance medications
CODE STATUS: Full code
Anticipated Discharge: > 48 hours
Subjective/Interval History
-
Date of Service: May 03, 2024
Mr. Tidwell was seen and examined at bedside this morning. He underwent decompressive sigmoidoscopy and rectal tube was left in place for ongoing decompression. He had a large bowel movement this morning with significant relief of his abdominal
discomfort. He reports feeling much better this morning compared to when he first arrived at the hospital.
Objective Data
-
Vital Signs:
Vital Signs
Temp Pulse Resp BP Pulse Ox
98.7 F 72 16 184/58 93
05/03/24 11:11 05/03/24 11:40 05/03/24 11:40 05/03/24 11:11 05/03/24 11:11
Review of Systems
-
History Source: Patient
All other systems: Reviewed and negative
Abdomen/GI: Reports Bloated
Physical Exam
-
General: No Apparent Distress
[2024-05-03] MEDS: FLOMAX 0.8 MG PO (17:56)
--- NOTE | 2024-05-03 21:00 | CON.CAR ---
Consultation
Consultation Request
Date/Time Consultation Requested: 05/03/24
Date/Time Consultation Performed: 05/03/24 1800
Requesting Provider: hospitalist
Performing Provider: Dr Salinas
Reason for Consultation: pre op assessment
Medical History
-
History of Present Illness:
83-year-old male with past medical history multidrug HTN,hypertension, renal artery stenting 08/2023, CAD, CABG 2016 . Left main stent 11/2023, RBBB, first degree AVB, Mobitz I second degree avb ( noted when he waso n a higher dose of labetalol), ARMAAN
on cpap, and COPD. Patient presented with abd pain and constipation. patient with sigmoid volvulus and is being assessed for surgery. Denies CP, SOB, orthopnea , edema , palpitations or syncope.
echo 08/2023 EF50-55, mild to mod TR
ECG 05/03/24 Sinus with first degree AVB and RBBB
Past Medical History
Past Medical History: Other (as above)
Past Surgical History: Other ((Cardiac bypass 2017), Orthopedic (Left knee replacement 2017) and Other (Nasal polyps)))
Social History
Tobacco: Non-Smoker
Personal:
Living: With Family
Family History
Family History: CAD
Allergies / Home Medications
Allergy/AdvReac Type Severity Reaction Status Date / Time
sulfamethoxazole Allergy Unknown Unknown Verified 12/01/23 20:19
[From Bactrim]
trimethoprim [From Bactrim] Allergy Unknown Unknown Verified 12/01/23 20:19
�Medication �Instructions �Recorded �Confirmed �Type
atorvastatin 40 mg tablet 40 mg PO QPM High cholesterol 11/09/21 05/03/24 History
budesonide-formoterol HFA 80 2 puff inhalation R BID 11/09/21 05/03/24 History
mcg-4.5 mcg/actuation aerosol Lung/breathing issues
inhaler (Breyna)
cholecalciferol (vitamin D3) 25 25 mcg PO DAILY Supplement 11/09/21 05/03/24 History
mcg (1,000 unit) capsule (Vitamin
D3)
finasteride 5 mg tablet 5 mg PO DAILY Urinary issue 11/09/21 05/03/24 History
nifedipine 90 mg tablet,extended 90 mg PO DAILY Heart 11/09/21 05/03/24 History
release disease/condition
polyethylene glycol 3350 17 17 g PO QPM Constipation 11/09/21 05/03/24 History
gram/dose oral powder (Miralax)
tamsulosin 0.4 mg capsule 0.8 mg PO QPM Urinary issue 11/09/21 05/03/24 History
tiotropium bromide 18 mcg capsule 18 mcg inhalation R BID 11/09/21 05/03/24 History
with inhalation device Lung/breathing issues
allopurinol 100 mg tablet 100 mg PO DAILY Gout 06/05/22 05/03/24 History
aspirin 81 mg tablet,delayed 81 mg PO DAILY Blood clot 06/05/22 05/03/24 History
release prevention/tx
psyllium husk 0.52 gram capsule 0.52 g PO BID Constipation 06/05/22 05/03/24 History
(Fiber (psyllium husk))
therapeutic multivitamin 1 tab PO QPM Supplement 06/05/22 05/03/24 History
vitamin B complex 1 tab PO DAILY Supplement 06/05/22 05/03/24 History
spironolactone 25 mg tablet 25 mg PO DAILY #30 tabs 05/14/23 05/03/24 Rx
diphenhydramine HCl 50 mg/30 mL 50 mg PO HS Sleep 09/11/23 05/03/24 History
oral liquid (ZzzQuil)
docusate sodium 100 mg capsule 100 mg PO DAILY Constipation 09/11/23 05/03/24 History
(Colace)
pantoprazole 40 mg tablet,delayed 40 mg PO DAILY #90 tabs 09/12/23 05/03/24 Rx
release
hydralazine 100 mg tablet 100 mg PO TID Blood Pressure 11/14/23 05/03/24 History
clopidogrel 75 mg tablet 75 mg PO DAILY #30 tabs 11/23/23 05/03/24 Rx
isosorbide mononitrate 30 mg 90 mg (3 x 30 mg) PO DAILY #90 tabs 11/23/23 05/03/24 Rx
tablet,extended release 24 hr
clonidine HCl 0.3 mg tablet 0.3 mg PO BID #60 tabs 12/05/23 05/03/24 Rx
labetalol 100 mg tablet 100 mg PO BID #60 tabs 12/05/23 05/03/24 Rx
furosemide 40 mg tablet 40 mg PO BID 05/03/24 05/03/24 History
Review of Systems
-
All other systems: Negative unless noted
Physical Exam
Vital Signs
Temp Pulse Resp BP Pulse Ox
98.4 F 54 16 137/47 93
05/03/24 19:00 05/03/24 19:00 05/03/24 19:00 05/03/24 19:00 05/03/24 19:00
Lab Results
05/03/24 02:10
05/03/24 02:10
Physical Exam
General: Well Developed, Well Nourished and No Apparent Distress
HEENT: Normocephalic, Anicteric, Moist Mucous Membranes and Other (eomi)
Respiratory: Clear (no wheeze, raale or rhonchi)
Cardiac: Regular Rhythm (soft early systolic murmur)
GI: Soft and Non Tender
Musculoskeletal: No Clubbing, No Cyanosis and No Edema
Skin: Warm and Dry
Neuro: Awake, Alert and Oriented
Psych: Calm (cooperative)
Impression / Plan
-
Pre op for abdominal surgery. Patient with increased risk due to history of CAD, CABG, left main stent 11/2024, First degree AVB and history of Mobitz I second degree AVB . EF50-55% by last echo. No symptoms to suggest angina and he appears
euvolemic. NSQIP risk is above above average for both serious complications and cardiac complications. Considering the patients underlying condition and importance of procedure it may be reasonable to proceed with surgery understanding he has
increased.
- continue ASA due to history of left main stent 11/2023 and renal stent 08/2023
- monitor on telemetry. Monitor closely for bradycarrhythmias and avoid addtional rate slowing or AV maile blocking drugs
- no addtional labetalol or betablocker
- monitor BP post op, Will need to coordinate IV antihypertensives if patient needs to be NPO post op
Data Reviewed
-
EKG: Report Reviewed by me
Radiology: Report Reviewed by me
Medical Tests (Nuc Med, Echo etc): Report Reviewed by me
Labs: Labs Reviewed by me
[2024-05-03] MEDS: TYLENOL 650 MG PO (21:04)
[2024-05-04] VITALS (10 sets, daily range): BP systolic 136–164; BP diastolic 41–63
[2024-05-04 06:40] LABS: % Basophils 0.4 % (0-2); % Eosinophils 4.4 % (0-6); % Immature Granulocytes 0.4 % (0-0.5); % Lymphocytes 12.7 % (20.5-51.1); % Monocytes 11.9 % (1.7-9.3); % Neutrophils 70.2 % (42.2-75.2); Absolute Eosinophils 0.4 10^3/uL (0-0.7); Absolute Lymphocytes 1.2 10^3/uL (1.2-3.4); Absolute Monocytes 1.1 10^3/uL (0.1-0.6); Absolute Neutrophils 6.3 10^3/uL (1.4-6.5); Hematocrit 23.9 % (39.0-52.0); Hemoglobin 7.8 g/dL (13.0-18.0); Mean Corp Hgb Conc. 32.6 g/dL (33.0-37.0); Mean Corpuscular Hgb 29.2 pg (27.0-31.0); Mean Corpuscular Volume 89.5 fL (80.0-94.0); Mean Platelet Volume 9.7 fL (7.4-10.4); Nucleated Red Blood Cells % 0 % (-); Platelet Count 317 10^3/uL (130-400); Red Blood Cell Count 2.67 10^6/uL (4.70-6.10); Red Cell Dist. Width 15.2 % (11.5-14.5)
[2024-05-04 07:04] LABS: Blood Urea Nitrogen 39 mg/dl (9-20); Calcium 8.3 mg/dl (8.4-10.2); Carbon Dioxide 29 mmol/L (22-30); Chloride 94 mmol/L (98-107); Estimated Creatinine Clearance 25 ml/min; Glucose 103 mg/dl (70-99); Magnesium 3.8 mg/dl (1.6-2.3); Phosphorus 4.5 mg/dl (2.5-4.5); Potassium 3.6 mmol/L (3.5-5.1); Sodium 130 mmol/L (135-145); eGFR 28.81
[2024-05-04] MEDS: SYMBICORT 80/4.5 MCG INHALER 2 PUFF INH ×2 (07:19→21:26)
[2024-05-04] MEDS: SPIRIVA RESPIMAT 2.5 MCG 2 PUFF INH (07:19)
--- NOTE | 2024-05-04 09:07 | W.PN.GS2 ---
Today's Communication / Plan
-
Clears
Assessment / Plan
-
83-year-old male who presented with sigmoid volvulus without advanced ischemia or perforation.
Now PPD #2 endoscopic decompression which he appears to have responded well to.
AFVSS
No leukocytosis
XR in follow up with continued distention, but improved. Endorectal catheter well positioned
Given dual antiplatelet therapy and clinical stability without immediate bowel compromise or threat continue manage supportively until Plavix washout -5 days.
Cardiology following; NSQIP risk is above above average. Given high risk of recurrence, would benefit from planned surgery, patient understanding and accepting of risk. Given the patient's age, comorbidities and chronic bowel difficulties with
constipation we discussed likely leaning towards sigmoidectomy with ostomy over anastomosis.
--Clear liquids today
--Hold plavix for surgery, ok for asa
--Will consult stoma nurse for ostomy markings early this week
Tentative plan for surgery on Sunday
Subjective Data
-
Date of Service: May 04, 2024
Patient seen and examined at bedside with Dr. Mann. Denies n/v. Passing flatus and loose stools. Denies pain.
Objective Data
-
Intake and Output
05/03/24 05/04/24 05/05/24
06:59 06:59 06:59
Intake Total 2720 / 2720
Output Total 1650 / 1650
Balance 1070 / 1070
Intake:
Oral fluids 1320 / 1320
IV fluids (Total) 1400 / 1400
Output:
Urine, Townsend 1650 / 1650
Vital Signs
Temp Pulse Resp BP Pulse Ox
97.9 F 60 16 159/44 95
05/04/24 08:05 05/04/24 08:05 05/04/24 08:05 05/04/24 08:05 05/04/24 08:05
Lab Results
05/04/24 04:26
05/04/24 04:26
Calcium 8.3 mg/dl (8.4-10.2) L 05/04/24 04:26
Phosphorus 4.5 mg/dl (2.5-4.5) 05/04/24 04:26
Magnesium 3.8 mg/dl (1.6-2.3) H 05/04/24 04:26
Total Bilirubin 0.6 mg/dl (0.2-1.3) 05/03/24 02:10
AST 26 U/L (17-59) 05/03/24 02:10
ALT 17 U/L (0-50) 05/03/24 02:10
Alkaline Phosphatase 127 U/L (38-126) H 05/03/24 02:10
Total Protein 6.4 g/dl (6.3-8.2) 05/03/24 02:10
Albumin 3.7 g/dl (3.5-5.0) 05/03/24 02:10
Physical Exam
-
NAD
ABD soft, distended (improved), NT
Townsend with clear yellow urine
Patient has a townsend catheter: Yes
Patient has a central line: No
[2024-05-04] MEDS: IMDUR (EXTENDED RELEASE) 90 MG PO (09:35)
--- NOTE | 2024-05-04 09:35 | W.PN.GI.CBS2 ---
Today's Communication / Plan
-
Passing spontaneous BMs now
D/C rectal tube
Surgery discussing OR for management of sigmoid volvulus which has high risk for recurrence
Will sign off for now. Please call back if needed
Assessment / Plan
-
Summary: 83yo male presents wtih acute onset abdominal pain, constipation despite laxative use last BM on Sunday, some flatus Sunday. CT shows acute sigmoid volvulus without evidence of ischemia. No prior abdominal surgery. Last colonoscopy in
2002 showed small nonadenomatous polyp and hemorrhoids. Takes plavix, last dose probably 05/02
Impression:
Sigmoid volvulus s/p decompression and tube placement 05/03
CAD/CABG
Renal artery stent
Subjective
Subjective
Date of Service: May 04, 2024
Passed multiple BMs, some starting to form. Denies abd pain
Objective
Data Reviewed
Laboratory Data:
Laboratory Results
05/04/24 04:26
05/04/24 04:26
Laboratory Results
Phosphorus 4.5 mg/dl (2.5-4.5) 05/04/24 04:26
Magnesium 3.8 mg/dl (1.6-2.3) H 05/04/24 04:26
Total Bilirubin 0.6 mg/dl (0.2-1.3) 05/03/24 02:10
AST 26 U/L (17-59) 05/03/24 02:10
ALT 17 U/L (0-50) 05/03/24 02:10
Alkaline Phosphatase 127 U/L (38-126) H 05/03/24 02:10
Vital Signs and I&O:
Vital Signs
Temp Pulse Resp BP Pulse Ox
97.9 F 60 16 159/44 95
05/04/24 08:05 05/04/24 08:05 05/04/24 08:05 05/04/24 08:05 05/04/24 08:05
I&O
05/03/24 05/04/24 05/05/24
06:59 06:59 06:59
Intake Total 2720 / 2720
Output Total 1650 / 1650
Balance 1070 / 1070
Physical Exam
Physical Exam
GI: Soft, Distended and Non Tender
[2024-05-04] MEDS: APRESOLINE 100 MG PO ×3 (09:36→23:39)
[2024-05-04] MEDS: ASPIR LOW (ENTERIC COATED) 81 MG PO (09:36)
[2024-05-04] MEDS: TRANDATE 100 MG PO ×2 (09:37→19:56)
[2024-05-04] MEDS: PROSCAR 5 MG PO (09:38)
[2024-05-04] MEDS: CATAPRES 0.3 MG PO ×2 (09:38→19:55)
[2024-05-04] MEDS: HEPARIN 5000 UNITS SC ×2 (09:39→19:56)
[2024-05-04] MEDS: PROTONIX IV 40 MG IV (09:42)
[2024-05-04] MEDS: NSS (PRESERVATIVE FREE) 10 ML IV (09:42)
[2024-05-04] MEDS: PROCARDIA XL (EXTENDED RELEASE) 90 MG PO (13:36)
--- NOTE | 2024-05-04 13:39 | W.PN.HOSP.TC ---
Today's Communication/Plan
-
Tentatively planning sigmoidectomy with ostomy Sunday 05/07
Assessment / Plan
Assessment / Plan
Gen-AAOx3, NAD
HEENT-NC, AT, anicteric, clear oral mm
Neck-supple
CV-reg, no M, +S1/S2
Lungs-clear B/L
Abd-significantly distended, soft, nontender, active bowel sounds
Musculoskeletal-no edema, no deformity
Skin-warm and dry
Neuro-grossly non-focal
Psych-calm, cooperative
Mr. Tidwell is an 83-year-old male with medical history of CAD (status post CABG), COPD (not on home oxygen), bilateral renal artery stenosis (right renal artery stent 09/12/2023), CKD 3B (baseline creatinine 1.4 -1.9), and HFpEF who presented with
constipation for 1 week and progressive abdominal distention. Just prior to arrival he developed urinary retention. CT imaging showed acute sigmoid volvulus without evidence of perforation or ischemia. He underwent urgent decompressive
sigmoidoscopy on the morning of 01/01. Partial decompression was achieved and rectal tube was left in place following procedure.
Sigmoid volvulus:
-Status post urgent sigmoidoscopy and detorsion, rectal tube in place
-Tolerating clear liquid diet
-Holding home Plavix to and continuing supportive care until Plavix washout, okay to continue aspirin
-Tentative plan for sigmoidectomy with ostomy earlier this week
-GI and colorectal surgery input appreciated
-Cardiology consulted for preoperative evaluation
Acute urinary retention:
-Developed chest pain prior to hospital presentation, likely due to colonic distention
-Matias catheter now in place, will maintain Matias and monitor urine output
-Continue home tamsulosin and finasteride
-Voiding trial postoperatively
Anemia requiring transfusion:
-Hemoglobin dropped to 7.8 this morning, baseline appears to be around 10, asymptomatic
-Will transfuse 1 unit PRBCs to maintain hemoglobin at least greater than 8.0 perioperatively
-Discussed plan with patient and he is agreeable
CAD:
-Stable, history of CABG, PCI with ELIEZER to the left main 11/22/2023
-Continue aspirin, holding Plavix for washout in anticipation of sigmoidectomy
-Continue statin
-Will ask for preoperative cardiology evaluation for cardiac risk stratification
HFpEF:
-Appears euvolemic
-Continue beta-blockade with labetalol
-Afterload reduction with hydralazine, Imdur, and nifedipine
-Cardiology following
Hypertension:
-Appears due to known renal artery stenosis, patient is status post stenting of right renal artery
-Continue home hypertensive regimen of hydralazine, Imdur, nifedipine, labetalol
CKD stage IIIb:
-Appears to be close to baseline renal function
-Continue to monitor
COPD:
-Stable
-Continue inpatient equivalents and home scheduled maintenance medications
CODE STATUS: Full code
Anticipated Discharge: > 48 hours
Subjective/Interval History
-
Date of Service: May 04, 2024
Mr. Tidwell was seen and examined bedside this morning. He feels generally much more comfortable compared to time of admission although feels some mild discomfort when sitting in chair due to increased abdominal pressure. Hemoglobin dropped
slightly on labs this morning below 8.0 and we discussed transfusion of a unit of packed red blood cells. Plan is still for sigmoidectomy with ostomy early this coming week after Plavix washout.
Objective Data
-
Labs:
Laboratory Results
05/04/24
04:26
WBC 9.0
Hgb 7.8 L
Hct 23.9 L
Plt Count 317
Sodium 130 L
Potassium 3.6
Chloride 94 L
Carbon Dioxide 29
BUN 39 H
Creatinine 2.2 H
Glucose 103 H
Calcium 8.3 L
Vital Signs:
Vital Signs
Temp Pulse Resp BP Pulse Ox
98.1 F 66 16 146/54 96
05/04/24 11:47 05/04/24 11:47 05/04/24 11:47 05/04/24 11:47 05/04/24 11:47
I&O
05/03/24 05/04/24 05/05/24
06:59 06:59 06:59
Intake Total 2720 / 2720
Output Total 1650 / 1650
Balance 1070 / 1070
Review of Systems
-
History Source: Patient
All other systems: Reviewed and negative
Abdomen/GI: Reports Bloated
Physical Exam
-
General: No Apparent Distress
[2024-05-04] MEDS: LIPITOR 40 MG PO (17:06)
[2024-05-04] MEDS: FLOMAX 0.8 MG PO (17:06)
[2024-05-05] VITALS (7 sets, daily range): BP systolic 96–165; BP diastolic 45–71
[2024-05-05] MEDS: SYMBICORT 80/4.5 MCG INHALER 2 PUFF INH ×2 (07:17→19:49)
[2024-05-05] MEDS: SPIRIVA RESPIMAT 2.5 MCG 2 PUFF INH (07:17)
[2024-05-05 07:28] LABS: % Basophils 0.5 % (0-2); % Eosinophils 5.2 % (0-6); % Immature Granulocytes 0.3 % (0-0.5); % Lymphocytes 15.4 % (20.5-51.1); % Monocytes 12.2 % (1.7-9.3); % Neutrophils 66.4 % (42.2-75.2); Absolute Eosinophils 0.4 10^3/uL (0-0.7); Absolute Lymphocytes 1.2 10^3/uL (1.2-3.4); Absolute Monocytes 0.9 10^3/uL (0.1-0.6); Absolute Neutrophils 4.9 10^3/uL (1.4-6.5); Hematocrit 25.9 % (39.0-52.0); Mean Corp Hgb Conc. 34.7 g/dL (33.0-37.0); Mean Corpuscular Hgb 29.9 pg (27.0-31.0); Mean Platelet Volume 9.8 fL (7.4-10.4); Nucleated Red Blood Cells % 0 % (-); Platelet Count 308 10^3/uL (130-400); Red Blood Cell Count 3.01 10^6/uL (4.70-6.10); Red Cell Dist. Width 14.6 % (11.5-14.5); White Blood Cell Count 7.5 10^3/uL (4.8-10.8)
[2024-05-05 07:55] LABS: Blood Urea Nitrogen 42 mg/dl (9-20); Calcium 8.1 mg/dl (8.4-10.2); Carbon Dioxide 26 mmol/L (22-30); Chloride 91 mmol/L (98-107); Estimated Creatinine Clearance 26 ml/min; Glucose 108 mg/dl (70-99); Magnesium 3.4 mg/dl (1.6-2.3); Phosphorus 4.7 mg/dl (2.5-4.5); Potassium 3.2 mmol/L (3.5-5.1); Sodium 127 mmol/L (135-145); eGFR 30.47
[2024-05-05] MEDS: TRANDATE 100 MG PO ×2 (08:31→20:18)
[2024-05-05] MEDS: APRESOLINE 100 MG PO ×2 (08:31→22:39)
[2024-05-05] MEDS: ASPIR LOW (ENTERIC COATED) 81 MG PO (08:31)
[2024-05-05] MEDS: IMDUR (EXTENDED RELEASE) 90 MG PO (08:32)
[2024-05-05] MEDS: PROTONIX IV 40 MG IV (08:32)
[2024-05-05] MEDS: NSS (PRESERVATIVE FREE) 10 ML IV (08:32)
[2024-05-05] MEDS: CATAPRES 0.3 MG PO ×2 (08:32→20:18)
[2024-05-05] MEDS: PROSCAR 5 MG PO (08:32)
[2024-05-05] MEDS: HEPARIN 5000 UNITS SC ×2 (08:32→20:18)
--- NOTE | 2024-05-05 10:05 | W.PN.GS2 ---
Addendum entered and electronically signed by AUGUSTIN Roque 05/05/24 11:14:
Correction to below: will continue on FLD until surgery
Original Note:
Today's Communication / Plan
-
full liquids
Assessment / Plan
-
83-year-old male who presented with sigmoid volvulus without advanced ischemia or perforation.
Now PPD #3 endoscopic decompression which he appears to have responded well to. Endorectal catheter removed on 05/04
AFVSS
No leukocytosis
S/P transfusion of 1 unit prbc's with good response in hemoglobin
Given dual antiplatelet therapy and clinical stability without immediate bowel compromise or threat continue manage supportively until Plavix washout -5 days.
Cardiology following; NSQIP risk is above above average. Given high risk of recurrence, would benefit from planned surgery, patient understanding and accepting of risk. Given the patient's age, comorbidities and chronic bowel difficulties with
constipation we discussed likely leaning towards sigmoidectomy with ostomy over internal anastomosis.
--Full liquids today then clears tomorrow with bowel prep for surgery
--Hold plavix for surgery, ok for asa
--Stoma nurse consulted for stoma markings and post op follow up
--OOB/Ambulate. PT following
Tentative plan for surgery on Sunday
Subjective Data
-
Date of Service: May 05, 2024
Patient seen and examined at bedside with Dr. Fiore. Denies pain. Had an 'explosive' BM earlier this morning, passing a good amount of flatus.
Objective Data
-
Intake and Output
05/04/24 05/05/24 05/06/24
06:59 06:59 06:59
Intake Total 2720 / 2720 2029 / 2029
Output Total 1650 / 1650 940 / 940
Balance 1070 / 1070 1090 / 1090
Intake:
Oral fluids 1320 / 1320 1680 / 1680
IV fluids (Total) 1400 / 1400 100 / 100
Blood Product Amount Infused ( 250 / 250
mL)
Packed Rbc Leukoreduced Unit 250 / 250
[id number]
Output:
Urine, Townsend 1650 / 1650 940 / 940
Vital Signs
Temp Pulse Resp BP Pulse Ox
97.8 F 72 18 162/50 98
05/05/24 07:16 05/05/24 07:21 05/05/24 07:21 05/05/24 08:32 05/05/24 07:21
Lab Results
05/05/24 05:17
05/05/24 05:17
Calcium 8.1 mg/dl (8.4-10.2) L 05/05/24 05:17
Phosphorus 4.7 mg/dl (2.5-4.5) H 05/05/24 05:17
Magnesium 3.4 mg/dl (1.6-2.3) H 05/05/24 05:17
Total Bilirubin 0.6 mg/dl (0.2-1.3) 05/03/24 02:10
AST 26 U/L (17-59) 05/03/24 02:10
ALT 17 U/L (0-50) 05/03/24 02:10
Alkaline Phosphatase 127 U/L (38-126) H 05/03/24 02:10
Total Protein 6.4 g/dl (6.3-8.2) 05/03/24 02:10
Albumin 3.7 g/dl (3.5-5.0) 05/03/24 02:10
Physical Exam
-
NAD
ABD soft, distended, NT
Townsend with clear yellow urine
Patient has a townsend catheter: Yes
Patient has a central line: No
--- NOTE | 2024-05-05 10:24 | W.PN.HOSP.TC ---
Today's Communication/Plan
-
replace K
one dose Tolvaptan
Assessment / Plan
Assessment / Plan
PE:
Gen-AAOx3, NAD
HEENT-NC, AT, anicteric, clear oral mm
Neck-supple
CV-reg, no M, +S1/S2
Lungs-clear B/L
Abd-distended ( normal contour per patient) , soft, nontender, active bowel sounds
Musculoskeletal-no edema, no deformity
Skin-warm and dry
Neuro-grossly non-focal
Psych-calm, cooperative
Mr. Tidwell is an 83-year-old male with medical history of CAD (status post CABG), COPD (not on home oxygen), bilateral renal artery stenosis (right renal artery stent 09/12/2023), CKD 3B (baseline creatinine 1.4 -1.9), and HFpEF who presented with
constipation for 1 week and progressive abdominal distention. Just prior to arrival he developed urinary retention. CT imaging showed acute sigmoid volvulus without evidence of perforation or ischemia. He underwent urgent decompressive
sigmoidoscopy on the morning of 01/01. Partial decompression was achieved and rectal tube was left in place following procedure.
Sigmoid volvulus:
-Status post urgent sigmoidoscopy and detorsion, rectal tube in place
-Tolerating clear liquid diet
-Holding home Plavix to and continuing supportive care until Plavix washout, okay to continue aspirin
-Tentative plan for sigmoidectomy with ostomy earlier this week
-GI and colorectal surgery input appreciated
-Cardiology consulted for preoperative evaluation
# Hypokalemia
replace
# Hyponatremia
acute on chronic
Likely due to liquid diet
Will give low dose Tolvaptan to avoid worsening
Acute urinary retention:
-Developed chest pain prior to hospital presentation, likely due to colonic distention
-Matias catheter now in place, will maintain Matias and monitor urine output
-Continue home tamsulosin and finasteride
-Voiding trial postoperatively
Anemia requiring transfusion:
-Hemoglobin dropped to 7.8 this morning, baseline appears to be around 10, asymptomatic
-Will transfuse 1 unit PRBCs to maintain hemoglobin at least greater than 8.0 perioperatively
-Discussed plan with patient and he is agreeable
CAD:
-Stable, history of CABG, PCI with ELIEZER to the left main 11/22/2023
-Continue aspirin, holding Plavix for washout in anticipation of sigmoidectomy
-Continue statin
-Will ask for preoperative cardiology evaluation for cardiac risk stratification
HFpEF:
-Appears euvolemic
-Continue beta-blockade with labetalol
-Afterload reduction with hydralazine, Imdur, and nifedipine
-Cardiology following
Hypertension:
-Appears due to known renal artery stenosis, patient is status post stenting of right renal artery
-Continue home hypertensive regimen of hydralazine, Imdur, nifedipine, labetalol
CKD stage IIIb:
-Appears to be close to baseline renal function
-Continue to monitor
COPD:
-Stable
-Continue inpatient equivalents and home scheduled maintenance medications
CODE STATUS: Full code
Total time spent to see the patient, examine the patient, review data and lab results, discuss treatment plan with patient and nursing staff around 55 minutes
Anticipated Discharge: > 48 hours
Subjective/Interval History
-
Date of Service: May 05, 2024
NO chest pain
No sob
Feels abdomen contour is normal
Had BM
Objective Data
-
Labs:
Laboratory Results
05/05/24
05:17
WBC 7.5
Hgb 9.0 L
Hct 25.9 L
Plt Count 308
Sodium 127 L
Potassium 3.2 L
Chloride 91 L
Carbon Dioxide 26
BUN 42 H
Creatinine 2.1 H
Glucose 108 H
Calcium 8.1 L
Vital Signs:
Vital Signs
Temp Pulse Resp BP Pulse Ox
97.8 F 72 18 162/50 98
05/05/24 07:16 05/05/24 07:21 05/05/24 07:21 05/05/24 08:32 05/05/24 07:21
I&O
05/04/24 05/05/24 05/06/24
06:59 06:59 06:59
Intake Total 2720 / 2720 2029 / 2029
Output Total 1650 / 1650 940 / 940
Balance 1070 / 1070 1090 / 1090
--- NOTE | 2024-05-05 11:43 | WOUNDNOTE ---
[facility] RN note: Patient for possible abdominal surgery on Sunday and may have a colostomy. Niurka Michel NP requested L sided stoma abdirahman and R sided too if have time. Stoma marked patient in lying, sitting and standing positions. Patient's abdomen
has been very distended for a long time making stoma marking difficult. Stoma marked on rectus muscle avoiding creases. LUQ stoma abdirahman 5.2cm to L of midline and 8.7cm above the umbilical line. RUQ stoma abdirahman 7cm to R of midline and 8cm above the
umbilical line. Upper quadrants picked d/t suspect more wafer leakage potential in lower quadrants. Instructed patient surgeon makes the final decision with stoma placement. Patient lives in assisted living with his who needs some care.
--- NOTE | 2024-05-05 11:45 | WOUNDNOTE ---
[facility] RN note: Patient for possible abdominal surgery on Sunday and may have a colostomy. Niurka Michel NP requested L sided stoma abdirahman and R sided too if have time. Stoma marked patient in lying, sitting and standing positions. Patient's abdomen
has been very distended for a long time making stoma marking difficult. Stoma marked over rectus muscle avoiding creases. LUQ stoma abdirahman 5.2cm to L of midline and 8.7cm above the umbilical line. RUQ stoma abdirahman 7cm to R of midline and 8cm above the
umbilical line. Upper quadrants picked d/t suspect more wafer leakage potential in lower quadrants. Instructed patient surgeon makes the final decision with stoma placement. Patient lives in assisted living with his who needs some care.
[2024-05-05] MEDS: PROCARDIA XL (EXTENDED RELEASE) 90 MG PO (12:25)
[2024-05-05] MEDS: KCL ELIXIR 40 MEQ PO (12:25)
--- NOTE | 2024-05-05 12:52 | CM ---
Chart reviewed and met with pt
For surgery tentatively Sunday
[facility] nurse to see pt for stoma siting
PT - recs HH - will discuss with pt
Plan - anticipate home with HH when medically ready
--- NOTE | 2024-05-05 12:57 | W.PN.CD ---
Today's Communication / Plan
-
Watch on tele
Impression / Plan
-
Preop
- As per Dr. Salinas, elevated but not prohibitive risk
- Continue current labetalol but will not increase dose
Sigmoid volvulus
- Surgery is planned for later this week
HTN
CAD, prior LM PCI
Renal artery stenosis, S/p SHOP LEAD/stent
AV conduction disease
- No pathologic AV block on tele
COPD
Sleep apnea
Subjective:
No CP or dyspnea.
Physical Exam
Vital Signs/Labs
Vital Signs
Temp Pulse Resp BP Pulse Ox
97.3 F 52 16 148/71 94
05/05/24 10:59 05/05/24 12:25 05/05/24 10:59 05/05/24 12:25 05/05/24 10:59
05/05/24 05:17
05/05/24 05:17
Magnesium 3.4 mg/dl (1.6-2.3) H 05/05/24 05:17
Physical Exam
Constitutional: No acute distress
EENT: Anicteric
Cardiovascular: Rhythm & rate is regular and Pedal edema is absent
Respiratory: Respiratory effort normal and Lungs clear to auscul.
GI: Soft and Distention absent
Neuro/Psych: AO x 3 and Motor deficits absent
Data Reviewed
-
Date of Service: May 05, 2024
[2024-05-05] MEDS: SAMSCA 7.5 MG PO (13:04)
[2024-05-05] MEDS: APRESOLINE PO (16:00)
[2024-05-05] MEDS: FLOMAX 0.8 MG PO (17:24)
[2024-05-05] MEDS: LIPITOR 40 MG PO (17:25)
--- NOTE | 2024-05-05 18:38 | PTCARENOTE ---
pt out of bed to reclining chair, ambulated in room w/RW, gait steady. encouraged to ambulate in hallway. passing large amount of flatus, sat on Bedside commode-passing moderate amount of watery brown stool. abdomen remains distended. pt
tolerating full liquids-denies nausea or abdominal discomfort. care ongoing.
[2024-05-06] VITALS (7 sets, daily range): BP systolic 147–174; BP diastolic 45–53; PULSE 54; O2SAT 97; BMI 27.8
[2024-05-06 06:56] LABS: % Basophils 0.6 % (0-2); % Immature Granulocytes 0.3 % (0-0.5); % Lymphocytes 16.1 % (20.5-51.1); % Monocytes 14.4 % (1.7-9.3); % Neutrophils 61.6 % (42.2-75.2); Absolute Eosinophils 0.5 10^3/uL (0-0.7); Absolute Lymphocytes 1.1 10^3/uL (1.2-3.4); Absolute Neutrophils 4.1 10^3/uL (1.4-6.5); Hematocrit 26.9 % (39.0-52.0); Hemoglobin 9.2 g/dL (13.0-18.0); Mean Corp Hgb Conc. 34.2 g/dL (33.0-37.0); Mean Corpuscular Hgb 29.7 pg (27.0-31.0); Mean Corpuscular Volume 86.8 fL (80.0-94.0); Mean Platelet Volume 9.4 fL (7.4-10.4); Nucleated Red Blood Cells % 0 % (-); Platelet Count 320 10^3/uL (130-400); Red Cell Dist. Width 14.6 % (11.5-14.5); White Blood Cell Count 6.6 10^3/uL (4.8-10.8)
--- NOTE | 2024-05-06 07:13 | W.PN.GS2 ---
Today's Communication / Plan
-
preop for tomorrow
Assessment / Plan
-
Assessment: 83-year-old male who presented with sigmoid volvulus without advanced ischemia or perforation.
PPD #4 endoscopic decompression which he appears to have responded well to. Endorectal catheter removed on 05/04
AFVSS
+GI function, remains distended which is his baseling
Plan: Pt on OR schedule for Sunday05/07/2024 - likely noonish
ex lap, sigmoidectomy with end colostomy (no anastomosis given underlying chronic colonic dysmotility and elevated medical risks for surgery) reviewed anticipated procedure in detail with patient including operative technique, possible ostomy
locations, alternative tx options, benefits and surgical risks such as but not limited to bleeding, infectious or wound related complications, iatrogenic injury to surrounding structures and risk for post op medical complications. discussed typical
post op recovery and hospital care. any of the patients concerns or questions were fully addressed
NPO p MN; IVF while NPO
[employer] correction officer head to OR tomorrow
continue to hold Plavix
follow AM labs and monitor/correct electrolyte abnormalities
hospitalist and cardiology assistance with care appreciated
Subjective Data
-
Date of Service: May 06, 2024
pt seen and examined
offer no complaints
continues to pass flatus, some loose BMs
denies abdominal pain
Objective Data
-
Intake and Output
05/05/24 05/06/24 05/07/24
06:59 06:59 06:59
Intake Total 2029
Output Total 940 / 940 2099 / 2099
Balance 1090 / 1090 -270 / -270
Intake:
Oral fluids 0 / 1680 1829
IV fluids (Total) 100 / 100
Blood Product Amount Infused ( 250 / 250
mL)
Packed Rbc Leukoreduced Unit 250 / 250
[id number]
Output:
Urine, Townsend 940 / 940 2100 / 2100
Vital Signs
Temp Pulse Resp BP Pulse Ox
97.4 F 58 17 158/45 93
05/06/24 03:15 05/06/24 03:15 05/06/24 03:15 05/06/24 03:15 05/06/24 03:15
Lab Results
05/06/24 04:58
Calcium 8.1 mg/dl (8.4-10.2) L 05/05/24 05:17
Phosphorus 4.7 mg/dl (2.5-4.5) H 05/05/24 05:17
Magnesium 3.4 mg/dl (1.6-2.3) H 05/05/24 05:17
Total Bilirubin 0.6 mg/dl (0.2-1.3) 05/03/24 02:10
AST 26 U/L (17-59) 05/03/24 02:10
ALT 17 U/L (0-50) 05/03/24 02:10
Alkaline Phosphatase 127 U/L (38-126) H 05/03/24 02:10
Total Protein 6.4 g/dl (6.3-8.2) 05/03/24 02:10
Albumin 3.7 g/dl (3.5-5.0) 05/03/24 02:10
Physical Exam
-
NAD AAOx3
ABD: softly distended, nontender, potential ostomy sites marked by WOC
Patient has a townsend catheter: Yes
Patient has a central line: No
[2024-05-06 07:27] LABS: Blood Urea Nitrogen 39 mg/dl (9-20); Calcium 8.1 mg/dl (8.4-10.2); Carbon Dioxide 26 mmol/L (22-30); Chloride 95 mmol/L (98-107); Estimated Creatinine Clearance 29 ml/min; Glucose 108 mg/dl (70-99); Magnesium 3.3 mg/dl (1.6-2.3); Phosphorus 4.7 mg/dl (2.5-4.5); Potassium 3.5 mmol/L (3.5-5.1); Sodium 130 mmol/L (135-145); eGFR 34.35
[2024-05-06] MEDS: IMDUR (EXTENDED RELEASE) 90 MG PO (08:04)
[2024-05-06] MEDS: PROSCAR 5 MG PO (08:05)
[2024-05-06] MEDS: TRANDATE 100 MG PO ×2 (08:05→20:58)
[2024-05-06] MEDS: HEPARIN 5000 UNITS SC ×2 (08:05→20:58)
[2024-05-06] MEDS: ASPIR LOW (ENTERIC COATED) 81 MG PO (08:05)
[2024-05-06] MEDS: CATAPRES 0.3 MG PO ×2 (08:05→20:59)
[2024-05-06] MEDS: APRESOLINE 100 MG PO ×3 (08:05→22:49)
[2024-05-06] MEDS: NSS (PRESERVATIVE FREE) 10 ML IV (08:06)
[2024-05-06] MEDS: PROTONIX IV 40 MG IV (08:06)
[2024-05-06] MEDS: SYMBICORT 80/4.5 MCG INHALER 2 PUFF INH ×2 (08:12→19:26)
[2024-05-06] MEDS: SPIRIVA RESPIMAT 2.5 MCG 2 PUFF INH (08:12)
--- NOTE | 2024-05-06 11:58 | W.PN.HOSP.TC ---
Today's Communication/Plan
-
One dose Tolvaptan
One dose potassium chloride
Assessment / Plan
Assessment / Plan
PE:
Gen-AAOx3, NAD
HEENT-NC, AT, anicteric, clear oral mm
Neck-supple
CV-reg, no M, +S1/S2
Lungs-clear B/L
Abd-distended ( normal contour per patient) , soft, nontender, active bowel sounds
Musculoskeletal-no edema, no deformity
Skin-warm and dry
Neuro-grossly non-focal
Psych-calm, cooperative
Mr. Tidwell is an 83-year-old male with medical history of CAD (status post CABG), COPD (not on home oxygen), bilateral renal artery stenosis (right renal artery stent 09/12/2023), CKD 3B (baseline creatinine 1.4 -1.9), and HFpEF who presented with
constipation for 1 week and progressive abdominal distention. Just prior to arrival he developed urinary retention. CT imaging showed acute sigmoid volvulus without evidence of perforation or ischemia. He underwent urgent decompressive
sigmoidoscopy on the morning of 01/01. Partial decompression was achieved and rectal tube was left in place following procedure.
Sigmoid volvulus:
-Status post urgent sigmoidoscopy and detorsion and rectal tube.
-Tolerating clear liquid diet
-Holding home Plavix to and continuing supportive care until Plavix washout, okay to continue aspirin
-Tentative plan for sigmoidectomy with ostomy 05/07
-GI and colorectal surgery input appreciated
-Cardiology consulted for preoperative evaluation
# Hypokalemia
replaced'
Give another oral K today
# Hyponatremia
acute on chronic
Likely due to liquid diet and low solute diet
Will give another low dose Tolvaptan 05/06 to avoid worsening
#Acute urinary retention:
Primary urologist Dr Elkins.
-Matias catheter now in place, will maintain Matias until after surgery.
-Continue home tamsulosin and finasteride
-Voiding trial postoperatively
Anemia requiring transfusion:
-Hemoglobin dropped to 7.8 this morning, baseline appears to be around 10, asymptomatic
-Will transfuse 1 unit PRBCs to maintain hemoglobin at least greater than 8.0 perioperatively
-Discussed plan with patient and he is agreeable
CAD:
-Stable, history of CABG, PCI with ELIEZER to the left main 11/22/2023
-Continue aspirin, holding Plavix for washout in anticipation of sigmoidectomy
-Continue statin
-Will ask for preoperative cardiology evaluation for cardiac risk stratification
HFpEF:
-Appears euvolemic
-Continue beta-blockade with labetalol
-Afterload reduction with hydralazine, Imdur, and nifedipine
-Cardiology following
# Primary Hypertension:
-Appears due to known renal artery stenosis, patient is status post stenting of right renal artery
-Continue home hypertensive regimen of hydralazine, Imdur, nifedipine, labetalol
CKD stage IIIb:
Primary edge sander Dr Salazar
-Appears to be close to baseline renal function
-Continue to monitor
COPD:
-Stable
-Continue inpatient equivalents and home scheduled maintenance medications
CODE STATUS: Full code
Total time spent to see the patient, examine the patient, review data and lab results, discuss treatment plan with patient and nursing staff around 55 minutes
Anticipated Discharge: > 48 hours
Subjective/Interval History
-
Date of Service: May 06, 2024
No chest pain
No abdominal pain
PAssing gas
Objective Data
-
Labs:
Laboratory Results
05/06/24
04:58
WBC 6.6
Hgb 9.2 L
Hct 26.9 L
Plt Count 320
Sodium 130 L
Potassium 3.5
Chloride 95 L
Carbon Dioxide 26
BUN 39 H
Creatinine 1.9 H
Glucose 108 H
Calcium 8.1 L
Vital Signs:
Vital Signs
Temp Pulse Resp BP Pulse Ox
98.1 F 53 17 158/45 97
05/06/24 11:05 05/06/24 11:05 05/06/24 11:05 05/06/24 11:05 05/06/24 11:05
I&O
05/05/24 05/06/24 05/07/24
06:59 06:59 06:59
Intake Total 2029 / 2029 1830 / 1830
Output Total 940 / 940 2099 / 2099
Balance 1090 / 1090 -270 / -270
--- NOTE | 2024-05-06 12:58 | CM ---
Chart reviewed. Met with pt at bedside
Pt for OR tomorrow - exp lap, sigmoidectomy with end colostomy. Discussed VN - no preference. Has had [facility] in past
Spoke with Lexie nsg director at [facility] to discuss VN - Per Lexie they prefer [facility], also use [facility]
Per Lexie prior to returning to [facility] pt would need to be able to manage his ostomy care as nsg is not on sight 06/11. Suggested short SNF stay until able to manage ostomy care on own. CM will discuss with Pt
CM will continue to follow for discharge needs
Plan - anticipate snf vs home with HH when medically ready
[2024-05-06] MEDS: PROCARDIA XL (EXTENDED RELEASE) 90 MG PO (13:15)
[2024-05-06] MEDS: SAMSCA 7.5 MG PO (14:07)
[2024-05-06] MEDS: KCL ELIXIR 40 MEQ PO (14:07)
[2024-05-06] MEDS: LIPITOR 40 MG PO (17:36)
[2024-05-06] MEDS: FLOMAX 0.8 MG PO (17:36)
--- NOTE | 2024-05-06 19:31 | PTCARENOTE ---
Michael text to Clinical Unit Coordinator who saw patient today about 6 beat run of britney tach
[2024-05-07] VITALS (12 sets, daily range): BP systolic 110–187; BP diastolic 40–55; BMI 27.5
[2024-05-07] MEDS: NSS 1000 IV ×2 (00:10→13:54)
--- NOTE | 2024-05-07 02:45 | DOWNTIME ---
There was a [employer] Client Claim Clinician Downtime on 05/07/2024 from 0100 to 05/07/2023 at 0205 . Downtime documentation of patient's care, including medication administrations, has been reconciled in the electronic record per guidelines. Refer to the
patient's paper chart under the miscellaneous tab to see printed paper medication records and downtime forms.
[2024-05-07] MEDS: NSS (PRESERVATIVE FREE) 10 ML IV (08:19)
[2024-05-07] MEDS: PROTONIX IV 40 MG IV (08:20)
[2024-05-07] MEDS: TRANDATE PO (08:23)
[2024-05-07] MEDS: SYMBICORT 80/4.5 MCG INHALER 2 PUFF INH ×2 (08:32→20:39)
[2024-05-07] MEDS: SPIRIVA RESPIMAT 2.5 MCG 2 PUFF INH (08:32)
[2024-05-07] MEDS: IMDUR (EXTENDED RELEASE) 90 MG PO (08:45)
[2024-05-07] MEDS: APRESOLINE 100 MG PO ×2 (08:45→22:50)
[2024-05-07] MEDS: CATAPRES 0.3 MG PO ×2 (08:45→20:59)
[2024-05-07] MEDS: PROSCAR 5 MG PO (08:48)
[2024-05-07] MEDS: TRANDATE 100 MG PO ×2 (08:48→21:00)
[2024-05-07] MEDS: ASPIR LOW (ENTERIC COATED) PO (08:58)
[2024-05-07 09:04] LABS: Blood Urea Nitrogen 30 mg/dl (9-20); Calcium 8.1 mg/dl (8.4-10.2); Carbon Dioxide 24 mmol/L (22-30); Chloride 101 mmol/L (98-107); Estimated Creatinine Clearance 32 ml/min; Glucose 103 mg/dl (70-99); Potassium 3.7 mmol/L (3.5-5.1); Sodium 133 mmol/L (135-145); eGFR 39.26
--- NOTE | 2024-05-07 09:48 | W.PN.HOSP.TC ---
Today's Communication/Plan
-
give Bp meds
Assessment / Plan
Assessment / Plan
PE:
Gen-AAOx3, NAD
HEENT-NC, AT, anicteric, clear oral mm
Neck-supple
CV-reg, no M, +S1/S2
Lungs-clear B/L
Abd-distended ( normal contour per patient) , soft, nontender, active bowel sounds
Musculoskeletal-no edema, no deformity
Skin-warm and dry
Neuro-grossly non-focal
Psych-calm, cooperative
Mr. Tidwell is an 83-year-old male with medical history of CAD (status post CABG), COPD (not on home oxygen), bilateral renal artery stenosis (right renal artery stent 09/12/2023), CKD 3B (baseline creatinine 1.4 -1.9), and HFpEF who presented with
constipation for 1 week and progressive abdominal distention. Just prior to arrival he developed urinary retention. CT imaging showed acute sigmoid volvulus without evidence of perforation or ischemia. He underwent urgent decompressive
sigmoidoscopy on the morning of 01/01. Partial decompression was achieved and rectal tube was left in place following procedure.
Sigmoid volvulus:
-Status post urgent sigmoidoscopy and detorsion and rectal tube.
-Tolerating clear liquid diet
-Holding home Plavix to and continuing supportive care until Plavix washout, okay to continue aspirin
-Plan sigmoidectomy with ostomy 05/07
-GI and colorectal surgery input appreciated
-Cardiology consulted for preoperative evaluation
# Hypokalemia
replaced. s/p liquid potassium replacement.
# Hyponatremia
acute on chronic
Likely due to liquid diet and low solute diet
s/p two doses of Tolvaptan 05/05 & 05/06 to avoid worsening
#Acute urinary retention:
Primary urologist Dr Elkins.
-Matias catheter now in place, will maintain Matias until after surgery.
-Continue home tamsulosin and finasteride
-Voiding trial postoperatively
Anemia requiring transfusion:
-Hemoglobin dropped to 7.8 this morning, baseline appears to be around 10, asymptomatic
-s/p 1 unit PRBCs to maintain hemoglobin at least greater than 8.0 perioperatively
-Discussed plan with patient and he is agreeable
CAD:
-Stable, history of CABG, PCI with ELIEZER to the left main 11/22/2023
-Continue aspirin, holding Plavix for washout in anticipation of sigmoidectomy
-Continue statin
-Will ask for preoperative cardiology evaluation for cardiac risk stratification
HFpEF:
-Appears euvolemic
-Continue beta-blockade with labetalol
-Afterload reduction with hydralazine, Imdur, and nifedipine
-Cardiology following
# Secondary Hypertension:
Uncontrolled. Will make more adjustments as appropriate after surgery
-Appears due to known renal artery stenosis, patient is status post stenting of right renal artery
-Continue home hypertensive regimen of hydralazine, Imdur, nifedipine, labetalol
CKD stage IIIb:
Primary health nurse Dr Salazar
-Appears to be close to baseline renal function
-Continue to monitor
COPD:
-Stable
-Continue inpatient equivalents and home scheduled maintenance medications
CODE STATUS: Full code
Total time spent to see the patient, examine the patient, review data and lab results, discuss treatment plan with patient and nursing staff around 57 minutes
Anticipated Discharge: > 48 hours
Subjective/Interval History
-
Date of Service: May 07, 2024
No complaints
Objective Data
-
Labs:
Laboratory Results
05/07/24
06:57
Sodium 133 L
Potassium 3.7
Chloride 101
Carbon Dioxide 24
BUN 30 H
Creatinine 1.7 H
Glucose 103 H
Calcium 8.1 L
Vital Signs:
Vital Signs
Temp Pulse Resp BP Pulse Ox
97.7 F 61 16 187/55 96
05/07/24 07:25 05/07/24 08:48 05/07/24 08:33 05/07/24 08:48 05/07/24 08:33
I&O
05/06/24 05/07/24 05/08/24
06:59 06:59 06:59
Intake Total 1830 / 1830 2099 / 2099
Output Total 2099 3250 / 3250 750 / 750
Balance -270 / -270 -1150 / -1150 -750 / -750
[2024-05-07] MEDS: HEPARIN 5000 UNITS SC ×2 (10:00→20:59)
[2024-05-07] MEDS: PROCARDIA XL (EXTENDED RELEASE) 90 MG PO (11:05)
--- NOTE | 2024-05-07 14:44 | CM ---
Chart reviewed
Pt for OR today - ex lap, sigmoidectomy with end colostomy
CM will cont follow for d/c needs
Plan - anticipate home with HH vs SNF when medically ready
--- NOTE | 2024-05-07 15:16 | W.SUR.PREOP ---
Pre-Operative Surgical Note
-
I have examined this patient prior to the performance of the scheduled procedure.
The patient's condition is unchanged from the time of the current History and
Physical and the patient is able to undergo the scheduled procedure.
--- NOTE | 2024-05-07 17:21 | W.IMMPOSTOP ---
Addendum entered and electronically signed by George Mann MD 05/07/24 17:37:
#[id number]
Original Note:
Surgical Immed Post Op Note
-
Primary Surgeon: George Mann MD
Assisting Surgeon: Oziel Anderson MD, PGY 1
Pre-op Diagnosis: Sigmoid volvulus
Post-op Diagnosis: Sigmoid volvulus
Procedure Performed: Sigmoidectomy with end colostomy
Anesthesia Type: GETA +0.25% Marcaine with epi
Specimen / Cultures: Sigmoid colon
Estimated Blood Loss: 8 mL
Complications: None immediate
Operative Findings: Extremely redundant and distended sigmoid colon. No active volvulus at time of operative procedure. No bowel ischemia, no perforation, no abscess. Sigmoidectomy completed down to the level of upper rectum. Left-sided end
colostomy matured. No additional notable intra-abdominal findings. Small bowel unremarkable. Descending colon unremarkable. Cecum modestly distended.
Plan: N.p.o. postop except sips chips and typical home meds via p.o. awaiting signs of returning GI function postop
Analgesics and antiemetics as needed
Plavix should be held for 72 hours postop
Ostomy care
Updated patient's daughter via phone call after procedure
--- NOTE | 2024-05-07 18:49 | PTCARENOTE ---
pt received from PACU to 2110 via bed at 1835. pt HUSLIA -b/l hearing aids placed. Midline incision DAMON w/surgical adhesive. Left side colostomy noted, stoma red, budded and no drainage noted. call morse in reach, daughter at [facility]. pt denies
pain. care ongoing.
[2024-05-07] MEDS: APRESOLINE PO (19:16)
[2024-05-07] MEDS: FLOMAX 0.8 MG PO (21:00)
[2024-05-07] MEDS: LIPITOR 40 MG PO (21:01)
[2024-05-07] MEDS: DILAUDID 0.25 MG IV (22:47)
[2024-05-08 03:43] VITALS: BP 176/51
[2024-05-08 06:00] VITALS: BMI 27.8
[2024-05-08] MEDS: DILAUDID 0.25 MG IV (06:28)
[2024-05-08] MEDS: SPIRIVA RESPIMAT 2.5 MCG 2 PUFF INH (07:39)
[2024-05-08] MEDS: SYMBICORT 80/4.5 MCG INHALER 2 PUFF INH ×2 (07:39→21:13)
[2024-05-08 07:50] VITALS: BP 188/59
--- NOTE | 2024-05-08 07:53 | W.PN.CD ---
Today's Communication / Plan
-
No new CV symptoms we will sign off please call with questions/concerns.
He has follow up with myself July 02, 2024 at 11 am.
Impression / Plan
-
Preop now s/p abdominal surgery
- stable abdominal aches/pains
HTN
CAD, prior LM PCI
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
AV conduction disease
- No pathologic AV block on tele
COPD
Sleep apnea
Subjective:
No CP or dyspnea.
Physical Exam
Vital Signs/Labs
Vital Signs
Temp Pulse Resp BP Pulse Ox
97.5 F 63 16 176/51 96
05/08/24 03:43 05/08/24 07:41 05/08/24 07:41 05/08/24 03:43 05/08/24 07:41
05/07/24 05/08/24 05/09/24
06:59 06:59 06:59
Actual Weight 186 lb 4 oz 187 lb 13.341 oz
Magnesium 3.3 mg/dl (1.6-2.3) H 05/06/24 04:58
Physical Exam
Constitutional: No acute distress and Comfortable
EENT: Anicteric
Cardiovascular: Rhythm & rate is regular and Pedal edema is absent
Respiratory: Respiratory effort normal
GI: Soft and Distention present
Neuro/Psych: AO x 3
Data Reviewed
-
Date of Service: May 08, 2024
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
EKG: Tracing Personally Visualized and interpreted (sr)
Labs: Labs Reviewed by me
[2024-05-08 08:12] LABS: Hematocrit 30.1 % (39.0-52.0); Mean Corp Hgb Conc. 33.2 g/dL (33.0-37.0); Mean Corpuscular Hgb 29.7 pg (27.0-31.0); Mean Corpuscular Volume 89.3 fL (80.0-94.0); Mean Platelet Volume 9.1 fL (7.4-10.4); Platelet Count 346 10^3/uL (130-400); Red Blood Cell Count 3.37 10^6/uL (4.70-6.10); Red Cell Dist. Width 14.7 % (11.5-14.5); White Blood Cell Count 15.7 10^3/uL (4.8-10.8)
--- NOTE | 2024-05-08 08:38 | W.PN.GS2 ---
Today's Communication / Plan
-
`
Assessment / Plan
-
Assessment: 83-year-old male who presented with sigmoid volvulus without advanced ischemia or perforation.
POD #1 status post sigmoidectomy with end colostomy
AFVSS
Doing well with initial postoperative recovery
Initial postop leukocytosis likely reactive, hemoglobin stable, BMP pending
Plan: N.p.o. except ice chips/sips for comfort and okay to have his routine cardiac p.o. meds
Clopidogrel should be held for 72 hours postop
Await signs of ostomy function prior to resuming p.o. intake
Renewed IV fluids -NSS at 80 mL/hour
Hold on bowel regiment until signs of ostomy outputs; to be determined what degree of bowel regiment he will need postoperatively
PT/ambulate/about bed to chair as tolerated
Lovenox for VTE prophylaxis
Protonix for GIp on protonix at home
Subjective Data
-
Date of Service: May 08, 2024
Patient seen and examined.
Reports postoperative incisional pain, worse with movement but controlled.
No nausea
Objective Data
-
Intake and Output
05/07/24 05/08/24 05/09/24
06:59 06:59 06:59
Intake Total 2099
Output Total 3250 / 3250 1974
Balance -1150 / -1150 -1974
Intake:
Oral fluids 1620 / 1620
IV fluids (Total) 480 / 480
Output:
Urine, Townsend 3250 / 3250 1575 / 1575
Urine, Voided 400 / 400
Vital Signs
Temp Pulse Resp BP Pulse Ox
97.5 F 63 16 176/51 96
05/08/24 03:43 05/08/24 07:41 05/08/24 07:41 05/08/24 03:43 05/08/24 07:41
Lab Results
05/08/24 07:28
Calcium 8.1 mg/dl (8.4-10.2) L 05/07/24 06:57
Phosphorus 4.7 mg/dl (2.5-4.5) H 05/06/24 04:58
Magnesium 3.3 mg/dl (1.6-2.3) H 05/06/24 04:58
Total Bilirubin 0.6 mg/dl (0.2-1.3) 05/03/24 02:10
AST 26 U/L (17-59) 05/03/24 02:10
ALT 17 U/L (0-50) 05/03/24 02:10
Alkaline Phosphatase 127 U/L (38-126) H 05/03/24 02:10
Total Protein 6.4 g/dl (6.3-8.2) 05/03/24 02:10
Albumin 3.7 g/dl (3.5-5.0) 05/03/24 02:10
Physical Exam
-
NAD AAOx3
ABD: Softly distended and tympanitic. Tender to palpation localizing to incision sites and left-sided ostomy.
Ostomy appliance in place, mucosa pink and a bit edematous but not congested. No cyanosis. Back flat without air or stool.
Patient has a townsend catheter: Yes
--- NOTE | 2024-05-08 08:39 | W.PN.HOSP.TC ---
Today's Communication/Plan
-
c/w oral BP medications
c/w aspirin
Assessment / Plan
Assessment / Plan
PE:
Gen-AAOx3, NAD
HEENT-NC, AT, anicteric, clear oral mm
Neck-supple
CV-reg, no M, +S1/S2
Lungs-clear B/L
Abd-distended ( normal contour per patient) , soft, nontender, active bowel sounds
Musculoskeletal-no edema, no deformity
Skin-warm and dry
Neuro-grossly non-focal
Psych-calm, cooperative
Mr. Tidwell is an 83-year-old male with medical history of CAD (status post CABG), COPD (not on home oxygen), bilateral renal artery stenosis (right renal artery stent 09/12/2023), CKD 3B (baseline creatinine 1.4 -1.9), and HFpEF who presented with
constipation for 1 week and progressive abdominal distention. Just prior to arrival he developed urinary retention. CT imaging showed acute sigmoid volvulus without evidence of perforation or ischemia. He underwent urgent decompressive
sigmoidoscopy on the morning of 01/01. Partial decompression was achieved and rectal tube was left in place following procedure.
Sigmoid volvulus:
-Status post urgent sigmoidoscopy and detorsion and rectal tube.
s/p Sigmoidectomy with end colostomy on 05/[address] Mann
-NPO for now
-Clopidogrel should be held for 72 hours postop, c/w aspirin and oral medications
-GI and colorectal surgery input appreciated
-Cardiology consulted
# Hypokalemia
replaced. s/p liquid potassium replacement.
# Hyponatremia
acute on chronic
Likely due to liquid diet and low solute diet
s/p two doses of Tolvaptan 05/05 & 05/06 to avoid worsening
#Acute urinary retention:
Primary urologist Dr Elkins.
-Matias catheter now in place, will maintain Matias until after surgery.
-Continue home tamsulosin and finasteride
-Voiding trial postoperatively
Anemia requiring transfusion:
-Hemoglobin dropped to 7.8 this morning, baseline appears to be around 10, asymptomatic
-s/p 1 unit PRBCs to maintain hemoglobin at least greater than 8.0 perioperatively
-Discussed plan with patient and he is agreeable
CAD:
-Stable, history of CABG, PCI with ELIEZER to the left main 11/22/2023
-Continue aspirin, holding Plavix for washout in anticipation of sigmoidectomy
-Continue statin
-Will ask for preoperative cardiology evaluation for cardiac risk stratification
HFpEF:
-Appears euvolemic
-Continue beta-blockade with labetalol
-Afterload reduction with hydralazine, Imdur, and nifedipine
-Cardiology following
# Secondary Hypertension:
Uncontrolled. Will make more adjustments as appropriate after surgery
-Appears due to known renal artery stenosis, patient is status post stenting of right renal artery
-Continue home hypertensive regimen of hydralazine, Imdur, nifedipine, labetalol
CKD stage IIIb:
Primary safety associate Dr Salazar
-Appears to be close to baseline renal function
-Continue to monitor
COPD:
-Stable
-Continue inpatient equivalents and home scheduled maintenance medications
CODE STATUS: Full code
Total time spent to see the patient, examine the patient, review data and lab results, discuss treatment plan with patient and nursing staff around 57 minutes
Anticipated Discharge: > 48 hours
Subjective/Interval History
-
Date of Service: May 08, 2024
mild abd pain
Objective Data
-
Labs:
Laboratory Results
05/08/24
07:28
WBC 15.7 H
Hgb 10.0 L
Hct 30.1 L
Plt Count 346
Sodium Pending
Potassium Pending
Chloride Pending
Carbon Dioxide Pending
BUN Pending
Creatinine Pending
Glucose Pending
Calcium Pending
Vital Signs:
Vital Signs
Temp Pulse Resp BP Pulse Ox
97.5 F 63 16 176/51 96
05/08/24 03:43 05/08/24 07:41 05/08/24 07:41 05/08/24 03:43 05/08/24 07:41
I&O
05/07/24 05/08/24 05/09/24
06:59 06:59 06:59
Intake Total 2099
Output Total 3250 / 3250 1974
Balance -1150 / -115 -1974
[2024-05-08 08:41] LABS: Blood Urea Nitrogen 29 mg/dl (9-20); Calcium 7.7 mg/dl (8.4-10.2); Carbon Dioxide 23 mmol/L (22-30); Chloride 104 mmol/L (98-107); Estimated Creatinine Clearance 39 ml/min; Glucose 110 mg/dl (70-99); Potassium 4.3 mmol/L (3.5-5.1); Sodium 138 mmol/L (135-145); eGFR 49.56
[2024-05-08] MEDS: IMDUR (EXTENDED RELEASE) 90 MG PO (09:36)
[2024-05-08] MEDS: TRANDATE 100 MG PO ×2 (09:36→21:01)
[2024-05-08] MEDS: APRESOLINE 100 MG PO ×3 (09:36→22:45)
[2024-05-08] MEDS: PROTONIX IV 40 MG IV (09:37)
[2024-05-08] MEDS: PROSCAR 5 MG PO (09:37)
[2024-05-08] MEDS: CATAPRES 0.3 MG PO ×2 (09:37→21:02)
[2024-05-08] MEDS: HEPARIN 5000 UNITS SC ×2 (09:37→20:59)
[2024-05-08] MEDS: NSS (PRESERVATIVE FREE) 10 ML IV (09:37)
[2024-05-08] MEDS: ASPIR LOW (ENTERIC COATED) 81 MG PO (09:37)
[2024-05-08] MEDS: NSS 1000 IV ×2 (09:52→19:44)
[2024-05-08 11:10] VITALS: BP 192/57
[2024-05-08] MEDS: PROCARDIA XL (EXTENDED RELEASE) 90 MG PO (12:42)
--- NOTE | 2024-05-08 14:56 | WOUNDNOTE ---
[facility] RN NOTE: Patient with new colostomy (05/07) for sigmoid volvulus. Stoma is budded, pink. Spoke to patient and daughter, Serena. Patient's AL facility asks that he be independent with ostomy care before returning to facility. Emptying pouch was
reviewed with patient and daughter. Patient also cut barrier and asked many appropriate questions. Stoma is pink and budded. Abdomen continues to be distended. Booklet of information given to Serena and patient. Serena would like to be involved
with stoma teaching. Supplies at bedside. Will follow up with patient on 05/09 for pouch change. JEFF Gamez and CM Phenomena given update.
--- NOTE | 2024-05-08 15:14 | WOUNDNOTE ---
[facility] RN NOTE: With patients permission, Zelgor Secure Start Kit was ordered to be delivered to patients home.
--- NOTE | 2024-05-08 15:29 | CM ---
Chart reviewed
POD #1 - sigmoidectomy with end colostomy
Seen by wound care
NPO
Plan - anticipate SNF vs home with VN when medically ready
[2024-05-08 15:50] VITALS: BP 187/57
[2024-05-08] MEDS: FLOMAX 0.8 MG PO (17:05)
[2024-05-08] MEDS: LIPITOR 40 MG PO (17:05)
[2024-05-08 19:30] VITALS: BP 179/61
[2024-05-08] MEDS: DILAUDID 0.5 MG IV (19:44)
[2024-05-08 23:05] VITALS: BP 161/84
[2024-05-09] MEDS: APRESOLINE 10 MG IV (02:58)
[2024-05-09] MEDS: NSS 1000 IV ×2 (03:07→16:47)
[2024-05-09 03:36] VITALS: BP 177/57
--- NOTE | 2024-05-09 04:32 | PTCARENOTE ---
Bp- 179/58, HR- 68. Given ordered hydralazine with no effect. Patient is sleeping. Notified house provider.
[2024-05-09] MEDS: DILAUDID 0.5 MG IV ×2 (06:12→13:01)
[2024-05-09 07:12] VITALS: BP 183/58
[2024-05-09] MEDS: SPIRIVA RESPIMAT 2.5 MCG 2 PUFF INH (07:45)
[2024-05-09] MEDS: SYMBICORT 80/4.5 MCG INHALER 2 PUFF INH ×2 (07:45→20:14)
[2024-05-09 08:20] LABS: Blood Urea Nitrogen 32 mg/dl (9-20); Calcium 7.9 mg/dl (8.4-10.2); Carbon Dioxide 20 mmol/L (22-30); Chloride 108 mmol/L (98-107); Estimated Creatinine Clearance 34 ml/min; Glucose 91 mg/dl (70-99); Potassium 3.9 mmol/L (3.5-5.1); Sodium 139 mmol/L (135-145); eGFR 42.22
--- NOTE | 2024-05-09 09:04 | W.PN.HOSP.TC ---
Today's Communication/Plan
-
Give Lasix IV BID
c/w oral BP medications,
to resume Plavix 05/10 if ok with surgery
Assessment / Plan
Assessment / Plan
PE:
Gen-AAOx3, NAD
HEENT-NC, AT, anicteric, clear oral mm
Neck-supple
CV-reg, no M, +S1/S2
Lungs-clear B/L
Abd-distended, colostomy bag
Musculoskeletal-no edema, no deformity
Skin-warm and dry
Neuro-grossly non-focal
Psych-calm, cooperative
Mr. Tidwell is an 83-year-old male with medical history of CAD (status post CABG), COPD (not on home oxygen), bilateral renal artery stenosis (right renal artery stent 09/12/2023), CKD 3B (baseline creatinine 1.4 -1.9), and HFpEF who presented with
constipation for 1 week and progressive abdominal distention. Just prior to arrival he developed urinary retention. CT imaging showed acute sigmoid volvulus without evidence of perforation or ischemia. He underwent urgent decompressive
sigmoidoscopy on the morning of 01/01. Partial decompression was achieved and rectal tube was left in place following procedure.
Sigmoid volvulus:
-Status post urgent sigmoidoscopy and detorsion and rectal tube.
s/p Sigmoidectomy with end colostomy on 05/[address] Mann
-NPO for now
-Clopidogrel should be held for 72 hours postop, c/w aspirin and oral medications
-GI and colorectal surgery input appreciated
-Cardiology consulted
# Acute
# Hypokalemia
replaced. s/p liquid potassium replacement.
# Hyponatremia
acute on chronic
Likely due to liquid diet and low solute diet
s/p two doses of Tolvaptan 05/05 & 05/06 to avoid worsening
#Acute urinary retention:
Primary urologist Dr Elkins.
-Matias catheter now in place, will maintain Matias until after surgery.
-Continue home tamsulosin and finasteride
-Voiding trial postoperatively
Anemia requiring transfusion:
-Hemoglobin around 9-10
-s/p 1 unit PRBCs to maintain hemoglobin at least greater than 8.0 perioperatively
CAD:
No chest pain
-Stable, history of CABG, PCI with ELIEZER to the left main 11/22/2023
-Continue aspirin, to resume Plavix 05/10.
-Continue statin
Acute on chronic HFpEF:
-Appears volume overloaded, will resume Lasix 40 mg IV BID.
-Continue beta-blockade with labetalol
-c/w hydralazine, Imdur, and nifedipine
-Cardiology following
# Secondary Hypertension:
Uncontrolled. Will do IV Lasix.
-Appears due to known renal artery stenosis, patient is status post stenting of right renal artery
-Continue home hypertensive regimen of hydralazine, Imdur, nifedipine, labetalol
CKD stage IIIb:
Primary welt treater Dr Salazar
-Appears to be close to baseline renal function
- avoid hypotension.
COPD:
-Stable
-Continue inpatient equivalents and home scheduled maintenance medications
CODE STATUS: Full code
Total time spent to see the patient, examine the patient, review data and lab results, discuss treatment plan with patient and nursing staff around 57 minutes
Anticipated Discharge: > 48 hours
Subjective/Interval History
-
Date of Service: May 09, 2024
Reports abdominal pain
Not passing gas
Objective Data
-
Labs:
Laboratory Results
05/09/24
07:34
Sodium 139
Potassium 3.9
Chloride 108 H
Carbon Dioxide 20 L
BUN 32 H
Creatinine 1.6 H
Glucose 91
Calcium 7.9 L
Vital Signs:
Vital Signs
Temp Pulse Resp BP Pulse Ox
98.6 F 77 16 183/58 93
05/09/24 07:12 05/09/24 07:48 05/09/24 07:48 05/09/24 07:12 05/09/24 07:48
I&O
05/08/24 05/09/24 05/10/24
06:59 06:59 06:59
Intake Total 2440 / 2440
Output Total 1974 1150 / 1150
Balance -1974 1290 / 1290
[2024-05-09] MEDS: HEPARIN 5000 UNITS SC ×2 (09:18→21:14)
[2024-05-09] MEDS: CATAPRES 0.3 MG PO ×2 (09:20→21:14)
[2024-05-09] MEDS: IMDUR (EXTENDED RELEASE) 90 MG PO (09:20)
[2024-05-09] MEDS: PROSCAR 5 MG PO (09:21)
[2024-05-09] MEDS: TRANDATE 100 MG PO ×2 (09:21→21:14)
[2024-05-09] MEDS: ASPIR LOW (ENTERIC COATED) 81 MG PO (09:21)
[2024-05-09] MEDS: APRESOLINE 100 MG PO ×3 (09:21→23:18)
[2024-05-09] MEDS: TYLENOL 650 MG PO ×3 (09:24→23:18)
[2024-05-09] MEDS: NSS (PRESERVATIVE FREE) 10 ML IV (09:37)
[2024-05-09] MEDS: PROTONIX IV 40 MG IV (09:38)
[2024-05-09] MEDS: LASIX 40 MG IV ×2 (09:44→16:43)
--- NOTE | 2024-05-09 10:51 | W.PN.GS2 ---
Addendum entered and electronically signed by Julio Cesar Alejandro MD 05/09/24 16:06:
I saw and examined the patient.
The [employer] Furnace Tender's note was reviewed and I agree with the note.
Comment: Nursing reports lots of flatus per stoma o/n; pt denies n/v; distended on exam and stoma ppv, approp ttp primarily around stoma; sips and chips for today, plan tentatively to restart DAPT POD4, await more robust ROBF before advancing to cld
Original Note:
Today's Communication / Plan
-
Follow for bowel recovery
Assessment / Plan
-
Assessment: 83-year-old male who presented with sigmoid volvulus without advanced ischemia or perforation.
POD #2 status post sigmoidectomy with end colostomy
AFVSS
Doing well with initial postoperative recovery
H/O CKD: Cr stable
Plan: N.p.o. except ice chips/sips for comfort and okay to have his routine p.o. meds
Clopidogrel should be held for 72 hours postop, will check CBC tomorrow prior to initiation
Await signs of ostomy function prior to resuming p.o. intake
Renewed IV fluids -NSS at 80 mL/hour
PT/OT. ambulate/about bed to chair as tolerated. Renewed orders.
Lovenox for VTE prophylaxis
Stoma nurse following
Wean O2, IS while awake
Protonix for GIp on protonix at home
SCDs while in bed, sq heparin for VTE ppx
Hold on bowel regimen until signs of ostomy outputs; to be determined what degree of bowel regiment he will need postoperatively
Subjective Data
-
Date of Service: May 09, 2024
Patient seen and examined at bedside with Dr. Alejandro. Denies n/v. Tolerating sips of clears. Passing a good deal of flatus via his stoma.
Objective Data
-
Intake and Output
05/08/24 05/09/24 05/10/24
06:59 06:59 06:59
Intake Total 2440 / 2440
Output Total 1974 1150 / 1150
Balance -1974 1290 / 1290
Intake:
Oral fluids 520 / 520
IV fluids (Total) 192 / 1919
Output:
Urine, Townsend 1575 / 1575 1150 / 1150
Urine, Voided 400 / 400
Vital Signs
Temp Pulse Resp BP Pulse Ox
98.6 F 77 16 183/58 93
05/09/24 07:12 05/09/24 07:48 05/09/24 07:48 05/09/24 09:20 05/09/24 07:48
Lab Results
05/08/24 07:28
05/09/24 07:34
Calcium 7.9 mg/dl (8.4-10.2) L 05/09/24 07:34
Phosphorus 4.7 mg/dl (2.5-4.5) H 05/06/24 04:58
Magnesium 3.3 mg/dl (1.6-2.3) H 05/06/24 04:58
Total Bilirubin 0.6 mg/dl (0.2-1.3) 05/03/24 02:10
AST 26 U/L (17-59) 05/03/24 02:10
ALT 17 U/L (0-50) 05/03/24 02:10
Alkaline Phosphatase 127 U/L (38-126) H 05/03/24 02:10
Total Protein 6.4 g/dl (6.3-8.2) 05/03/24 02:10
Albumin 3.7 g/dl (3.5-5.0) 05/03/24 02:10
Physical Exam
-
NAD AAOx3
ABD: Softly distended and tympanitic. Mildly tender to palpation localizing to incision sites and left-sided ostomy.
Ostomy appliance in place, mucosa pink and a bit edematous but not congested. No cyanosis. Appliance with flatus and minimal bowel sweat.
Patient has a townsend catheter: Yes
[2024-05-09 12:00] VITALS: BP 184/49
--- NOTE | 2024-05-09 12:49 | WOUNDNOTE ---
[facility] RN note: Patient s/p ostomy surgery 05/07/2024
See H&P for complete history.
PMH: sigmoid volvulus without advanced ischemia or perforation, status post sigmoidectomy with end colostomy
Ostomy location and type: Colostomy
Instructed patient ostomy pouch emptying and changing appliance using Lagrange wafer # [id number], Pouch # [id number]. Reviewed pouch change with patient and daughter, Serena. Both asked appropriate questions. Ostomy is light pink and budded, scant clear
output. Patient understands that he will have to learn to empty pouch prior to returning to [place]. He is thinking about SNF. Buttocks is red, but blanchable. Patient has air cushion in chair. Encourage patient to switch position as able when in bed.
Patient reports using barrier cream at home for comfort. RN Sadia aware. Ostomy supplies ordered from [facility] and at bedside.
Note to case management: VN services recommended for ostomy teaching.
Nursing care plan updated, will follow as needed.
[2024-05-09] MEDS: PROCARDIA XL (EXTENDED RELEASE) 90 MG PO (12:59)
--- NOTE | 2024-05-09 13:21 | PTCARENOTE ---
CM....Please call Serena (daughter) for discharge planning. And remind him [facility] is not recommending rehab but the doctors/PT
--- NOTE | 2024-05-09 13:56 | CM ---
Chart reviewed. Met with pt and his daughter -
New ostomy - Wound care following
Discussed SNF - given PAC list to review
Will need auth
Plan - anticipate SNF when medically ready
[2024-05-09] MEDS: FLOMAX 0.8 MG PO (16:45)
[2024-05-09] MEDS: LIPITOR 40 MG PO (16:45)
[2024-05-09 19:44] VITALS: BP 136/39
[2024-05-09 23:35] VITALS: BP 162/53
[2024-05-10 03:56] VITALS: BP 177/59
[2024-05-10] MEDS: NSS 1000 IV (04:17)
[2024-05-10] MEDS: APRESOLINE 10 MG IV ×2 (04:17→11:43)
--- NOTE | 2024-05-10 05:01 | PTCARENOTE ---
Pt. did not have any stool/ouput from colostomy this shift but does have flatus (bag needs to be burped on occasion); bowel sounds positive. No complaints of nausea or vomiting. Incisional discomfort well controlled with Tylenol.
[2024-05-10 06:00] VITALS: BMI 28.7
[2024-05-10] MEDS: ZOFRAN 4 MG IV (06:01)
[2024-05-10 07:07] VITALS: BP 164/65
[2024-05-10] MEDS: SYMBICORT 80/4.5 MCG INHALER 2 PUFF INH ×2 (07:19→20:50)
[2024-05-10] MEDS: SPIRIVA RESPIMAT 2.5 MCG 2 PUFF INH (07:19)
[2024-05-10] MEDS: TRANDATE 100 MG PO ×2 (08:05→20:31)
[2024-05-10] MEDS: APRESOLINE 100 MG PO ×3 (08:05→23:12)
[2024-05-10] MEDS: IMDUR (EXTENDED RELEASE) 90 MG PO (08:05)
[2024-05-10] MEDS: ASPIR LOW (ENTERIC COATED) 81 MG PO (08:05)
[2024-05-10] MEDS: PROSCAR 5 MG PO (08:06)
[2024-05-10] MEDS: CATAPRES 0.3 MG PO ×2 (08:06→20:32)
[2024-05-10] MEDS: HEPARIN 5000 UNITS SC ×2 (08:06→20:32)
[2024-05-10 08:07] VITALS: BP 164/65
[2024-05-10] MEDS: PROTONIX IV 40 MG IV (08:09)
[2024-05-10] MEDS: LASIX 40 MG IV (08:10)
[2024-05-10] MEDS: NSS (PRESERVATIVE FREE) 10 ML IV (08:10)
[2024-05-10 08:15] LABS: Hematocrit 27.5 % (39.0-52.0); Hemoglobin 9.1 g/dL (13.0-18.0); Mean Corp Hgb Conc. 33.1 g/dL (33.0-37.0); Mean Corpuscular Hgb 29.7 pg (27.0-31.0); Mean Corpuscular Volume 89.9 fL (80.0-94.0); Mean Platelet Volume 9.3 fL (7.4-10.4); Platelet Count 364 10^3/uL (130-400); Red Blood Cell Count 3.06 10^6/uL (4.70-6.10); Red Cell Dist. Width 15.1 % (11.5-14.5); White Blood Cell Count 9.3 10^3/uL (4.8-10.8)
[2024-05-10 08:29] LABS: Blood Urea Nitrogen 39 mg/dl (9-20); Calcium 8.2 mg/dl (8.4-10.2); Carbon Dioxide 16 mmol/L (22-30); Chloride 105 mmol/L (98-107); Estimated Creatinine Clearance 31 ml/min; Glucose 98 mg/dl (70-99); Sodium 137 mmol/L (135-145); eGFR 36.66
--- NOTE | 2024-05-10 09:25 | W.PN.HOSP.TC ---
Today's Communication/Plan
-
Change Lasix to once a day
Assessment / Plan
Assessment / Plan
PE:
Gen-AAOx3, NAD
HEENT-NC, AT, anicteric, clear oral mm
Neck-supple
CV-reg, no M, +S1/S2
Lungs-clear B/L
Abd-distended, colostomy bag ( no output, + air)
Musculoskeletal-no edema, no deformity
Skin-warm and dry
Neuro-grossly non-focal
Psych-calm, cooperative
Mr. Tidwell is an 83-year-old male with medical history of CAD (status post CABG), COPD (not on home oxygen), bilateral renal artery stenosis (right renal artery stent 09/12/2023), CKD 3B (baseline creatinine 1.4 -1.9), and HFpEF who presented with
constipation for 1 week and progressive abdominal distention. Just prior to arrival he developed urinary retention. CT imaging showed acute sigmoid volvulus without evidence of perforation or ischemia. He underwent urgent decompressive
sigmoidoscopy on the morning of 01/01. Partial decompression was achieved and rectal tube was left in place following procedure.
Sigmoid volvulus:
-Status post urgent sigmoidoscopy and detorsion and rectal tube.
s/p Sigmoidectomy with end colostomy on 05/[address] Mann
-NPO for now
-Clopidogrel should be held for 72 hours postop, c/w aspirin and oral medications
-GI and colorectal surgery input appreciated
-Cardiology consulted
# Hypokalemia
replaced. s/p liquid potassium replacement.
# Hyponatremia
acute on chronic
Likely due to liquid diet and low solute diet
s/p two doses of Tolvaptan 05/05 & 05/06 to avoid worsening
#Acute urinary retention:
Primary urologist Dr Elkins.
-Matias catheter now in place, will maintain Matias until after surgery.
-Continue home tamsulosin and finasteride
-Voiding trial postoperatively
Anemia requiring transfusion:
-Hemoglobin around 9-10
-s/p 1 unit PRBCs to maintain hemoglobin at least greater than 8.0 perioperatively
CAD:
No chest pain
-Stable, history of CABG, PCI with ELIEZER to the left main 11/22/2023
-Continue aspirin, to resume Plavix 05/10.
-Continue statin
Acute on chronic HFpEF:
-Appears euvolemic, c/w IV Lasix 40 mg , changed to once a day.
-Continue beta-blockade with labetalol
-c/w hydralazine, Imdur, and nifedipine
-Cardiology following
# Secondary Hypertension:
Better controlled. c/w IV Lasix.
-Appears due to known renal artery stenosis, patient is status post stenting of right renal artery
-Continue home hypertensive regimen of hydralazine, Imdur, nifedipine, labetalol
CKD stage IIIb:
Primary drive worker Dr Salazar
-Appears to be close to baseline renal function
- avoid hypotension.
COPD:
-Stable
-Continue inpatient equivalents and home scheduled maintenance medications
CODE STATUS: Full code
Total time spent to see the patient, examine the patient, review data and lab results, discuss treatment plan with patient and nursing staff around 57 minutes
Anticipated Discharge: > 48 hours
Subjective/Interval History
-
Date of Service: May 10, 2024
He feels cold
Mild nausea this morning
Objective Data
-
Labs:
Laboratory Results
05/10/24
06:33
WBC 9.3
Hgb 9.1 L
Hct 27.5 L
Plt Count 364
Sodium 137
Potassium 4.0
Chloride 105
Carbon Dioxide 16 L
BUN 39 H
Creatinine 1.8 H
Glucose 98
Calcium 8.2 L
Vital Signs:
Vital Signs
Temp Pulse Resp BP Pulse Ox
97.1 F 84 16 164/62 94
05/10/24 07:07 05/10/24 08:10 05/10/24 07:24 05/10/24 08:10 05/10/24 07:24
I&O
05/09/24 05/10/24 05/11/24
06:59 06:59 06:59
Intake Total 2440 / 2440 1680 / 1680
Output Total 1150 / 1150 1050 / 1050
Balance 1290 / 1290 630 / 630
--- NOTE | 2024-05-10 09:54 | W.PN.GS2 ---
Addendum entered and electronically signed by Julio Cesar Alejandro MD 05/10/24 15:08:
I saw and examined the patient.
The Mask Layout Designer's note was reviewed and I agree with the note.
Comment: Burping resolved, c/o dry mouth, passing lots of gas via stoma, exam with improved distention, approp ttp; will trial cld
Original Note:
Today's Communication / Plan
-
Await bowel recovery
Assessment / Plan
-
Assessment: 83-year-old male who presented with sigmoid volvulus without advanced ischemia or perforation.
POD #3 status post sigmoidectomy with end colostomy
AFVSS
Doing well with initial postoperative recovery
H/O CKD: Cr stable
H/H stable
Plan: N.p.o. except ice chips/sips for comfort and okay to have his routine p.o. meds
Continue with plavix on hold, await better bowel recovery prior to resuming
Await signs of ostomy function prior to resuming p.o. intake
Fluid management as per primary team
PT/OT. ambulate/about bed to chair as tolerated
Lovenox for VTE prophylaxis
Stoma nurse following
IS while awake, using own cpap at night
Protonix for GIp on protonix at home
SCDs while in bed, sq heparin for VTE ppx
Hold on bowel regimen until signs of ostomy outputs; to be determined what degree of bowel regiment he will need postoperatively
Subjective Data
-
Date of Service: May 10, 2024
Patient seen and examined at bedside. Concerned because his room is quite cold. Denies n/v but with burping and hiccups. Minimal abdominal pain, distention persists.
Objective Data
-
Intake and Output
05/09/24 05/10/24 05/11/24
06:59 06:59 06:59
Intake Total 2440 / 2440 1680 / 1680
Output Total 1150 / 1150 1050 / 1050
Balance 1290 / 1290 630 / 630
Intake:
Oral fluids 520 / 520 240 / 240
IV fluids (Total) 1920 / 1920 1440 / 1440
Output:
Urine, Townsend 1150 / 1150 1050 / 1050
Vital Signs
Temp Pulse Resp BP Pulse Ox
97.1 F 84 16 164/62 94
05/10/24 07:07 05/10/24 08:10 05/10/24 07:24 05/10/24 08:10 05/10/24 07:24
Lab Results
05/10/24 06:33
05/10/24 06:33
Calcium 8.2 mg/dl (8.4-10.2) L 05/10/24 06:33
Phosphorus 4.7 mg/dl (2.5-4.5) H 05/06/24 04:58
Magnesium 3.3 mg/dl (1.6-2.3) H 05/06/24 04:58
Total Bilirubin 0.6 mg/dl (0.2-1.3) 05/03/24 02:10
AST 26 U/L (17-59) 05/03/24 02:10
ALT 17 U/L (0-50) 05/03/24 02:10
Alkaline Phosphatase 127 U/L (38-126) H 05/03/24 02:10
Total Protein 6.4 g/dl (6.3-8.2) 05/03/24 02:10
Albumin 3.7 g/dl (3.5-5.0) 05/03/24 02:10
Physical Exam
-
NAD AAOx3
ABD: Softly distended and tympanitic. Mildly tender to palpation localizing to incision sites and left-sided ostomy.
Ostomy appliance in place, mucosa pink. No cyanosis. Appliance with flatus and minimal bowel sweat.
Patient has a townsend catheter: Yes
[2024-05-10] MEDS: PROCARDIA XL (EXTENDED RELEASE) 90 MG PO (11:42)
[2024-05-10 11:52] VITALS: BP 194/61
[2024-05-10] MEDS: LIPITOR 40 MG PO (16:11)
[2024-05-10] MEDS: FLOMAX 0.8 MG PO (16:11)
[2024-05-10 20:15] VITALS: BP 176/46
[2024-05-10] MEDS: TUMS CHEWABLE TABLET 200 MG PO (20:52)
--- NOTE | 2024-05-10 23:22 | PTCARENOTE ---
Pt c/o indigestion. [employer] OP[employer] covering house contacted. Electronic orders received for tums (refer to [facility]). Pt reports relief.
[2024-05-10 23:31] VITALS: BP 175/49
[2024-05-11] VITALS (8 sets, daily range): BP systolic 123–178; BP diastolic 45–94; PULSE 55; O2SAT 96; BMI 29.0
[2024-05-11 06:28] LABS: Hematocrit 25.4 % (39.0-52.0); Hemoglobin 8.5 g/dL (13.0-18.0); Mean Corp Hgb Conc. 33.5 g/dL (33.0-37.0); Mean Corpuscular Hgb 29.7 pg (27.0-31.0); Mean Corpuscular Volume 88.8 fL (80.0-94.0); Mean Platelet Volume 9.1 fL (7.4-10.4); Platelet Count 284 10^3/uL (130-400); Red Blood Cell Count 2.86 10^6/uL (4.70-6.10); Red Cell Dist. Width 14.9 % (11.5-14.5); White Blood Cell Count 7.7 10^3/uL (4.8-10.8)
[2024-05-11 06:47] LABS: Blood Urea Nitrogen 36 mg/dl (9-20); Carbon Dioxide 22 mmol/L (22-30); Chloride 104 mmol/L (98-107); Estimated Creatinine Clearance 32 ml/min; Glucose 113 mg/dl (70-99); Potassium 3.7 mmol/L (3.5-5.1); Sodium 135 mmol/L (135-145); eGFR 39.26
[2024-05-11] MEDS: SYMBICORT 80/4.5 MCG INHALER 2 PUFF INH ×2 (08:51→17:56)
[2024-05-11] MEDS: SPIRIVA RESPIMAT 2.5 MCG 2 PUFF INH (08:51)
[2024-05-11] MEDS: LASIX 40 MG IV (09:04)
[2024-05-11] MEDS: ASPIR LOW (ENTERIC COATED) 81 MG PO (09:05)
[2024-05-11] MEDS: TRANDATE 100 MG PO ×2 (09:05→20:31)
[2024-05-11] MEDS: CATAPRES 0.3 MG PO ×2 (09:06→20:31)
[2024-05-11] MEDS: PROSCAR 5 MG PO (09:06)
[2024-05-11] MEDS: APRESOLINE 100 MG PO ×3 (09:07→22:28)
[2024-05-11] MEDS: HEPARIN 5000 UNITS SC ×2 (09:08→20:30)
[2024-05-11] MEDS: NSS (PRESERVATIVE FREE) 10 ML IV (09:11)
[2024-05-11] MEDS: PROTONIX IV 40 MG IV (09:11)
[2024-05-11] MEDS: IMDUR (EXTENDED RELEASE) 90 MG PO (09:15)
--- NOTE | 2024-05-11 09:28 | W.PN.HOSP.TC ---
Today's Communication/Plan
-
Plavix on hold pending bowel recovery per surgery
Can switch to oral Lasix starting 05/12
Blood transfusion if HGB drops less than 8.5
Assessment / Plan
Assessment / Plan
PE:
Gen-AAOx3, NAD
HEENT-NC, AT, anicteric, clear oral mm
Neck-supple
CV-reg, no M, +S1/S2
Lungs-clear B/L
Abd-distended, colostomy bag ( no output, + air)
Musculoskeletal-no edema, no deformity
Skin-warm and dry
Neuro-grossly non-focal
Psych-calm, cooperative
Mr. Tidwell is an 83-year-old male with medical history of CAD (status post CABG), COPD (not on home oxygen), bilateral renal artery stenosis (right renal artery stent 09/12/2023), CKD 3B (baseline creatinine 1.4 -1.9), and HFpEF who presented with
constipation for 1 week and progressive abdominal distention. Just prior to arrival he developed urinary retention. CT imaging showed acute sigmoid volvulus without evidence of perforation or ischemia. He underwent urgent decompressive
sigmoidoscopy on the morning of 01/01. Partial decompression was achieved and rectal tube was left in place following procedure.
Sigmoid volvulus:
-Status post urgent sigmoidoscopy and detorsion and rectal tube.
s/p Sigmoidectomy with end colostomy on 05/[address] Mann
- tolerating liquid diet
-Plavix on hold pending bowel recovery per surgery. c/w aspirin and oral medications
-GI and colorectal surgery input appreciated
-Cardiology consulted
# Hypokalemia
replaced. s/p liquid potassium replacement.
# Hyponatremia
acute on chronic
Likely due to liquid diet and low solute diet
s/p two doses of Tolvaptan 05/05 & 05/06 to avoid worsening
#Acute urinary retention:
Primary urologist Dr Elkins.
-Matias catheter now in place, will maintain Matias until after surgery.
-Continue home tamsulosin and finasteride
-Voiding trial postoperatively
Anemia requiring transfusion:
-Hemoglobin around 9-10
HGB 8.5
-s/p 1 unit PRBCs to maintain hemoglobin at least greater than 8.0 perioperatively
CAD:
No chest pain
-Stable, history of CABG, PCI with ELIEZER to the left main 11/22/2023
-Continue aspirin
-Continue statin
Acute on chronic HFpEF:
-Appears euvolemic, c/w IV Lasix 40 mg , changed to once a day then oral 05/12.
-Continue beta-blockade with labetalol
-c/w hydralazine, Imdur, and nifedipine
-Cardiology following
# Secondary Hypertension:
Better controlled after IV Lasix.
-Appears due to known renal artery stenosis, patient is status post stenting of right renal artery
-Continue home hypertensive regimen of hydralazine, Imdur, nifedipine, labetalol
CKD stage IIIb:
Primary director of assessing Dr Salazar
-Appears to be close to baseline renal function
- avoid hypotension.
COPD:
-Stable
-Continue inpatient equivalents and home scheduled maintenance medications
CODE STATUS: Full code
Total time spent to see the patient, examine the patient, review data and lab results, discuss treatment plan with patient and nursing staff around 57 minutes
Anticipated Discharge: > 48 hours
Subjective/Interval History
-
Date of Service: May 11, 2024
He is feeling better
Objective Data
-
Labs:
Laboratory Results
05/11/24
05:50
WBC 7.7
Hgb 8.5 L
Hct 25.4 L
Plt Count 284 D
Sodium 135
Potassium 3.7
Chloride 104
Carbon Dioxide 22
BUN 36 H
Creatinine 1.7 H
Glucose 113 H
Calcium 8.0 L
Vital Signs:
Vital Signs
Temp Pulse Resp BP Pulse Ox
97.8 F 59 16 147/94 93
05/11/24 07:18 05/11/24 09:07 05/11/24 08:54 05/11/24 09:07 05/11/24 08:54
I&O
05/10/24 05/11/24 05/12/24
06:59 06:59 06:59
Intake Total 1680 / 1680 1440 / 1440
Output Total 1050 / 1050 2400 / 2400
Balance 630 / 630 -960 / -960
[2024-05-11] MEDS: PROCARDIA XL (EXTENDED RELEASE) 90 MG PO (11:38)
--- NOTE | 2024-05-11 13:16 | W.PN.GS2 ---
Addendum entered and electronically signed by Julio Cesar Alejandro MD 05/11/24 13:57:
I saw and examined the patient.
The Resaw Carriage Operator's note was reviewed and I agree with the note.
Comment: No complaints. Lots of gas in the appliance. Rhona cld. Less distended today on exam, approp ttp. slight Hb drift down. Cont to hold plavix. Adv to FLD
Original Note:
Today's Communication / Plan
-
FLD
Assessment / Plan
-
Assessment: 83-year-old male who presented with sigmoid volvulus without advanced ischemia or perforation.
POD #3 status post sigmoidectomy with end colostomy
AFVSS
Doing well with initial postoperative recovery
H/O CKD: Cr stable
H/H drifting downward
Lots of flatus from stoma appliance, no stool as of yet
Plan: Tolerating clears, advance to FLd
Continue with plavix on hold until H/H stabilizes
PT/OT. ambulate/about bed to chair as tolerated
Lovenox for VTE prophylaxis
Stoma nurse following
IS while awake, using own cpap at night
Protonix for GIp on protonix at home
SCDs while in bed, sq heparin for VTE ppx
Hold on bowel regimen until signs of ostomy outputs; to be determined what degree of bowel regimen he will need postoperatively
Subjective Data
-
Date of Service: May 11, 2024
Patient seen and examined at bedside with Dr. Alejandro. Denies n/v. Tolerating liquids. Some soreness but manageable. Pain mostly with getting OOB.
Objective Data
-
Intake and Output
05/10/24 05/11/24 05/12/24
06:59 06:59 06:59
Intake Total 1680 / 1680 1440 / 1440
Output Total 1050 / 1050 2400 / 2400
Balance 630 / 630 -960 / -960
Intake:
Oral fluids 240 / 240 1440 / 1440
IV fluids (Total) 1440 / 1440
Output:
Urine, Townsend 1050 / 1050 2400 / 2400
Vital Signs
Temp Pulse Resp BP Pulse Ox
97.8 F 59 16 147/94 93
05/11/24 07:18 05/11/24 09:07 05/11/24 08:54 05/11/24 09:07 05/11/24 12:42
Lab Results
05/11/24 05:50
05/11/24 05:50
Calcium 8.0 mg/dl (8.4-10.2) L 05/11/24 05:50
Phosphorus 4.7 mg/dl (2.5-4.5) H 05/06/24 04:58
Magnesium 3.3 mg/dl (1.6-2.3) H 05/06/24 04:58
Total Bilirubin 0.6 mg/dl (0.2-1.3) 05/03/24 02:10
AST 26 U/L (17-59) 05/03/24 02:10
ALT 17 U/L (0-50) 05/03/24 02:10
Alkaline Phosphatase 127 U/L (38-126) H 05/03/24 02:10
Total Protein 6.4 g/dl (6.3-8.2) 05/03/24 02:10
Albumin 3.7 g/dl (3.5-5.0) 05/03/24 02:10
Physical Exam
-
NAD AAOx3
ABD: Softly distended and tympanitic (improved). Mildly tender to palpation localizing to incision sites and left-sided ostomy.
Ostomy appliance in place, mucosa pink. No cyanosis. Appliance filled with flatus, some minimal bowel sweat.
Patient has a townsend catheter: Yes
[2024-05-11] MEDS: FLOMAX 0.8 MG PO (17:07)
[2024-05-11] MEDS: LIPITOR 40 MG PO (17:07)
--- NOTE | 2024-05-12 01:36 | PTCARENOTE ---
Pt with small amount soft brown stool via colostomy
[2024-05-12] MEDS: TUMS CHEWABLE TABLET 400 MG PO (02:11)
[2024-05-12 03:44] VITALS: BP 169/46
[2024-05-12 06:00] VITALS: BMI 28.4
[2024-05-12 06:39] LABS: Hematocrit 26.7 % (39.0-52.0); Hemoglobin 9.1 g/dL (13.0-18.0); Mean Corp Hgb Conc. 34.1 g/dL (33.0-37.0); Mean Corpuscular Volume 88.1 fL (80.0-94.0); Mean Platelet Volume 9.4 fL (7.4-10.4); Platelet Count 332 10^3/uL (130-400); Red Blood Cell Count 3.03 10^6/uL (4.70-6.10); Red Cell Dist. Width 14.9 % (11.5-14.5); White Blood Cell Count 7.9 10^3/uL (4.8-10.8)
[2024-05-12 07:04] LABS: Blood Urea Nitrogen 30 mg/dl (9-20); Carbon Dioxide 22 mmol/L (22-30); Chloride 100 mmol/L (98-107); Estimated Creatinine Clearance 37 ml/min; Glucose 120 mg/dl (70-99); Potassium 3.7 mmol/L (3.5-5.1); Sodium 133 mmol/L (135-145); eGFR 45.62
[2024-05-12 07:30] VITALS: BP 151/55
[2024-05-12] MEDS: SPIRIVA RESPIMAT 2.5 MCG 2 PUFF INH (07:40)
[2024-05-12] MEDS: SYMBICORT 80/4.5 MCG INHALER 2 PUFF INH ×2 (07:40→20:13)
[2024-05-12] MEDS: LASIX 40 MG PO ×2 (08:02→17:02)
[2024-05-12] MEDS: APRESOLINE 100 MG PO ×3 (08:02→21:58)
[2024-05-12] MEDS: CATAPRES 0.3 MG PO ×2 (08:02→19:59)
[2024-05-12] MEDS: PROSCAR 5 MG PO (08:02)
[2024-05-12] MEDS: ASPIR LOW (ENTERIC COATED) 81 MG PO (08:02)
[2024-05-12] MEDS: IMDUR (EXTENDED RELEASE) 90 MG PO (08:02)
[2024-05-12] MEDS: HEPARIN 5000 UNITS SC ×2 (08:03→19:59)
[2024-05-12] MEDS: TRANDATE 100 MG PO ×2 (08:03→20:00)
[2024-05-12] MEDS: PROTONIX IV 40 MG IV (08:03)
[2024-05-12] MEDS: NSS (PRESERVATIVE FREE) 10 ML IV (08:03)
--- NOTE | 2024-05-12 10:04 | W.PN.GS2 ---
Today's Communication / Plan
-
Advance diet
Resume Plavix
Assessment / Plan
-
Assessment: 83-year-old male who presented with sigmoid volvulus without advanced ischemia or perforation.
POD #4 status post sigmoidectomy with end colostomy
AFVSS
Doing well with good bowel recovery
H/O CKD: Cr stable
H/H stable
Plan: Advance to regular diet
Ok to resume plavix
PT/OT. ambulate/about bed to chair as tolerated, rehab vs home health upon d/c
Lovenox for VTE prophylaxis
Stoma nurse following
IS while awake, using own cpap at night
Protonix for GIp on protonix at home
Townsend management as per primary team
SCDs while in bed, sq heparin for VTE ppx
Subjective Data
-
Date of Service: May 12, 2024
Patient seen and examined at bedside with Dr. Fiore. LOLIS to chair. Minimal soreness. Tolerating diet. Denies n/v.
Objective Data
-
Intake and Output
05/11/24 05/12/24 05/13/24
06:59 06:59 06:59
Intake Total 1440 / 1440 1440 / 1440
Output Total 2400 / 2400 2175 / 2175
Balance -960 / -960 -735 / -735
Intake:
Oral fluids 1440 / 1440 1440 / 1440
Output:
Liquid stool amount 125 / 125
Colostomy 125 / 125
Urine, Townsend 2400 / 2400 2049
Vital Signs
Temp Pulse Resp BP Pulse Ox
98.1 F 60 20 151/55 93
05/12/24 07:30 05/12/24 08:09 05/12/24 08:09 05/12/24 07:30 05/12/24 08:09
Lab Results
05/12/24 05:02
05/12/24 05:02
Calcium 8.0 mg/dl (8.4-10.2) L 05/12/24 05:02
Phosphorus 4.7 mg/dl (2.5-4.5) H 05/06/24 04:58
Magnesium 3.3 mg/dl (1.6-2.3) H 05/06/24 04:58
Total Bilirubin 0.6 mg/dl (0.2-1.3) 05/03/24 02:10
AST 26 U/L (17-59) 05/03/24 02:10
ALT 17 U/L (0-50) 05/03/24 02:10
Alkaline Phosphatase 127 U/L (38-126) H 05/03/24 02:10
Total Protein 6.4 g/dl (6.3-8.2) 05/03/24 02:10
Albumin 3.7 g/dl (3.5-5.0) 05/03/24 02:10
Physical Exam
-
NAD AAOx3
ABD: ND. Mildly tender to palpation localizing to incision sites and left-sided ostomy.
Ostomy appliance in place, mucosa pink. No cyanosis. Appliance filled with flatus and soft stool
Midline incision intact with glue
Patient has a townsend catheter: Yes
--- NOTE | 2024-05-12 10:59 | CM ---
Chart reviewed and met with pt
Discussed SNF options -
PT/family requesting referrals be sent to [facility]
Referrals sent in [facility]
Will need auth
Plan - anticipate SNF when bed/auth obtained and medically ready
[2024-05-12] MEDS: PLAVIX 75 MG PO (11:09)
[2024-05-12] MEDS: PROCARDIA XL (EXTENDED RELEASE) 90 MG PO (11:09)
[2024-05-12 15:08] VITALS: BP 155/49
[2024-05-12] MEDS: FLOMAX 0.8 MG PO (17:02)
[2024-05-12] MEDS: LIPITOR 40 MG PO (17:02)
--- NOTE | 2024-05-12 17:40 | W.PN.HOSP.TC ---
Today's Communication/Plan
-
Assessment / Plan
Assessment / Plan
PE:
Gen-AAOx3, NAD
HEENT-NC, AT, anicteric, clear oral mm
Neck-supple
CV-reg, no M, +S1/S2
Lungs-clear B/L
Abd-mild TTP, colostomy bag with light brown soft stool output
Musculoskeletal-no edema, no deformity
Skin-warm and dry
Neuro-grossly non-focal
Psych-calm, cooperative
Mr. Tidwell is an 83-year-old male with medical history of CAD (status post CABG), COPD (not on home oxygen), bilateral renal artery stenosis (right renal artery stent 09/12/2023), CKD 3B (baseline creatinine 1.4 -1.9), and HFpEF who presented with
constipation for 1 week and progressive abdominal distention. Just prior to arrival he developed urinary retention. CT imaging showed acute sigmoid volvulus without evidence of perforation or ischemia. He underwent urgent decompressive
sigmoidoscopy on the morning of 01/01. Partial decompression was achieved and rectal tube was left in place following procedure.
Sigmoid volvulus:
-Status post urgent sigmoidoscopy and detorsion and rectal tube.
-s/p Sigmoidectomy with end colostomy on 05/[address] Mann
-Diet advanced to regular which he is tolerating
-Restarted Plavix, hemoglobin stable
-GI and colorectal surgery input appreciated
-Cardiology following
# Hypokalemia
replaced. s/p liquid potassium replacement.
# Hyponatremia
-acute on chronic
-Likely due to liquid diet and low solute diet
-s/p two doses of Tolvaptan 05/05 & 05/06 to avoid worsening
-Continue to monitor
#Acute urinary retention:
Primary urologist Dr Elkins.
-Matias catheter now in place
-Continue home tamsulosin and finasteride
-Voiding trial postoperatively when appropriate
Anemia requiring transfusion:
-Hemoglobin stable around 9-10
-s/p 1 unit PRBCs to maintain hemoglobin at least greater than 8.0 perioperatively
CAD:
No chest pain
-Stable, history of CABG, PCI with ELIEZER to the left main 11/22/2023
-Continue aspirin, restarted Plavix
-Continue statin
Acute on chronic HFpEF:
-Appears euvolemic, restarted oral Lasix today 05/12.
-Continue beta-blockade with labetalol
-c/w hydralazine, Imdur, and nifedipine
-Cardiology following
# Secondary Hypertension:
-Now better controlled
-Appears due to known renal artery stenosis, patient is status post stenting of right renal artery
-Continue home hypertensive regimen of hydralazine, Imdur, nifedipine, labetalol
CKD stage IIIb:
Primary color drum worker Dr Salazar
-Appears to be close to baseline renal function
- avoid hypotension.
COPD:
-Stable
-Continue inpatient equivalents and home scheduled maintenance medications
CODE STATUS: Full code
Total time spent to see the patient, examine the patient, review data and lab results, discuss treatment plan with patient and nursing staff around 57 minutes
Anticipated Discharge: > 48 hours
Subjective/Interval History
-
Date of Service: May 12, 2024
Mr. Tidwell was seen and examined at bedside. Now having appropriate stool output from ostomy and feels better.
Objective Data
-
Labs:
Laboratory Results
05/12/24
05:02
WBC 7.9
Hgb 9.1 L
Hct 26.7 L
Plt Count 332
Sodium 133 L
Potassium 3.7
Chloride 100
Carbon Dioxide 22
BUN 30 H
Creatinine 1.5 H
Glucose 120 H
Calcium 8.0 L
Vital Signs:
Vital Signs
Temp Pulse Resp BP Pulse Ox
97.4 F 63 16 155/49 94
05/12/24 15:08 05/12/24 15:08 05/12/24 15:08 05/12/24 15:08 05/12/24 15:08
I&O
05/11/24 05/12/24 05/13/24
06:59 06:59 06:59
Intake Total 1440 / 1440 1440 / 1440 360 / 360
Output Total 2400 / 2400 2175 / 2175
Balance -960 / -960 -735 / -735 335 / 335
Review of Systems
-
History Source: Patient
All other systems: Reviewed and negative
Physical Exam
-
General: No Apparent Distress
--- NOTE | 2024-05-12 18:29 | PTCARENOTE ---
Pt having brown/loose output from colostomy. Tolerating regular diet. OOB to chair and for short walks w/ RW. Pt states he feels stronger today.
[2024-05-12 23:12] VITALS: BP 154/64
[2024-05-13 05:07] VITALS: BMI 28.5
--- NOTE | 2024-05-13 07:30 | W.PN.GS2 ---
Today's Communication / Plan
-
`
Assessment / Plan
-
Assessment: 83-year-old male who presented with sigmoid volvulus without advanced ischemia or perforation.
POD #5 status post sigmoidectomy with end colostomy
AFVSS
H/O CKD: Cr stable
H/H stable - back on plavix
Plan: continue regular diet
given chronic constipation/slow colon motilily would keep on miralax daily to start and adjust as needed to prevent constipation
PT/OT. ambulate/about bed to chair as tolerated, rehab vs home health upon d/c
Stoma nurse following
Townsend management as per primary team - retention on admission
okay for d/c from general surgical perspective; follow up with Dr. Mann ~2 weeks after discharge for post op
Subjective Data
-
Date of Service: May 13, 2024
pt seen and examined
offers no complaints
states no abd pain
hermelinda PO intake
no nausea
abdomen feels soft
Objective Data
-
Intake and Output
05/12/24 05/13/24 05/14/24
06:59 06:59 06:59
Intake Total 1440 / 1440 600 / 600
Output Total 2175 / 2175 1825 / 1825
Balance -735 / -735 -1225 / -1225
Intake:
Oral fluids 1440 / 1440 600 / 600
Output:
Liquid stool amount 125 / 125
Colostomy 125 / 125
Urine, Townsend 2049 1800 / 1800
Other:
Number of unmeasured liquid
stools
Colostomy 50
Vital Signs
Temp Pulse Resp BP Pulse Ox
97.9 F 59 20 154/64 95
05/12/24 23:12 05/12/24 23:12 05/12/24 23:12 05/12/24 23:12 05/12/24 23:12
Lab Results
05/12/24 05:02
05/12/24 05:02
Calcium 8.0 mg/dl (8.4-10.2) L 05/12/24 05:02
Phosphorus 4.7 mg/dl (2.5-4.5) H 05/06/24 04:58
Magnesium 3.3 mg/dl (1.6-2.3) H 05/06/24 04:58
Total Bilirubin 0.6 mg/dl (0.2-1.3) 05/03/24 02:10
AST 26 U/L (17-59) 05/03/24 02:10
ALT 17 U/L (0-50) 05/03/24 02:10
Alkaline Phosphatase 127 U/L (38-126) H 05/03/24 02:10
Total Protein 6.4 g/dl (6.3-8.2) 05/03/24 02:10
Albumin 3.7 g/dl (3.5-5.0) 05/03/24 02:10
Physical Exam
-
NAD AAOx3
ABD: softly protuberant, nontender
mid line incision closed with glue dressing no erythema, no drainage
ostomy with air and some pasty stool in appliance
Patient has a townsend catheter: Yes
[2024-05-13 07:35] VITALS: BP 193/52
[2024-05-13] MEDS: SPIRIVA RESPIMAT 2.5 MCG 2 PUFF INH (08:04)
[2024-05-13] MEDS: SYMBICORT 80/4.5 MCG INHALER 2 PUFF INH ×2 (08:04→22:01)
[2024-05-13] MEDS: IMDUR (EXTENDED RELEASE) 90 MG PO (08:06)
[2024-05-13] MEDS: PROSCAR 5 MG PO (08:06)
[2024-05-13] MEDS: TRANDATE 100 MG PO ×2 (08:06→20:07)
[2024-05-13] MEDS: CATAPRES 0.3 MG PO ×2 (08:07→20:02)
[2024-05-13] MEDS: LASIX 40 MG PO ×2 (08:07→15:48)
[2024-05-13] MEDS: ASPIR LOW (ENTERIC COATED) 81 MG PO (08:07)
[2024-05-13] MEDS: PLAVIX 75 MG PO (08:07)
[2024-05-13] MEDS: APRESOLINE 100 MG PO ×3 (08:07→22:45)
[2024-05-13] MEDS: PROTONIX IV 40 MG IV (08:08)
[2024-05-13] MEDS: NSS (PRESERVATIVE FREE) 10 ML IV (08:08)
[2024-05-13] MEDS: MIRALAX 17 GRAMS PO (08:08)
[2024-05-13] MEDS: HEPARIN 5000 UNITS SC ×2 (08:08→20:07)
[2024-05-13 11:31] VITALS: BP 174/55; PULSE 57; O2SAT 99
--- NOTE | 2024-05-13 11:35 | CM ---
Addendum entered by Meghan Houser 05/13/24 15:41:
Updated pt and his daughter regarding accepting facilities
Pt medically ready for SNF
Pt accepted at [facility] - spoke with Nathalia at [facility] - can accept tomorrow
Auth began in [facility]
Auth approved - start date 05/14-05/20/2024
Certification Number - [id number]
Plan - transfer to [facility] tomorrow
Addendum entered by Meghan Houser 05/13/24 14:50:
[facility] - no beds
[facility] - no response
[facility] - no beds
Called pts daughter - LM on - requested return call
Original Note:
Chart reviewed
For SNF at discharge
MICHEAL with [facility] to review referral and return call
LM at [facility] to review referral and return call
[facility] - will review referral - will check status of bed availability
Plan - SNF when medically ready
[2024-05-13] MEDS: PROCARDIA XL (EXTENDED RELEASE) 90 MG PO (12:16)
[2024-05-13 15:35] VITALS: BP 185/61
--- NOTE | 2024-05-13 16:15 | WOUNDNOTE ---
WON RN NOTE: Appliance changed today with patient assisting. Stoma pink and budded, slight mucocutaneous separation proximal edge. Peristomal skin intact, no leakage. Reviewed emptying, skin care, measuring stoma, cutting out wafer and applying
pouch. Patient assisted with cleaning skin, cutting wafer and applying around stoma, closing tail end and snapping on pouch. Reviewed how to burp pouch and answered patient's many questions. Called SPD for additional wafers and pouches for him to
take upon discharge.
[2024-05-13] MEDS: LIPITOR 40 MG PO (17:09)
[2024-05-13] MEDS: FLOMAX 0.8 MG PO (17:10)
[2024-05-13 23:00] VITALS: BP 169/47
[2024-05-13 23:20] VITALS: BP 169/47
[2024-05-14 06:00] VITALS: BMI 28.6
[2024-05-14 07:45] VITALS: BP 190/63
--- NOTE | 2024-05-14 07:48 | W.PN.HOSP.TC ---
Today's Communication/Plan
-
Assessment / Plan
Assessment / Plan
PE:
Gen-AAOx3, NAD
HEENT-NC, AT, anicteric, clear oral mm
Neck-supple
CV-reg, no M, +S1/S2
Lungs-clear B/L
Abd-mild TTP, colostomy bag with light brown soft stool output
Musculoskeletal-no edema, no deformity
Skin-warm and dry
Neuro-grossly non-focal
Psych-calm, cooperative
Mr. Tidwell is an 83-year-old male with medical history of CAD (status post CABG), COPD (not on home oxygen), bilateral renal artery stenosis (right renal artery stent 09/12/2023), CKD 3B (baseline creatinine 1.4 -1.9), and HFpEF who presented with
constipation for 1 week and progressive abdominal distention. Just prior to arrival he developed urinary retention. CT imaging showed acute sigmoid volvulus without evidence of perforation or ischemia. He underwent urgent decompressive
sigmoidoscopy on the morning of 01/01. Partial decompression was achieved and rectal tube was left in place following procedure.
Sigmoid volvulus:
-Status post urgent sigmoidoscopy and detorsion and rectal tube.
-s/p Sigmoidectomy with end colostomy on 05/[address] Mann
-Diet advanced to regular which he is tolerating
-Restarted Plavix, hemoglobin stable
-GI and colorectal surgery input appreciated
-Medically stable, planning discharge to SNF
# Hypokalemia
replaced. s/p liquid potassium replacement.
# Hyponatremia
-acute on chronic
-Likely due to liquid diet and low solute diet
-s/p two doses of Tolvaptan 05/05 & 05/06 to avoid worsening
-Continue to monitor
#Acute urinary retention:
Primary urologist Dr Elkins.
-Matias catheter removed this morning, monitor for spontaneous voiding
-Continue home tamsulosin and finasteride
Anemia requiring transfusion:
-Hemoglobin stable around 9-10
-s/p 1 unit PRBCs to maintain hemoglobin at least greater than 8.0 perioperatively
CAD:
No chest pain
-Stable, history of CABG, PCI with ELIEZER to the left main 11/22/2023
-Continue aspirin, restarted Plavix
-Continue statin
Acute on chronic HFpEF:
-Appears euvolemic, restarted oral Lasix 05/12.
-Continue beta-blockade with labetalol
-c/w hydralazine, Imdur, and nifedipine
-Cardiology following
# Secondary Hypertension:
-Now better controlled
-Appears due to known renal artery stenosis, patient is status post stenting of right renal artery
-Continue home hypertensive regimen of hydralazine, Imdur, nifedipine, labetalol
CKD stage IIIb:
Primary division head Dr Salazar
-Appears to be close to baseline renal function
- avoid hypotension.
COPD:
-Stable
-Continue inpatient equivalents and home scheduled maintenance medications
CODE STATUS: Full code
Total time spent to see the patient, examine the patient, review data and lab results, discuss treatment plan with patient and nursing staff around 57 minutes
Anticipated Discharge: 24 - 48 hours
Subjective/Interval History
-
Date of Service: May 13, 2024
Pt seen and examined at bedside. Planning for voiding trial today anticipation of discharge to SNF. Patient feeling well with no complaints.
Objective Data
-
Vital Signs:
Vital Signs
Temp Pulse Resp BP Pulse Ox
97.5 F 63 17 169/47 96
05/13/24 23:20 05/13/24 23:20 05/13/24 23:20 05/13/24 23:20 05/13/24 23:20
I&O
05/13/24 05/14/24 05/15/24
06:59 06:59 06:59
Intake Total 600 / 600 360 / 940 580 / 580
Output Total 5 / 182 1550 / 1974 425 / 425
Balance -1225 / -1225 -1190 / -1035 155 / 155
Review of Systems
-
History Source: Patient
All other systems: Reviewed and negative
Physical Exam
-
General: No Apparent Distress
[2024-05-14] MEDS: MIRALAX 17 GRAMS PO (08:29)
[2024-05-14] MEDS: ASPIR LOW (ENTERIC COATED) 81 MG PO (08:35)
[2024-05-14] MEDS: PROTONIX 40 MG PO (08:35)
[2024-05-14] MEDS: PLAVIX 75 MG PO (08:36)
[2024-05-14] MEDS: APRESOLINE 100 MG PO ×2 (08:36→15:28)
[2024-05-14] MEDS: TRANDATE 100 MG PO (08:37)
[2024-05-14] MEDS: PROSCAR 5 MG PO (08:37)
[2024-05-14] MEDS: IMDUR (EXTENDED RELEASE) 90 MG PO (08:37)
[2024-05-14] MEDS: HEPARIN 5000 UNITS SC (08:38)
[2024-05-14] MEDS: CATAPRES 0.3 MG PO (08:38)
[2024-05-14] MEDS: LASIX 40 MG PO ×2 (08:38→15:25)
[2024-05-14] MEDS: SPIRIVA RESPIMAT 2.5 MCG 2 PUFF INH (09:11)
[2024-05-14] MEDS: SYMBICORT 80/4.5 MCG INHALER 2 PUFF INH (09:11)
--- NOTE | 2024-05-14 10:33 | W.DCSUMMARY ---
Discharge Summary
Discharge Data
Date of Admission: 05/03/24
Date of Discharge: 05/14/24
-
Pending Results: No
Hospital Course
Mr. Tidwell is an 83-year-old male with medical history of CAD (status post CABG, ELIEZER to left main 11/22/2023), COPD (not on home oxygen), bilateral renal artery stenosis (right renal artery stent 09/12/2023), CKD 3B (baseline creatinine 1.4 -1.9),
and HFpEF who presented with constipation for 1 week and progressive abdominal distention. Just prior to arrival he developed urinary retention. CT imaging showed acute sigmoid volvulus without evidence of perforation or ischemia. He underwent
urgent decompressive sigmoidoscopy on the morning of 01/01. Partial decompression was achieved and rectal tube was left in place following procedure. He subsequently underwent sigmoidectomy with end colostomy on 05/07. He tolerated the procedure
well and his diet was ultimately able to be advanced to regular. He had a healthy appearing stoma and appropriate solid brown stool from his ostomy. His home Plavix had been held for surgery and was restarted postoperatively. He required
transfusion of 1 unit PRBCs preoperatively to maintain hemoglobin greater than 8.0 considering pending surgery and CAD history. His hemoglobin remained stable following transfusion. He remained hemodynamically stable throughout his
hospitalization. His Matias catheter was removed on the morning of 05/13 and he was able to void spontaneously. He will be continued on tamsulosin and finasteride and he will need close follow-up with his primary urologist (Dr. Elkins). He is being
discharged to SNF for rehab postoperatively. He will need to follow-up with general surgery in 2 to 4 weeks. He has been instructed on ostomy care. Also of note he was mildly hyponatremic initially during admission which is likely due to low
solute intake in the setting of abdominal pathology in addition to Lasix use. His serum sodium levels recovered to within normal limits. He should follow-up with his PCP for ongoing monitoring.
Gen-AAOx3, NAD
HEENT-NC, AT, anicteric, clear oral mm
Neck-supple
CV-reg, no M, +S1/S2
Lungs-clear B/L
Abd-mild TTP, colostomy bag with light brown soft stool output
Musculoskeletal-no edema, no deformity
Skin-warm and dry
Neuro-grossly non-focal
Psych-calm, cooperative
Discharge Plan
-
Patient Disposition: Alf/SNF
Discharge Diagnosis/Procedures: Sigmoid volvulus
Diet: Regular
Activity: No strenuous activity
Additional Activity: Do not lift over 15 lbs for the next 6 weeks
Bathing Restrictions: OK to Shower
Wound Care: Allow the glue to flake off your incision on its own, avoid scrubbing or picking it off.
Activity Restrictions/Additional Instructions:
Otis wafer # [id number], Pouch # [id number], Eakins seal.
Call supply company (list in folder provided) for monthly Ostomy supplies after discharge (ask VN to order supplies while on service).
Follow up with surgeon.
Call [facility] RN nurse for ostomy pouching concerns or leakage problems [phone] or [phone] or [phone].
Mr. Tidwell is an 83-year-old male with medical history of CAD (status post CABG, ELIEZER to left main 11/22/2023), COPD (not on home oxygen), bilateral renal artery stenosis (right renal artery stent 09/12/2023), CKD 3B (baseline creatinine 1.4 -1.9),
and HFpEF who presented with constipation for 1 week and progressive abdominal distention. Just prior to arrival he developed urinary retention. CT imaging showed acute sigmoid volvulus without evidence of perforation or ischemia. He underwent
urgent decompressive sigmoidoscopy on the morning of 01/01. Partial decompression was achieved and rectal tube was left in place following procedure. He subsequently underwent sigmoidectomy with end colostomy on 05/07. He tolerated the procedure
well and his diet was ultimately able to be advanced to regular. He had a healthy appearing stoma and appropriate solid brown stool from his ostomy. His home Plavix had been held for surgery and was restarted postoperatively. He required
transfusion of 1 unit PRBCs preoperatively to maintain hemoglobin greater than 8.0 considering pending surgery and CAD history. His hemoglobin remained stable following transfusion. He remained hemodynamically stable throughout his
hospitalization. His Matias catheter was removed on the morning of 05/13 and he was able to void spontaneously. He will be continued on tamsulosin and finasteride and he will need close follow-up with his primary urologist (Dr. Elkins). He is being
discharged to SNF for rehab postoperatively. He will need to follow-up with general surgery in 2 to 4 weeks. He has been instructed on ostomy care. Also of note he was mildly hyponatremic initially during admission which is likely due to low
solute intake in the setting of abdominal pathology in addition to Lasix use. His serum sodium levels recovered to within normal limits. He should follow-up with his PCP for ongoing monitoring.
Referrals:
George Mann MD [Active] - in two to four weeks
Stephen Suazo DO [Family Provider] -
Prescriptions:
Continued
atorvastatin 40 mg Tablet
40 mg PO QPM
nifedipine 90 mg Tablet Extended Release
90 mg PO DAILY
Rx Instructions:
lunch time
tamsulosin 0.4 mg Capsule
0.8 mg PO QPM
polyethylene glycol 3350 [Miralax] 17 gram/dose Powder
17 g PO QPM
finasteride 5 mg Tablet
5 mg PO DAILY
cholecalciferol (vitamin D3) [Vitamin D3] 25 mcg (1,000 unit) Capsule
25 mcg PO DAILY
tiotropium bromide 18 mcg Capsule, W/Inhalation Device
18 mcg INHALATION R BID
budesonide-formoterol [Breyna] 80-4.5 mcg/actuation Hfa Aerosol Inhaler
2 puff INHALATION R BID
therapeutic multivitamin Tablet
1 tab PO QPM
allopurinol 100 mg tablet
100 mg PO DAILY
aspirin 81 mg Tablet,Delayed Release (Dr/Ec)
81 mg PO DAILY
vitamin B complex Tablet
1 tab PO DAILY
psyllium husk [Fiber (psyllium husk)] 0.52 gram Capsule
0.52 g PO BID
spironolactone 25 mg Tablet
25 mg PO DAILY Qty: 30 0RF
Rx Instructions:
lunch time
docusate sodium [Colace] 100 mg Capsule
100 mg PO DAILY
ZzzQuil 50 mg/30 mL Liquid
50 mg PO HS
pantoprazole 40 mg Tablet,Delayed Release (Dr/Ec)
40 mg PO DAILY Qty: 90 3RF
hydralazine 100 mg Tablet
100 mg PO TID
isosorbide mononitrate 30 mg tablet extended release 24 hr
90 mg PO DAILY Qty: 90 0RF
clopidogrel 75 mg Tablet
75 mg PO DAILY Qty: 30 0RF
clonidine HCl 0.3 mg Tablet
0.3 mg PO BID Qty: 60 0RF
Rx Instructions:
dose increased on this admission
labetalol 100 mg Tablet
100 mg PO BID Qty: 60 0RF
Rx Instructions:
dose decreased on this admission
furosemide 40 mg tablet
40 mg PO BID
Rx Instructions:
breakfast and lunch
Discharge Orders:
Discharge Patient (As Directed); Ordered 05/14/24
Ordered By: Yg Kent
Discharge Date and Time
Print Language: ITALIAN
[2024-05-14] MEDS: APRESOLINE 10 MG IV (10:57)
[2024-05-14] MEDS: PROCARDIA XL (EXTENDED RELEASE) 90 MG PO (10:59)
--- NOTE | 2024-05-14 11:03 | CM ---
For discharge to SNF today
Given IMM
Transport discussed
Plan - transfer to [facility]
R - [phone]
F - [phone]
[2024-05-14 12:04] VITALS: BP 158/48
--- NOTE | 2024-05-14 13:10 | WOUNDNOTE ---
WOC RN NOTE: Patient for discharge today. 2.5 weeks of ostomy supplies at bedside and will be taken to SNF. Patient states understanding of plan. Discharge orders updated with ostomy information.
[2024-05-14 15:31] VITALS: BP 142/45
== END 2024-05-14 16:15 | DRG 329 ==
LOC: 2 SOUTH 05:03
PROVIDERS: Internal Medicine; Registered Nurse; ADMITTING PHYSICIAN Internal Medicine; ATTENDING PHYSICIAN Internal Medicine; CONSULT PHYSICIAN Internal Medicine Cardiovascular Disease; CONSULT PHYSICIAN Specialist; CONSULT PHYSICIAN Surgery; EMERGENCY PHYSICIAN Emergency Medicine; FAMILY PHYSICIAN Internal Medicine
PROC: 0D1 Gastrointestinal System, Bypass (ICD-10-PCS; 2024-05-03)
PROC: 0D9 Gastrointestinal System, Drainage (ICD-10-PCS; 2024-05-03)
PROC: 30233N1 Transfusion of Nonautologous Red Blood Cells into Peripheral Vein, Percutaneous Approach (ICD-10-PCS; 2024-05-03)
PROC: 0DJD8ZZ Inspection of Lower Intestinal Tract, Via Natural or Artificial Opening Endoscopic (ICD-10-PCS; 2024-05-03)
PROC: 0DTN0ZZ Resection of Sigmoid Colon, Open Approach (ICD-10-PCS; 2024-05-03)
DX: K56.2 Volvulus (principal); I50.33 Acute on chronic diastolic (congestive) heart failure; E87.1 Hypo-osmolality and hyponatremia; I13.0 Hypertensive heart and chronic kidney disease with heart failure and stage 1 through stage 4 chronic kidney disease, or unspecified chronic kidney disease; F17.200 Nicotine dependence, unspecified, uncomplicated; Z79.02 Long term (current) use of antithrombotics/antiplatelets; Z79.82 Long term (current) use of aspirin; E87.6 Hypokalemia; D64.9 Anemia, unspecified; Z95.1 Presence of aortocoronary bypass graft; I25.10 Atherosclerotic heart disease of native coronary artery without angina pectoris; I15.9 Secondary hypertension, unspecified; N18.32 Chronic kidney disease, stage 3b; E11.22 Type 2 diabetes mellitus with diabetic chronic kidney disease; J44.9 Chronic obstructive pulmonary disease, unspecified; Z86.0100 Personal history of colon polyps, unspecified; Z93.3 Colostomy status
CPT/HCPCS: 88307; 51702; 74018; 74022; 74176; 80048; 80053; 83605; 83735; 84100; 85025; 85027; 86850; 86900; 86901; 86920; 93005; 94640; 96360; 97116; 97161; 97166; 97530; 99285; C1776; J1335; P9016

== ENCOUNTER → 2024-06-09 12:21 | Outpatient (REF) | payer OTHER, SELFPAY | LOC: RAD 12:21 | PROVIDERS: ATTENDING PHYSICIAN Nurse Practitioner Family; FAMILY PHYSICIAN Internal Medicine | DX: Z09 Encounter for follow-up examination after completed treatment for conditions other than malignant neoplasm (principal); J06.9 Acute upper respiratory infection, unspecified; R09.89 Other specified symptoms and signs involving the circulatory and respiratory systems; I50.32 Chronic diastolic (congestive) heart failure | CPT/HCPCS: 71046 ==

== ENCOUNTER 2024-06-16 23:44 | Inpatient (IN) | payer OTHER, SELFPAY ==
[2024-06-16 15:34] VITALS: BP 149/49
[2024-06-16 16:01] LABS: % Basophils 0.3 % (0-2); % Eosinophils 1.3 % (0-6); % Immature Granulocytes 0.9 % (0-0.5); % Lymphocytes 5.7 % (20.5-51.1); % Monocytes 8.5 % (1.7-9.3); % Neutrophils 83.3 % (42.2-75.2); Absolute Eosinophils 0.2 10^3/uL (0-0.7); Absolute Immature Granulocytes 0.1 10^3/uL (0-0.05); Absolute Lymphocytes 0.9 10^3/uL (1.2-3.4); Absolute Monocytes 1.3 10^3/uL (0.1-0.6); Absolute Neutrophils 12.5 10^3/uL (1.4-6.5); Hematocrit 28.1 % (39.0-52.0); Hemoglobin 9.6 g/dL (13.0-18.0); Mean Corp Hgb Conc. 34.2 g/dL (33.0-37.0); Mean Corpuscular Hgb 29.1 pg (27.0-31.0); Mean Corpuscular Volume 85.2 fL (80.0-94.0); Mean Platelet Volume 8.5 fL (7.4-10.4); Nucleated Red Blood Cells % 0 % (-); Platelet Count 550 10^3/uL (130-400); Red Cell Dist. Width 14.3 % (11.5-14.5)
[2024-06-16 16:15] LABS: ALT (SGPT) 55 U/L (0-50); AST (SGOT) 46 U/L (17-59); Albumin 3.3 g/dl (3.5-5.0); Alkaline Phosphatase 228 U/L (38-126); Blood Urea Nitrogen 37 mg/dl (9-20); Calcium 8.9 mg/dl (8.4-10.2); Carbon Dioxide 22 mmol/L (22-30); Chloride 92 mmol/L (98-107); Glucose 119 mg/dl (70-99); Potassium 5.1 mmol/L (3.5-5.1); Sodium 127 mmol/L (135-145); Total Bilirubin 0.7 mg/dl (0.2-1.3); Total Protein 6.5 g/dl (6.3-8.2); eGFR 39.26
--- NOTE | 2024-06-16 16:24 | ED.GENMED ---
ED Provider Triage
<AUGUSTIN Wilson - Last Filed: 06/16/24 16:29>
-
Patient seen by provider in Triage?: Seen in Triage
Attestation: A medical screening examination has been initiated by a qualified medical provider. Based on the assessment performed at this time, it has been determined that an emergent medical condition may exist and the patient has been informed
that further medical evaluation and possible additional diagnostic testing may be needed.
HPI: Patient is an 83-year-old male who presents to the ER for evaluation. Patient reports he recently had COVID about 10 days ago however the past 3 to 4 days he has felt very weak and has had a cough and wheeze. Patient does feel weak. Patient
was diagnosed with pneumonia in urgent care.
GENERAL: Alert , in no apparent distress
EYE: No visual abnormalities.
NECK: Trachea midline
ENT: No visible abnormalities.
LUNGS: No acute respiratory distress
NEUROLOGICAL: Alert and oriented
SKIN: Skin intact. No visible changes.
MUSCULOSKELETAL: Moving extremities normally
PSYCH: Normal and appropriate interaction.
This is a medical evaluation conducted in person to initiate diagnostic evaluation and provide initial therapeutics. Please see further documentation by the treating clinician.
History of Present Illness
<AUGUSTIN Wilson - Last Filed: 06/16/24 16:29>
General
Chief Complaint: Pneumonia Symptoms
Time Seen by Provider: 06/16/24 19:47
<Richard Oliva DO - Last Filed: 06/16/24 20:29>
General
Source: patient and family
Exam Limitations: none
Nursing documentation reviewed up to this point in time: agreed with
History of Present Illness
History of Present Illness:
Agree with HPI by Sherly Mccullough, ED provider triage.
Past History
<AUGUSTIN Wilson - Last Filed: 06/16/24 16:29>
Past History
ED Past Medical History: CAD, COPD, HTN, Hypercholesterolemia, Other (Renal insufficiency) and Other (Prostatic hypertrophy)
ED Past Surgical History: Cardiac (Cardiac bypass 2017), Orthopedic (Left knee replacement 2017) and Other (Nasal polyps)
Social History
Tobacco: Former smoker
Alcohol: None
Drug: None
Personal:
Living: with family
Employment: Retired
Family History
Family History: Other (Unremarkable)
Review of Systems
<Richard Oliva, DO - Last Filed: 06/16/24 20:29>
Review of Systems
Allergies reviewed?: Yes
All Other Systems: Not applicable
Constitutional: Reports no symptoms
EENT: Reports no symptoms
Respiratory: Reports cough and trouble breathing
Cardiac: Reports no symptoms
ABD/GI: Reports no symptoms
: Reports no symptoms
Musculoskeletal: Reports no symptoms
Skin: Reports no symptoms
Neurological: Reports no symptoms
Endocrine: Reports no symptoms
Hematologic/Lymphatic: Reports no symptoms
Psychiatric: Reports no symptoms
Phy Exam
<Richard Oliva, DO - Last Filed: 06/16/24 20:29>
Physical Exam
Physical Exam:
Physical Exam
General: Moderate respiratory distress
Neck: supple. no meningeal signs. normal posterior pharynx
Heart: s1/s2 regular rate and rhythm, no murmur. equal radial
pulses.
HEENT: Pupils equal round reactive to light, EOMI, hard of hearing
Lungs: Moderate respiratory distress. Rhonchi at bases bilaterally
Abdomen: normal bowel sounds. not tender. no CVAT, colostomy
Neuro: alert and oriented. no focal neurological deficits cranial nerves II through XII intact
Skin: no rash
Psychiatric: well kept. interactive and cooperative
Extremities: no edema. no calf tenderness. negative homans. good distal pulses
Course
<AUGUSTIN Wilson - Last Filed: 06/16/24 16:29>
Orders/Labs/Results
Orders:
Orders
06/16/24 15:39
Chest [CR Chest - 2 Views ] Urgent
Comment:
Reason For Exam: SOB, cough
06/16/24 15:48
CMP [Comprehensive Metabolic Panel] Urgent
Complete Blood Count/With Diff Urgent
06/16/24 20:00
Lactic Acid Q4H
Comment: CANCEL 2nd LACTIC ACID IF 1st LACTIC ACID IS LESS THAN 2
Blood Culture Q30M
BERTA Source: Blood/Venous
Specimen Description:
06/16/24 20:30
Blood Culture Q30M
BERTA Source: Blood/Venous
Specimen Description:
06/17/24 00:00
Lactic Acid Q4H
Comment: CANCEL 2nd LACTIC ACID IF 1st LACTIC ACID IS LESS THAN 2
Abnormal Lab Results
06/16/24
15:48
WBC 15.0 H 10^3/uL
(4.8-10.8)
RBC 3.30 L 10^6/uL
(4.70-6.10)
Hgb 9.6 L g/dL
(13.0-18.0)
Hct 28.1 L %
(39.0-52.0)
Plt Count 550 H 10^3/uL
(130-400)
Abs Immat Gran (auto) 0.1 H 10^3/uL
(0-0.05)
Absolute Neuts (auto) 12.5 H 10^3/uL
(1.4-6.5)
Absolute Lymphs (auto) 0.9 L 10^3/uL
(1.2-3.4)
Absolute Monos (auto) 1.3 H 10^3/uL
(0.1-0.6)
Immature Gran % 0.9 H %
(0-0.5)
Neutrophils % 83.3 H %
(42.2-75.2)
Lymphocytes % 5.7 L %
(20.5-51.1)
Sodium 127 L mmol/L
(135-145)
Chloride 92 L mmol/L
(98-107)
BUN 37 H mg/dl
(9-20)
Creatinine 1.7 H mg/dL
(0.7-1.3)
Glucose 119 H mg/dl
(70-99)
ALT 55 H U/L
(0-50)
Alkaline Phosphatase 228 H U/L
(38-126)
Albumin 3.3 L g/dl
(3.5-5.0)
06/16/24 15:48
06/16/24 15:48
Vital Signs
Initial and Last Documented VS:
Initial Vital Signs
Pulse Ox
93
06/16/24 15:32
Last Documented Vital Signs
Temp Pulse Resp BP Pulse Ox
97.3 F 62 18 166/58 93
06/16/24 18:15 06/16/24 18:15 06/16/24 18:15 06/16/24 18:15 06/16/24 18:15
<Richard Oliva, DO - Last Filed: 06/16/24 20:29>
Orders/Labs/Results
Orders:
Orders
06/16/24 15:39
Chest [CR Chest - 2 Views ] Urgent
Comment:
Reason For Exam: SOB, cough
06/16/24 15:48
CMP [Comprehensive Metabolic Panel] Urgent
Complete Blood Count/With Diff Urgent
06/16/24 20:00
Lactic Acid Q4H
Comment: CANCEL 2nd LACTIC ACID IF 1st LACTIC ACID IS LESS THAN 2
Blood Culture Q30M
BERTA Source: Blood/Venous
Specimen Description:
06/16/24 20:30
Blood Culture Q30M
BERTA Source: Blood/Venous
Specimen Description:
06/17/24 00:00
Lactic Acid Q4H
Comment: CANCEL 2nd LACTIC ACID IF 1st LACTIC ACID IS LESS THAN 2
Abnormal Lab Results
06/16/24
15:48
WBC 15.0 H 10^3/uL
(4.8-10.8)
RBC 3.30 L 10^6/uL
(4.70-6.10)
Hgb 9.6 L g/dL
(13.0-18.0)
Hct 28.1 L %
(39.0-52.0)
Plt Count 550 H 10^3/uL
(130-400)
Abs Immat Gran (auto) 0.1 H 10^3/uL
(0-0.05)
Absolute Neuts (auto) 12.5 H 10^3/uL
(1.4-6.5)
Absolute Lymphs (auto) 0.9 L 10^3/uL
(1.2-3.4)
Absolute Monos (auto) 1.3 H 10^3/uL
(0.1-0.6)
Immature Gran % 0.9 H %
(0-0.5)
Neutrophils % 83.3 H %
(42.2-75.2)
Lymphocytes % 5.7 L %
(20.5-51.1)
Sodium 127 L mmol/L
(135-145)
Chloride 92 L mmol/L
(98-107)
BUN 37 H mg/dl
(9-20)
Creatinine 1.7 H mg/dL
(0.7-1.3)
Glucose 119 H mg/dl
(70-99)
ALT 55 H U/L
(0-50)
Alkaline Phosphatase 228 H U/L
(38-126)
Albumin 3.3 L g/dl
(3.5-5.0)
06/16/24 15:48
06/16/24 15:48
Vital Signs
Initial and Last Documented VS:
Initial Vital Signs
Pulse Ox
93
06/16/24 15:32
Last Documented Vital Signs
Temp Pulse Resp BP Pulse Ox
97.3 F 62 18 166/58 93
06/16/24 18:15 06/16/24 18:15 06/16/24 18:15 06/16/24 18:15 06/16/24 18:15
<Richard Oliva, DO - Last Filed: 06/16/24 20:29>
MDM/Problems Addressed
Differential Diagnosis Includes:
Pneumonia, influenza, COVID
MDM/Problems Addressed:
83-year-old male with bilateral pneumonia, recent COVID 10 days ago, however COVID and influenza negative at urgent care.
Chronic conditions affecting care: HTN and Arrhythmia
Acute Exacerbation and/or Progression of Chronic Illness: HTN
<Richard Oliva, DO - Last Filed: 06/16/24 20:29>
*Radiology
Radiology exam reviewed: radiology read reviewed (Chest x-ray bilateral lower lobe pneumonia)
*Pulse Oximetry
Patient hypoxic: yes
Comment: 88 percent on room air
*Solution Lead Interpretation
Rate: normal
Interpretation: normal
Heart Rate: 65
Rhythm: sinus
*Critical Care Note
Total Time (30-74mins, 75-104mins- exclusive of procedures): Not Applicable
Data Reviewed
Review of Other/Old Records Reveals: Discharge Summary (Recent admission in April for volvulus, requiring colostomy)
Source: records
Further Testing Considered But Not Given:
CT chest not indicated
<Richard Oliva DO - Last Filed: 06/16/24 20:29>
Patient Management
Social determinants of health affecting care: Living situation and Strong social support
Discussion with other providers: Hospitalist
Escalation/DeEscalation of care consider admission/obs:
Admission indicated
ED Attending Note
<AUGUSTIN Wilson - Last Filed: 06/16/24 16:29>
-
Portions of this chart may have been created with voice recognition software.� Occasional wrong word or��sound alike� substitutions may have occurred due to the inherent limitations of voice recognition software.
Discharge Plan
Departure
Patient Disposition: Admit
Date of Disposition: 06/16/24
Time of Disposition: 20:28
Admit to: Telemetry
Presentation/result/management discussed w/ accepting MD/DO: Hospitalist
Patient with high blood pressure during this ER visit?: Yes
Condition: Fair
Discharge Problem:
Bilateral pneumonia, COPD (chronic obstructive pulmonary disease), Hypoxia
Prescriptions:
No Action
atorvastatin 40 mg Tablet
40 mg PO QPM
nifedipine 90 mg Tablet Extended Release
90 mg PO DAILY
Rx Instructions:
lunch time
tamsulosin 0.4 mg Capsule
0.8 mg PO QPM
polyethylene glycol 3350 [Miralax] 17 gram/dose Powder
17 g PO QPM
finasteride 5 mg Tablet
5 mg PO DAILY
cholecalciferol (vitamin D3) [Vitamin D3] 25 mcg (1,000 unit) Capsule
25 mcg PO DAILY
tiotropium bromide 18 mcg Capsule, W/Inhalation Device
18 mcg INHALATION R BID
budesonide-formoterol [Breyna] 80-4.5 mcg/actuation Hfa Aerosol Inhaler
2 puff INHALATION R BID
therapeutic multivitamin Tablet
1 tab PO QPM
allopurinol 100 mg tablet
100 mg PO DAILY
aspirin 81 mg Tablet,Delayed Release (Dr/Ec)
81 mg PO DAILY
vitamin B complex Tablet
1 tab PO DAILY
psyllium husk [Fiber (psyllium husk)] 0.52 gram Capsule
0.52 g PO BID
spironolactone 25 mg Tablet
25 mg PO DAILY Qty: 30 0RF
Rx Instructions:
lunch time
docusate sodium [Colace] 100 mg Capsule
100 mg PO DAILY
ZzzQuil 50 mg/30 mL Liquid
50 mg PO HS
pantoprazole 40 mg Tablet,Delayed Release (Dr/Ec)
40 mg PO DAILY Qty: 90 3RF
hydralazine 100 mg Tablet
100 mg PO TID
isosorbide mononitrate 30 mg tablet extended release 24 hr
90 mg PO DAILY Qty: 90 0RF
clopidogrel 75 mg Tablet
75 mg PO DAILY Qty: 30 0RF
clonidine HCl 0.3 mg Tablet
0.3 mg PO BID Qty: 60 0RF
Rx Instructions:
dose increased on this admission
labetalol 100 mg Tablet
100 mg PO BID Qty: 60 0RF
Rx Instructions:
dose decreased on this admission
furosemide 40 mg tablet
40 mg PO BID
Rx Instructions:
breakfast and lunch
Referrals:
Stephen Suazo DO [Family Provider] -
Interventions
Interventions:
*General Assessment Last Done: 06/16/24 19:48
ED- Fall Risk Assessment Last Done: 06/16/24 19:48
ED- Cardiac Assessment Last Done: 06/16/24 19:48
ED- Pulmonary Assessment Last Done: 06/16/24 19:48
Discharge Date and Time
Print Language: MOSOT[place]
[2024-06-16 18:15] VITALS: BP 166/58
[2024-06-16] MEDS: MAXIPIME 2000 MG IV (20:41)
[2024-06-16 21:10] VITALS: BMI 27.1
[2024-06-16 21:14] VITALS: BP 171/34
[2024-06-16 21:17] LABS: Lactic Acid 0.6 mmol/L (0.7-2.0)
[2024-06-16] MEDS: VANCOCIN 540 MG IV (21:33)
[2024-06-16 23:00] VITALS: BP 158/59
--- NOTE | 2024-06-16 23:10 | HPS.HSE ---
Family Physician
-
Family Physician: Stephen Suazo
Chief Complaint
-
shortness of breath
History of Present Illness
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
presenting to the emergency department with cough and shortness of breath.
Patient reported that about 10 days ago was diagnosed with COVID-19 infection. He reported that he was recovering from that up until 2 days ago when he started having productive cough and chest congestion and he was not able to bring up much
sputum. He denied having any fevers or chills. He denied any new sick contacts. He reported weakness. He reported dyspnea on exertion and even shortness of breath at rest. He denies any wheezing. [facility] and while he was
there was Dr. Aguilar pneumonia but was found to be hypoxic so was sent to the emergency department. Patient does not use oxygen at home at baseline.
He denies any nausea or vomiting. He denies any abdominal pain or abdominal distention.
In the emergency department he was hypoxic and placed on 3 L satting 95%, blood pressure was stable at 171/60 with a pulse of 66. Respiratory rate was 20. He had a white count of 15, hemoglobin was 9.6 and plate of 550. Electrolytes notable for a
sodium of 127, potassium 5.1, creatinine was 1.7 which is close to the baseline of around 1.5-1.6. Glucose was 119. Chest x-ray shows patchy bilateral opacities.
Medical History
Past Medical History
Past Medical History: Reports CAD (Status post CABG), CHF, COPD, GERD, HTN, NIDDM and Other (anemia)
Additional Past Medical History:
Renal artery stenosis status post stenting
Past Surgical History: Reports Cardiac (CABG)
Social History
Tobacco: Smoker
Alcohol: None
Drug: None
Employment: Retired
Family History
Family History: Not pertinent
Allergies / Home Medications
Allergies reflects when Allergies were last updated in [employer].
Home Medications with original date entered in [facility]
Allergy/Medication List:
Allergies
Allergy/AdvReac Type Severity Reaction Status Date / Time
sulfamethoxazole Allergy Unknown Verified 06/16/24 15:38
[From Bactrim]
trimethoprim [From Bactrim] Allergy doesnt Verified 06/16/24 15:38
remember
Home Medications
atorvastatin 40 mg tablet 40 mg PO HS High cholesterol 11/09/21
budesonide-formoterol HFA 80 mcg-4.5 mcg/actuation aerosol inhaler (Breyna) 2 puff inhalation R BID Lung/breathing issues 11/09/21
cholecalciferol (vitamin D3) 25 mcg (1,000 unit) capsule (Vitamin D3) 25 mcg PO DAILY Supplement 11/09/21
finasteride 5 mg tablet 5 mg PO DAILY Urinary issue 11/09/21
nifedipine 90 mg tablet,extended release 90 mg PO DAILY Heart disease/condition 11/09/21
polyethylene glycol 3350 17 gram/dose oral powder (Miralax) 17 g PO HS Constipation 11/09/21
tamsulosin 0.4 mg capsule 0.8 mg PO HS Urinary issue 11/09/21
tiotropium bromide 18 mcg capsule with inhalation device 18 mcg inhalation R BID Lung/breathing issues 11/09/21
allopurinol 100 mg tablet 100 mg PO DAILY Gout 06/05/22
aspirin 81 mg tablet,delayed release 81 mg PO DAILY Blood clot prevention/tx 06/05/22
psyllium husk 0.52 gram capsule (Fiber (psyllium husk)) 0.52 g PO BID Constipation 06/05/22
therapeutic multivitamin 1 tab PO HS Supplement 06/05/22
vitamin B complex 1 tab PO DAILY Supplement 06/05/22
spironolactone 25 mg tablet 25 mg PO DAILY #30 tabs 05/14/23
diphenhydramine HCl 50 mg/30 mL oral liquid (ZzzQuil) 50 mg PO HS Sleep 09/11/23
docusate sodium 100 mg capsule (Colace) 100 mg PO DAILY Constipation 09/11/23
pantoprazole 40 mg tablet,delayed release 40 mg PO DAILY #90 tabs 09/12/23
hydralazine 100 mg tablet 100 mg PO TID Blood Pressure 11/14/23
clopidogrel 75 mg tablet 75 mg PO DAILY #30 tabs 11/23/23
clonidine HCl 0.3 mg tablet 0.3 mg PO BID #60 tabs 12/05/23
labetalol 100 mg tablet 100 mg PO BID #60 tabs 12/05/23
furosemide 40 mg tablet 40 mg PO NOON 05/03/24
isosorbide mononitrate 60 mg tablet,extended release 24 hr 60 mg PO DAILY 06/16/24
Review of Systems
-
Constitutional: Reports Fatigue
EENT: Reports No Symptoms
Respiratory: Reports Cough and Trouble Breathing
Cardiac: Reports No Symptoms
Abdomen/GI: Reports No Symptoms
: Reports No Symptoms
Musculoskeletal: Reports No Symptoms
Skin: Reports No Symptoms
Neurological: Reports No Symptoms
Endocrine: Reports No Symptoms
Hematologic/Lymphatic: Reports No Symptoms
Psych: Reports No Symptoms
Physical Exam
Vital Signs
Vital Signs
Temp Pulse Resp BP Pulse Ox
97.3 F 67 21 158/59 96
06/16/24 18:15 06/16/24 23:00 06/16/24 23:00 06/16/24 23:00 06/16/24 23:00
Physical Exam
General: Well Developed, Well Nourished, No Apparent Distress and Comfortable
HEENT: NormoCephalic, Moist mucous membranes and Atraumatic
Respiratory: Rhonchi and Crackles
Cardiac: S1/S2 and Regular Rhythm
Breast: Deferred by me
GI: Soft, Non Tender, Non Distended and Normal Bowel Sounds
Rectal: Deferred by Provider
Genito-urinary: Deferred by me
Musculoskeletal: No Clubbing, No Cyanosis and No Edema
Skin: Warm
Neuro: AO x 3 and Nonfocal/grossly intact
Hematologic/Lymphatic: No Lymphadenopathy
Psych: Calm
Laboratory Results
-
06/16/24 15:48
06/16/24 15:48
Laboratory Results
Lactic Acid 0.6 mmol/L (0.7-2.0) L 06/16/24 20:42
Total Bilirubin 0.7 mg/dl (0.2-1.3) 06/16/24 15:48
AST 46 U/L (17-59) 06/16/24 15:48
ALT 55 U/L (0-50) H 06/16/24 15:48
Alkaline Phosphatase 228 U/L (38-126) H 06/16/24 15:48
Data Reviewed
-
Diagnostic Radiology: Image Personally Visualized and interpreted and Report Reviewed by me
Lab Data: Labs Reviewed by me
Old Records: Reviewed
Impression/Plan
-
IMPRESSION:
83-year-old with multiple comorbidities presenting to the emergency department with cough and shortness of breath and found to be hypoxic with bilateral patchy opacities concerning for pneumonia. He has history of COPD but not on home O2 however is
BiPAP dependent at night. Patient was recently admitted in April for a volvulus status post sigmoidectomy with end colostomy and has a colostomy bag. Recently diagnosed with COVID-19 infection 10 days ago and did well after few days but then
developed this new cough and shortness of breath with bilateral infiltrates concerning for a postviral pneumonia. Since he was recently admitted to the hospital there is concern for hospital-acquired pneumonia. He looks euvolemic on examination.
Sodium is 127. During his last admission patient did suffer some degree of hyponatremia which was thought to be due to limited salt intake. He is requiring 3 L oxygen at this time. No increased work of breathing.
PLAN:
1. PNA - post-viral hcap, increased O2 requirement but no evidence of significant COPD exacerbation. Unable to bring up productive cough.
- admit to imu (bipap)
- blood cultures sent
- checking urinary antigens
- check procalcitonin
- Vancomycin/Cefepime ok
- continue bipap hs with supplemental oxygen
- supportive measures with nebs and antitussives
- continue home budesonide, no systemic steroids at this time.
2. Hyponatremia - Na 127. Appears euvolemic.
- free water restriction overnight and re-evaluate
3. CHF - Patient is euvolemic with some hyponatremia. Hypertensive
- will hold lasix/spironolactone for now
- daily weight and i/os
4. Uncontrolled htn
- continue clonidine, hydralzine, labetolol and imdur
- continue nifedipine
4. BPH
- continue tamsulosin
DVT PPX - heparin sq
Code status - Full Code
[2024-06-16] MEDS: FLUSH (NSS) 1 FLUSH IV (23:57)
[2024-06-17] VITALS (15 sets, daily range): BP systolic 127–209; BP diastolic 45–90; PULSE 89–91; O2SAT 93; BMI 25.6; BMI 25.5
[2024-06-17] MEDS: ROBITUSSIN DM 5 ML PO (02:08)
[2024-06-17] MEDS: APRESOLINE 100 MG PO ×4 (03:26→22:44)
[2024-06-17] MEDS: STERILE WATER FOR INJECTION 10 ML IV ×3 (03:35→20:58)
[2024-06-17] MEDS: MAXIPIME 1000 MG IV ×3 (03:36→20:56)
[2024-06-17] MEDS: FLOMAX 0.8 MG PO ×3 (03:38→22:41)
--- NOTE | 2024-06-17 03:57 | PTCARENOTE ---
Received verbal report from queenie AGUILAR. Patient transferred via stecher to bed without issue. Patient has frequent dry cough, see jun. NSR on monitor ans aox3. Patient resting in bed with call morse in reach.
[2024-06-17 05:25] LABS: Hematocrit 27.1 % (39.0-52.0); Hemoglobin 9.4 g/dL (13.0-18.0); Mean Corp Hgb Conc. 34.7 g/dL (33.0-37.0); Mean Corpuscular Hgb 29.4 pg (27.0-31.0); Mean Corpuscular Volume 84.7 fL (80.0-94.0); Mean Platelet Volume 8.7 fL (7.4-10.4); Platelet Count 576 10^3/uL (130-400); Red Cell Dist. Width 14.1 % (11.5-14.5); White Blood Cell Count 16.6 10^3/uL (4.8-10.8)
[2024-06-17 05:43] LABS: Blood Urea Nitrogen 32 mg/dl (9-20); Calcium 8.9 mg/dl (8.4-10.2); Carbon Dioxide 22 mmol/L (22-30); Chloride 100 mmol/L (98-107); Estimated Creatinine Clearance 34 ml/min; Glucose 100 mg/dl (70-99); Potassium 4.6 mmol/L (3.5-5.1); Sodium 130 mmol/L (135-145); eGFR 42.22
--- NOTE | 2024-06-17 06:11 | PTCARENOTE ---
on admission patient bp was 209/90. aNi RUFFIN made aware and manual bp taken, po meds ordered. 0600 bp still 204/60, system support technician made aware again and another manual bp taken which was 194/60. WEB APPLICATIONS ARCHITECT said to give PO morning meds early.
[2024-06-17] MEDS: ALDACTONE 25 MG PO (06:25)
[2024-06-17] MEDS: PROCARDIA XL (EXTENDED RELEASE) 90 MG PO (06:25)
[2024-06-17] MEDS: SYMBICORT 80/4.5 MCG INHALER 2 PUFF INH ×2 (08:05→19:21)
[2024-06-17] MEDS: SPIRIVA RESPIMAT 2.5 MCG 2 PUFF INH (08:05)
--- NOTE | 2024-06-17 08:34 | PHA.VAN.IN ---
Assessment
- Assessment
Renal Function: Unknown baseline
Concomitant Antimicrobials: cefepime
Plan
- Plan
Initial / Loading Dose: 2000mg - 06/16 21:33
Maintenance Regimen: dosing by level
Monitoring: random 06/18 06
MRSA Screen: Ordered per protocol
Pharmacokinetics Vancomycin I
- -
Patient Age: 83
Patient Sex: Male
Vancomycin Day #: 1
Indication: Pulmonary/Respiratory
Requesting Provider: Dr. Larsen
Pertinent Antimicrobial Allergies:
sulfamethoxazole/trimethoprim - unknown
Height / Weight:
Height 5 ft 9 in
Actual Weight 78.4 kg
Pertinent Past Medical History: DM, COPD
- Vital Signs / Lab Results
Temp Pulse Resp BP Pulse Ox
97.7 F 82 20 204/60 95
06/17/24 07:28 06/17/24 06:25 06/17/24 05:45 06/17/24 06:25 06/17/24 05:45
Lab Results - Hematology
06/16/24 06/17/24
15:48 04:50
WBC 15.0 H 16.6 H
Lab Results - Chemistry
06/16/24 06/17/24
15:48 04:50
BUN 37 H 32 H
Creatinine 1.7 H 1.6 H
Estimated Creat Clear 34
Albumin 3.3 L
06/16/24 06/17/24
20:42 00:00
Lactic Acid 0.6 L Cancelled
[2024-06-17] MEDS: PROTONIX 40 MG PO (09:38)
[2024-06-17] MEDS: PLAVIX 75 MG PO (09:38)
[2024-06-17] MEDS: TRANDATE 100 MG PO ×2 (09:38→20:55)
[2024-06-17] MEDS: PROSCAR 5 MG PO (09:38)
[2024-06-17] MEDS: METAMUCIL, KONSYL 0.52 PACKET PO ×2 (09:38→20:55)
[2024-06-17] MEDS: ASPIR LOW (ENTERIC COATED) 81 MG PO (09:38)
[2024-06-17] MEDS: CATAPRES 0.3 MG PO ×2 (09:38→20:54)
[2024-06-17] MEDS: COLACE 100 MG PO (09:39)
[2024-06-17] MEDS: ZYLOPRIM 100 MG PO (09:39)
[2024-06-17] MEDS: IMDUR (EXTENDED RELEASE) 60 MG PO (09:39)
[2024-06-17] MEDS: HEPARIN 5000 UNITS SC ×2 (09:39→15:12)
--- NOTE | 2024-06-17 10:23 | W.PN.HOSP.TC ---
Today's Communication/Plan
-
transfer tele
continue abx
continue monitoring BP
Assessment / Plan
Assessment / Plan
1. Acute upper respiratory failure
Post viral pneumonia
-Recovering from COVID 19 infection
-CXR reviewed
-blood cs pending
-Maintain on vanc/cefepime for now
2. Euvolemic Hyponatremia
- Na 130 today
- free water restriction overnight and re-evaluate
3. Diastolic CHF
- no signs of volume overload
- continue on lasix 40mg/d
- daily weight and i/os
4. Uncontrolled HTN
h/o B/l BEATRICE - s/p stenting
- continue clonidine, hydralazine, labetolol and imdur
- continue nifedipine
5. BPH
- continue tamsulosin
6. CKDIIIB
-cr close to baseline, monitor.
Gout
HLD
BPH
?COPD
DVT PPX - heparin sq
Code status - Full Code
Total time spent : 54 mins
Anticipated Discharge: 24 - 48 hours
Subjective/Interval History
-
Date of Service: June 17, 2024
remains on o2 through NC
have ongoing sob
afebrile
Objective Data
-
Labs:
Laboratory Results
06/17/24
04:50
WBC 16.6 H
Hgb 9.4 L
Hct 27.1 L
Plt Count 576 H
Sodium 130 L
Potassium 4.6
Chloride 100
Carbon Dioxide 22
BUN 32 H
Creatinine 1.6 H
Glucose 100 H
Calcium 8.9
Vital Signs:
Vital Signs
Temp Pulse Resp BP Pulse Ox
97.7 F 82 20 204/60 96
06/17/24 07:28 06/17/24 06:25 06/17/24 05:45 06/17/24 06:25 06/17/24 08:51
I&O
06/16/24 06/17/24 06/18/24
06:59 06:59 06:59
Output Total 450 / 450 375 / 375
Balance -450 / -450 -375 / -375
Review of Systems
-
Respiratory: Reports Cough and Trouble Breathing
Cardiac: Reports No Symptoms
Abdomen/GI: Reports No Symptoms
Physical Exam
-
General: No Apparent Distress and Comfortable
HEENT: Oxygen (5l NC)
Respiratory: Clear to Auscultation
Cardiac: Regular Rhythm and S1/S2; Negative Murmur or Rub
GI: Soft, Nontender and Nondistended
Musculoskeletal: No Edema
Neuro: Awake, Alert, Oriented, No Motor Deficits and Nonfocal/Grossly Intact
Psych: Calm
--- NOTE | 2024-06-17 10:25 | PTOTSP ---
Please order occupational therapy for ADL dysfunction.
--- NOTE | 2024-06-17 14:06 | PTCARENOTE ---
Pt hypertensive; Dr Sow notified via TT.
[2024-06-17] MEDS: LASIX 40 MG PO (15:12)
--- NOTE | 2024-06-17 15:15 | PTCARENOTE ---
pt received from IMU in wheelchair. AAOx3, O2 at 3LNC. pt ambulated to bed, +BYRD. VSS, blood pressure in parameters. oriented to room and unit protocols
--- NOTE | 2024-06-17 15:34 | PTCARENOTE ---
Pt for transfer to tele. Report called to receiving RN. Belongings collected from room. Transferred to [facility] via stretcher.
--- NOTE | 2024-06-17 15:51 | CM ---
Patient from [facility] with Dx recent COVID infection, PNA. Novel Resp Precautions. O2 5L this morning---> RA. Receiving IV Abx. PT recommends skilled rehab. OT Eval pending.
Attempted to speak with patient who was sleeping.
Spoke with patient's daughter Serena;
the patient and his reside at [facility].
The patient was independent in ADLs and ambulation using either his RW or SPC.
DME - RW, SPC, CPAP
Recent [facility]
Recent [facility] - daughter says he would not agree to go there again
PCP - Stephen Suazo
Pharmacy - [facility]
Daughter is hoping patient can improve in his mobility and go directly back to with resumption VN.
Spoke with Carly, Nurse [facility];
she confirms patient is current with [facility].
Patient's mobility will need to improve in order for him to return without going to SNF for rehab.
The ph for report [phone], fax [phone].
Plan follow patient's O2 needs.
Plan follow patient's progress with his mobility and contact .
Plan probable return to [facility] with resumption [facility] VN[facility] .
[2024-06-17] MEDS: MIRALAX 17 GRAMS PO (23:07)
[2024-06-17] MEDS: LIPITOR 40 MG PO (23:07)
[2024-06-18] VITALS (10 sets, daily range): BP systolic 128–188; BP diastolic 48–61; PULSE 2–78; O2SAT 90–91; BMI 24.8
[2024-06-18] MEDS: HEPARIN 5000 UNITS SC ×4 (00:06→23:15)
[2024-06-18] MEDS: STERILE WATER FOR INJECTION 10 ML IV ×3 (03:44→19:42)
[2024-06-18] MEDS: MAXIPIME 1000 MG IV ×3 (03:44→19:42)
[2024-06-18] MEDS: APRESOLINE 10 MG IV (03:46)
[2024-06-18] MEDS: ASPIR LOW (ENTERIC COATED) 81 MG PO (08:24)
[2024-06-18] MEDS: CATAPRES 0.3 MG PO ×2 (08:24→19:47)
[2024-06-18] MEDS: PROSCAR 5 MG PO (08:24)
[2024-06-18] MEDS: TRANDATE 100 MG PO ×2 (08:24→19:47)
[2024-06-18] MEDS: IMDUR (EXTENDED RELEASE) 60 MG PO (08:24)
[2024-06-18] MEDS: PLAVIX 75 MG PO (08:24)
[2024-06-18] MEDS: PROTONIX 40 MG PO (08:24)
[2024-06-18] MEDS: ZYLOPRIM 100 MG PO (08:24)
[2024-06-18] MEDS: COLACE 100 MG PO (08:25)
[2024-06-18] MEDS: SPIRIVA RESPIMAT 2.5 MCG 2 PUFF INH (08:27)
[2024-06-18] MEDS: SYMBICORT 80/4.5 MCG INHALER 2 PUFF INH ×2 (08:27→20:03)
[2024-06-18] MEDS: ALDACTONE 25 MG PO (08:33)
[2024-06-18] MEDS: PROCARDIA XL (EXTENDED RELEASE) 90 MG PO (08:33)
[2024-06-18] MEDS: APRESOLINE 100 MG PO ×3 (08:34→21:41)
[2024-06-18] MEDS: METAMUCIL, KONSYL 0.52 PACKET PO ×2 (08:38→19:45)
[2024-06-18 10:17] LABS: Blood Urea Nitrogen 37 mg/dl (9-20); Calcium 9.1 mg/dl (8.4-10.2); Carbon Dioxide 19 mmol/L (22-30); Chloride 97 mmol/L (98-107); Estimated Creatinine Clearance 34 ml/min; Glucose 151 mg/dl (70-99); Potassium 4.4 mmol/L (3.5-5.1); Sodium 130 mmol/L (135-145); eGFR 42.22
[2024-06-18] MEDS: LASIX 40 MG PO (11:26)
--- NOTE | 2024-06-18 15:53 | W.PN.HOSP.TC ---
Today's Communication/Plan
-
Wean off oxygen as possible
Discontinue vancomycin
Discussed need for pulmonology office follow-up
Add Aldactone at night
Needs SNF rehab placement
Assessment / Plan
Assessment / Plan
1. Acute hypoxic respiratory failure - Improving
Post viral pneumonia
-Recovering from COVID 19 infection
-CXR reviewed
-Legionella/strep urine antigen negative
-blood cs and mrsa neg.
-Discontinue vancomycin. Continue cefepime
2. Euvolemic Hyponatremia
- Na 130 today
- free water restriction adjusted to 40 ounce
3. Diastolic CHF
- no signs of volume overload
- continue on lasix 40mg/d
- daily weight and i/os
4. Uncontrolled HTN
h/o B/l BEATRICE - s/p stenting
- continue clonidine, hydralazine, labetolol and imdur
- continue nifedipine
- Added nighttime Aldactone dose.
5. BPH
- continue tamsulosin
6. CKDIIIB
-cr close to baseline, monitor.
Gout
HLD
BPH
?COPD
DVT PPX - heparin sq
Code status - Full Code
Anticipated Discharge: Within 24 hours
Subjective/Interval History
-
Date of Service: June 18, 2024
No complaints overnight
Remains on oxygen through nasal cannula
Afebrile
Some dry cough
Objective Data
-
Labs:
Laboratory Results
06/18/24
09:48
Sodium 130 L
Potassium 4.4
Chloride 97 L
Carbon Dioxide 19 L
BUN 37 H
Creatinine 1.6 H
Glucose 151 H
Calcium 9.1
Vital Signs:
Vital Signs
Temp Pulse Resp BP Pulse Ox
97.4 F 78 16 128/48 97
06/18/24 11:18 06/18/24 11:50 06/18/24 11:50 06/18/24 11:18 06/18/24 11:50
I&O
06/17/24 06/18/24 06/19/24
06:59 06:59 06:59
Intake Total 1200 / 1200
Output Total 450 / 450 1175 / 1175
Balance -450 / -450
Review of Systems
-
Respiratory: Reports Cough; Denies Trouble Breathing
Cardiac: Reports No Symptoms
Abdomen/GI: Reports No Symptoms
Physical Exam
-
General: No Apparent Distress and Comfortable
HEENT: Oxygen (5l NC)
Respiratory: Rhonchi
Cardiac: Regular Rhythm and S1/S2; Negative Murmur or Rub
GI: Soft, Nontender and Nondistended
Musculoskeletal: No Edema
Neuro: Awake, Alert, Oriented, No Motor Deficits and Nonfocal/Grossly Intact
Psych: Calm
[2024-06-18] MEDS: MIRALAX 17 GRAMS PO (21:40)
[2024-06-18] MEDS: LIPITOR 40 MG PO (21:40)
[2024-06-18] MEDS: FLOMAX 0.8 MG PO (21:40)
[2024-06-19] VITALS (8 sets, daily range): BP systolic 105–191; BP diastolic 48–111; PULSE 2–62; BMI 24.9
[2024-06-19] MEDS: STERILE WATER FOR INJECTION 10 ML IV ×2 (03:05→12:13)
[2024-06-19] MEDS: MAXIPIME 1000 MG IV ×2 (03:05→12:12)
[2024-06-19] MEDS: APRESOLINE 10 MG IV (03:52)
[2024-06-19 08:01] LABS: Hematocrit 27.9 % (39.0-52.0); Hemoglobin 9.6 g/dL (13.0-18.0); Mean Corp Hgb Conc. 34.4 g/dL (33.0-37.0); Mean Corpuscular Hgb 29.1 pg (27.0-31.0); Mean Corpuscular Volume 84.5 fL (80.0-94.0); Mean Platelet Volume 8.7 fL (7.4-10.4); Platelet Count 605 10^3/uL (130-400); Red Cell Dist. Width 14.2 % (11.5-14.5); White Blood Cell Count 12.7 10^3/uL (4.8-10.8)
[2024-06-19] MEDS: SYMBICORT 80/4.5 MCG INHALER 2 PUFF INH ×2 (08:04→20:07)
[2024-06-19] MEDS: SPIRIVA RESPIMAT 2.5 MCG 2 PUFF INH (08:04)
[2024-06-19] MEDS: METAMUCIL, KONSYL 0.52 PACKET PO ×2 (08:13→19:22)
[2024-06-19] MEDS: PROCARDIA XL (EXTENDED RELEASE) 90 MG PO (08:13)
[2024-06-19] MEDS: PLAVIX 75 MG PO (08:14)
[2024-06-19] MEDS: APRESOLINE 100 MG PO ×3 (08:14→21:45)
[2024-06-19] MEDS: CATAPRES 0.3 MG PO ×2 (08:14→19:26)
[2024-06-19] MEDS: ASPIR LOW (ENTERIC COATED) 81 MG PO (08:14)
[2024-06-19] MEDS: COLACE 100 MG PO (08:14)
[2024-06-19] MEDS: IMDUR (EXTENDED RELEASE) 60 MG PO (08:14)
[2024-06-19] MEDS: TRANDATE 100 MG PO ×2 (08:14→19:26)
[2024-06-19] MEDS: PROTONIX 40 MG PO (08:14)
[2024-06-19] MEDS: ALDACTONE 25 MG PO (08:14)
[2024-06-19] MEDS: ZYLOPRIM 100 MG PO (08:14)
[2024-06-19] MEDS: PROSCAR 5 MG PO (08:14)
[2024-06-19] MEDS: HEPARIN 5000 UNITS SC ×3 (08:14→23:45)
[2024-06-19 08:27] LABS: Blood Urea Nitrogen 33 mg/dl (9-20); Calcium 8.9 mg/dl (8.4-10.2); Carbon Dioxide 19 mmol/L (22-30); Chloride 100 mmol/L (98-107); Estimated Creatinine Clearance 32 ml/min; Glucose 111 mg/dl (70-99); Potassium 4.6 mmol/L (3.5-5.1); Sodium 130 mmol/L (135-145); eGFR 39.26
--- NOTE | 2024-06-19 11:34 | CM ---
Addendum entered by Aarti Chanel 06/19/24 14:23:
CM with daughter who spoke with , daughter reports [facility] were told patient was an assist of two. CM placed call to , left vm to speak with nurse, will fax clinicals with PT to for review.
Original Note:
CM reviewed chart, placed call to , spoke with Nurse Rdz, reviewed PT recommendations of SNF. Nurse Rdz in agreement, reports patient is completely independent at . Daughter and patient seen bedside, not agreeable to rehab,
reports patient would like to return back to [facility] with therapy at facility. Daughter to call [facility] . CM will continue to follow for all discharge planning needs.
Plan; Family not agreeable to SNF, would like patient to return to [facility] with therapy, family to call [facility] .
[2024-06-19] MEDS: LASIX 40 MG PO (12:12)
--- NOTE | 2024-06-19 12:45 | WOUNDNOTE ---
[facility] RN note: Patient seen for colostomy per patient's request. Patient stated he is independent in his ostomy care at home and he uses a 2 1/4 inch 2 piece Otis appliance and he does use a moldable ring sometimes. Patient does not have his
supplies. Stoma LUQ 1 3/8 inches x 1 1/8 inch slightly budded and pink. Stoma functioning for soft brown stool. Changed his appliance using [place] wafer # [id number], Bessy seal and [place] pouch # [id number]. Extra appliance left in room. Patient has a
small stage 2 sacral/coccyx pressure injury and small abrasion suspect from moisture L inner buttocks. Silicone border foam applied. Patient has an air chair cushion and has a Versacare air bed. Po intake has been fair. Instructed patient pressure
injury prevention measures. Family member Serena present. Updated RN Moshe. Nursing care assist patient with routine ostomy care. Will follow peripherally as needed.
--- NOTE | 2024-06-19 13:53 | W.PN.HOSP.TC ---
Addendum entered and electronically signed by Lucas Sow MD 06/20/24 07:40:
Add on to diagnosis list:
Sepsis - POA
small stage 2 sacral/coccyx pressure injury and small abrasion suspect from moisture L inner buttocks
Original Note:
Today's Communication/Plan
-
medically clear for discharge planning
Assessment / Plan
Assessment / Plan
1. Acute hypoxic respiratory failure - Resolved
Bacterial Pneumonia from COVID 19 viral infection
-Recovered from COVID 19 infection
-CXR reviewed
-Legionella/strep urine antigen negative
-blood cs and MRSA neg.
-Transition to 3 more days of oral antibiotics at discharge
2. Euvolemic Hyponatremia
- Na 130 today
- free water restriction adjusted to 40 ounce
3. Diastolic CHF
- no signs of volume overload
- continue on lasix 40mg/d
- daily weight and i/os
4. Uncontrolled HTN
h/o B/l BEATRICE - s/p stenting
- continue clonidine, hydralazine, labetolol and imdur
- continue nifedipine
- Added nighttime Aldactone dose.
-Patient continues to have very highs and very lows with systolic blood pressures. Will need cautious uptitrating of medication if needed
5. BPH
- continue tamsulosin
6. CKDIIIB
-cr close to baseline, monitor.
Gout
HLD
BPH
?COPD
DVT PPX - heparin sq
Code status - Full Code
Anticipated Discharge: Within 24 hours
Subjective/Interval History
-
Date of Service: June 19, 2024
Denies of having any problems overnight
no new issues
Objective Data
-
Labs:
Laboratory Results
06/19/24
07:15
WBC 12.7 H
Hgb 9.6 L
Hct 27.9 L
Plt Count 605 H
Sodium 130 L
Potassium 4.6
Chloride 100
Carbon Dioxide 19 L
BUN 33 H
Creatinine 1.7 H
Glucose 111 H
Calcium 8.9
Vital Signs:
Vital Signs
Temp Pulse Resp BP Pulse Ox
97.5 F 63 22 133/48 96
06/19/24 11:00 06/19/24 11:00 06/19/24 11:00 06/19/24 11:00 06/19/24 11:00
I&O
06/18/24 06/19/24 06/20/24
06:59 06:59 06:59
Intake Total 1200 / 1200 720 / 720
Output Total 1175 / 1175 425 / 425
Balance 295 / 295
Review of Systems
-
Respiratory: Reports No Symptoms
Cardiac: Reports No Symptoms
Abdomen/GI: Reports No Symptoms
Physical Exam
-
General: No Apparent Distress and Comfortable
HEENT: Oxygen (5l NC)
Respiratory: Rhonchi
Cardiac: Regular Rhythm and S1/S2; Negative Murmur or Rub
GI: Soft, Nontender, Nondistended and Ostomy
Musculoskeletal: No Edema
Neuro: Awake, Alert, Oriented, No Motor Deficits and Nonfocal/Grossly Intact
Psych: Calm
--- NOTE | 2024-06-19 16:20 | WOUNDNOTE ---
[facility] RN note: Michael Chanel re: patient would benefit from an air mattress. He has a small stage 2 sacral pressure injury.
[2024-06-19] MEDS: OMNICEF 300 MG PO (19:22)
[2024-06-19] MEDS: FLOMAX 0.8 MG PO (21:38)
[2024-06-19] MEDS: MIRALAX 17 GRAMS PO (21:38)
[2024-06-19] MEDS: LIPITOR 40 MG PO (21:45)
[2024-06-20] VITALS (8 sets, daily range): BP systolic 142–190; BP diastolic 48–67; PULSE 67; BMI 23.4
[2024-06-20] MEDS: APRESOLINE 10 MG IV ×2 (00:50→04:10)
[2024-06-20] MEDS: DUONEB 3 ML INH (02:24)
--- NOTE | 2024-06-20 02:33 | W.PN.UPDATE ---
Update Note
Progress Note Update
Around 2 am, asked to see patient for SOB/anxiety and continuing hypertension after receiving PRN hydralazine 10 mg IV at 1 am. Vital signs: BP 185/65, HR 66, Resp 24, 95% on 3L NC, temp 97.5.
Patient was unable to tolerate Bipap as ordered. Patient states he is unable to catch his breath and he feels anxious. Lungs w/slight wheeze and rhonchi t/o. Requested respiratory treatment, which was given. Patient reports
Patient given Robitussin PRN.
~ 4 am, BP remained elevated 182/55, HR 81, ordered Hydralazine, BP improved 158/48, HR 90.
~4:30 pt noted to be going in and out of afib. EKG ordered and showed SR w/first degree AV block, PAC's, RBBB. preliminary read similar to previous EKG's. Cardiology consult requested.
[2024-06-20] MEDS: ROBITUSSIN DM 5 ML PO (02:44)
[2024-06-20] MEDS: ATIVAN 0.5 MG IV (03:19)
[2024-06-20] MEDS: NSS (PRESERVATIVE FREE) 0.25 ML IV (03:27)
--- NOTE | 2024-06-20 07:29 | PN.CDI ---
CDI
- -
CDI:
Physician Documentation Request
Admit Date: 06/16/24 23:44
Dear Doctor Juanjose,
Please review the following and provide your response in the progress notes.
Clinical Indicators:
Pt admitted with Bacterial Pneumonia /Acute Hypoxic Respiratory Failure
Documented per [facility] note 06/19,'Patient has a small stage 2 sacral/coccyx pressure injury and small abrasion suspect from moisture L inner buttocks. Silicone border foam applied. Patient has an air chair cushion and has a Versacare air bed....'
Physician documentation of the type and location of wounds is required for compliant documentation. Based on the above clinical findings and your assessment, please provide the following in your progress note:
1. Location of the ulcer/wound, including laterality.
2. Type (etiology) of ulcer/wound:
- Pressure (decubitus) ulcer
- Non-pressure ulcer
- Other ( please specify)
Use of terms such as suspected, likely, concern for, or probable (associated with a specific diagnosis that is being evaluated, monitored, or treated as if it exists) are acceptable and can be coded in the inpatient setting, when documented at the
time of discharge.
Thank you,
Blanca Hartman RN
CDI Specialist
[place] [facility]
Please use your independent medical judgment in providing your response.
*Source: National Pressure Ulcer Advisory Panel (NPUAP)
--- NOTE | 2024-06-20 07:31 | PN.CDI ---
CDI
- -
CDI:
Physician Documentation Request
Admit Date: 06/16/24 23:44
Dear Doctor Juanjose,
Please review the following and provide your response in the progress notes.
Clinical Indicators:
Pt admitted with Bacterial Pneumonia /Acute Hypoxic Respiratory Failure
On admit WBC 15.0, Respirations 32 - On Cefepime
Please clarify which of the following most accurately describes the status of the patient's infection:
Sepsis-POA
- Systemic manifestations of infection, with 2 or more SIRS criteria which include:
- Fever >100.4 degrees F or hypothermia < 96.8 degrees F
- Leukocytosis - WBC > 12,000 or leukopenia - WBC < 4,000 or > 10% bands
- Tachycardia > 90 beats per minute
- Tachypnea - RR > 20 breaths per minute or PaCO2 , 32mmHg
Source: [employer]ck Manual 2013
Bacterial pneumonia only, Without Systemic Illness
Other ( please specify)
Use of terms such as suspected, likely, concern for, or probable (associated with a specific diagnosis that is being evaluated, monitored, or treated as if it exists) are acceptable and can be coded in the inpatient setting, when documented at the
time of discharge.
Thank you,
Blanca Hartman RN
CDI Specialist
[place] [facility]
Please use your independent medical judgment in providing your response.
[2024-06-20] MEDS: OMNICEF 300 MG PO (07:45)
[2024-06-20] MEDS: ALDACTONE 25 MG PO (07:45)
[2024-06-20] MEDS: ASPIR LOW (ENTERIC COATED) 81 MG PO (07:45)
[2024-06-20] MEDS: PROCARDIA XL (EXTENDED RELEASE) 90 MG PO (07:45)
[2024-06-20] MEDS: APRESOLINE 100 MG PO ×2 (07:46→15:32)
[2024-06-20] MEDS: METAMUCIL, KONSYL 0.52 PACKET PO (07:46)
[2024-06-20] MEDS: CATAPRES 0.3 MG PO (07:46)
[2024-06-20] MEDS: PLAVIX 75 MG PO (07:46)
[2024-06-20] MEDS: ZYLOPRIM 100 MG PO (07:46)
[2024-06-20] MEDS: IMDUR (EXTENDED RELEASE) 60 MG PO (07:47)
[2024-06-20] MEDS: COLACE 100 MG PO (07:47)
[2024-06-20] MEDS: PROSCAR 5 MG PO (07:47)
[2024-06-20] MEDS: HEPARIN 5000 UNITS SC ×2 (07:47→15:31)
[2024-06-20] MEDS: TRANDATE 100 MG PO (07:47)
[2024-06-20] MEDS: PROTONIX 40 MG PO (07:47)
[2024-06-20] MEDS: SYMBICORT 80/4.5 MCG INHALER 2 PUFF INH (07:58)
[2024-06-20] MEDS: SPIRIVA RESPIMAT 2.5 MCG 2 PUFF INH (07:58)
[2024-06-20 08:34] LABS: Hematocrit 30.3 % (39.0-52.0); Hemoglobin 10.4 g/dL (13.0-18.0); Mean Corp Hgb Conc. 34.3 g/dL (33.0-37.0); Mean Corpuscular Volume 84.4 fL (80.0-94.0); Mean Platelet Volume 8.5 fL (7.4-10.4); Platelet Count 626 10^3/uL (130-400); Red Blood Cell Count 3.59 10^6/uL (4.70-6.10); Red Cell Dist. Width 14.3 % (11.5-14.5)
[2024-06-20 08:44] LABS: Blood Urea Nitrogen 33 mg/dl (9-20); Calcium 9.3 mg/dl (8.4-10.2); Carbon Dioxide 20 mmol/L (22-30); Chloride 97 mmol/L (98-107); Estimated Creatinine Clearance 31 ml/min; Glucose 112 mg/dl (70-99); Potassium 4.4 mmol/L (3.5-5.1); Sodium 130 mmol/L (135-145); eGFR 36.66
--- NOTE | 2024-06-20 09:27 | CON.CAR ---
Addendum entered and electronically signed by Tamir Maurer MD 06/20/24 14:36:
Patient seen and examined in collaboration with ASSOCIATE MANAGER; agree with below.
-83-year-old male with CAD/CABG (2016), ELIEZER to left main (11/22/2023), chronic heart failure with preserved EF, COPD, chronic first-degree AV block, and PAD status-post renal artery stent (right 09/11/2023 and left 12/04/2023), and CKD admitted with
shortness of breath; recently had COVID-19. Patient found to have bilateral pneumonia this admission. Cardiology was consulted for possible atrial fibrillation.
-Upon review of the patient's telemetry strips and EKGs, the patient does not have atrial fibrillation, he has sinus rhythm with PACs.
-Continue treatment of pneumonia as per primary team.
-For management of hypertension, will increase labetalol from 100 mg twice daily to 200 mg daily and will increase isosorbide mononitrate ER from 60 mg to 120 mg daily.
-Continue other antihypertensive medications.
-No further cardiac recommendations at this time; Cardiology will remain available on an as-needed basis.
-Outpatient follow-up with Cardiology.
Addendum entered and electronically signed by AUGUSTIN Guadalupe 06/20/24 10:47:
Physical Exam:
General: AAO, pleasant, no acute distress.
HEENT: Normocephalic
Respiratory: diminished b/l
Cardiac: normal S1/S2
Breast: Deferred by me
GI: Soft, Non Tender, Non Distended and Normal Bowel Sounds
Rectal: Deferred by Provider
Musculoskeletal: No Edema
Skin: Warm and Dry
Neuro: AAOx3, intact.
Psych: Calm
Original Note:
Consultation
Consultation Request
Date/Time Consultation Requested: 06/20/24 5:15a
Date/Time Consultation Performed: 06/20/24 8:30a
Requesting Provider: AUGUSTIN Garsia
Performing Provider: AUGUSTIN Guadalupe for Dr. Maurer
Reason for Consultation: arrhythmia
Medical History
-
Chief Complaint: sob
History of Present Illness:
Mr. Tidwell is an 83-year-old male with hypertension, CAD s/p CABG (MEDEIROS to LAD in 2017), ACS due to hypertensive emergency and underwent successful ELIEZER of left main disease into circumflex on 11/22/2023 on ASA/Plavix, dyslipidemia, RBBB, HFpEF, DM,
COPD with PHTN, 1st degree AVB, PAD- right renal artery stent 09/11/23, left renal artery stent 12/04/23, ARMAAN on CPAP, CKD 3b and GERD, who presented to the ER with c/o SOB and noted to have PNA (he had COVID 2 weeks ago). He is admitted to the
hospitalist service and we are consulted for possible Afib seen on tele last night. He was hypertensive last night as well. EKG and tele reviewed and no Afib seen, he has SR with 1st degree AVB with PVCs, PACs and blocked PACs. He denies any
palpitations.
Past Medical History
Past Medical History: Other (as above)
Past Surgical History: Other (as above)
Social History
Tobacco: Former Smoker
Alcohol: None
Personal:
Living: Assisted Living ([facility] with his )
Family History
Family History: Reviewed & Not Pertinent
Allergies / Home Medications
Allergy/AdvReac Type Severity Reaction Status Date / Time
sulfamethoxazole Allergy Unknown Verified 06/16/24 15:38
[From Bactrim]
trimethoprim [From Bactrim] Allergy doesnt Verified 06/16/24 15:38
remember
�Medication �Instructions �Recorded �Confirmed �Type
atorvastatin 40 mg tablet 40 mg PO HS High cholesterol 11/09/21 06/16/24 History
budesonide-formoterol HFA 80 2 puff inhalation R BID 11/09/21 06/16/24 History
mcg-4.5 mcg/actuation aerosol Lung/breathing issues
inhaler (Breyna)
cholecalciferol (vitamin D3) 25 25 mcg PO DAILY Supplement 11/09/21 06/16/24 History
mcg (1,000 unit) capsule (Vitamin
D3)
finasteride 5 mg tablet 5 mg PO DAILY Urinary issue 11/09/21 06/16/24 History
nifedipine 90 mg tablet,extended 90 mg PO DAILY Heart 11/09/21 06/16/24 History
release disease/condition
polyethylene glycol 3350 17 17 g PO HS Constipation 11/09/21 06/16/24 History
gram/dose oral powder (Miralax)
tamsulosin 0.4 mg capsule 0.8 mg PO HS Urinary issue 11/09/21 06/16/24 History
tiotropium bromide 18 mcg capsule 18 mcg inhalation R BID 11/09/21 06/16/24 History
with inhalation device Lung/breathing issues
allopurinol 100 mg tablet 100 mg PO DAILY Gout 06/05/22 06/16/24 History
aspirin 81 mg tablet,delayed 81 mg PO DAILY Blood clot 06/05/22 06/16/24 History
release prevention/tx
psyllium husk 0.52 gram capsule 0.52 g PO BID Constipation 06/05/22 06/16/24 History
(Fiber (psyllium husk))
therapeutic multivitamin 1 tab PO HS Supplement 06/05/22 06/16/24 History
vitamin B complex 1 tab PO DAILY Supplement 06/05/22 06/16/24 History
diphenhydramine HCl 50 mg/30 mL 50 mg PO HS Sleep 09/11/23 06/16/24 History
oral liquid (ZzzQuil)
docusate sodium 100 mg capsule 100 mg PO DAILY Constipation 09/11/23 06/16/24 History
(Colace)
pantoprazole 40 mg tablet,delayed 40 mg PO DAILY #90 tabs 09/12/23 06/16/24 Rx
release
hydralazine 100 mg tablet 100 mg PO TID Blood Pressure 11/14/23 06/16/24 History
clopidogrel 75 mg tablet 75 mg PO DAILY #30 tabs 11/23/23 06/16/24 Rx
clonidine HCl 0.3 mg tablet 0.3 mg PO BID #60 tabs 12/05/23 06/16/24 Rx
labetalol 100 mg tablet 100 mg PO BID #60 tabs 12/05/23 06/16/24 Rx
furosemide 40 mg tablet 40 mg PO NOON Fluid 05/03/24 06/16/24 History
Retention/Swelling
isosorbide mononitrate 60 mg 60 mg PO DAILY Blood Pressure 06/16/24 06/16/24 History
tablet,extended release 24 hr
cefdinir 300 mg capsule 300 mg PO Q12 #6 caps 06/19/24 Rx
spironolactone 25 mg tablet 25 mg PO BID #30 tabs 06/19/24 06/16/24 Rx
Review of Systems
-
History Source: Patient
All other systems: Negative unless noted
Physical Exam
Vital Signs
Temp Pulse Resp BP Pulse Ox
97.7 F 80 20 190/65 94
06/20/24 08:26 06/20/24 08:26 06/20/24 08:26 06/20/24 08:26 06/20/24 08:26
Lab Results
06/20/24 07:57
06/20/24 07:57
Impression / Plan
-
PACs/PVCs/1st degree AVB - normal sinus rhythm.
- no Afib on tele or EKG.
- monitor on tele.
HTN - elevated.
- will increase Labetalol to 200mg BID and Imdur to 120mg daily.
- monitor.
CAD - s/p CABG 2017.
- ELIEZER to LM into Cx 11/22/23.
- denies angina.
- continue ASA/Plavix.
HFpEF - chronic and stable.
- continue outpatient Lasix.
PAD - stable, followed by Dr. Wong.
- s/p right renal artery stent 08/2023.
- s/p left renal artery stent 11/2023.
- continue ASA/Plavix, Lipitor.
HLD - stable on Lipitor.
- LDL 51 08/2023.
ARMAAN - stable on CPAP, continue.
CKD - 3b.
- stable.
Data Reviewed
-
EKG: Tracing Personally Visualized and interpreted (NSR 1st degree AVB with PACs, aberrant conduction, RBBB)
Labs: Labs Reviewed by me
Old Records: Reviewed
--- NOTE | 2024-06-20 11:25 | CM ---
Addendum entered by Nathalia Brown 06/20/24 13:31:
[facility] skilled
Report [phone]

Addendum entered by Nathalia Brown 06/20/24 13:24:
Auth received for skilled placement at [facility] 7 days skilled 06/20/24 to 06/26/24, Auth [id number], all clinicals faxed to [phone]. Daughter to transport at 3:30pm and bring over Bipap Machine.
Original Note:
Chart reviewed and physical therapy saw patient again today and recommendation is for skilled placement, porter sample case spoke with Kajal at [facility] and they insist that patient go to rehab, options reviewed with patient and patient and daughter
have selected [facility], referral sent to [facility] and they can accept patient today, patient will need to bring own Bipap machine and porter sample case will need to obtain Auth from [employer] insurance.
Plan; Skilled placement at [facility] today, needs Auth
[2024-06-20] MEDS: LASIX 40 MG PO (12:02)
[2024-06-20] MEDS: XANAX 0.25 MG PO (12:47)
--- NOTE | 2024-06-20 14:48 | W.PN.HOSP.TC ---
Today's Communication/Plan
-
d/c snf rehab
Assessment / Plan
Assessment / Plan
1. Acute hypoxic respiratory failure - Resolved
Bacterial Pneumonia from COVID 19 viral infection
-Recovered from COVID 19 infection
-CXR reviewed
-Legionella/strep urine antigen negative
-blood cs and MRSA neg.
-Transition to 3 more days of oral antibiotics at discharge
2. Euvolemic Hyponatremia
- Na 130 today
- free water restriction adjusted to 40 ounce
3. Diastolic CHF
- no signs of volume overload
- continue on lasix 40mg/d
- daily weight and i/os
4. Uncontrolled HTN
h/o B/l BEATRICE - s/p stenting
- continue clonidine, hydralazine, labetalol and imdur
- continue nifedipine
- Added nighttime Aldactone dose.
-Increase dose of labetalol/Imdur per cards input
-Patient continues to have high and low blood pressure
5. BPH
- continue tamsulosin
6. CKDIIIB
-cr close to baseline, monitor.
7. Sinus tachycardia with PACs
-Overnight patient had episodes of anxiety and was noted to be somewhat tachycardic
-Initial concern of new A-fib although cardiology evaluated telemetry and patient have sinus tachycardia with PACs
-Cardiology recommended patient labetalol to be increased to 200 mg twice daily and
Gout
HLD
BPH
?COPD
DVT PPX - heparin sq
Code status - Full Code
More than 30 minutes spent in discharge including
Final examination of the patient
Summarizing hospital stay
Instructions for continuing care to all relevant caregivers
Preparation of discharge records, prescriptions, and referral forms
Total time spent (in minutes): 42 mins
Anticipated Discharge: Today
Subjective/Interval History
-
Date of Service: June 20, 2024
Resting comfortably in chair
Remains off of oxygen
Denies chest pain/palpitation
Objective Data
-
Labs:
Laboratory Results
06/20/24
07:57
WBC 14.0 H
Hgb 10.4 L
Hct 30.3 L
Plt Count 626 H
Sodium 130 L
Potassium 4.4
Chloride 97 L
Carbon Dioxide 20 L
BUN 33 H
Creatinine 1.8 H
Glucose 112 H
Calcium 9.3
Vital Signs:
Vital Signs
Temp Pulse Resp BP Pulse Ox
97.9 F 82 18 145/64 91
06/20/24 12:03 06/20/24 12:03 06/20/24 12:03 06/20/24 12:03 06/20/24 12:03
I&O
06/19/24 06/20/24 06/21/24
06:59 06:59 06:59
Intake Total 720 / 720
Output Total 425 / 425 550 / 550
Balance 295 / 295 -550 / -550
Review of Systems
-
Respiratory: Reports No Symptoms
Cardiac: Reports No Symptoms
Abdomen/GI: Reports No Symptoms
Physical Exam
-
General: Comfortable
HEENT: Negative Oxygen
Respiratory: Clear to Auscultation
Cardiac: Regular Rhythm and S1/S2; Negative Murmur or Rub
GI: Soft, Nontender, Nondistended and Ostomy
Musculoskeletal: No Edema
Neuro: Awake, Alert, Oriented, No Motor Deficits and Nonfocal/Grossly Intact
Psych: Calm
--- NOTE | 2024-06-20 18:20 | W.DCSUMMARY ---
Discharge Summary
Discharge Data
Date of Admission: 06/16/24
Date of Discharge: 06/20/24
-
Pending Results: No
Hospital Course
Discharging Physician : Dr Lucas Sow
Disposition : MD rehab
Primary care physician : Dr Stephen Suazo
Principal Discharge diagnosis :
Acute hypoxic respiratory failure
Bacterial pneumonia on COVID-19 viral infection
Euvolemic hyponatremia
Uncontrolled hypertension
Sinus tachycardia with premature atrial contractions
Chronic Discharge diagnosis :
Diastolic congestive heart failure
Benign prostatic hyperplasia
Chronic kidney disease stage IIIb
Gout
Hyperlipidemia
Questionable history of chronic obstructive pulmonary disease
Hospital Course :
Patient is a 83-year-old male with no mentioned was medical history came to ER with new onset of shortness of breath and cough. Patient was diagnosed with COVID-19 viral infection 10 days back and was recovering well until 2 days before ER
presentation when patient started to improve the cough and chest congestion and shortness of breath. In ER patient was noted to be hypoxic requiring 3 to 4 L oxygen through nasal cannula. Chest x-ray was showing patchy bilateral opacities.
Patient was diagnosed to likely having bacterial pneumonia with requiring COVID-19 viral infection. Legionella/strep urinary antigen were checked and negative. Patient was started on empiric antibiotic and was admitted in the hospital. Over next
few days patient continued to have slow improvement and was able to be weaned off of oxygen. Patient may have component of undiagnosed COPD and was recommended to follow-up with pulmonology in the office.
Patient also had some euvolemic hyponatremia which improved with free water restriction. Patient have a history of chronic diastolic heart failure and no signs of exacerbation, was maintained on regular dose of Lasix.
Patient with history of secondary hypertension which is very uncontrolled despite bilateral renal artery stenting for renal artery stenosis. Patient Aldactone/labetalol/Imdur dose was increased during this hospital stay. Patient have high
fluctuation in blood pressure and likely to be problematic on either end unfortunately unable to find any appropriate regimen to balance blood pressure. Patient will require continued follow-up with nephrology/primary care physician in the office
for further care.
Post medical stabilization patient was discharged to long term facility for rehab.
Important imaging findings :
None
Procedure findings :
None
Discharge Plan
-
Patient Disposition: Detention/SNF
Discharge Diagnosis/Procedures: Post covid pneumonia, Acute hypoxic resp failure, Hyponatremia
Condition: Fair
Diet: 2 Gram Sodium and Restrict fluids to 48 oz
Activity: As tolerated
Driving Restrictions: No driving
Bathing Restrictions: OK to Shower
Activity Restrictions/Additional Instructions:
Wound Care Instructions
Sacral ulcer-clean with saline, silicone border foam, change q 3 days and prn loosened dressing.
L inner buttocks open area-clean with saline, silicone border foam, change q 3 days and prn loosened dressing. If foam ineffective, apply barrier ointment TID instead.
Air mattress
turning schedule
Elevate heels off bed with pillow/s
Pressure redistributing chair cushion (i.e. Air chair cushion).
Follow up at wound care center call for an appointment.
Referrals:
Heron Kurtz MD [Active] - in one week
Stephen Suazo DO [Family Provider] - in one week
Prescriptions:
New
cefdinir 300 mg Capsule
300 mg PO Q12 Qty: 6 0RF
Rx Instructions:
Last dose 3/9 AM
alprazolam [Xanax] 0.25 mg tablet
0.25 mg PO BID PRN (Reason: anxiety) Qty: 6 0RF
isosorbide mononitrate 120 mg tablet extended release 24 hr
120 mg PO DAILY Qty: 30 2RF
labetalol 200 mg tablet
200 mg PO BID Qty: 60 0RF
Continued
atorvastatin 40 mg Tablet
40 mg PO HS
nifedipine 90 mg Tablet Extended Release
90 mg PO DAILY
tamsulosin 0.4 mg Capsule
0.8 mg PO HS
polyethylene glycol 3350 [Miralax] 17 gram/dose Powder
17 g PO HS
finasteride 5 mg Tablet
5 mg PO DAILY
cholecalciferol (vitamin D3) [Vitamin D3] 25 mcg (1,000 unit) Capsule
25 mcg PO DAILY
tiotropium bromide 18 mcg Capsule, W/Inhalation Device
18 mcg INHALATION R BID
budesonide-formoterol [Breyna] 80-4.5 mcg/actuation Hfa Aerosol Inhaler
2 puff INHALATION R BID
therapeutic multivitamin Tablet
1 tab PO HS
allopurinol 100 mg tablet
100 mg PO DAILY
aspirin 81 mg Tablet,Delayed Release (Dr/Ec)
81 mg PO DAILY
vitamin B complex Tablet
1 tab PO DAILY
psyllium husk [Fiber (psyllium husk)] 0.52 gram Capsule
0.52 g PO BID
docusate sodium [Colace] 100 mg Capsule
100 mg PO DAILY
ZzzQuil 50 mg/30 mL Liquid
50 mg PO HS
pantoprazole 40 mg Tablet,Delayed Release (Dr/Ec)
40 mg PO DAILY Qty: 90 3RF
hydralazine 100 mg Tablet
100 mg PO TID
clopidogrel 75 mg Tablet
75 mg PO DAILY Qty: 30 0RF
clonidine HCl 0.3 mg Tablet
0.3 mg PO BID Qty: 60 0RF
furosemide 40 mg tablet
40 mg PO NOON
Changed
spironolactone 25 mg Tablet
25 mg PO BID Qty: 30 0RF
Discontinued
labetalol 100 mg Tablet
100 mg PO BID Qty: 60 0RF
isosorbide mononitrate 60 mg Tablet Extended Release 24 Hr
60 mg PO DAILY
Discharge Orders:
Discharge Patient (As Directed); Ordered 06/20/24
Ordered By: Lucas Sow
Discharge Date and Time
Discharge Date/Time: 06/20/24 17:46
Print Language: WOLOF
== END 2024-06-20 17:46 | DRG 871 ==
LOC: 4 WEST ACU 23:44
PROVIDERS: Emergency Medicine; ADMITTING PHYSICIAN Internal Medicine; ATTENDING PHYSICIAN Hospitalist; EMERGENCY PHYSICIAN Emergency Medicine; FAMILY PHYSICIAN Internal Medicine; OTHER PHYSICIAN Internal Medicine
PROC: 5A09457 Assistance with Respiratory Ventilation, 24-96 Consecutive Hours, Continuous Positive Airway Pressure (ICD-10-PCS; 2024-06-17)
DX: A41.9 Sepsis, unspecified organism (principal); J15.9 Unspecified bacterial pneumonia; J96.01 Acute respiratory failure with hypoxia; U07.1 COVID-19; E87.1 Hypo-osmolality and hyponatremia; I13.0 Hypertensive heart and chronic kidney disease with heart failure and stage 1 through stage 4 chronic kidney disease, or unspecified chronic kidney disease; I50.32 Chronic diastolic (congestive) heart failure; J44.0 Chronic obstructive pulmonary disease with (acute) lower respiratory infection; N18.32 Chronic kidney disease, stage 3b; E11.22 Type 2 diabetes mellitus with diabetic chronic kidney disease; N40.0 Benign prostatic hyperplasia without lower urinary tract symptoms; M10.9 Gout, unspecified; E78.5 Hyperlipidemia, unspecified; I25.10 Atherosclerotic heart disease of native coronary artery without angina pectoris; Z95.1 Presence of aortocoronary bypass graft; Z79.899 Other long term (current) drug therapy; F41.9 Anxiety disorder, unspecified; E78.00 Pure hypercholesterolemia, unspecified; F17.200 Nicotine dependence, unspecified, uncomplicated; I70.1 Atherosclerosis of renal artery; K59.00 Constipation, unspecified; Z79.02 Long term (current) use of antithrombotics/antiplatelets; Z79.82 Long term (current) use of aspirin; Z88.1 Allergy status to other antibiotic agents; Z88.2 Allergy status to sulfonamides; Z93.3 Colostomy status; Z96.652 Presence of left artificial knee joint; L89.152 Pressure ulcer of sacral region, stage 2
CPT/HCPCS: 71046; 80048; 80053; 83605; 85025; 85027; 87040; 87449; 87641; 87899; 93005; 94640; 94660; 96365; 96366; 96375; 97110; 97116; 97163; 97167; 97530; 99285

== ENCOUNTER → 2024-06-23 10:03 | Outpatient (REF) | payer OTHER, SELFPAY ==
[2024-06-23 11:26] LABS: % Basophils 0.9 % (0-2); % Eosinophils 4.7 % (0-6); % Immature Granulocytes 1.2 % (0-0.5); % Lymphocytes 14.2 % (20.5-51.1); % Monocytes 12.3 % (1.7-9.3); % Neutrophils 66.7 % (42.2-75.2); Absolute Basophils 0.1 10^3/uL (0-0.2); Absolute Eosinophils 0.5 10^3/uL (0-0.7); Absolute Immature Granulocytes 0.1 10^3/uL (0-0.05); Absolute Lymphocytes 1.4 10^3/uL (1.2-3.4); Absolute Monocytes 1.2 10^3/uL (0.1-0.6); Absolute Neutrophils 6.6 10^3/uL (1.4-6.5); Hematocrit 25.5 % (39.0-52.0); Hemoglobin 8.7 g/dL (13.0-18.0); Mean Corp Hgb Conc. 34.1 g/dL (33.0-37.0); Mean Corpuscular Hgb 29.6 pg (27.0-31.0); Mean Corpuscular Volume 86.7 fL (80.0-94.0); Mean Platelet Volume 9.1 fL (7.4-10.4); Nucleated Red Blood Cells % 0 % (-); Platelet Count 537 10^3/uL (130-400); Red Blood Cell Count 2.94 10^6/uL (4.70-6.10); Red Cell Dist. Width 14.6 % (11.5-14.5); White Blood Cell Count 9.9 10^3/uL (4.8-10.8)
[2024-06-23 12:26] LABS: ALT (SGPT) 25 U/L (0-50); AST (SGOT) 27 U/L (17-59); Albumin 3.3 g/dl (3.5-5.0); Alkaline Phosphatase 152 U/L (38-126); Blood Urea Nitrogen 38 mg/dl (9-20); Calcium 8.7 mg/dl (8.4-10.2); Carbon Dioxide 19 mmol/L (22-30); Chloride 97 mmol/L (98-107); Glucose 103 mg/dl (70-99); Potassium 4.8 mmol/L (3.5-5.1); Sodium 129 mmol/L (135-145); Total Bilirubin 0.6 mg/dl (0.2-1.3); Total Protein 6.3 g/dl (6.3-8.2); eGFR 30.47
== END ==
LOC: OLABP 10:03
PROVIDERS: ATTENDING PHYSICIAN Internal Medicine
DX: J96.01 Acute respiratory failure with hypoxia (principal); J15.9 Unspecified bacterial pneumonia; E87.1 Hypo-osmolality and hyponatremia; I13.0 Hypertensive heart and chronic kidney disease with heart failure and stage 1 through stage 4 chronic kidney disease, or unspecified chronic kidney disease; N40.0 Benign prostatic hyperplasia without lower urinary tract symptoms; E11.9 Type 2 diabetes mellitus without complications; J44.9 Chronic obstructive pulmonary disease, unspecified; G47.33 Obstructive sleep apnea (adult) (pediatric); I10 Essential (primary) hypertension; E78.5 Hyperlipidemia, unspecified; N18.32 Chronic kidney disease, stage 3b; I25.10 Atherosclerotic heart disease of native coronary artery without angina pectoris
CPT/HCPCS: 36415; 80053; 85025

== ENCOUNTER → 2024-06-26 11:43 | Outpatient (REF) | payer OTHER, SELFPAY ==
[2024-06-26 12:35] LABS: % Basophils 0.9 % (0-2); % Eosinophils 4.6 % (0-6); % Immature Granulocytes 0.9 % (0-0.5); % Lymphocytes 17.6 % (20.5-51.1); % Monocytes 9.3 % (1.7-9.3); % Neutrophils 66.7 % (42.2-75.2); Absolute Basophils 0.1 10^3/uL (0-0.2); Absolute Eosinophils 0.4 10^3/uL (0-0.7); Absolute Immature Granulocytes 0.1 10^3/uL (0-0.05); Absolute Lymphocytes 1.5 10^3/uL (1.2-3.4); Absolute Monocytes 0.8 10^3/uL (0.1-0.6); Absolute Neutrophils 5.7 10^3/uL (1.4-6.5); Hematocrit 27.2 % (39.0-52.0); Hemoglobin 8.8 g/dL (13.0-18.0); Mean Corp Hgb Conc. 32.4 g/dL (33.0-37.0); Mean Corpuscular Hgb 28.8 pg (27.0-31.0); Mean Corpuscular Volume 88.9 fL (80.0-94.0); Mean Platelet Volume 8.8 fL (7.4-10.4); Nucleated Red Blood Cells % 0 % (-); Platelet Count 512 10^3/uL (130-400); Red Blood Cell Count 3.06 10^6/uL (4.70-6.10); White Blood Cell Count 8.5 10^3/uL (4.8-10.8)
[2024-06-26 12:38] LABS: ALT (SGPT) 22 U/L (0-50); AST (SGOT) 24 U/L (17-59); Albumin 3.6 g/dl (3.5-5.0); Alkaline Phosphatase 136 U/L (38-126); Blood Urea Nitrogen 35 mg/dl (9-20); Calcium 9.2 mg/dl (8.4-10.2); Carbon Dioxide 22 mmol/L (22-30); Chloride 98 mmol/L (98-107); Glucose 108 mg/dl (70-99); Potassium 4.8 mmol/L (3.5-5.1); Sodium 131 mmol/L (135-145); Total Bilirubin 0.7 mg/dl (0.2-1.3); Total Protein 6.7 g/dl (6.3-8.2); eGFR 39.26
== END ==
LOC: OLABP 11:43
PROVIDERS: ATTENDING PHYSICIAN Internal Medicine
DX: J96.01 Acute respiratory failure with hypoxia (principal); J15.9 Unspecified bacterial pneumonia; E87.1 Hypo-osmolality and hyponatremia; I13.0 Hypertensive heart and chronic kidney disease with heart failure and stage 1 through stage 4 chronic kidney disease, or unspecified chronic kidney disease; E11.9 Type 2 diabetes mellitus without complications; I25.10 Atherosclerotic heart disease of native coronary artery without angina pectoris
CPT/HCPCS: 36415; 80053; 85025

== ENCOUNTER → 2024-06-27 10:41 | Outpatient (REF) | payer OTHER, SELFPAY ==
[2024-06-27 13:05] LABS: % Eosinophils 4.7 % (0-6); % Immature Granulocytes 0.7 % (0-0.5); % Lymphocytes 18.1 % (20.5-51.1); % Monocytes 10.1 % (1.7-9.3); % Neutrophils 65.4 % (42.2-75.2); Absolute Basophils 0.1 10^3/uL (0-0.2); Absolute Eosinophils 0.4 10^3/uL (0-0.7); Absolute Immature Granulocytes 0.1 10^3/uL (0-0.05); Absolute Lymphocytes 1.6 10^3/uL (1.2-3.4); Absolute Monocytes 0.9 10^3/uL (0.1-0.6); Absolute Neutrophils 5.6 10^3/uL (1.4-6.5); Hematocrit 27.2 % (39.0-52.0); Hemoglobin 9.2 g/dL (13.0-18.0); Mean Corp Hgb Conc. 33.8 g/dL (33.0-37.0); Mean Corpuscular Hgb 29.2 pg (27.0-31.0); Mean Corpuscular Volume 86.3 fL (80.0-94.0); Mean Platelet Volume 9.1 fL (7.4-10.4); Nucleated Red Blood Cells % 0 % (-); Platelet Count 484 10^3/uL (130-400); Red Blood Cell Count 3.15 10^6/uL (4.70-6.10); Red Cell Dist. Width 15.1 % (11.5-14.5); White Blood Cell Count 8.6 10^3/uL (4.8-10.8)
[2024-06-27 13:19] LABS: ALT (SGPT) 20 U/L (0-50); AST (SGOT) 24 U/L (17-59); Albumin 3.4 g/dl (3.5-5.0); Alkaline Phosphatase 126 U/L (38-126); Blood Urea Nitrogen 34 mg/dl (9-20); Calcium 9.1 mg/dl (8.4-10.2); Carbon Dioxide 21 mmol/L (22-30); Chloride 101 mmol/L (98-107); Glucose 99 mg/dl (70-99); Potassium 4.6 mmol/L (3.5-5.1); Sodium 131 mmol/L (135-145); Total Bilirubin 0.5 mg/dl (0.2-1.3); Total Protein 6.5 g/dl (6.3-8.2); eGFR 39.26
== END ==
LOC: OLABP 10:41
PROVIDERS: ATTENDING PHYSICIAN Internal Medicine
DX: J96.01 Acute respiratory failure with hypoxia (principal); J15.9 Unspecified bacterial pneumonia; E87.1 Hypo-osmolality and hyponatremia; I13.0 Hypertensive heart and chronic kidney disease with heart failure and stage 1 through stage 4 chronic kidney disease, or unspecified chronic kidney disease; I50.32 Chronic diastolic (congestive) heart failure; N40.0 Benign prostatic hyperplasia without lower urinary tract symptoms; E11.9 Type 2 diabetes mellitus without complications; I45.10 Unspecified right bundle-branch block; J44.9 Chronic obstructive pulmonary disease, unspecified; G47.33 Obstructive sleep apnea (adult) (pediatric); I10 Essential (primary) hypertension; E78.5 Hyperlipidemia, unspecified; I25.10 Atherosclerotic heart disease of native coronary artery without angina pectoris; N18.32 Chronic kidney disease, stage 3b
CPT/HCPCS: 36415; 80053; 85025

== ENCOUNTER → 2024-08-11 11:12 | Outpatient (REF) | payer OTHER, SELFPAY | LOC: HWRAD 11:12 | PROVIDERS: ATTENDING PHYSICIAN Internal Medicine; FAMILY PHYSICIAN Internal Medicine; REFERRING PHYSICIAN Surgery Vascular Surgery | DX: R91.8 Other nonspecific abnormal finding of lung field (principal); I65.29 Occlusion and stenosis of unspecified carotid artery | CPT/HCPCS: 71250; 93880 ==